=== PATIENT | male | born 1965 | race Caucasian/White ===

== ENCOUNTER 2016-07-24 17:13 | Inpatient (IN) | payer OTHER ==
[2016-07-24] MEDS ORDERED: VANCOMYCIN HCL 1 GM in DEXTROSE 5 % IN WATER 250 ML IV ONE ×2 (19:21)
[2016-07-24] MEDS ORDERED: PIPERACILLIN SODIUM/TAZOBACTAM 3.375 GM in DEXTROSE 5 % IN WATER 100 ML IV ONE ×2 (19:21)
--- NOTE | 2016-07-24 19:36 | ERNOTE ---
Lower Extremity HPI - Narrative Date of Service: 07/24/16 - General Lower Extremities Pain: foot: left - Pain, Swelling, and Increase of Secretions Time Seen by Provider: 07/24/16 19:19 Source: patient, family Exam Limitations: no limitations - Immun/Allergies/Home Medications Immunizations: IMMUNIZATION HX Immunizations Up to Date Yes History of Influenza Vaccine Yes Hx Pneumococcal Vaccination Yes Allergies/Adverse Reactions: Allergies Allergy/AdvReac Type Severity Reaction Status Date / Time propoxyphene napsylate Allergy Mild RASH Verified 05/19/16 14:10 [From [facility] 100] Home Medications: HOME MEDICATIONS Alprazolam [Alprazolam ER] 2 tab PO HS 07/16/16 [Last Taken Unknown] Aripiprazole [Abilify] 0.5 tab PO DAILY 07/16/16 [Last Taken Unknown] Aspirin [Aspirin Enteric Coated] 81 mg PO DAILY 07/16/16 [Last Taken Unknown] Calcium Polycarbophil [Fibercon] 2 tab PO DAILY 07/16/16 [Last Taken Unknown] Citalopram Hydrobromide [Celexa] 40 mg PO DAILY 07/16/16 [Last Taken Unknown] Fenofibrate Nanocrystallized [Tricor] 145 mg PO DAILY 07/16/16 [Last Taken Unknown] Finasteride [Proscar] 5 mg PO DAILY 07/16/16 [Last Taken Unknown] Furosemide [Lasix] 40 mg PO DAILY 07/16/16 [Last Taken Unknown] Gabapentin 400 mg PO TID 07/16/16 [Last Taken Unknown] Gabapentin 800 mg PO TID 07/16/16 [Last Taken Unknown] Insulin Detemir [Levemir] 75 units SQ BID 07/16/16 [Last Taken Unknown] Insulin Lispro [Humalog] See Protocol SQ TID 07/16/16 [Last Taken Unknown] Levothyroxine Sodium [Synthroid] 50 mcg PO DAILY 07/16/16 [Last Taken Unknown] Lisinopril [Zestril] 20 mg PO DAILY 07/16/16 [Last Taken Unknown] Metoprolol Succinate [Toprol Xl] 50 mg PO DAILY 07/16/16 [Last Taken Unknown] Nitroglycerin [Nitrostat] 0.4 mg SL Q5MIN PRN 07/16/16 [Last Taken Unknown] Omeprazole 20 mg PO DAILY 07/16/16 [Last Taken Unknown] Pioglitazone HCl [Actos] 45 mg PO DAILY 07/16/16 [Last Taken Unknown] QUEtiapine FUMARATE [Seroquel] 3 tab PO HS 07/16/16 [Last Taken Unknown] QUEtiapine FUMARATE [Seroquel] 25 mg PO QAM 07/16/16 [Last Taken Unknown] Simvastatin [Zocor] 40 mg PO HS 07/16/16 [Last Taken Unknown] Sitagliptin Phosphate [Januvia] 100 mg PO DAILY 07/16/16 [Last Taken Unknown] Syringe & Needle,Insulin,1 ml [Easy-Touch Insulin Syringe] 0.3 ml MC 07/16/16 [ Last Taken Unknown] Syringe & Needle,Insulin,1 ml [Easy-Touch Insulin Syringe] 0.5 ml 07/16/16 [ Last Taken Unknown] Tamsulosin HCl [Flomax] 0.4 mg PO DAILY 07/16/16 [Last Taken Unknown] - History of Present Illness Narrative: Patient comes due to pain on the L sole area. Patient reported he has a sore that is getting bigger and is having pain on the area. has noticed an increase on secretions. Patient at the moment with no fever reported. Patient has an amputation on the area done at this facility previously. Occurred: other - Since the last 2 weeks is getting worse Location of Incident: home Method of Injury: Reports: other - Patient has been putting pressure on the area Reason for Fall: Reports: other - No Hx of fall reported Loss of Consciousness: Reports: no loss of consciousness Modifying Factors - (Improves): Reports: other - nothing Modifying Factors - (Worsens): Reports: movement, other - Putting pressure on the area Associated Symptoms: Reports: unable to bear weight. Denies: dizzy/light headedness, headache, weakness, sensory loss, chest pain, vomiting/diarrhea, bowel/bladder problems Other Injuries: Reports: none Subsequent Symptoms: Reports: sensory loss Prior Treament: Reports: recently seen - Patient was seen by Wound Care Review of Systems - Review of Systems Constitutional: Present: no symptoms reported EYE: Present: no symptoms reported ENT: Present: no symptoms reported Respiratory: Present: no symptoms reported Cardiology: Present: no symptoms reported Gastrointestinal/Abdominal: Present: no symptoms reported Genitourinary: Present: no symptoms reported Musculoskeletal: Present: other - Patient reported an ulcer on the L sole area of the foot. There is pain, swelling, and redness on the area. An increase on secretions was noticed. Skin: Present: lesions - Patient has open ulcer noticed on the L foot area (sole ) Neurological: Present: no symptoms reported Endocrine: Absent: flushing, intolerance to cold Hematologic/Lymphatic: Present: no symptoms reported Psych: Present: no symptoms reported All Other Systems: All systems neg except as marked - Patient's Past Medical History Patient History - Medical: Diabetes Type 2 Insulin Dependent, Depression, Hypothyroidism, Migraines Patient History - Cardiac/Respiratory: No pertinent hx Patient History - Cancer: No Hx of Cancer Patient History - Surgical Procedures: Amputation, T & A, Other Patient History - Other: None - Family History Father Family History - Medical: , Other Family History - Cardiac/Respiratory: COPD Mother Family History - Medical: , Diabetes Type 2 Uncle Family History - Medical: Alcohol Abuse, Diabetes Type 2 - Social History Living Situations: spouse Abuse History: No History of abuse Psych History: Hx of Depression Does anyone smoke in the home?: No Alcohol Use: rarely Drug Use: none - Immunizations Immunizations Up to Date: Yes Hx Pneumococcal Vaccination: Yes History of Influenza Vaccine: Yes Physical Exam - Physical Exam General Appearance: Present: wd/wn, alert, no apparent distress Eye Exam: Normal inspection: bilateral, PERRL: bilateral, EOMI: bilateral Ears, Nose, Throat: Present: normal ENT inspection, hearing grossly normal, normal pharynx Neck: Present: normal inspection, nontender Respiratory: Present: no respiratory distress, normal breath sounds, no accessory muscle use, chest nontender, lungs clear Cardiovascular/Chest: Present: regular rate, rhythm, no murmur, normal peripheral pulses Gastrointestinal/Abdominal: Present: normal bowel sounds, nontender, nondistended, soft, no organomegaly Back Exam: Present: normal inspection, normal range of motion, no CVA tenderness , no vertebral tenderness Extremity Exam: Present: pelvis stable, other - Patient has a grade 3 ulcer on the L sole of the foot. There is a strong smelling secretion noticed. On palaption drainage was noticed to come out of the foot. Patient has an associated area of erythema and pain on palpation. No crepitus was noticed on evaluation. No FB was felt on palpation. Absent: calf tenderness Neurological Exam: Present: alert, oriented, normal mood/affect, no motor/ sensory deficits Skin Exam: Present: other - Gread 3 ulcere at the sole of the L foot. Associated erythema noticed on the area.. Absent: diaphoresis, cyanosis, jaundice, skin rash Lymphatic Exam: Present: no adenopathy ED Progress - Date and Time Seen: Date and Time: 07/24/16 20:09 Patient with an infected non healing ulcer that failed out-patient Tx. - Results and Orders Patient's Lab Results:: I have reviewed the patient's lab results. Results and Orders: CBC: Noticed CMP: Noticed LA: Ordered BC: Ordered Sed Rate: Ordered - Vital Signs Patient's Vital Signs:: I have reviewed the patient's vital signs. Vital Signs: Vital Signs 07/24/16 17:43 Temperature 36.1 C L Pulse Rate 81 Respiratory 16 Rate Blood Pressure 128/66 O2 Sat by Pulse 96 Oximetry - X-Ray X-Ray #1 X-Ray: foot - L Foot: There are tracks noticed on the ulcer with soft tissue swelling. No FB found - Progress/Reassessment Chief Complaint: Lower Extremity Pain/ Injury Progress:: Unchanged - Transfer of Care Brief History: Patient comes due to pain, swelling, redness, and increase on secretion coming out of an ulcer on the sole of his L foot. Patient has Hx of a previous amputation done at [facility] previously. Patient has been seen at Wound Care and antibiotics has not improve his condition. Pending Results: Labs, X-ray results Expected Disposition: Admit Departure Clinical Impression: Infected pressure ulcer Qualifiers: Pressure ulcer stage: stage 3 Qualified Code(s): L89.93 - Pressure ulcer of unspecified site, stage 3 - Departure Disposition: [facility] Condition: Fair Referrals: Tai Max MD [Primary Care Provider] -
--- OUTSIDE RECORDS SUMMARY | 2016-07-24 19:38 | XMS REPORT | Continuity of Care Document ---
:1965 Author Organization [facility] ([facility]) [place] [address] Phone [phone] Care Team Providers Name Role Phone VitoAdelina Primary Care Provider [phone] Source Comments This disclosure is being made pursuant to the Care Everywhere program, applicable federal and state laws, and may not contain all informaitonavailable regarding this patient.[facility] ([facility]) Active Allergies and Adverse Reactions Allergen Noted Date Severity Reactions Comments Propoxyphene N-Acetaminophen 03/02/2012 Urticaria (Hives) Current Medications Prescription Sig. Disp. Refills Start Date End Date Status aspirin 81 mg tablet Take 81 mg by mouth Active daily. nitroglycerin 0.[address] 0.4 mg under the Active SL tablet tongue every 5 minutes as needed. enalapril 5 mg Take 1 Tab by mouth 30 Tab 5 03/02/2012 Active tablet daily. Indications: DIABETIC NEPHROPATHY, HYPERTENSION metFORMIN 500 mg Take 2 Tabs by mouth 2 120 Tab 5 05/30/2012 Active tablet times daily with meals. Hold until 06/04 when labs will be checked Indications: TYPE 2 DIABETES MELLITUS gabapentin 300 mg Take 2 Caps by mouth 3 180 Cap 5 06/04/2012 Active capsule times daily. Indications: NEUROPATHIC PAIN atorvastatin Take 1 Tab by mouth 30 Tab 1 10/12/2012 Active (LIPITOR) 10 mg every evening. tablet Indications: MIXED HYPERLIPIDEMIA glipiZIDE 5 mg Take 1 Tab by mouth 2 60 Tab 1 10/12/2012 Active tablet times daily with meals. Indications: TYPE 2 DIABETES MELLITUS omeprazole 40 mg Take 1 Cap by mouth 2 60 Cap 1 10/12/2012 Active extended release times daily. capsule Indications: GASTROESOPHAGEAL REFLUX sucralfate 1000 mg Take 1 Tab by mouth 4 120 Tab 1 10/12/2012 Active tablet times daily. 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 03/02/2012 Essential hypertension, benign 03/02/2012 Mixed hyperlipidemia 03/02/2012 Chest pain 03/02/2012 Health education/counseling 03/02/2012 Resolved Problems Problem Noted Date Resolved Date Type II or unspecified type diabetes mellitus without 03/02/2012 05/30/2012 mention of complication, uncontrolled Immunizations Name Dates Previously Given Next Due Influenza, PF 03/02/2012 Tdap 03/02/2012 Social History Tobacco Use Types Packs/Day Years Used Date Never Smoker Smokeless Tobacco: Never Used Comments:has a cigar once every 3 years Alcohol Use Drinks/Week oz/Week Comments No Last Filed Vital Signs Vital Sign Reading Time Taken Blood Pressure 164/90 06/04/2012 8:25 AM [employer] Pulse 94 06/04/2012 8:25 AM [employer] Temperature 35.8 C (96.4 F) 06/04/2012 8:25 AM [employer] Respiratory Rate - - Height 1.702 m (5' 7") 06/04/2012 8:25 AM [employer] Weight 95.709 kg (211 lb) 06/04/2012 8:25 AM [employer] Body Mass Index 33.04 06/04/2012 8:25 AM [employer] Oxygen Saturation 96% 05/30/2012 11:20 AM [employer] Plan of Care Patient Goal Type Goal Weight Weight below 91 kg (200 lb) Result Component % HBA1C below 7.0 Health Maintenance Due Date Last Done Comments HCV Screening 1965 Hepatitis B Vaccine (1 of 3 - Primary 1965 Series) MMR Vaccine 1982 Pneumococcal Vaccine (1 of 1 - PPSV23) 1983 DIABETIC: Retinal Eye Exam 03/02/2012 DIABETIC: Hemoglobin A1C 12/02/2012 06/04/2012, 03/02/2012 DIABETIC: Foot Exam 03/02/2013 03/02/2012, 03/02/2012 DIABETIC: Microalbumin 03/02/2013 03/02/2012 DIABETIC: Cholesterol 06/04/2013 06/04/2012, 03/02/2012 Diabetic: Hdl 06/04/2013 06/04/2012, 03/02/2012 Diabetic: Ldl 06/04/2013 06/04/2012, 03/02/2012 DIABETIC: Triglycerides 06/04/2013 06/04/2012, 03/02/2012 Colonoscopy 2014 Prostate Cancer Screening 2014 Influenza Vaccine: Seasonal (#1) 12/31/2015 03/02/2012 Td Vaccine 03/02/2022 03/02/2012 Tdap Vaccine Completed 03/02/2012 Results from Last 3 Months Not on file
[2016-07-24 19:45] LABS: Hematocrit 35.1 % (42.0-52.0); Hemoglobin 10.6 gm/dL (13.5-18.0); Mean Cell Volume 86.2 fl (78-100); Mean Corpuscular Hgb Conc 30.2 g/dl (32-36); Mean Platelet Volume 9.6 fl (6.0-9.5); Neutrophil # 3.1 K/mm3 (1.3-6.0); Neutrophil % 64.5 % (42-75.0); Platelet Count 145 K/mm3 (150-450); Red Blood Count 4.07 M/mm3 (4.7-6.0); Red Cell Distribution Width 15.6 % (11.5-14.0); White Blood Count 4.9 K/mm3 (4.0-10.5)
[2016-07-24] MEDS: NORMAL SALINE 1,000 ML IV SCH ×2 (19:59→23:55)
[2016-07-24 20:02] LABS: Albumin * 3.6 gm/dl (3.4-5.0); Anion Gap 11.8 mmol/L (6.8-13.8); BUN/Creatinine Ratio 16.5 (9.0-21.6); Bilirubin, Total 0.2 mg/dL (0.0-1.1); Ca. Corrected For Albumin 8.4 mg/dL (8.4-10.2); Calcium * 8.4 mg/dL (7.9-10.9); Carbon Dioxide 29.4 mmol/L (24-32.6); Potassium 4.2 mmol/L (3.4-4.6); Total Protein 7.2 gm/dL (6.2-8.2)
--- OUTSIDE RECORDS SUMMARY | 2016-07-24 20:12 | XMS REPORT | Continuity of Care Document ---
:1965 Author Organization [facility] ([facility]) [place] [address] Phone [phone] Care Team Providers Name Role Phone VitoAdelina Primary Care Provider [phone] Source Comments This disclosure is being made pursuant to the Care Everywhere program, applicable federal and state laws, and may not contain all informaitonavailable regarding this patient.[facility] ([facility]) Active Allergies and Adverse Reactions Allergen [...] Taken Blood Pressure 164/90 06/04/2012 8:25 AM [employer] Pulse 94 06/04/2012 8:25 AM [employer] Temperature 35.8 C (96.4 F) 06/04/2012 8:25 AM [employer] Respiratory Rate - - Height 1.702 m (5' 7") 06/04/2012 8:25 AM [employer] Weight 95.709 kg (211 lb) 06/04/2012 8:25 AM [employer] Body Mass Index 33.04 06/04/2012 8:25 AM [employer] Oxygen Saturation 96% 05/30/2012 11:20 AM [employer] Plan of Care Patient Goal Type Goal [...]
--- NOTE | 2016-07-24 21:33 | HP ---
<Maryjo Balderas - Last Filed: 07/25/16 05:47> Chief Complaint - Chief Complaint Date of Service: 07/24/16 Time of Service: 21:31 Chief Complaint: "Pain on LT foot stump, non healing wound/ulcer". Source of HPI- Pt reliable, ER provider report. Pt's EMR. History of Present Illness: Mr. Reid is a 51-yr-old WM pt of Dr. Max with a PMH of: Arthalgia, Depression, DM II, GERD, HLD, Neuropathy & Osteomyelitis. Pt has a chronic non- healing wound/ulceration on his LT foot stump and is being followed by Podiatry and also the [facility]ound [facility] for the cares. Pt reports that he has had the wound for about 9 months. Today, he says, he had increasing pain on wound site on the stump of LT foot. He called Podiatry and he was advised to come to [facility] ER. He denies fevers or chills. He denies noting any redness of the extremity, hotness or increasing drainage. Off-note, he has been noted to be non compliant with the cares of his wound. Reports show that he has continued to walk around his house without the boot on, hence putting more pressure on the amputation site as well as the ulceration. He was also not changing the dressings on his foot as advised. [facility]. During evaluation at the ED, the CBC was unremarkable. His CR was mildly elevated at 1.88. The X-ray film did not show any signs of osteomyelitis, however an early case could not be excluded with this imaging. He will be admitted under observation status as constant localized pain over area of infection is a common finding in OM and is considered a hallmark symptom. - Patient's Past Medical History Patient History - Medical: Diabetes Type 2 Insulin Dependent, Depression, GERD, Hypothyroidism, Migraines, Other - Neuropathy, Patient History - Cardiac/Respiratory: No pertinent hx, Hypertension, Hyperlipidemia Patient History - Cancer: No Hx of Cancer Patient History - Surgical Procedures: Amputation, T & A, Other Patient History - Other: None - Family History Father Family History - Medical: , Other - Liver Failure. Family History - Cardiac/Respiratory: COPD Mother Family History - Medical: , Diabetes Type 2 Uncle Family History - Medical: Alcohol Abuse, Diabetes Type 2 - Social History Living Situations: spouse Abuse History: No History of abuse Psych History: Hx of Depression Does anyone smoke in the home?: No Alcohol Use: rarely Drug Use: none - Immunizations Immunizations Up to Date: Yes Hx Pneumococcal Vaccination: Yes History of Influenza Vaccine: Yes Review Of Systems (GEN) - Review of Systems Generalized/Overall Review: Absent: Weakness, Chills, Fever EENTM: Absent: Eye Pain, Blurred Vision, Nose Congestion, Throat Pain Respiratory: Absent: Cough, Shortness of Breath, Orthopnea, Wheezing Cardiac: Absent: Chest Pain, Edema, Palpitations Abdominal: Absent: Nausea, Vomiting, Abdominal Pain Genitourinary: Present: Urgency. Absent: Burning, Itching Musculoskeletal: Absent: Joint Pain, Back Pain, Muscle Pain Neurological: Absent: Headache, Anxiety, Weakness Skin: Absent: Dryness, Lesions, Bruising Endocrine: Absent: Intolerance to Cold, Intolerance to Heat, Increased Thirst Immunizations: IMMUNIZATION HX Immunizations Up to Date Yes History of Influenza Vaccine Yes Hx Pneumococcal Vaccination Yes Allergies/Adverse Reactions: Allergies Allergy/AdvReac Type Severity Reaction Status Date / Time propoxyphene napsylate Allergy Mild RASH Verified 07/24/16 22:25 [From Darvocet-N 100] Home Medications: HOME MEDICATIONS Alprazolam [Alprazolam ER] 2 tab PO HS 07/16/16 [Last Taken Unknown] Aripiprazole [Abilify] 0.5 tab PO DAILY 07/16/16 [Last Taken Unknown] Aspirin [Aspirin Enteric Coated] 81 mg PO DAILY 07/16/16 [Last Taken Unknown] Calcium Polycarbophil [Fibercon] 2 tab PO BID 07/16/16 [Last Taken Unknown] Citalopram Hydrobromide [Celexa] 40 mg PO HS 07/16/16 [Last Taken Unknown] Fenofibrate Nanocrystallized [Tricor] 145 mg PO DAILY 07/16/16 [Last Taken Unknown] Finasteride [Proscar] 5 mg PO DAILY 07/16/16 [Last Taken Unknown] Furosemide [Lasix] 40 mg PO DAILY 07/16/16 [Last Taken Unknown] Gabapentin 800 mg PO TID 07/16/16 [Last Taken Unknown] Insulin Detemir [Levemir] 75 units SQ BID 07/16/16 [Last Taken Unknown] Insulin Lispro [Humalog] See Protocol SQ TID 07/16/16 [Last Taken Unknown] Levothyroxine Sodium [Synthroid] 50 mcg PO DAILY 07/16/16 [Last Taken Unknown] Lisinopril [Zestril] 20 mg PO DAILY 07/16/16 [Last Taken Unknown] Metoprolol Succinate [Toprol Xl] 50 mg PO DAILY 07/16/16 [Last Taken Unknown] Nitroglycerin [Nitrostat] 0.4 mg SL Q5MIN PRN 07/16/16 [Last Taken Unknown] Omeprazole 20 mg PO DAILY 07/16/16 [Last Taken Unknown] Pioglitazone HCl [Actos] 45 mg PO DAILY 07/16/16 [Last Taken Unknown] QUEtiapine FUMARATE [Seroquel] 3 tab PO HS 07/16/16 [Last Taken Unknown] QUEtiapine FUMARATE [Seroquel] 25 mg PO QAM 07/16/16 [Last Taken Unknown] Simvastatin [Zocor] 40 mg PO HS 07/16/16 [Last Taken Unknown] Sitagliptin Phosphate [Januvia] 100 mg PO DAILY 07/16/16 [Last Taken Unknown] Tamsulosin HCl [Flomax] 0.4 mg PO DAILY 07/16/16 [Last Taken Unknown] Disulfiram [Antabuse] 500 mg PO TID 07/24/16 [Last Taken Unknown] Exam - Exam Vital Signs: Vital Signs - Last Taken Temp 36.1 C L 07/24/16 17:43 Pulse 81 07/24/16 17:43 Resp 16 07/24/16 17:43 BP 128/66 07/24/16 17:43 Pulse Ox 96 07/24/16 17:43 Constitutional: Present: Alert, Oriented x3, No distress ENT Exam: Present: normal ENT inspection, hearing grossly normal, TMs normal. Absent: nasal congestion, nasal drainage Eye Exam: bilateral eye: normal inspection, PERRL Neck: Present: full range of motion, supple, normal inspection Back Exam: Present: no CVA tenderness Breasts: Present: Exam deferred Respiratory: Present: lungs clear, no accessory muscle use, No wheezing Cardiovascular/Chest: Present: regular rate, rhythm, no chest tenderness, no murmur Abdomen: Present: Normal bowel sounds, nontender, obese, firm /Rectal: Present: Exam deferred Extremity: Present: no pedal edema, other - Amputated LT foot Skin Exam: Present: no cyanosis, cool/dry, other - Non healing quarter size pressure sore on LT foot stump which is redenned, with mild yellowish drainage. No errythema or hotness on sorrounding skin area. Neurologic: Present: no motor/sensory deficits, alert, oriented x 3 Appearance: Present: appropriate appearance, appropriate insight Eye contact: Present: cooperative, good eye contact, normal speech Thoughts: Present: normal thought pattern, no apparent hallucination Diagnostic Studies: Abnormal Lab Results 07/24/16 07/24/16 Range/Units Unknown Unknown ESR 24 H (0-10) mm/hr Procalcitonin Less than 0.05 L (0.05-0.50) ng/mL Laboratory Results WBC 4.9 K/mm3 (4.0-10.5) 07/24/16 19:37 RBC 4.07 M/mm3 (4.7-6.0) L 07/24/16 19:37 Hgb 10.6 gm/dL (13.5-18.0) L 07/24/16 19:37 Hct 35.1 % (42.0-52.0) L 07/24/16 19:37 MCV 86.2 fl (78-100) 07/24/16 19:37 MCH 26.0 pg (27-31) L 07/24/16 19:37 MCHC 30.2 g/dl (32-36) L 07/24/16 19:37 RDW 15.6 % (11.5-14.0) H 07/24/16 19:37 Plt Count 145 K/mm3 (150-450) L 07/24/16 19:37 MPV 9.6 fl (6.0-9.5) H 07/24/16 19:37 Immature Gran % (Auto) 0.80 % (0.001-0.429) H 07/24/16 19:37 Immature Gran # (Auto) 0.04 K/mm3 (0.000-0.0310) H 07/24/16 19:37 Neutrophils % 64.5 % (42-75.0) 07/24/16 19:37 Lymphocytes % 26.1 % (20-51) 07/24/16 19:37 Monocytes % 5.3 % (0.0-9) 07/24/16 19:37 Eosinophils % 2.7 % (0.0-3.0) 07/24/16 19:37 Basophils % 0.6 % (0.0-1.0) 07/24/16 19:37 Nucleated RBC % 0.0 k/mm3 (0-1) 07/24/16 19:37 Neutrophils # 3.1 K/mm3 (1.3-6.0) 07/24/16 19:37 Lymphocytes # 1.3 k/mm3 (1.5-3.5) L 07/24/16 19:37 Monocytes # 0.3 k/mm3 (0.0-1.0) 07/24/16 19:37 Eosinophils # 0.1 k/mm3 (0.0-0.7) 07/24/16 19:37 Absolute Basophils 0.0 k/mm3 (0.0-0.1) 07/24/16 19:37 ESR 24 mm/hr (0-10) H 07/24/16 Unknown Sodium 143 mmol/L (132-142) H 07/24/16 19:37 Plasma Sodium 144 mmol/L (130-142) H 07/24/16 19:37 Potassium 4.2 mmol/L (3.4-4.6) 07/24/16 19:37 Chloride 106 mmol/L (97-106) 07/24/16 19:37 Carbon Dioxide 29.4 mmol/L (24-32.6) 07/24/16 19:37 Anion Gap 11.8 mmol/L (6.8-13.8) 07/24/16 19:37 BUN 31 mg/dL (6-23) H 07/24/16 19:37 Creatinine 1.88 mg/dL (0.4-1.4) H 07/24/16 19:37 Est GFR (Non-Af Amer) 40 mL/min (60-130) L 07/24/16 19:37 BUN/Creatinine Ratio 16.5 (9.0-21.6) 07/24/16 19:37 Random Glucose 168 mg/dL (70-110) H 07/24/16 19:37 Lactic Acid, Venous 0.8 mmol/L (0.4-2.0) 07/24/16 19:37 Calcium 8.4 mg/dL (7.9-10.9) 07/24/16 19:37 Calcium Adj for Albumin 8.4 mg/dL (8.4-10.2) 07/24/16 19:37 Total Bilirubin 0.2 mg/dL (0.0-1.1) 07/24/16 19:37 AST 16 U/L (0-48) 07/24/16 19:37 ALT 16 U/L (19-67) L 07/24/16 19:37 Alkaline Phosphatase 31 U/L (50-170) L 07/24/16 19:37 Total Protein 7.2 gm/dL (6.2-8.2) 07/24/16 19:37 Albumin 3.6 gm/dl (3.4-5.0) 07/24/16 19:37 Procalcitonin Less than 0.05 ng/mL (0.05-0.50) L 07/24/16 Unknown Assessment/Plan - Assessment/Plan (1) Osteomyelitis Assessment: Mr. Reid has a non- healing wound/ulcer on stump of LT foot and he presented to the ED with localized pain over the wound. The wound site does not seem to have signs of infection or cellulitis : no foul drainage, redness, or hotness and WBC was in NR. Therefore, antibiotics may be unnecessary at this time. Consider stopping Vanco and Zosyn as we wait for wound culture results or if OM is confirmed with MRI imaging. The X-ray of the ankle done at the ED tonight did not show any signs of Osteomyeltis, but an early case cannot be excluded with this imaging. So he may require MRI of the extremity. It must be noted that he previously had an MRI of that extremity on 07/07/16 and the results showed minimal marrow edema which could be indicative of reactive marrow edema or early Osteomyelitis. ESR was elevated at 24. Will check CRP. Consider obtaining MRI of the extremity tomorrow. Will consult Podiatry in am about pt's admission and any further recommendation. Problem: Suspected (2) Acute on chronic kidney failure Assessment: Mildly elevated Cr- 1.88. Will hydrate with IVF, BMP in am. Problem: Acute (3) History of non-healing wound Assessment: [facility] on [facility]/c Problem: Chronic (4) Diabetes mellitus Assessment: Stable- Accu checks and SSI & Levemir. Problem: Chronic QualifierTitle: Diabetes mellitus type: type 2 (5) HTN (hypertension) Assessment: Stable- Lisinopril & Metoprolol. Problem: Chronic QualifierTitle: Hypertension type: essential hypertension Qualified Code( s): I10 - Essential (primary) hypertension (6) GERD (gastroesophageal reflux disease) Assessment: Stable- Omeprazole. Problem: Chronic (7) Hyperlipidemia Problem: Chronic (8) Depression Problem: Chronic <Tai Max - Last Filed: 07/25/16 12:51> Immunizations: IMMUNIZATION HX Immunizations Up to Date Yes History of Influenza Vaccine Yes Hx Pneumococcal Vaccination Yes Exam - Exam Vital Signs: Vital Signs - Last Taken Temp 37 C 07/25/16 07:54 Pulse 68 07/25/16 08:18 Resp 20 07/25/16 07:54 BP 110/56 07/25/16 08:18 Pulse Ox 98 07/25/16 07:54 Diagnostic Studies: Abnormal Lab Results 07/24/16 07/24/16 07/25/16 Range/Units Unknown Unknown 05:48 ESR 24 H (0-10) mm/hr Chloride 108 H (97-106) mmol/L BUN 31 H (6-23) mg/dL Creatinine 1.66 H (0.4-1.4) mg/dL Est GFR (Non-Af Amer) 46 L (60-130) mL/min Random Glucose 133 H (70-110) mg/dL Calcium 7.7 L (7.9-10.9) mg/dL Procalcitonin Less than 0.05 L (0.05-0.50) ng/mL Laboratory Results WBC 4.9 K/mm3 (4.0-10.5) 07/24/16 19:37 RBC 4.07 M/mm3 (4.7-6.0) L 07/24/16 19:37 Hgb 10.6 gm/dL (13.5-18.0) L 07/24/16 19:37 Hct 35.1 % (42.0-52.0) L 07/24/16 19:37 MCV 86.2 fl (78-100) 07/24/16 19:37 MCH 26.0 pg (27-31) L 07/24/16 19:37 MCHC 30.2 g/dl (32-36) L 07/24/16 19:37 RDW 15.6 % (11.5-14.0) H 07/24/16 19:37 Plt Count 145 K/mm3 (150-450) L 07/24/16 19:37 MPV 9.6 fl (6.0-9.5) H 07/24/16 19:37 Immature Gran % (Auto) 0.80 % (0.001-0.429) H 07/24/16 19:37 Immature Gran # (Auto) 0.04 K/mm3 (0.000-0.0310) H 07/24/16 19:37 Neutrophils % 64.5 % (42-75.0) 07/24/16 19:37 Lymphocytes % 26.1 % (20-51) 07/24/16 19:37 Monocytes % 5.3 % (0.0-9) 07/24/16 19:37 Eosinophils % 2.7 % (0.0-3.0) 07/24/16 19:37 Basophils % 0.6 % (0.0-1.0) 07/24/16 19:37 Nucleated RBC % 0.0 k/mm3 (0-1) 07/24/16 19:37 Neutrophils # 3.1 K/mm3 (1.3-6.0) 07/24/16 19:37 Lymphocytes # 1.3 k/mm3 (1.5-3.5) L 07/24/16 19:37 Monocytes # 0.3 k/mm3 (0.0-1.0) 07/24/16 19:37 Eosinophils # 0.1 k/mm3 (0.0-0.7) 07/24/16 19:37 Absolute Basophils 0.0 k/mm3 (0.0-0.1) 07/24/16 19:37 ESR 24 mm/hr (0-10) H 07/24/16 Unknown Sodium 141 mmol/L (132-142) 07/25/16 05:48 Plasma Sodium 142 mmol/L (130-142) 07/25/16 05:48 Potassium 4.0 mmol/L (3.4-4.6) 07/25/16 05:48 Chloride 108 mmol/L (97-106) H 07/25/16 05:48 Carbon Dioxide 27.8 mmol/L (24-32.6) 07/25/16 05:48 Anion Gap 9.2 mmol/L (6.8-13.8) 07/25/16 05:48 BUN 31 mg/dL (6-23) H 07/25/16 05:48 Creatinine 1.66 mg/dL (0.4-1.4) H 07/25/16 05:48 Est GFR (Non-Af Amer) 46 mL/min (60-130) L 07/25/16 05:48 BUN/Creatinine Ratio 18.7 (9.0-21.6) 07/25/16 05:48 Random Glucose 133 mg/dL (70-110) H 07/25/16 05:48 Lactic Acid, Venous 0.8 mmol/L (0.4-2.0) 07/24/16 19:37 Calcium 7.7 mg/dL (7.9-10.9) L 07/25/16 05:48 Calcium Adj for Albumin 8.4 mg/dL (8.4-10.2) 07/24/16 19:37 Total Bilirubin 0.2 mg/dL (0.0-1.1) 07/24/16 19:37 AST 16 U/L (0-48) 07/24/16 19:37 ALT 16 U/L (19-67) L 07/24/16 19:37 Alkaline Phosphatase 31 U/L (50-170) L 07/24/16 19:37 Total Protein 7.2 gm/dL (6.2-8.2) 07/24/16 19:37 Albumin 3.6 gm/dl (3.4-5.0) 07/24/16 19:37 Procalcitonin Less than 0.05 ng/mL (0.05-0.50) L 07/24/16 Unknown Assessment/Plan - Narrative Narrative: Record reviewed. Patient examined. Wound looking good today. Podiatry consult pending. Follow labs. Continue IV antibiotics. I personally supervised all of Maryjo Balderas's care for this patient.
[2016-07-24] MEDS ORDERED: NITROGLYCERIN 0.4 MG/TAB BTL SL PRN (22:31)
[2016-07-24] MEDS: INSULIN DETEMIR 100 UNITS/ML VIAL SC SCH (23:58)
[2016-07-25] MEDS: GABAPENTIN 400 MG CAPSULE PO SCH ×4 (00:01→16:51)
[2016-07-25] MEDS: CITALOPRAM HYDROBROMIDE 20 MG TABLET PO SCH ×2 (00:01→20:13)
[2016-07-25] MEDS: QUEtiapine FUMARATE 25 MG TABLET PO SCH ×3 (00:01→20:17)
[2016-07-25 06:15] LABS: Anion Gap 9.2 mmol/L (6.8-13.8); BUN/Creatinine Ratio 18.7 (9.0-21.6); Calcium * 7.7 mg/dL (7.9-10.9); Carbon Dioxide 27.8 mmol/L (24-32.6); Estimated Creat Clear 50.4
[2016-07-25] MEDS: NORMAL SALINE 1,000 ML IV SCH ×3 (06:45→22:18)
[2016-07-25] MEDS: PANTOPRAZOLE SODIUM 20 MG TABLET.DR PO SCH (06:46)
[2016-07-25] MEDS: FUROSEMIDE 40 MG TABLET PO SCH (08:12)
[2016-07-25] MEDS: ARIPiprazole 10 MG TABLET PO SCH (08:12)
[2016-07-25] MEDS: PIOGLITAZONE HCL 15 MG TABLET PO SCH (08:12)
[2016-07-25] MEDS: sitaGLIPtin PHOSPHATE 50 MG TABLET PO SCH (08:13)
[2016-07-25] MEDS: INSULIN LISPRO 100 UNITS/ML VIAL SC SCH ×3 (08:13→16:51)
[2016-07-25] MEDS: INSULIN DETEMIR 100 UNITS/ML VIAL SC SCH ×2 (08:13→21:41)
[2016-07-25] MEDS: ASPIRIN 81 MG TABLET.DR PO SCH (08:13)
[2016-07-25] MEDS: CALCIUM POLYCARBOPHIL 625 MG TABLET PO SCH ×3 (08:13→20:16)
[2016-07-25] MEDS: FENOFIBRATE,MICRONIZED 134 MG CAPSULE PO SCH (08:14)
[2016-07-25] MEDS: LEVOTHYROXINE SODIUM 50 MCG TABLET PO SCH (08:14)
[2016-07-25] MEDS: FINASTERIDE 5 MG TABLET PO SCH (08:14)
[2016-07-25] MEDS: METOPROLOL SUCCINATE 50 MG TABLET.SA PO SCH (08:18)
[2016-07-25] MEDS: LISINOPRIL 20 MG TABLET PO SCH (08:18)
[2016-07-25] MEDS ORDERED: TAMSULOSIN HCL 0.4 MG CAP.SR.24H PO SCH (09:00)
[2016-07-25] MEDS: ENOXAPARIN SODIUM 40 MG/0.4 ML SYRG SC SCH (11:18)
--- NOTE | 2016-07-25 13:16 | PN ---
Subjective - Date and Time Seen Date: 07/25/16 Time: 07:10 Subjective Narrative: No fever, chills or sweats. Good appetite. Pain well enough controlled Objective - Review of Systems Generalized/Overall Review: Reports: No Symptoms Reported EENTM: Reports: No Symptoms Reported Respiratory: Reports: No Symptoms Reported Cardiac: Reports: No Symptoms Reported Abdominal: Reports: No Symptoms Reported Genitourinary Symptoms: Reports: No Symptoms Reported Musculoskeletal Complaints: Reports: No Symptoms Reported Neurological: Reports: No Symptoms Reported Skin: Reports: Other - see HPI Endocrine: Reports: No Symptoms Reported Misc: All systems neg except as marked - Vitals Vitals: Last Vital Signs Selected Entries 07/25/16 06:55 Temperature 36.6 C Temperature Oral Source Pulse Rate 68 Respiratory 20 Rate Blood Pressure 127/48 O2 Sat by Pulse 98 Oximetry Oxygen Delivery Room Air Method - Abnormal Lab Findings Abnormal Lab Findings: Abnormal Lab Results 07/24/16 07/24/16 07/25/16 Range/Units Unknown Unknown 05:48 ESR 24 H (0-10) mm/hr Chloride 108 H (97-106) mmol/L BUN 31 H (6-23) mg/dL Creatinine 1.66 H (0.4-1.4) mg/dL Est GFR (Non-Af Amer) 46 L (60-130) mL/min Random Glucose 133 H (70-110) mg/dL Calcium 7.7 L (7.9-10.9) mg/dL Procalcitonin Less than 0.05 L (0.05-0.50) ng/mL - Exam Constitutional: Present: Alert, Oriented x3, Cooperative, Well developed, No distress, Obese ENT Exam: Present: normal ENT inspection, hearing grossly normal, pharynx normal Neck: Present: normal inspection Respiratory: Present: lungs clear, no respiratory distress Cardiovascular/Chest: Present: regular rate, rhythm, no murmur Abdomen: Present: Normal bowel sounds, soft, nontender, nondistended, no rebound tenderness, no hepatospenomegaly, no masses Extremity: Present: other - open wound leg stump, stage 2. surrounding pink skin, no drainage. Neurologic: Present: alert, oriented x 3 Appearance: Present: appropriate appearance, neat Eye contact: Present: cooperative, good eye contact, normal speech Assessment/Plan Plan Narrative: IV antibiotics. Follow labs. Podiatry consult. - Problems/Diagnosis (1) Infected pressure ulcer Problem: Chronic Qualifiers: Pressure ulcer stage: stage 2 Qualified Code(s): L89.92 - Pressure ulcer of unspecified site, stage 2 (2) Diabetes mellitus Problem: Chronic Qualifiers: Diabetes mellitus type: type 2 (3) HTN (hypertension) Problem: Chronic Qualifiers: Hypertension type: essential hypertension Qualified Code(s): I10 - Essential (primary) hypertension (4) History of non-healing wound Problem: Chronic (5) Charcot foot due to diabetes mellitus Problem: Chronic (6) Diabetic peripheral neuropathy Problem: Chronic (7) Hyperlipidemia Problem: Chronic (8) Hypertension Problem: Chronic
[2016-07-25] MEDS: PIPERACILLIN SODIUM/TAZOBACTAM 3.375 GM in DEXTROSE 5 % IN WATER 100 ML IV SCH ×4 (14:14→20:39)
--- NOTE | 2016-07-25 16:05 | CONS ---
- Reason for consultation (1) Infected pressure ulcer Date of Service: 07/25/16 (2) Foot pain, left Date of Service: 07/25/16 (3) Osteomyelitis Date of Service: 07/25/16 HPI - General Date of Service: 07/25/16 Source: patient Exam Limitations: no limitations - History of Present Illness Initial Comments: Pt called to my office yesterday with c/o 2 day h/o pain to his left foot. 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 He not been compliant with weight bearing status of this foot and continues to walk without his boot around his house despite strict instructions of minimal weight bearing in CAM boot with crutch assist. He has been instructed on daily dressing changes and states that they are being changed as instructed. He states that 2 days ago, while sitting at his computer, his foot began to ache. He elevated the foot and states that the pain improved. The next day the pain returned and he has not been able to control it. He was instructed by my nursing staff to go to the ER as pain in an otherwise insensate foot is not a good sign. He was admitted for further care. Timing/Duration: getting worse Severity: moderate Modifying Factors - (Worsens): Reports: movement Modifying Factors - (Improves): Reports: rest Associated Symptoms: denies symptoms Allergies/Adverse Reactions: Allergies propoxyphene napsylate [From Darvocet-N 100] Allergy (Mild, Verified 07/24/16 22 :25) RASH Home Medications: Home Medications Medication Instructions Recorded Last Taken Alprazolam [Alprazolam ER] 2 tab PO HS 07/16/16 Unknown Aripiprazole [Abilify] 0.5 tab PO DAILY 07/16/16 Unknown Aspirin [Aspirin Enteric Coated] 81 mg PO DAILY 07/16/16 Unknown Calcium Polycarbophil [Fibercon] 2 tab PO BID 07/16/16 Unknown Citalopram Hydrobromide [Celexa] 40 mg PO HS 07/16/16 Unknown Fenofibrate Nanocrystallized 145 mg PO DAILY 07/16/16 Unknown [Tricor] Finasteride [Proscar] 5 mg PO DAILY 07/16/16 Unknown Furosemide [Lasix] 40 mg PO DAILY 07/16/16 Unknown Gabapentin 800 mg PO TID 07/16/16 Unknown Insulin Detemir [Levemir] 75 units SQ BID 07/16/16 Unknown Insulin Lispro [Humalog] See Protocol SQ TID 07/16/16 Unknown Levothyroxine Sodium [Synthroid] 50 mcg PO DAILY 07/16/16 Unknown Lisinopril [Zestril] 20 mg PO DAILY 07/16/16 Unknown Metoprolol Succinate [Toprol Xl] 50 mg PO DAILY 07/16/16 Unknown Nitroglycerin [Nitrostat] 0.4 mg SL Q5MIN PRN 07/16/16 Unknown Omeprazole 20 mg PO DAILY 07/16/16 Unknown Pioglitazone HCl [Actos] 45 mg PO DAILY 07/16/16 Unknown QUEtiapine FUMARATE [Seroquel] 3 tab PO HS 07/16/16 Unknown QUEtiapine FUMARATE [Seroquel] 25 mg PO QAM 07/16/16 Unknown Simvastatin [Zocor] 40 mg PO HS 07/16/16 Unknown Sitagliptin Phosphate [Januvia] 100 mg PO DAILY 07/16/16 Unknown Tamsulosin HCl [Flomax] 0.4 mg PO DAILY 07/16/16 Unknown Disulfiram [Antabuse] 500 mg PO TID 07/24/16 Unknown - Patient's Past Medical History Patient History - Medical: Diabetes Type 2 Insulin Dependent, Depression, GERD, Hypothyroidism, Migraines, Other - Neuropathy, Patient History - Cardiac/Respiratory: No pertinent hx, Hypertension, Hyperlipidemia Patient History - Cancer: No Hx of Cancer Patient History - Surgical Procedures: Amputation, T & A, Other Patient History - Other: None - Family History Father Family History - Medical: , Other - Liver Failure. Family History - Cardiac/Respiratory: COPD Mother Family History - Medical: , Diabetes Type 2 Family History - Cardiac/Respiratory: CHF Uncle Family History - Medical: Alcohol Abuse, Diabetes Type 2 - Social History Living Situations: spouse Abuse History: No History of abuse Psych History: Hx of Depression Does anyone smoke in the home?: No Smoking Status: Former smoker Have you smoked in the past 12 months: No Do you dip or chew tobacco: No Patient requests Smoking Cessation Consult: No Initiate information on Smoking Cessation: No Alcohol Use: rarely Drug Use: none - Immunizations Immunizations Up to Date: Yes Hx Pneumococcal Vaccination: Yes History of Influenza Vaccine: Yes Procedures AMPUTATION THROUGH FOOT (11/07/14) BUNIONECTOMY NEC (04/05/14) MUSC/TEND LNG CHANGE NEC (04/05/14) MYRINGOTOMY W INTUBATION (02/16/14) OTHER CAST APPLICATION (12/15/12) TOE AMPUTATION (07/09/14) Medications - Medications Current Medications: Current Medications Aripiprazole (Abilify) 10 mg PO DAILY [facility] Stop: 08/24/16 09:01 Last Admin: 07/25/16 08:12 Dose: 10 mg Aspirin (Aspirin Enteric Coated) 81 mg PO DAILY [facility] Stop: 08/24/16 09:01 Last Admin: 07/25/16 08:13 Dose: 81 mg Calcium Polycarbophil (Fibercon) 1,250 mg PO BID [facility] Stop: 08/23/16 22:46 Last Admin: 07/25/16 08:13 Dose: 1,250 mg Citalopram Hydrobromide (Celexa) 40 mg PO HS [facility] Stop: 08/23/16 23:01 Last Admin: 07/25/16 00:01 Dose: 40 mg Enoxaparin Sodium (Lovenox) 40 mg SC Q24H [facility] Stop: 08/24/16 10:01 Last Admin: 07/25/16 11:18 Dose: 40 mg Fenofibrate (Lofibra) 134 mg PO DAILY [facility] Stop: 08/24/16 09:01 Last Admin: 07/25/16 08:14 Dose: 134 mg Finasteride (Proscar) 5 mg PO DAILY [facility] Stop: 08/24/16 09:01 Last Admin: 07/25/16 08:14 Dose: 5 mg Furosemide (Lasix) 40 mg PO DAILY [facility] Stop: 08/24/16 09:01 Last Admin: 07/25/16 08:12 Dose: 40 mg Gabapentin (Neurontin) 800 mg PO TID [facility] Stop: 08/23/16 23:01 Last Admin: 07/25/16 12:36 Dose: 800 mg Sodium Chloride (Sodium Chloride 0.9%) 1,000 mls @ 125 mls/hr IV .Q8H [facility] Stop: 08/23/16 19:31 Last Admin: 07/25/16 12:35 Dose: 125 mls/hr Piperacillin Sod/Tazobactam (Sod 3.375 gm/ Dextrose/Water) 100 mls @ 25 mls/hr IV Q8H [facility] Stop: 08/24/16 13:31 Last Admin: 07/25/16 14:14 Dose: 25 mls/hr Insulin Detemir (Levemir) 75 units SC BID [facility] Stop: 08/23/16 22:46 Last Admin: 07/25/16 08:13 Dose: 75 units Insulin Human Lispro (Humalog) 1 units SC TID [facility] PRN Reason: Protocol Stop: 08/24/16 09:01 Last Admin: 07/25/16 12:26 Dose: Not Given Levothyroxine Sodium (Synthroid) 50 mcg PO DAILY [facility] Stop: 08/24/16 09:01 Last Admin: 07/25/16 08:14 Dose: 50 mcg Lisinopril (Zestril) 20 mg PO DAILY [facility] Stop: 08/24/16 09:01 Last Admin: 07/25/16 08:18 Dose: 20 mg Metoprolol Succinate (Toprol Xl) 50 mg PO DAILY [facility] Stop: 08/24/16 09:01 Last Admin: 07/25/16 08:18 Dose: 50 mg Pantoprazole Sodium (Protonix) 20 mg PO DAILY@0700 [facility] Stop: 08/24/16 07:01 Last Admin: 07/25/16 06:46 Dose: 20 mg Pioglitazone HCl (Actos) 45 mg PO DAILY [facility] Stop: 08/24/16 09:01 Last Admin: 07/25/16 08:12 Dose: 45 mg Quetiapine Fumarate (Seroquel) 75 mg PO HS [facility] Stop: 08/23/16 23:01 Last Admin: 07/25/16 00:01 Dose: 75 mg Quetiapine Fumarate (Seroquel) 25 mg PO QAM [facility] Stop: 08/24/16 09:01 Last Admin: 07/25/16 08:14 Dose: 25 mg Sitagliptin Phosphate (Januvia) 100 mg PO DAILY [facility] Stop: 08/24/16 09:01 Last Admin: 07/25/16 08:13 Dose: 100 mg Review of Systems - Review of Systems Generalized/Overall Review: Present: Weight gain Cardiac: Present: Edema Musculoskeletal: Present: Other - left foot pain Neurological: Present: Numbness Skin: Present: Other - ulceration left foot Misc: All systems neg except as marked Physical Examination - Exam Vital Signs: Vital Signs - Last Taken Temp 36.8 C 07/25/16 14:14 Pulse 76 07/25/16 14:14 Resp 18 07/25/16 14:14 BP 109/58 07/25/16 14:14 Pulse Ox 98 07/25/16 14:14 O2 Oxygen Delivery Method Room Air Constitutional: Present: Alert, Oriented x3, Cooperative Peripheral Pulses: dorsalis-pedis (L): 0 - DP and PT pulse non-palpable, triphasic on doppler Abdomen: Present: distended Extremity: Present: lower extremity edema, other - Pain to plantar left foot amputation stump. Skin Exam: Present: other - Ulceration to plantar left foot measuring 1.5 x 1.7 x 3 cm. No tunneling or undermining. Loss of tissue to full thickness with exposure of subcutaneous fat layer. Wound bed covered with red granulation tissue, surrounding tissue pink and intact. Moderate serous drainage, no malodor. No exposed tendon, however bone can be palpated with a probe through the center of the ulcer. Neurologic: Present: sensory deficit - Results and Findings: Lab/Microbiology results last 24 hrs: Abnormal/Pending Laboratory Last 24 HRS 07/25/16 07/24/16 07/24/16 05:48 Unknown Unknown ESR 24 H Chloride 108 H BUN 31 H Creatinine 1.66 H Est GFR (Non-Af Amer) 46 L Random Glucose 133 H Calcium 7.7 L Procalcitonin Less than 0.05 L - Assessments/Findings (1) Infected pressure ulcer Diagnosis(s): IV ABX as ordered. Will get wound culture and adjust accordingly. Daily dressing changes with Aquacel Ag, dry gauze, and YANCY bandage. Problem: Chronic Qualifiers: Pressure ulcer stage: stage 2 Qualified Code(s): L89.92 - Pressure ulcer of unspecified site, stage 2 (2) Foot pain, left Diagnosis(s): IV ABX as ordered. Elevate LE at rest. Problem: Chronic (3) Osteomyelitis Diagnosis(s): Discussed with pt getting a bone culture to asses for infection. Pt will consider and possibly plan to perform on Thursday. Will order bone scan to evaluate and compare to recent MRI. Problem: Suspected Qualifiers: Osteomyelitis type: other chronic Osteomyelitis location: foot Laterality : left Qualified Code(s): M86.672 - Other chronic osteomyelitis, left ankle and foot
[2016-07-25] MEDS: VANCOMYCIN HCL 1 GM in DEXTROSE 5 % IN WATER 250 ML IV SCH ×2 (18:05)
[2016-07-25] MEDS: TAMSULOSIN HCL 0.4 MG CAP.SR.24H PO SCH (20:12)
[2016-07-25] MEDS: SIMVASTATIN 40 MG TABLET PO SCH (20:18)
[2016-07-25] MEDS: ALPRAZolam 1 MG TABLET PO SCH (20:39)
[2016-07-26] MEDS: VANCOMYCIN HCL 1 GM in DEXTROSE 5 % IN WATER 250 ML IV SCH ×4 (04:35→18:01)
[2016-07-26 06:32] LABS: Hematocrit 31.2 % (42.0-52.0); Hemoglobin 9.4 gm/dL (13.5-18.0); Mean Corpuscular Hemoglobin 25.9 pg (27-31); Mean Corpuscular Hgb Conc 30.1 g/dl (32-36); Mean Platelet Volume 9.6 fl (6.0-9.5); Neutrophil # 3.5 K/mm3 (1.3-6.0); Neutrophil % 74.4 % (42-75.0); Platelet Count 125 K/mm3 (150-450); Red Blood Count 3.63 M/mm3 (4.7-6.0); Red Cell Distribution Width 15.7 % (11.5-14.0); White Blood Count 4.7 K/mm3 (4.0-10.5)
[2016-07-26 06:39] LABS: Anion Gap 13.1 mmol/L (6.8-13.8); BUN/Creatinine Ratio 17.6 (9.0-21.6); Carbon Dioxide 26.7 mmol/L (24-32.6); Estimated Creat Clear 44.7; Potassium 3.8 mmol/L (3.4-4.6)
[2016-07-26] MEDS: PIPERACILLIN SODIUM/TAZOBACTAM 3.375 GM in DEXTROSE 5 % IN WATER 100 ML IV SCH ×6 (07:16→21:02)
[2016-07-26] MEDS: PANTOPRAZOLE SODIUM 20 MG TABLET.DR PO SCH (07:17)
[2016-07-26] MEDS: NORMAL SALINE 1,000 ML IV SCH ×2 (08:07→19:37)
[2016-07-26] MEDS: PIOGLITAZONE HCL 15 MG TABLET PO SCH (10:04)
[2016-07-26] MEDS: ARIPiprazole 10 MG TABLET PO SCH (10:04)
[2016-07-26] MEDS: CALCIUM POLYCARBOPHIL 625 MG TABLET PO SCH ×2 (10:04→20:42)
[2016-07-26] MEDS: ASPIRIN 81 MG TABLET.DR PO SCH (10:04)
[2016-07-26] MEDS: sitaGLIPtin PHOSPHATE 50 MG TABLET PO SCH (10:05)
[2016-07-26] MEDS: FUROSEMIDE 40 MG TABLET PO SCH (10:05)
[2016-07-26] MEDS: INSULIN LISPRO 100 UNITS/ML VIAL SC SCH ×3 (10:05→17:25)
[2016-07-26] MEDS: INSULIN DETEMIR 100 UNITS/ML VIAL SC SCH ×2 (10:06→20:59)
[2016-07-26] MEDS: FENOFIBRATE,MICRONIZED 134 MG CAPSULE PO SCH (10:06)
[2016-07-26] MEDS: GABAPENTIN 400 MG CAPSULE PO SCH ×3 (10:06→17:26)
[2016-07-26] MEDS: FINASTERIDE 5 MG TABLET PO SCH (10:07)
[2016-07-26] MEDS: LEVOTHYROXINE SODIUM 50 MCG TABLET PO SCH (10:07)
[2016-07-26] MEDS: QUEtiapine FUMARATE 25 MG TABLET PO SCH ×2 (10:07→20:44)
[2016-07-26] MEDS: METOPROLOL SUCCINATE 50 MG TABLET.SA PO SCH (10:07)
[2016-07-26] MEDS: ENOXAPARIN SODIUM 40 MG/0.4 ML SYRG SC SCH (10:07)
[2016-07-26] MEDS: LISINOPRIL 20 MG TABLET PO SCH (10:07)
[2016-07-26] MEDS: ACETAMINOPHEN 325 MG TABLET PO PRN (13:42)
--- NOTE | 2016-07-26 15:32 | PN ---
Subjective - Date and Time Seen Date: 07/26/16 Time: 15:27 Subjective Narrative: No fever, chills or sweats. Good appetite. Pain well enough controlled, except left shoulder hurts from lieing on the MRI table. MRI shows two abscesses plantar surface of foot. Objective - Review of Systems Generalized/Overall Review: Reports: No Symptoms Reported EENTM: Reports: No Symptoms Reported Respiratory: Reports: No Symptoms Reported Cardiac: Reports: No Symptoms Reported Abdominal: Reports: No Symptoms Reported Genitourinary Symptoms: Reports: No Symptoms Reported Musculoskeletal Complaints: Reports: Other - see HPI Neurological: Reports: No Symptoms Reported Skin: Reports: No Symptoms Reported Endocrine: Reports: No Symptoms Reported Misc: All systems neg except as marked - Vitals Vitals: Last Vital Signs Selected Entries 07/26/16 07/26/16 09:00 10:07 Temperature 36.4 C L Temperature Oral Source Pulse Rate 67 67 Respiratory 20 Rate Blood Pressure 104/50 104/50 O2 Sat by Pulse 96 Oximetry Oxygen Delivery Room Air Method - Abnormal Lab Findings Abnormal Lab Findings: Abnormal Lab Results 07/26/16 07/26/16 Range/Units 06:00 06:00 RBC 3.63 L (4.7-6.0) M/mm3 Hgb 9.4 L (13.5-18.0) gm/dL Hct 31.2 L (42.0-52.0) % MCH 25.9 L (27-31) pg MCHC 30.1 L (32-36) g/dl RDW 15.7 H (11.5-14.0) % Plt Count 125 L (150-450) K/mm3 MPV 9.6 H (6.0-9.5) fl Immature Gran % (Auto) 0.90 H (0.001-0.429) % Immature Gran # (Auto) 0.04 H (0.000-0.0310) K/mm3 Lymphocytes % 17.9 L (20-51) % Lymphocytes # 0.8 L (1.5-3.5) k/mm3 BUN 33 H (6-23) mg/dL Creatinine 1.87 H (0.4-1.4) mg/dL Est GFR (Non-Af Amer) 41 L (60-130) mL/min Random Glucose 58 L D (70-110) mg/dL - Exam Constitutional: Present: Alert, Oriented x3, Cooperative, Well developed, No distress, Obese ENT Exam: Present: normal ENT inspection, hearing grossly normal Neck: Present: supple, normal inspection Respiratory: Present: lungs clear, no respiratory distress Cardiovascular/Chest: Present: regular rate, rhythm, no murmur Abdomen: Present: Normal bowel sounds, soft, nontender, nondistended, no rebound tenderness, no hepatospenomegaly, no masses, obese Extremity: Present: other - wound the same Neurologic: Present: alert, oriented x 3 Appearance: Present: appropriate appearance, appropriate insight, neat, no memory impairment Eye contact: Present: cooperative, good eye contact, normal speech Thoughts: Present: normal thought pattern Assessment/Plan Plan Narrative: Continue IV antibiotics. Treat left shoulder pain. Follow labs. Will need I& D in surgery on Thursday. - Problems/Diagnosis (1) Infected pressure ulcer Problem: Chronic Qualifiers: Pressure ulcer stage: stage 2 Qualified Code(s): L89.92 - Pressure ulcer of unspecified site, stage 2 (2) Diabetes mellitus Problem: Chronic Qualifiers: Diabetes mellitus type: type 2 (3) HTN (hypertension) Problem: Chronic Qualifiers: Hypertension type: essential hypertension Qualified Code(s): I10 - Essential (primary) hypertension (4) History of non-healing wound Problem: Chronic (5) Charcot foot due to diabetes mellitus Problem: Chronic (6) Diabetic peripheral neuropathy Problem: Chronic (7) Hyperlipidemia Problem: Chronic (8) Hypertension Problem: Chronic (9) Abscess of foot Problem: Acute
[2016-07-26] MEDS: TAMSULOSIN HCL 0.4 MG CAP.SR.24H PO SCH (19:31)
[2016-07-26] MEDS: CITALOPRAM HYDROBROMIDE 20 MG TABLET PO SCH (20:42)
[2016-07-26] MEDS: SIMVASTATIN 40 MG TABLET PO SCH (20:45)
[2016-07-26] MEDS: ALPRAZolam 1 MG TABLET PO SCH (20:55)
[2016-07-27] MEDS: NORMAL SALINE 1,000 ML IV SCH ×2 (03:57→07:23)
[2016-07-27 04:39] LABS: Hemoglobin 8.8 gm/dL (13.5-18.0); Mean Cell Volume 85.5 fl (78-100); Mean Corpuscular Hgb Conc 30.3 g/dl (32-36); Mean Platelet Volume 8.7 fl (6.0-9.5); Neutrophil # 2.1 K/mm3 (1.3-6.0); Neutrophil % 55.8 % (42-75.0); Platelet Count 131 K/mm3 (150-450); Red Blood Count 3.39 M/mm3 (4.7-6.0); Red Cell Distribution Width 15.9 % (11.5-14.0); White Blood Count 3.8 K/mm3 (4.0-10.5)
[2016-07-27 04:53] LABS: Anion Gap 9.6 mmol/L (6.8-13.8); BUN/Creatinine Ratio 15.2 (9.0-21.6); Calcium * 7.9 mg/dL (7.9-10.9); Carbon Dioxide 31.3 mmol/L (24-32.6); Potassium 3.9 mmol/L (3.4-4.6); Vancomycin Trough 19.3 mcg/mL (10.0-20.0)
[2016-07-27] MEDS ORDERED: VANCOMYCIN HCL LEVEL XX ONE (05:00)
[2016-07-27] MEDS: VANCOMYCIN HCL 1 GM in DEXTROSE 5 % IN WATER 250 ML IV SCH ×4 (05:14→18:54)
--- NOTE | 2016-07-27 06:21 | PN ---
<Maryjo Balderas - Last Filed: 07/27/16 06:38> Subjective - Date and Time Seen Date: 07/27/16 Time: 05:45 Subjective Narrative: Mr. Reid is awake and has no complaints. His LT stump hurts but not much. Seen by Dr. Torres on 07/25/16- Planning to obtain a bone scan. MRI showed abscess on the plantar of the LT stump and plan is for i/d on Thursday. He denies fevers and chills. Objective - Vitals Vitals: Last Vital Signs Temp 36.5 C 07/27/16 02:30 Pulse 79 07/27/16 02:30 Resp 20 07/27/16 02:30 BP 107/55 07/27/16 02:30 Pulse Ox 95 07/27/16 02:30 - Abnormal Lab Findings Abnormal Lab Findings: Abnormal Lab Results 07/26/16 07/26/16 07/27/16 Range/Units 06:00 06:00 04:35 WBC (4.0-10.5) K/mm3 RBC 3.63 L (4.7-6.0) M/mm3 Hgb 9.4 L (13.5-18.0) gm/dL Hct 31.2 L (42.0-52.0) % MCH 25.9 L (27-31) pg MCHC 30.1 L (32-36) g/dl RDW 15.7 H (11.5-14.0) % Plt Count 125 L (150-450) K/mm3 MPV 9.6 H (6.0-9.5) fl Immature Gran % (Auto) 0.90 H (0.001-0.429) % Immature Gran # (Auto) 0.04 H (0.000-0.0310) K/mm3 Lymphocytes % 17.9 L (20-51) % Lymphocytes # 0.8 L (1.5-3.5) k/mm3 Sodium 146 H (132-142) mmol/L Plasma Sodium 145 H (130-142) mmol/L Chloride 109 H (97-106) mmol/L BUN 33 H 31 H (6-23) mg/dL Creatinine 1.87 H 2.04 H (0.4-1.4) mg/dL Est GFR (Non-Af Amer) 41 L 37 L (60-130) mL/min Random Glucose 58 L D 62 L (70-110) mg/dL 07/27/16 Range/Units 04:35 WBC 3.8 L (4.0-10.5) K/mm3 RBC 3.39 L (4.7-6.0) M/mm3 Hgb 8.8 L (13.5-18.0) gm/dL Hct 29.0 L (42.0-52.0) % MCH 26.0 L (27-31) pg MCHC 30.3 L (32-36) g/dl RDW 15.9 H (11.5-14.0) % Plt Count 131 L (150-450) K/mm3 MPV (6.0-9.5) fl Immature Gran % (Auto) 1.00 H (0.001-0.429) % Immature Gran # (Auto) 0.04 H (0.000-0.0310) K/mm3 Lymphocytes % (20-51) % Lymphocytes # 1.3 L (1.5-3.5) k/mm3 Sodium (132-142) mmol/L Plasma Sodium (130-142) mmol/L Chloride (97-106) mmol/L BUN (6-23) mg/dL Creatinine (0.4-1.4) mg/dL Est GFR (Non-Af Amer) (60-130) mL/min Random Glucose (70-110) mg/dL - Exam Constitutional: Present: Alert, Oriented x3, No distress ENT Exam: Present: normal ENT inspection, hearing grossly normal. Absent: nasal congestion, nasal drainage, dry mucous membranes Neck: Present: full range of motion, supple, normal inspection Breasts: Present: Exam deferred Respiratory: Present: lungs clear, no accessory muscle use, No wheezing Cardiovascular/Chest: Present: regular rate, rhythm, no chest tenderness, no murmur Abdomen: Present: Normal bowel sounds, soft, obese, firm /Rectal: Present: Exam deferred Extremity: Present: lower extremity edema - + 2 pitting edema on RLE. Skin Exam: Present: other - Non healing pressure sore wound on LT stump. Lymphatic: Present: no adenopathy Neurologic: Present: no motor/sensory deficits, alert, oriented x 3. Absent: dizzy/light-headedness Appearance: Present: appropriate appearance, appropriate insight Eye contact: Present: cooperative, good eye contact, normal speech Thoughts: Present: normal thought pattern, no apparent hallucination Assessment/Plan - Problems/Diagnosis (1) Infected pressure ulcer Problem: Chronic QualifierTitle: Pressure ulcer stage: stage 2 Qualified Code(s): L89.92 - Pressure ulcer of unspecified site, stage 2 Narrative: MRI showed abscess on the plantar of the LT stump wound. Continue IV antibiotics- Vanco & Zosyn. Awaiting wound culture and will adjust accordingly. Follow Dr. Torres recommendations. Daily dressing changes with Aquacel Ag, dry gauze, and YANCY bandage. Hold any anticoagulants today. (2) Osteomyelitis Problem: Suspected QualifierTitle: Osteomyelitis type: other chronic Osteomyelitis location : foot Laterality: left Qualified Code(s): M86.672 - Other chronic osteomyelitis, left ankle and foot Narrative: MRI did not show any evidence of Osteomyelitis. Dr. Torres discussed with pt getting a bone culture to asses for infection & bone scan to evaluate and compare to recent MRI. (3) Acute on chronic kidney failure Problem: Acute Narrative: Is up this morning to 2.07- Consider holding the Lasix & Lisinopril & changing Lovenox to Heparin as lovenox can worsen renal function. Give prn Hydralazine for SBP > 160 DBP > 90. Continue with IVF hydration. BMP in am. (4) History of non-healing wound Problem: Chronic (5) Diabetes mellitus Problem: Chronic QualifierTitle: Diabetes mellitus type: type 2 (6) HTN (hypertension) Problem: Chronic QualifierTitle: Hypertension type: essential hypertension Qualified Code( s): I10 - Essential (primary) hypertension (7) GERD (gastroesophageal reflux disease) Problem: Chronic (8) Hyperlipidemia Problem: Chronic (9) Depression Problem: Chronic <Tai Max - Last Filed: 07/27/16 11:54> Objective - Vitals Vitals: Last Vital Signs Temp 36.4 C L 07/27/16 11:04 Pulse 79 07/27/16 11:04 Resp 20 07/27/16 11:04 BP 111/68 07/27/16 11:04 Pulse Ox 97 07/27/16 11:04 - Abnormal Lab Findings Abnormal Lab Findings: Abnormal Lab Results 07/27/16 07/27/16 Range/Units 04:35 04:35 WBC 3.8 L (4.0-10.5) K/mm3 RBC 3.39 L (4.7-6.0) M/mm3 Hgb 8.8 L (13.5-18.0) gm/dL Hct 29.0 L (42.0-52.0) % MCH 26.0 L (27-31) pg MCHC 30.3 L (32-36) g/dl RDW 15.9 H (11.5-14.0) % Plt Count 131 L (150-450) K/mm3 Immature Gran % (Auto) 1.00 H (0.001-0.429) % Immature Gran # (Auto) 0.04 H (0.000-0.0310) K/mm3 Lymphocytes # 1.3 L (1.5-3.5) k/mm3 Sodium 146 H (132-142) mmol/L Plasma Sodium 145 H (130-142) mmol/L Chloride 109 H (97-106) mmol/L BUN 31 H (6-23) mg/dL Creatinine 2.04 H (0.4-1.4) mg/dL Est GFR (Non-Af Amer) 37 L (60-130) mL/min Random Glucose 62 L (70-110) mg/dL Assessment/Plan Plan Narrative: His insurance company needs a phone call for physician to physician review. Available 9-5 EST, M-F. Elevated sodium, will change IV fluids. Continue IV antibiotics. Will need surgical procedure, probably Thursday. Follow labs. Left shoulder hurts a lot. Gabapentin seems to help. Will increase dose. - Problems/Diagnosis (1) Infected pressure ulcer Problem: Chronic Qualifiers: Pressure ulcer stage: stage 2 Qualified Code(s): L89.92 - Pressure ulcer of unspecified site, stage 2 (2) Diabetes mellitus Problem: Chronic Qualifiers: Diabetes mellitus type: type 2 (3) HTN (hypertension) Problem: Chronic Qualifiers: Hypertension type: essential hypertension Qualified Code(s): I10 - Essential (primary) hypertension (4) History of non-healing wound Problem: Chronic (5) Charcot foot due to diabetes mellitus Problem: Chronic (6) Diabetic peripheral neuropathy Problem: Chronic (7) Hyperlipidemia Problem: Chronic (8) Hypertension Problem: Chronic (9) Abscess of foot Problem: Acute
[2016-07-27] MEDS: PANTOPRAZOLE SODIUM 20 MG TABLET.DR PO SCH (07:19)
[2016-07-27] MEDS: 0.5 NORMAL SALINE 1,000 ML IV PRN ×2 (07:24→15:36)
[2016-07-27] MEDS: PIPERACILLIN SODIUM/TAZOBACTAM 3.375 GM in DEXTROSE 5 % IN WATER 100 ML IV SCH ×6 (07:25→21:24)
[2016-07-27] MEDS: ACETAMINOPHEN 325 MG TABLET PO PRN ×2 (10:14→21:37)
[2016-07-27] MEDS: LISINOPRIL 20 MG TABLET PO SCH (10:15)
[2016-07-27] MEDS: FINASTERIDE 5 MG TABLET PO SCH (10:15)
[2016-07-27] MEDS: PIOGLITAZONE HCL 15 MG TABLET PO SCH (10:15)
[2016-07-27] MEDS: ARIPiprazole 10 MG TABLET PO SCH (10:16)
[2016-07-27] MEDS: CALCIUM POLYCARBOPHIL 625 MG TABLET PO SCH ×2 (10:16→21:31)
[2016-07-27] MEDS: GABAPENTIN 400 MG CAPSULE PO SCH ×4 (10:16→21:31)
[2016-07-27] MEDS: ASPIRIN 81 MG TABLET.DR PO SCH (10:16)
[2016-07-27] MEDS: FUROSEMIDE 40 MG TABLET PO SCH (10:16)
[2016-07-27] MEDS: LEVOTHYROXINE SODIUM 50 MCG TABLET PO SCH (10:16)
[2016-07-27] MEDS: FENOFIBRATE,MICRONIZED 134 MG CAPSULE PO SCH (10:17)
[2016-07-27] MEDS: sitaGLIPtin PHOSPHATE 50 MG TABLET PO SCH (10:17)
[2016-07-27] MEDS: METOPROLOL SUCCINATE 50 MG TABLET.SA PO SCH (10:17)
[2016-07-27] MEDS: QUEtiapine FUMARATE 25 MG TABLET PO SCH ×2 (10:18→21:33)
[2016-07-27] MEDS: INSULIN LISPRO 100 UNITS/ML VIAL SC SCH ×3 (10:23→17:56)
[2016-07-27] MEDS: INSULIN DETEMIR 100 UNITS/ML VIAL SC SCH ×3 (10:56→21:39)
[2016-07-27] MEDS: TAMSULOSIN HCL 0.4 MG CAP.SR.24H PO SCH (18:57)
[2016-07-27] MEDS: CITALOPRAM HYDROBROMIDE 20 MG TABLET PO SCH (21:30)
[2016-07-27] MEDS: SIMVASTATIN 40 MG TABLET PO SCH (21:32)
[2016-07-27] MEDS: ALPRAZolam 1 MG TABLET PO SCH (21:37)
[2016-07-28] MEDS ORDERED: ALBUTEROL SULFATE 2.5 MG/0.5 ML VIAL.NEB IH PRN (00:37)
[2016-07-28] MEDS: DEXTROSE 5%-0.5 NORMAL SALINE 1,000 ML IV PRN (02:04)
[2016-07-28] MEDS: PIPERACILLIN SODIUM/TAZOBACTAM 3.375 GM in DEXTROSE 5 % IN WATER 100 ML IV SCH ×6 (04:47→22:11)
[2016-07-28 05:43] LABS: Hematocrit 29.5 % (42.0-52.0); Hemoglobin 8.9 gm/dL (13.5-18.0); Mean Cell Volume 86.5 fl (78-100); Mean Corpuscular Hemoglobin 26.1 pg (27-31); Mean Corpuscular Hgb Conc 30.2 g/dl (32-36); Mean Platelet Volume 9.2 fl (6.0-9.5); Neutrophil # 2.9 K/mm3 (1.3-6.0); Neutrophil % 59.7 % (42-75.0); Platelet Count 124 K/mm3 (150-450); Red Blood Count 3.41 M/mm3 (4.7-6.0); Red Cell Distribution Width 16.2 % (11.5-14.0); White Blood Count 4.9 K/mm3 (4.0-10.5)
[2016-07-28 05:55] LABS: Anion Gap 8.7 mmol/L (6.8-13.8); BUN/Creatinine Ratio 13.3 (9.0-21.6); Calcium * 8.2 mg/dL (7.9-10.9); Carbon Dioxide 33.1 mmol/L (24-32.6); Estimated Creat Clear 37.2; Potassium 3.8 mmol/L (3.4-4.6)
--- NOTE | 2016-07-28 06:23 | PN ---
Subjective - Date and Time Seen Date: 07/28/16 Time: 06:18 Subjective Narrative: Pt examined this morning. Nursing reported difficulty starting urine stream yesterday despite numerous attempts. He was bladder scanned and he had > 950ml and therefore required straight cath. He has no new complaints this morning. Objective - Vitals Vitals: Last Vital Signs Temp 36.6 C 07/28/16 01:03 Pulse 70 07/28/16 02:28 Resp 20 07/28/16 02:28 BP 119/62 07/28/16 01:03 Pulse Ox 94 07/28/16 02:19 - Abnormal Lab Findings Abnormal Lab Findings: Abnormal Lab Results 07/28/16 07/28/16 Range/Units 05:30 05:30 RBC 3.41 L (4.7-6.0) M/mm3 Hgb 8.9 L (13.5-18.0) gm/dL Hct 29.5 L (42.0-52.0) % MCH 26.1 L (27-31) pg MCHC 30.2 L (32-36) g/dl RDW 16.2 H (11.5-14.0) % Plt Count 124 L (150-450) K/mm3 Immature Gran % (Auto) 1.00 H (0.001-0.429) % Immature Gran # (Auto) 0.05 H (0.000-0.0310) K/mm3 Lymphocytes # 1.4 L (1.5-3.5) k/mm3 Sodium 146 H (132-142) mmol/L Plasma Sodium 145 H (130-142) mmol/L Chloride 108 H (97-106) mmol/L Carbon Dioxide 33.1 H (24-32.6) mmol/L BUN 30 H (6-23) mg/dL Creatinine 2.25 H (0.4-1.4) mg/dL Est GFR (Non-Af Amer) 33 L (60-130) mL/min Random Glucose 66 L (70-110) mg/dL - Exam Constitutional: Present: Alert, Oriented x3, No distress ENT Exam: Present: normal ENT inspection, hearing grossly normal. Absent: nasal congestion, nasal drainage Neck: Present: full range of motion, supple, normal inspection Breasts: Present: Exam deferred Respiratory: Present: lungs clear, no accessory muscle use Cardiovascular/Chest: Present: regular rate, rhythm, no chest tenderness, no murmur Abdomen: Present: Normal bowel sounds, obese, firm /Rectal: Present: Exam deferred Extremity: Present: other - LT foot amputation. Skin Exam: Present: other - Pressure ulcer Wound on Stump of LT foot. Lymphatic: Present: no adenopathy Neurologic: Present: no motor/sensory deficits, alert. Absent: dizzy/light- headedness Appearance: Present: appropriate appearance, appropriate insight Eye contact: Present: cooperative, good eye contact, normal speech Thoughts: Present: normal thought pattern, no apparent hallucination Assessment/Plan - Problems/Diagnosis (1) Infected pressure ulcer Problem: Chronic Qualifiers: Pressure ulcer stage: stage 2 Qualified Code(s): L89.92 - Pressure ulcer of unspecified site, stage 2 Narrative: MRI showed abscess on the plantar of the LT stump wound. Continue IV antibiotics - Vanco & Zosyn. Awaiting wound culture and will adjust accordingly. Follow Dr. Torres recommendations. Daily dressing changes with Aquacel Ag, dry gauze, and YANCY bandage. Wound culture obtained on 07/24/16 showed no pathogens isolated. Waiting on Blood cultures. I/D procedure 07/28/16? Unsure if this was Dr. Torres's plan. Anticoagulants held. (2) Osteomyelitis Problem: Suspected Qualifiers: Osteomyelitis type: other chronic Osteomyelitis location: foot Laterality : left Qualified Code(s): M86.672 - Other chronic osteomyelitis, left ankle and foot Narrative: MRI did not show any evidence of Osteomyelitis. Dr. Torres discussed with pt getting a bone culture to asses for infection & bone scan to evaluate and compare to recent MRI. 07/28/16- Bone scan completed had findings that may be concerning for osteomyelitis- (3) Acute on chronic kidney failure Problem: Acute Narrative: CR 1.88 on day of admission. received IVF which lowered it to 1.66, however pt is on Vancomycin for Osteomylelitis which can worsen kideny function. Pharmacy managing the vanco doses. Is up this morning to 2.25- Consider holding the Lasix & Lisinopril & changing Lovenox to Heparin as lovenox can worsen renal function. Give prn Hydralazine for SBP > 160 DBP > 90. Continue with gently IVF hydration. BMP in am. (4) Urinary retention Problem: Acute Narrative: Has hx of BPH and is on Flomax & Proscar. Has had trouble voiding on his own requiring to be straight cath. Will monitor and if needing to be straight cath > 3 times, will leave adams in place and consult urology. (5) History of non-healing wound Problem: Chronic (6) Diabetes mellitus Problem: Chronic Qualifiers: Diabetes mellitus type: type 2 (7) HTN (hypertension) Problem: Chronic Qualifiers: Hypertension type: essential hypertension Qualified Code(s): I10 - Essential (primary) hypertension (8) GERD (gastroesophageal reflux disease) Problem: Chronic (9) Hyperlipidemia Problem: Chronic (10) Depression Problem: Chronic
[2016-07-28] MEDS ORDERED: DEXTROSE 50%-WATER 50 ML SYRG IV ONE (06:53)
[2016-07-28] MEDS: PANTOPRAZOLE SODIUM 20 MG TABLET.DR PO SCH (07:09)
[2016-07-28] MEDS: VANCOMYCIN HCL 1 GM in DEXTROSE 5 % IN WATER 250 ML IV SCH ×4 (08:52→18:46)
[2016-07-28] MEDS: INSULIN LISPRO 100 UNITS/ML VIAL SC SCH ×3 (08:52→17:17)
[2016-07-28] MEDS: GABAPENTIN 400 MG CAPSULE PO SCH ×4 (10:48→21:56)
[2016-07-28] MEDS: CALCIUM POLYCARBOPHIL 625 MG TABLET PO SCH ×2 (10:48→21:55)
[2016-07-28] MEDS: sitaGLIPtin PHOSPHATE 50 MG TABLET PO SCH (10:48)
[2016-07-28] MEDS: FINASTERIDE 5 MG TABLET PO SCH (10:49)
[2016-07-28] MEDS: QUEtiapine FUMARATE 25 MG TABLET PO SCH ×2 (10:49→21:58)
[2016-07-28] MEDS: LISINOPRIL 20 MG TABLET PO SCH (10:49)
[2016-07-28] MEDS: PIOGLITAZONE HCL 15 MG TABLET PO SCH (10:49)
[2016-07-28] MEDS: ARIPiprazole 10 MG TABLET PO SCH (10:49)
[2016-07-28] MEDS: ASPIRIN 81 MG TABLET.DR PO SCH (10:50)
[2016-07-28] MEDS: LEVOTHYROXINE SODIUM 50 MCG TABLET PO SCH (10:50)
[2016-07-28] MEDS: METOPROLOL SUCCINATE 50 MG TABLET.SA PO SCH (10:50)
[2016-07-28] MEDS: FUROSEMIDE 40 MG TABLET PO SCH (10:51)
[2016-07-28] MEDS: FENOFIBRATE,MICRONIZED 134 MG CAPSULE PO SCH (10:51)
[2016-07-28] MEDS: INSULIN DETEMIR 100 UNITS/ML VIAL SC SCH ×2 (10:51→22:08)
--- NOTE | 2016-07-28 17:21 | PN ---
Subjective - Date and Time Seen Date: 07/28/16 Time: 17:19 Subjective Narrative: Pt seen at bedside resting. States that he is still having some pain to the left foot ulceration site. Relates some SOB, otherwise denies any other systemic symptoms. Objective - Review of Systems Respiratory: Reports: Shortness of Breath Cardiac: Reports: Edema Musculoskeletal Complaints: Reports: Other - left foot pain Neurological: Reports: Numbness Skin: Reports: Other - ulceration left foot Misc: All systems neg except as marked - Vitals Vitals: Last Vital Signs Temp 36.7 C 07/28/16 14:00 Pulse 83 07/28/16 14:00 Resp 18 07/28/16 14:00 BP 117/59 07/28/16 14:00 Pulse Ox 97 07/28/16 14:00 - Abnormal Lab Findings Abnormal Lab Findings: Abnormal Lab Results 07/28/16 07/28/16 Range/Units 05:30 05:30 RBC 3.41 L (4.7-6.0) M/mm3 Hgb 8.9 L (13.5-18.0) gm/dL Hct 29.5 L (42.0-52.0) % MCH 26.1 L (27-31) pg MCHC 30.2 L (32-36) g/dl RDW 16.2 H (11.5-14.0) % Plt Count 124 L (150-450) K/mm3 Immature Gran % (Auto) 1.00 H (0.001-0.429) % Immature Gran # (Auto) 0.05 H (0.000-0.0310) K/mm3 Lymphocytes # 1.4 L (1.5-3.5) k/mm3 Sodium 146 H (132-142) mmol/L Plasma Sodium 145 H (130-142) mmol/L Chloride 108 H (97-106) mmol/L Carbon Dioxide 33.1 H (24-32.6) mmol/L BUN 30 H (6-23) mg/dL Creatinine 2.25 H (0.4-1.4) mg/dL Est GFR (Non-Af Amer) 33 L (60-130) mL/min Random Glucose 66 L (70-110) mg/dL - Exam Constitutional: Present: Alert, Oriented x3, Cooperative Abdomen: Present: distended Extremity: Present: lower extremity edema Skin Exam: Present: other - Ulceration to left foot amputation stump unchanged in size from last visit. Loss of tissue to full thickness with exposure of subcutaneous fat layer. Still probes to palpation of bone. Now with scant purulent drainage, otherwise serosanguinous with slight malodor. Surrounding tissue pink, intact. Neurologic: Present: sensory deficit Assessment/Plan - Problems/Diagnosis (1) Infected pressure ulcer Problem: Chronic Qualifiers: Pressure ulcer stage: stage 2 Qualified Code(s): L89.92 - Pressure ulcer of unspecified site, stage 2 Narrative: Continue IV ABX as ordered. New dresisng applied to ulceration. Plan to get bone culture at bedside on 07/29/2016. (2) Foot pain, left Problem: Chronic Narrative: Continue IV ABX. Continue elevation of LLE. (3) Osteomyelitis Problem: Suspected Qualifiers: Osteomyelitis type: other chronic Osteomyelitis location: foot Laterality : left Qualified Code(s): M86.672 - Other chronic osteomyelitis, left ankle and foot Narrative: Plan for bone culture at bedside on 07/29/2016. Discussed with pt purpose of procedure and potential treatment options pending his results and he is in agreement to having the culture done.
[2016-07-28] MEDS: TAMSULOSIN HCL 0.4 MG CAP.SR.24H PO SCH (18:46)
[2016-07-28] MEDS: CITALOPRAM HYDROBROMIDE 20 MG TABLET PO SCH (21:54)
[2016-07-28] MEDS: SIMVASTATIN 40 MG TABLET PO SCH (21:58)
[2016-07-28] MEDS: ALPRAZolam 1 MG TABLET PO SCH (22:01)
[2016-07-28] MEDS: HEPARIN SODIUM,PORCINE 5,000 UNITS/ML VIAL SC SCH (22:20)
[2016-07-29] MEDS: PIPERACILLIN SODIUM/TAZOBACTAM 3.375 GM in DEXTROSE 5 % IN WATER 100 ML IV SCH ×6 (05:08→21:40)
[2016-07-29 05:16] LABS: Hematocrit 30.4 % (42.0-52.0); Hemoglobin 9.3 gm/dL (13.5-18.0); Mean Cell Volume 85.2 fl (78-100); Mean Corpuscular Hemoglobin 26.1 pg (27-31); Mean Corpuscular Hgb Conc 30.6 g/dl (32-36); Mean Platelet Volume 9.6 fl (6.0-9.5); Neutrophil # 4.3 K/mm3 (1.3-6.0); Platelet Count 150 K/mm3 (150-450); Red Blood Count 3.57 M/mm3 (4.7-6.0); Red Cell Distribution Width 16.1 % (11.5-14.0); White Blood Count 6.4 K/mm3 (4.0-10.5)
[2016-07-29 05:30] LABS: Anion Gap 10.5 mmol/L (6.8-13.8); BUN/Creatinine Ratio 12.6 (9.0-21.6); Calcium * 8.6 mg/dL (7.9-10.9); Carbon Dioxide 31.8 mmol/L (24-32.6); Estimated Creat Clear 37.5; Potassium 4.3 mmol/L (3.4-4.6)
[2016-07-29 05:33] LABS: Vancomycin Trough 27.8 mcg/mL (10.0-20.0)
--- NOTE | 2016-07-29 05:51 | PN ---
Subjective - Date and Time Seen Date: 07/29/16 Time: 05:46 Subjective Narrative: was examined this am. Is no distress. Pain on LT foot is minimal. Is voiding normally. No acute events according to nursing. Had a bone scan yesterday- concern for osteomyelitis. Objective - Vitals Vitals: Last Vital Signs Temp 37.1 C 07/29/16 03:00 Pulse 79 07/29/16 03:00 Resp 18 07/29/16 03:00 BP 116/65 07/29/16 03:00 Pulse Ox 95 07/29/16 03:00 - Abnormal Lab Findings Abnormal Lab Findings: Abnormal Lab Results 07/28/16 07/28/16 07/29/16 Range/Units 05:30 05:30 05:12 RBC 3.41 L (4.7-6.0) M/mm3 Hgb 8.9 L (13.5-18.0) gm/dL Hct 29.5 L (42.0-52.0) % MCH 26.1 L (27-31) pg MCHC 30.2 L (32-36) g/dl RDW 16.2 H (11.5-14.0) % Plt Count 124 L (150-450) K/mm3 MPV (6.0-9.5) fl Immature Gran % (Auto) 1.00 H (0.001-0.429) % Immature Gran # (Auto) 0.05 H (0.000-0.0310) K/mm3 Lymphocytes # 1.4 L (1.5-3.5) k/mm3 Sodium 146 H 144 H (132-142) mmol/L Plasma Sodium 145 H 144 H (130-142) mmol/L Chloride 108 H (97-106) mmol/L Carbon Dioxide 33.1 H (24-32.6) mmol/L BUN 30 H 28 H (6-23) mg/dL Creatinine 2.25 H 2.23 H (0.4-1.4) mg/dL Est GFR (Non-Af Amer) 33 L 33 L (60-130) mL/min Random Glucose 66 L (70-110) mg/dL Vancomycin Trough 27.8 H (10.0-20.0) mcg/mL 07/29/16 Range/Units 05:12 RBC 3.57 L (4.7-6.0) M/mm3 Hgb 9.3 L (13.5-18.0) gm/dL Hct 30.4 L (42.0-52.0) % MCH 26.1 L (27-31) pg MCHC 30.6 L (32-36) g/dl RDW 16.1 H (11.5-14.0) % Plt Count (150-450) K/mm3 MPV 9.6 H (6.0-9.5) fl Immature Gran % (Auto) 0.60 H (0.001-0.429) % Immature Gran # (Auto) 0.04 H (0.000-0.0310) K/mm3 Lymphocytes # 1.4 L (1.5-3.5) k/mm3 Sodium (132-142) mmol/L Plasma Sodium (130-142) mmol/L Chloride (97-106) mmol/L Carbon Dioxide (24-32.6) mmol/L BUN (6-23) mg/dL Creatinine (0.4-1.4) mg/dL Est GFR (Non-Af Amer) (60-130) mL/min Random Glucose (70-110) mg/dL Vancomycin Trough (10.0-20.0) mcg/mL - Exam Constitutional: Present: Alert, Oriented x3, No distress ENT Exam: Present: normal ENT inspection, hearing grossly normal, moist mucous membranes. Absent: nasal congestion, nasal drainage Neck: Present: full range of motion, supple, normal inspection Breasts: Present: Exam deferred Respiratory: Present: no accessory muscle use, No wheezing Cardiovascular/Chest: Present: normal peripheral pulses, regular rate, rhythm, no murmur Abdomen: Present: Normal bowel sounds, obese, firm /Rectal: Present: Exam deferred Extremity: Present: lower extremity edema - RLE- + 2 Pitting edema., other - Amputation of LT foot. Skin Exam: Present: no cyanosis, cool/dry - Stege 2 Ulcer on stump of LT leg., other Neurologic: Present: no motor/sensory deficits, alert, oriented x 3. Absent: dizzy/light-headedness Appearance: Present: appropriate insight Eye contact: Present: cooperative, good eye contact, normal speech Thoughts: Present: normal thought pattern, no apparent hallucination Assessment/Plan - Problems/Diagnosis (1) Infected pressure ulcer Problem: Chronic Qualifiers: Pressure ulcer stage: stage 2 Qualified Code(s): L89.92 - Pressure ulcer of unspecified site, stage 2 Narrative: MRI showed abscess on the plantar of the LT stump wound. Continue IV antibiotics - Vanco & Zosyn. Awaiting wound culture and will adjust accordingly. Follow Dr. Torres recommendations. Daily dressing changes with Aquacel Ag, dry gauze, and YANCY bandage. Wound culture obtained on 07/24/16 showed no pathogens isolated. Waiting on Blood cultures. I/D procedure 07/28/16? Unsure if this was Dr. Torres's plan. (2) Osteomyelitis Problem: Suspected Qualifiers: Osteomyelitis type: other chronic Osteomyelitis location: foot Laterality : left Qualified Code(s): M86.672 - Other chronic osteomyelitis, left ankle and foot Narrative: MRI did not show any evidence of Osteomyelitis. Bone scan done on 07/28/16 Finding had concerns for osteomyelitis. Dr. Torres discussed with pt about getting a bone culture/biopsy to evaluate. (3) Acute on chronic kidney failure Problem: Acute Narrative: R 1.88 on day of admission. received IVF which lowered it to 1.66, however pt is on Vancomycin for Osteomylelitis which can worsen kideny function. Pharmacy managing the vanco doses. 2.25 yesterday, this am 2.23. Consider holding the Lasix & Lisinopril & changing Lovenox to Heparin as lovenox can worsen renal function. Give prn Hydralazine for SBP > 160 DBP > 90. Continue with gentle IVF hydration. BMP in am. (4) Urinary retention Problem: Acute Narrative: Has hx of BPH and is on Flomax & Proscar. Has had trouble voiding on his own requiring to be straight cath. Will monitor and if needing to be straight cath > 3 times, will leave adams in place and consult urology. 07/29/16- No issues with voiding. Monitor. (5) History of non-healing wound Problem: Chronic (6) Diabetes mellitus Problem: Chronic Qualifiers: Diabetes mellitus type: type 2 (7) HTN (hypertension) Problem: Chronic Qualifiers: Hypertension type: essential hypertension Qualified Code(s): I10 - Essential (primary) hypertension (8) GERD (gastroesophageal reflux disease) Problem: Chronic (9) Hyperlipidemia Problem: Chronic (10) Depression Problem: Chronic
[2016-07-29] MEDS: PANTOPRAZOLE SODIUM 20 MG TABLET.DR PO SCH (06:55)
[2016-07-29] MEDS: CALCIUM POLYCARBOPHIL 625 MG TABLET PO SCH ×2 (08:43→21:25)
[2016-07-29] MEDS: PIOGLITAZONE HCL 15 MG TABLET PO SCH (08:43)
[2016-07-29] MEDS: LISINOPRIL 20 MG TABLET PO SCH (08:43)
[2016-07-29] MEDS: sitaGLIPtin PHOSPHATE 50 MG TABLET PO SCH (08:43)
[2016-07-29] MEDS: ASPIRIN 81 MG TABLET.DR PO SCH (08:43)
[2016-07-29] MEDS: METOPROLOL SUCCINATE 50 MG TABLET.SA PO SCH (08:44)
[2016-07-29] MEDS: GABAPENTIN 400 MG CAPSULE PO SCH ×4 (08:44→21:26)
[2016-07-29] MEDS: ARIPiprazole 10 MG TABLET PO SCH (08:44)
[2016-07-29] MEDS: FINASTERIDE 5 MG TABLET PO SCH (08:44)
[2016-07-29] MEDS: QUEtiapine FUMARATE 25 MG TABLET PO SCH ×2 (08:44→21:26)
[2016-07-29] MEDS: FUROSEMIDE 40 MG TABLET PO SCH (08:44)
[2016-07-29] MEDS: LEVOTHYROXINE SODIUM 50 MCG TABLET PO SCH (08:44)
[2016-07-29] MEDS: INSULIN LISPRO 100 UNITS/ML VIAL SC SCH ×3 (08:45→17:23)
[2016-07-29] MEDS: FENOFIBRATE,MICRONIZED 134 MG CAPSULE PO SCH (08:45)
[2016-07-29] MEDS: INSULIN DETEMIR 100 UNITS/ML VIAL SC SCH ×2 (08:46→21:36)
[2016-07-29] MEDS: HEPARIN SODIUM,PORCINE 5,000 UNITS/ML VIAL SC SCH (11:10)
[2016-07-29] MEDS: ACETAMINOPHEN 325 MG TABLET PO PRN (19:52)
[2016-07-29] MEDS: CITALOPRAM HYDROBROMIDE 20 MG TABLET PO SCH (21:24)
[2016-07-29] MEDS: TAMSULOSIN HCL 0.4 MG CAP.SR.24H PO SCH (21:24)
[2016-07-29] MEDS: SIMVASTATIN 40 MG TABLET PO SCH (21:27)
[2016-07-29] MEDS: ALPRAZolam 1 MG TABLET PO SCH (21:30)
[2016-07-30] MEDS: PIPERACILLIN SODIUM/TAZOBACTAM 3.375 GM in DEXTROSE 5 % IN WATER 100 ML IV SCH ×6 (05:48→21:35)
[2016-07-30] MEDS: HEPARIN SODIUM,PORCINE 5,000 UNITS/ML VIAL SC SCH ×3 (05:58→21:01)
[2016-07-30] MEDS: PANTOPRAZOLE SODIUM 20 MG TABLET.DR PO SCH (06:55)
[2016-07-30] MEDS ORDERED: VANCOMYCIN HCL 1.5 GM in DEXTROSE 5 % IN WATER 500 ML IV SCH ×2 (07:00)
[2016-07-30] MEDS: DEXTROSE 5%-0.5 NORMAL SALINE 1,000 ML IV PRN (08:21)
--- NOTE | 2016-07-30 08:29 | PN ---
Subjective - Date and Time Seen Date: 07/30/16 Time: 08:27 Subjective Narrative: On recliner. No complaints. Objective - Review of Systems Generalized/Overall Review: Denies: Chills, Fever EENTM: Reports: No Symptoms Reported Respiratory: Denies: Cough, Shortness of Breath Cardiac: Denies: Chest Pain, Edema, Palpitations Abdominal: Denies: Nausea, Vomiting Genitourinary Symptoms: Denies: Urgency, Frequency Musculoskeletal Complaints: Reports: Joint Pain - Vitals Vitals: Last Vital Signs Temp 37.1 C 07/30/16 02:25 Pulse 79 07/30/16 02:25 Resp 18 07/30/16 02:25 BP 112/49 07/30/16 02:25 Pulse Ox 92 07/30/16 02:25 - Exam Constitutional: Present: Alert, Oriented x3, Cooperative ENT Exam: Present: hearing grossly normal Neck: Present: supple Breasts: Present: Exam deferred Respiratory: Present: normal breath sounds, No rales, No wheezing Cardiovascular/Chest: Present: regular rate, rhythm, no JVD, no murmur Abdomen: Present: Normal bowel sounds, soft, nontender, nondistended Extremity: Present: no pedal edema, no calf tenderness, other - left foot in cam boot Assessment/Plan - Problems/Diagnosis (1) Osteomyelitis Problem: Suspected Qualifiers: Osteomyelitis type: other chronic Osteomyelitis location: foot Laterality : left Qualified Code(s): M86.672 - Other chronic osteomyelitis, left ankle and foot Narrative: Nuclear Bone Scan- showed OM, calcaneus, abscess, infection vs arthritis TT ( tibiotalar) joint. Dr. Torres took a bone sample bedside on 07/28/16 and is awaiting results for future plan of action. (2) Abscess of foot Problem: Acute (3) Infected pressure ulcer Problem: Chronic Qualifiers: Pressure ulcer stage: stage 2 Qualified Code(s): L89.92 - Pressure ulcer of unspecified site, stage 2 Narrative: continue with IV antibiotics. (4) Depression Problem: Chronic (5) Diabetes mellitus Problem: Chronic (6) Foot pain, left Problem: Chronic (7) GERD (gastroesophageal reflux disease) Problem: Chronic (8) Hyperlipidemia Problem: Chronic (9) Hypertension Problem: Chronic
[2016-07-30] MEDS: ARIPiprazole 10 MG TABLET PO SCH (09:29)
[2016-07-30] MEDS: PIOGLITAZONE HCL 15 MG TABLET PO SCH (09:30)
[2016-07-30] MEDS: CALCIUM POLYCARBOPHIL 625 MG TABLET PO SCH ×2 (09:32→20:39)
[2016-07-30] MEDS: ASPIRIN 81 MG TABLET.DR PO SCH (09:32)
[2016-07-30] MEDS: INSULIN LISPRO 100 UNITS/ML VIAL SC SCH ×3 (09:33→16:57)
[2016-07-30] MEDS: sitaGLIPtin PHOSPHATE 50 MG TABLET PO SCH (09:34)
[2016-07-30] MEDS: INSULIN DETEMIR 100 UNITS/ML VIAL SC SCH ×2 (09:41→20:30)
[2016-07-30] MEDS: FUROSEMIDE 40 MG TABLET PO SCH (09:42)
[2016-07-30] MEDS: FENOFIBRATE,MICRONIZED 134 MG CAPSULE PO SCH (09:43)
[2016-07-30] MEDS: GABAPENTIN 400 MG CAPSULE PO SCH ×4 (09:44→20:39)
[2016-07-30] MEDS: FINASTERIDE 5 MG TABLET PO SCH (09:45)
[2016-07-30] MEDS: METOPROLOL SUCCINATE 50 MG TABLET.SA PO SCH (09:46)
[2016-07-30] MEDS: QUEtiapine FUMARATE 25 MG TABLET PO SCH ×2 (09:46→20:39)
[2016-07-30] MEDS: LEVOTHYROXINE SODIUM 50 MCG TABLET PO SCH (09:46)
[2016-07-30] MEDS: LISINOPRIL 20 MG TABLET PO SCH (09:47)
[2016-07-30] MEDS: VANCOMYCIN HCL 1.5 GM in DEXTROSE 5 % IN WATER 500 ML IV SCH ×2 (09:49)
[2016-07-30] MEDS: ACETAMINOPHEN 325 MG TABLET PO PRN (11:32)
[2016-07-30] MEDS: TAMSULOSIN HCL 0.4 MG CAP.SR.24H PO SCH (19:13)
[2016-07-30] MEDS: SIMVASTATIN 40 MG TABLET PO SCH (20:39)
[2016-07-30] MEDS: CITALOPRAM HYDROBROMIDE 20 MG TABLET PO SCH (20:39)
[2016-07-30] MEDS: ALPRAZolam 1 MG TABLET PO SCH (20:55)
[2016-07-31] MEDS: PIPERACILLIN SODIUM/TAZOBACTAM 3.375 GM in DEXTROSE 5 % IN WATER 100 ML IV SCH ×6 (04:50→22:30)
[2016-07-31] MEDS: DEXTROSE 5%-0.5 NORMAL SALINE 1,000 ML IV PRN (04:54)
[2016-07-31 06:03] LABS: Hematocrit 30.8 % (42.0-52.0); Hemoglobin 9.7 gm/dL (13.5-18.0); Mean Cell Volume 84.2 fl (78-100); Mean Corpuscular Hemoglobin 26.5 pg (27-31); Mean Corpuscular Hgb Conc 31.5 g/dl (32-36); Mean Platelet Volume 9.1 fl (6.0-9.5); Neutrophil # 2.4 K/mm3 (1.3-6.0); Neutrophil % 50.6 % (42-75.0); Platelet Count 160 K/mm3 (150-450); Red Blood Count 3.66 M/mm3 (4.7-6.0); Red Cell Distribution Width 15.9 % (11.5-14.0); White Blood Count 4.7 K/mm3 (4.0-10.5)
[2016-07-31 06:18] LABS: Albumin * 3.2 gm/dl (3.4-5.0); Anion Gap 12.2 mmol/L (6.8-13.8); BUN/Creatinine Ratio 16.3 (9.0-21.6); Bilirubin, Total 0.3 mg/dL (0.0-1.1); Ca. Corrected For Albumin 9.4 mg/dL (8.4-10.2); Calcium * 9.1 mg/dL (7.9-10.9); Carbon Dioxide 30.8 mmol/L (24-32.6); Total Protein 6.7 gm/dL (6.2-8.2)
[2016-07-31] MEDS: PANTOPRAZOLE SODIUM 20 MG TABLET.DR PO SCH (06:45)
[2016-07-31] MEDS: ARIPiprazole 10 MG TABLET PO SCH (08:18)
[2016-07-31] MEDS: PIOGLITAZONE HCL 15 MG TABLET PO SCH (08:19)
[2016-07-31] MEDS: CALCIUM POLYCARBOPHIL 625 MG TABLET PO SCH ×2 (08:20→22:29)
[2016-07-31] MEDS: ASPIRIN 81 MG TABLET.DR PO SCH (08:20)
[2016-07-31] MEDS: INSULIN LISPRO 100 UNITS/ML VIAL SC SCH ×3 (08:21→17:42)
[2016-07-31] MEDS: sitaGLIPtin PHOSPHATE 50 MG TABLET PO SCH (08:22)
[2016-07-31] MEDS: FENOFIBRATE,MICRONIZED 134 MG CAPSULE PO SCH (08:22)
[2016-07-31] MEDS: INSULIN DETEMIR 100 UNITS/ML VIAL SC SCH ×2 (08:23→22:17)
[2016-07-31] MEDS: FINASTERIDE 5 MG TABLET PO SCH (08:25)
[2016-07-31] MEDS: GABAPENTIN 400 MG CAPSULE PO SCH ×4 (08:25→22:29)
--- NOTE | 2016-07-31 08:25 | PN ---
Subjective - Date and Time Seen Date: 07/29/16 Time: 04:45 Subjective Narrative: Pt seen at bedside resting. States that he is still having some pain to the left foot ulceration site. Relates some SOB, otherwise denies any other systemic symptoms. States that he is ready for bone culture today and gives verbal consent to procedure. Objective - Review of Systems Respiratory: Reports: Shortness of Breath Musculoskeletal Complaints: Reports: Other - left foot pain Skin: Reports: Other - ulcer left foot - Vitals Vitals: Last Vital Signs - Abnormal Lab Findings Abnormal Lab Findings: Abnormal Lab Results 07/31/16 07/31/16 Range/Units 05:32 05:32 RBC 3.66 L (4.7-6.0) M/mm3 Hgb 9.7 L (13.5-18.0) gm/dL Hct 30.8 L (42.0-52.0) % MCH 26.5 L (27-31) pg MCHC 31.5 L (32-36) g/dl RDW 15.9 H (11.5-14.0) % Immature Gran % (Auto) 1.30 H (0.001-0.429) % Immature Gran # (Auto) 0.06 H (0.000-0.0310) K/mm3 Eosinophils % 5.1 H (0.0-3.0) % BUN 38 H (6-23) mg/dL Creatinine 2.33 H (0.4-1.4) mg/dL Est GFR (Non-Af Amer) 31 L (60-130) mL/min Random Glucose 66 L D (70-110) mg/dL ALT 12 L (19-67) U/L Alkaline Phosphatase 25 L (50-170) U/L Albumin 3.2 L (3.4-5.0) gm/dl - Exam Constitutional: Present: Alert, Oriented x3, Cooperative Abdomen: Present: distended Extremity: Present: lower extremity edema, other - left foot pain Skin Exam: Present: other - Ulceration to amputation stump of left foot remains unchanged in size from last visit. Still with tenderness to palpation. No localized SOI. Moderate serosanguinous drainage, slight malodor. Can still palpate bone through ulcer. Neurologic: Present: sensory deficit Appearance: Present: appropriate appearance Assessment/Plan Plan Narrative: Discussed with pt bone culture procedure including risks and benefits. Pt gives verbal consent for procedure at bedside. A local block utilizing 3mL of 1% Lidocaine plain is infiltrated over the anterior aspect of the calcaneus, which is easily palpated. Next, the area is prepped and draped in a sterile fashion. A #15 blade is then utilized to create a stab incision. A Eric needle is obtained and, with a trochar inserted , is placed in the stab incision and advanced to the level of bone. The trochar is removed and the Eric needle is twisted back and forth under pressure to advance in to the bone. Once the needle has adequately advanced, it is rocked from side to side to loosen the bone sample. It is then removed from the incision and bone specimen is placed in a sterile cup. Attention is directed back to the foot where the incision is flushed with saline. A single simple interrupted suture is placed across the incision with 4-0 nylon. The incision is covered with dry gauze and ulceration covered with Aquacel Ag and dry gauze, and the foot is wrapped with ana and an YANCY bandage. Pt tolerated procedure well without complication. - Problems/Diagnosis (1) Infected pressure ulcer Problem: Chronic Qualifiers: Pressure ulcer stage: stage 2 Qualified Code(s): L89.92 - Pressure ulcer of unspecified site, stage 2 Narrative: Bone culture obtained at bedside. Will continue with current ABX and will adjust accordingly. (2) Foot pain, left Problem: Chronic Narrative: Continue with current ABX pending culture results. (3) Osteomyelitis Problem: Suspected Qualifiers: Osteomyelitis type: other chronic Osteomyelitis location: foot Laterality : left Qualified Code(s): M86.672 - Other chronic osteomyelitis, left ankle and foot Narrative: Continue ABX pending culture results. Long discussion is held with pt about future care including, but not limited to, continued local care and out pt oral ABX, vs. termination clerk IV ABX vs higher amputation. Pt is constantly asking if he will need a below knee amputation, to which I explain that he is not out of the owen for this option as he still has an open ulceration the probes to bone. I believe the leg is salvageable, however the decision is ultimately his to make. I will continue to provide care as long as his condition remains stable if this is what he chooses.
[2016-07-31] MEDS: LEVOTHYROXINE SODIUM 50 MCG TABLET PO SCH (08:26)
[2016-07-31] MEDS: QUEtiapine FUMARATE 25 MG TABLET PO SCH ×2 (08:26→22:29)
[2016-07-31] MEDS: METOPROLOL SUCCINATE 50 MG TABLET.SA PO SCH (08:27)
[2016-07-31] MEDS: LISINOPRIL 20 MG TABLET PO SCH (08:28)
[2016-07-31] MEDS: VANCOMYCIN HCL 1.5 GM in DEXTROSE 5 % IN WATER 500 ML IV SCH ×2 (10:22)
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
[2016-07-31] MEDS: HEPARIN SODIUM,PORCINE 5,000 UNITS/ML VIAL SC SCH ×2 (10:50→22:18)
--- NOTE | 2016-07-31 11:50 | PN ---
Subjective - Date and Time Seen Date: 07/31/16 Time: 07:00 Subjective Narrative: No fever, chills or sweats. Good appetite. Pain well enough controlled, except shoulder hurts from lieing on the MRI table. MRI showed two abscesses plantar surface of foot and bone scan showed osteomyelitis. Had repeat foot surgery, cultures pending. Requests visit from his psychiatrist. Objective - Review of Systems Generalized/Overall Review: Reports: Malaise EENTM: Reports: No Symptoms Reported Respiratory: Reports: No Symptoms Reported Cardiac: Reports: No Symptoms Reported Abdominal: Reports: No Symptoms Reported Genitourinary Symptoms: Reports: No Symptoms Reported Musculoskeletal Complaints: Reports: No Symptoms Reported Neurological: Reports: No Symptoms Reported Skin: Reports: No Symptoms Reported Endocrine: Reports: No Symptoms Reported Misc: All systems neg except as marked - Vitals Vitals: Last Vital Signs Selected Entries 07/31/16 02:00 Temperature 36.6 C Temperature Oral Source Pulse Rate 72 Respiratory 18 Rate Blood Pressure 118/71 Blood Pressure Supine Position O2 Sat by Pulse 93 Oximetry Oxygen Delivery Room Air Method - Abnormal Lab Findings Abnormal Lab Findings: Abnormal Lab Results 07/31/16 07/31/16 Range/Units 05:32 05:32 RBC 3.66 L (4.7-6.0) M/mm3 Hgb 9.7 L (13.5-18.0) gm/dL Hct 30.8 L (42.0-52.0) % MCH 26.5 L (27-31) pg MCHC 31.5 L (32-36) g/dl RDW 15.9 H (11.5-14.0) % Immature Gran % (Auto) 1.30 H (0.001-0.429) % Immature Gran # (Auto) 0.06 H (0.000-0.0310) K/mm3 Eosinophils % 5.1 H (0.0-3.0) % BUN 38 H (6-23) mg/dL Creatinine 2.33 H (0.4-1.4) mg/dL Est GFR (Non-Af Amer) 31 L (60-130) mL/min Random Glucose 66 L D (70-110) mg/dL ALT 12 L (19-67) U/L Alkaline Phosphatase 25 L (50-170) U/L Albumin 3.2 L (3.4-5.0) gm/dl - Exam Constitutional: Present: Alert, Oriented x3, Cooperative, Well developed, No distress, Obese ENT Exam: Present: normal ENT inspection Neck: Present: normal inspection Respiratory: Present: lungs clear, no respiratory distress Cardiovascular/Chest: Present: regular rate, rhythm, no murmur Abdomen: Present: Normal bowel sounds, soft, nontender, nondistended, no rebound tenderness, no hepatospenomegaly, no masses, obese Extremity: Present: other - did not remove dressing from foot Skin Exam: Present: normal color, warm/dry, no cyanosis Neurologic: Present: alert, oriented x 3 Appearance: Present: appropriate appearance, neat Eye contact: Present: cooperative, good eye contact, normal speech Assessment/Plan Plan Narrative: Continue antibiotics. Foot care per podiatry. Shoulder xray and ortho consult. Follow labs. Psych consult. - Problems/Diagnosis (1) Infected pressure ulcer Problem: Chronic Qualifiers: Pressure ulcer stage: stage 2 Qualified Code(s): L89.92 - Pressure ulcer of unspecified site, stage 2 (2) Diabetes mellitus Problem: Chronic Qualifiers: Diabetes mellitus type: type 2 (3) HTN (hypertension) Problem: Chronic Qualifiers: Hypertension type: essential hypertension Qualified Code(s): I10 - Essential (primary) hypertension (4) History of non-healing wound Problem: Chronic (5) Charcot foot due to diabetes mellitus Problem: Chronic (6) Diabetic peripheral neuropathy Problem: Chronic (7) Hyperlipidemia Problem: Chronic (8) Hypertension Problem: Chronic (9) Abscess of foot Problem: Acute
[2016-07-31] MEDS ORDERED: TRIAMCINOLONE ACETONIDE 40 MG/ML VIAL IJ ONE (13:51)
[2016-07-31] MEDS ORDERED: LIDOCAINE HCL 10 ML VIAL IJ ONE (14:00)
--- NOTE | 2016-07-31 14:02 | CONS ---
HPI - General Narrative: 51 y/o male Pt with 9 month Hx of known cervical pain. Patient is undergone EMG nerve conduction studies revealing known cervical etiology. Motorized scans of his neck at this point. Increasing right shoulder pain. he has increasing pain with pushing himself up off of the bed. No appreciable new injury. This is a very chronic problem for him. - History of Present Illness Allergies/Adverse Reactions: Allergies propoxyphene napsylate [From DarOne Block Off the Grid (1BOG)t-N 100] Allergy (Mild, Verified 07/24/16 22 :25) RASH Home Medications: Home Medications Medication Instructions Recorded Last Taken Alprazolam [Alprazolam ER] 2 tab PO HS 07/16/16 Unknown Aripiprazole [Abilify] 0.5 tab PO DAILY 07/16/16 Unknown Aspirin [Aspirin Enteric Coated] 81 mg PO DAILY 07/16/16 Unknown Calcium Polycarbophil [Fibercon] 2 tab PO BID 07/16/16 Unknown Citalopram Hydrobromide [Celexa] 40 mg PO HS 07/16/16 Unknown Fenofibrate Nanocrystallized 145 mg PO DAILY 07/16/16 Unknown [Tricor] Finasteride [Proscar] 5 mg PO DAILY 07/16/16 Unknown Furosemide [Lasix] 40 mg PO DAILY 07/16/16 Unknown Gabapentin 800 mg PO TID 07/16/16 Unknown Insulin Detemir [Levemir] 75 units SQ BID 07/16/16 Unknown Insulin Lispro [Humalog] See Protocol SQ TID 07/16/16 Unknown Levothyroxine Sodium [Synthroid] 50 mcg PO DAILY 07/16/16 Unknown Lisinopril [Zestril] 20 mg PO DAILY 07/16/16 Unknown Metoprolol Succinate [Toprol Xl] 50 mg PO DAILY 07/16/16 Unknown Nitroglycerin [Nitrostat] 0.4 mg SL Q5MIN PRN 07/16/16 Unknown Omeprazole 20 mg PO DAILY 07/16/16 Unknown Pioglitazone HCl [Actos] 45 mg PO DAILY 07/16/16 Unknown QUEtiapine FUMARATE [Seroquel] 3 tab PO HS 07/16/16 Unknown QUEtiapine FUMARATE [Seroquel] 25 mg PO QAM 07/16/16 Unknown Simvastatin [Zocor] 40 mg PO HS 07/16/16 Unknown Sitagliptin Phosphate [Januvia] 100 mg PO DAILY 07/16/16 Unknown Tamsulosin HCl [Flomax] 0.4 mg PO DAILY 07/16/16 Unknown Disulfiram [Antabuse] 500 mg PO TID 07/24/16 Unknown - Patient's Past Medical History Patient History - Medical: Diabetes Type 2 Insulin Dependent, Depression, GERD, Hypothyroidism, Migraines, Other - Neuropathy, Patient History - Cardiac/Respiratory: No pertinent hx, Hypertension, Hyperlipidemia Patient History - Cancer: No Hx of Cancer Patient History - Surgical Procedures: Amputation, T & A, Other Patient History - Other: None - Family History Father Family History - Medical: , Other - Liver Failure. Family History - Cardiac/Respiratory: COPD Mother Family History - Medical: , Diabetes Type 2 Family History - Cardiac/Respiratory: CHF Uncle Family History - Medical: Alcohol Abuse, Diabetes Type 2 - Social History Living Situations: spouse Abuse History: No History of abuse Psych History: Hx of Depression Does anyone smoke in the home?: No Smoking Status: Former smoker Have you smoked in the past 12 months: No Do you dip or chew tobacco: No Patient requests Smoking Cessation Consult: No Initiate information on Smoking Cessation: No Alcohol Use: rarely Drug Use: none - Immunizations Immunizations Up to Date: Yes Hx Pneumococcal Vaccination: Yes History of Influenza Vaccine: Yes Procedures AMPUTATION THROUGH FOOT (11/07/14) BUNIONECTOMY NEC (04/05/14) EXCISION OF RIGHT UPPER LEG SKIN, EXTERNAL APPROACH (07/24/16) MUSC/TEND LNG CHANGE NEC (04/05/14) MYRINGOTOMY W INTUBATION (02/16/14) OTHER CAST APPLICATION (12/15/12) REPLACE R LOW LEG SKIN W AUTOL SUB, FULL THICK, CHEF INSTRUCTOR (07/24/16) TOE AMPUTATION (07/09/14) Medications - Medications Current Medications: Current Medications Acetaminophen (Tylenol) 650 mg PO QID PRN PRN Reason: Mild Pain Stop: 08/25/16 13:17 Last Admin: 07/30/16 11:32 Dose: 650 mg Albuterol Sulfate (Albuterol Sulfate 2.5 Mg/0.5ml) 2.5 mg IH Q2H PRN PRN Reason: Dyspnea Stop: 08/27/16 00:38 Last Admin: 07/28/16 02:19 Dose: 2.5 mg Alprazolam (Xanax) 2 mg PO HS [facility] Stop: 08/24/16 21:01 Last Admin: 07/30/16 20:55 Dose: 2 mg Aripiprazole (Abilify) 10 mg PO DAILY [facility] Stop: 08/24/16 09:01 Last Admin: 07/31/16 08:18 Dose: 10 mg Aspirin (Aspirin Enteric Coated) 81 mg PO DAILY [facility] Stop: 08/24/16 09:01 Last Admin: 07/31/16 08:20 Dose: 81 mg Calcium Polycarbophil (Fibercon) 1,250 mg PO BID [facility] Stop: 08/23/16 22:46 Last Admin: 07/31/16 08:20 Dose: 1,250 mg Citalopram Hydrobromide (Celexa) 40 mg PO HS [facility] Stop: 08/23/16 23:01 Last Admin: 07/30/16 20:39 Dose: 40 mg Fenofibrate (Lofibra) 134 mg PO DAILY [facility] Stop: 08/24/16 09:01 Last Admin: 07/31/16 08:22 Dose: 134 mg Finasteride (Proscar) 5 mg PO DAILY [facility] Stop: 08/24/16 09:01 Last Admin: 07/31/16 08:25 Dose: 5 mg Gabapentin (Neurontin) 800 mg PO QID [facility] Stop: 08/26/16 13:01 Last Admin: 07/31/16 13:40 Dose: 800 mg Heparin Sodium (Porcine) (Heparin Sodium) 5,000 units SC Q12H [facility] Stop: 08/27/16 22:01 Last Admin: 07/31/16 10:50 Dose: 5,000 units Piperacillin Sod/Tazobactam (Sod 3.375 gm/ Dextrose/Water) 100 mls @ 25 mls/hr IV Q8H [facility] Stop: 08/24/16 13:31 Last Infusion: 07/31/16 08:50 Dose: Infused Dextrose/Sodium Chloride (Dextrose 5%-0.45%Ns) 1,000 mls @ 30 mls/hr IV .Q24H PRN PRN Reason: HYDRATION Stop: 08/27/16 00:38 Last Admin: 07/31/16 04:54 Dose: 30 mls/hr Vancomycin HCl 1.5 gm/ (Dextrose/Water) 500 mls @ 140 mls/hr IV Q24H [facility] Stop: 08/29/16 10:01 Last Admin: 07/31/16 10:22 Dose: 140 mls/hr Insulin Detemir (Levemir) 40 units SC BID [facility] Stop: 08/26/16 10:46 Last Admin: 07/31/16 08:23 Dose: 40 units Insulin Human Lispro (Humalog) 1 units SC TID [facility] PRN Reason: Protocol Stop: 08/24/16 09:01 Last Admin: 07/31/16 12:47 Dose: Not Given Levothyroxine Sodium (Synthroid) 50 mcg PO DAILY [facility] Stop: 08/24/16 09:01 Last Admin: 07/31/16 08:26 Dose: 50 mcg Lisinopril (Zestril) 20 mg PO DAILY [facility] Stop: 08/24/16 09:01 Last Admin: 07/31/16 08:28 Dose: 20 mg Metoprolol Succinate (Toprol Xl) 50 mg PO DAILY [facility] Stop: 08/24/16 09:01 Last Admin: 07/31/16 08:27 Dose: 50 mg Pantoprazole Sodium (Protonix) 20 mg PO DAILY@0700 [facility] Stop: 08/24/16 07:01 Last Admin: 07/31/16 06:45 Dose: 20 mg Pioglitazone HCl (Actos) 45 mg PO DAILY [facility] Stop: 08/24/16 09:01 Last Admin: 07/31/16 08:19 Dose: 45 mg Quetiapine Fumarate (Seroquel) 75 mg PO HS [facility] Stop: 08/23/16 23:01 Last Admin: 07/30/16 20:39 Dose: 75 mg Simvastatin (Zocor) 40 mg PO HS [facility] Stop: 08/24/16 21:01 Last Admin: 07/30/16 20:39 Dose: 40 mg Sitagliptin Phosphate (Januvia) 100 mg PO DAILY [facility] Stop: 08/24/16 09:01 Last Admin: 07/31/16 08:22 Dose: 100 mg Tamsulosin HCl (Flomax) 0.4 mg PO DAILY@1900 [facility] Stop: 08/24/16 19:01 Last Admin: 07/30/16 19:13 Dose: 0.4 mg Physical Examination - Exam Narrative: Examination of his right shoulder reveals full range of motion. Patient has tenderness to palpation about the subacromial region. No weakness of the rotator cuff strength testing. [place]'s test is negative. Impingement testing is positive. Examination today of his right hand and arm reveal evidence of thenar and intrinsic atrophy. This is possibly due to his known cervical problem for which he is still getting worked up for. He has normal light touch sensation to his right upper extremity. Good pulses. X-rays had been obtained today showing no obvious signs of any bony abnormalities. No evidence of fracture. No glenohumeral DJD noted. Vital Signs: Vital Signs - Last Taken Temp 36.6 C 07/31/16 10:00 Pulse 80 07/31/16 10:00 Resp 20 07/31/16 10:00 BP 110/66 07/31/16 10:00 Pulse Ox 94 07/31/16 10:00 O2 Oxygen Delivery Method Room Air - Results and Findings: Narrative: She appears to have signs of he has positive impingement testing. However this patient also has very chronic nature of this problem. The attempting to try a subacromial cortisone injection to see if we give him any relief. I'll also informed him that this may not help much. If he does not receive any relief after approximately 7 days from the cortisone injection there is a high probability that this is related to his cervicalproblem1.Patientunderstands. Lab/Microbiology results last 24 hrs: Abnormal/Pending Laboratory Last 24 HRS 07/31/16 07/31/16 05:32 05:32 RBC 3.66 L Hgb 9.7 L Hct 30.8 L MCH 26.5 L MCHC 31.5 L RDW 15.9 H Immature Gran % (Auto) 1.30 H Immature Gran # (Auto) 0.06 H Eosinophils % 5.1 H BUN 38 H Creatinine 2.33 H Est GFR (Non-Af Amer) 31 L Random Glucose 66 L D ALT 12 L Alkaline Phosphatase 25 L Albumin 3.2 L Culture 07/29/16 Unknown Miscellaneous Culture - Preliminary Foot - Left No Growth
--- NOTE | 2016-07-31 16:10 | PN ---
Subjective - Date and Time Seen Date: 07/31/16 Time: 16:08 Objective - Vitals Vitals: Last Vital Signs Temp 36.6 C 07/31/16 10:00 Pulse 80 07/31/16 10:00 Resp 20 07/31/16 10:00 BP 110/66 07/31/16 10:00 Pulse Ox 94 07/31/16 10:00 - Abnormal Lab Findings Abnormal Lab Findings: Abnormal Lab Results 07/31/16 07/31/16 Range/Units 05:32 05:32 RBC 3.66 L (4.7-6.0) M/mm3 Hgb 9.7 L (13.5-18.0) gm/dL Hct 30.8 L (42.0-52.0) % MCH 26.5 L (27-31) pg MCHC 31.5 L (32-36) g/dl RDW 15.9 H (11.5-14.0) % Immature Gran % (Auto) 1.30 H (0.001-0.429) % Immature Gran # (Auto) 0.06 H (0.000-0.0310) K/mm3 Eosinophils % 5.1 H (0.0-3.0) % BUN 38 H (6-23) mg/dL Creatinine 2.33 H (0.4-1.4) mg/dL Est GFR (Non-Af Amer) 31 L (60-130) mL/min Random Glucose 66 L D (70-110) mg/dL ALT 12 L (19-67) U/L Alkaline Phosphatase 25 L (50-170) U/L Albumin 3.2 L (3.4-5.0) gm/dl - Exam Exam Narrative: Procedure note: Following consent for right shoulder subacromial cortisone injection. The posterior lateral aspect of his right shoulder was prepped with ChloraPrep. Anesthesia was made with ethyl chloride spray. A mixture of 1 mL 1% Xylocaine without epinephrine and 1 mL of Kenalog equaling 40 mg of Kenalog were then injected into the subacromial space. She tolerated the procedure well. Hemostase this was maintained with a Band-Aid.
--- NOTE | 2016-07-31 16:21 | PN ---
Subjective - Date and Time Seen Date: 07/31/16 Time: 16:30 Subjective Narrative: Pt seen at bedside resting. States that he is still having some pain to the left foot ulceration site, but improving. Relates improvement in SOB, otherwise denies any other systemic symptoms. Objective - Review of Systems Respiratory: Reports: Shortness of Breath Cardiac: Reports: Edema Neurological: Reports: Numbness Skin: Reports: Other - left foot ulceration - Vitals Vitals: Last Vital Signs Temp 36.6 C 07/31/16 10:00 Pulse 80 07/31/16 10:00 Resp 20 07/31/16 10:00 BP 110/66 07/31/16 10:00 Pulse Ox 94 07/31/16 10:00 - Abnormal Lab Findings Abnormal Lab Findings: Abnormal Lab Results 07/31/16 07/31/16 Range/Units 05:32 05:32 RBC 3.66 L (4.7-6.0) M/mm3 Hgb 9.7 L (13.5-18.0) gm/dL Hct 30.8 L (42.0-52.0) % MCH 26.5 L (27-31) pg MCHC 31.5 L (32-36) g/dl RDW 15.9 H (11.5-14.0) % Immature Gran % (Auto) 1.30 H (0.001-0.429) % Immature Gran # (Auto) 0.06 H (0.000-0.0310) K/mm3 Eosinophils % 5.1 H (0.0-3.0) % BUN 38 H (6-23) mg/dL Creatinine 2.33 H (0.4-1.4) mg/dL Est GFR (Non-Af Amer) 31 L (60-130) mL/min Random Glucose 66 L D (70-110) mg/dL ALT 12 L (19-67) U/L Alkaline Phosphatase 25 L (50-170) U/L Albumin 3.2 L (3.4-5.0) gm/dl Comments:: Preliminary bone culture with no growth. - Exam Constitutional: Present: Alert, Oriented x3, No distress Cardiovascular/Chest: Present: edema Extremity: Present: lower extremity edema Skin Exam: Present: other - Ulceration to plantar surface of amputation stump left foot with increasing granulation tissue. Still with moderate serosangionous drainage, no malodor. No purulence expressed on today's visit. Surrounding tissue pink, intact. Still probes to bone. Incision from bone culture well approximated with suture intact. No drainage. Neurologic: Present: sensory deficit Assessment/Plan - Problems/Diagnosis (1) Infected pressure ulcer Problem: Chronic Qualifiers: Pressure ulcer stage: stage 2 Qualified Code(s): L89.92 - Pressure ulcer of unspecified site, stage 2 Narrative: Continue IV ABX. Await final culture results. New dressing of Aquacel Ag, dry gauze, ana, and YANCY bandage applied, will continue daily dressing changes. Continue minimal WB in surgical boot with crutch assist. (2) Foot pain, left Problem: Chronic (3) Osteomyelitis Problem: Suspected Qualifiers: Osteomyelitis type: other chronic Osteomyelitis location: foot Laterality : left Qualified Code(s): M86.672 - Other chronic osteomyelitis, left ankle and foot Narrative: Await final culture results. ABX pending results.
[2016-07-31] MEDS: TAMSULOSIN HCL 0.4 MG CAP.SR.24H PO SCH (19:42)
[2016-07-31] MEDS: ALPRAZolam 1 MG TABLET PO SCH (22:28)
[2016-07-31] MEDS: SIMVASTATIN 40 MG TABLET PO SCH (22:29)
[2016-07-31] MEDS: CITALOPRAM HYDROBROMIDE 20 MG TABLET PO SCH (22:29)
[2016-08-01] MEDS: PIPERACILLIN SODIUM/TAZOBACTAM 3.375 GM in DEXTROSE 5 % IN WATER 100 ML IV SCH ×6 (04:59→21:17)
[2016-08-01 06:19] LABS: BUN/Creatinine Ratio 17.1 (9.0-21.6); CRP 1.3 mg/dL (0.0-0.9); Calcium * 8.9 mg/dL (7.9-10.9); Carbon Dioxide 30.9 mmol/L (24-32.6); Estimated Creat Clear 37.7; Potassium 4.9 mmol/L (3.4-4.6)
[2016-08-01] MEDS: PANTOPRAZOLE SODIUM 20 MG TABLET.DR PO SCH (06:30)
[2016-08-01] MEDS: AMITRIPTYLINE HCL 10 MG TABLET PO SCH ×4 (10:00→21:14)
[2016-08-01] MEDS: sitaGLIPtin PHOSPHATE 50 MG TABLET PO SCH (10:00)
[2016-08-01] MEDS: LISINOPRIL 20 MG TABLET PO SCH (10:00)
[2016-08-01] MEDS: FINASTERIDE 5 MG TABLET PO SCH (10:00)
[2016-08-01] MEDS: ARIPiprazole 10 MG TABLET PO SCH (10:00)
[2016-08-01] MEDS: GABAPENTIN 400 MG CAPSULE PO SCH ×4 (10:00→21:14)
[2016-08-01] MEDS: LEVOTHYROXINE SODIUM 50 MCG TABLET PO SCH (10:00)
[2016-08-01] MEDS: FENOFIBRATE,MICRONIZED 134 MG CAPSULE PO SCH (10:00)
[2016-08-01] MEDS: CALCIUM POLYCARBOPHIL 625 MG TABLET PO SCH ×2 (10:01→21:14)
[2016-08-01] MEDS: PIOGLITAZONE HCL 15 MG TABLET PO SCH (10:01)
[2016-08-01] MEDS: HEPARIN SODIUM,PORCINE 5,000 UNITS/ML VIAL SC SCH ×2 (10:01→21:16)
[2016-08-01] MEDS: METOPROLOL SUCCINATE 50 MG TABLET.SA PO SCH (10:01)
[2016-08-01] MEDS: ASPIRIN 81 MG TABLET.DR PO SCH (10:01)
[2016-08-01] MEDS: INSULIN LISPRO 100 UNITS/ML VIAL SC SCH ×3 (10:02→17:06)
[2016-08-01] MEDS: INSULIN DETEMIR 100 UNITS/ML VIAL SC SCH ×2 (10:02→21:27)
[2016-08-01] MEDS: VANCOMYCIN HCL 1.5 GM in DEXTROSE 5 % IN WATER 500 ML IV SCH ×2 (10:37)
[2016-08-01] MEDS: DEXTROSE 5%-0.5 NORMAL SALINE 1,000 ML IV PRN (14:28)
--- NOTE | 2016-08-01 17:45 | PN ---
Subjective - Date and Time Seen Date: 08/01/16 Time: 06:40 Subjective Narrative: No fever, chills or sweats. Good appetite. Shoulder still hurts, but had injection by rafaela Cardenas, and it has modestly improved.. Please refer to psychiatrist's note. Final cultures are no growth. Objective - Review of Systems Generalized/Overall Review: Reports: No Symptoms Reported EENTM: Reports: No Symptoms Reported Respiratory: Reports: No Symptoms Reported Cardiac: Reports: No Symptoms Reported Abdominal: Reports: No Symptoms Reported Genitourinary Symptoms: Reports: No Symptoms Reported Musculoskeletal Complaints: Reports: Other - see HPI Neurological: Reports: No Symptoms Reported Skin: Reports: No Symptoms Reported Endocrine: Reports: No Symptoms Reported Misc: All systems neg except as marked - Vitals Vitals: Last Vital Signs Selected Entries 08/01/16 01:00 Temperature 37.0 C Temperature Temporal Artery Source Scan Pulse Rate 73 Respiratory 18 Rate Blood Pressure 112/54 Blood Pressure Supine Position O2 Sat by Pulse 95 Oximetry Oxygen Delivery Room Air Method - Abnormal Lab Findings Abnormal Lab Findings: Abnormal Lab Results 08/01/16 08/01/16 Range/Units 05:20 05:20 ESR 41 H (0-10) mm/hr Potassium 4.9 H D (3.4-4.6) mmol/L BUN 38 H (6-23) mg/dL Creatinine 2.22 H (0.4-1.4) mg/dL Est GFR (Non-Af Amer) 33 L (60-130) mL/min Random Glucose 136 H D (70-110) mg/dL C-Reactive Prot, Quant 1.3 H (0.0-0.9) mg/dL - Exam Constitutional: Present: Alert, Oriented x3, Cooperative, Well developed, No distress, Obese ENT Exam: Present: normal ENT inspection, hearing grossly normal, pharynx normal , TMs normal Neck: Present: full range of motion Respiratory: Present: lungs clear, no respiratory distress Cardiovascular/Chest: Present: regular rate, rhythm, no edema - ```````````````` ```````````````````````````````````````````````````````````````````````````````` ```````````````````````````````````````````````````````````````````````````````` ```````````````````````````````````````````````````````````````````````````````` ```````````````````````````````````````````````````````````````````````````````` ```````````````````````````````````````````````````````````````````````````````` ```````````````````````````````````````````````````````````````````````````````` ```````````````````````````````````````````````````````````````````````````````` ```````````````````````````````````````````````````````````````````````````````` ```````````````````````````````````````````````````````````````````````````````` ```````````````````````````````````````````````````````````````````````````````` ```````````````````````````````````````````````````````````````````````````````` ```````````````````````````````````````````````````````````````````````````````` ```````````````````````````````````````````````````````````````````````````````` ```````````````````````````````````````````````````````````````````````````````` ```````````````````````````````````````````````````````````````````````````````` ```````````````````````````````````````````````````````````````````````````````` ```````````````````````````````````````````````````````````````````````````````` ```````````````````````````````````````````````````````````````````````````````` ```````````````````````````````````````````````````````````````````````````````` ```````````````````````````````````````````````````````````````````````````````` ```````````````````````````````````````````````````````````````````````````````` ```````````````````````````````````````````````````````````````````````````````` ```````````````````````````````````````````````````````````````````````````````` ```````````````````````````````````````````````````````````````````````````````` ```````````````` Abdomen: Present: Normal bowel sounds, soft, nontender, nondistended, no rebound tenderness, no hepatospenomegaly, no masses, obese Extremity: Present: other - boot not removed from left foot Skin Exam: Present: normal color, warm/dry, no cyanosis Neurologic: Present: alert, oriented x 3 Appearance: Present: appropriate appearance, neat Eye contact: Present: cooperative, good eye contact, normal speech Assessment/Plan Plan Narrative: Continue IV antibiotics. Local wound care by pharmacy consultant. Follow labs. - Problems/Diagnosis (1) Infected pressure ulcer Problem: Chronic Qualifiers: Qualified Code(s): L89.92 - Pressure ulcer of unspecified site, stage 2 (2) Diabetes mellitus Problem: Chronic (3) HTN (hypertension) Problem: Chronic Qualifiers: Qualified Code(s): I10 - Essential (primary) hypertension (4) History of non-healing wound Problem: Chronic (5) Charcot foot due to diabetes mellitus Problem: Chronic (6) Diabetic peripheral neuropathy Problem: Chronic (7) Hyperlipidemia Problem: Chronic (8) Hypertension Problem: Chronic (9) Abscess of foot Problem: Acute
--- NOTE | 2016-08-01 17:49 | PN ---
Subjective - Date and Time Seen Date: 08/01/16 Time: 20:00 Subjective Narrative: In good spirits. No serious pain felt. Wanted to revisit the issues we discussed yesterday: 1-Anniversary grief reaction on his part and his daughter's part His daughter says she knows that she badly needs to seek help for this especially with the suicide of her fiance when she was 18 years old {she is now 31} and the rage and guilt she feels over the fact that her father gave her boyfriend the Birthday gift of a .357 Magnum which he then used to shoot himself in the head when she decided to leave him. He says that no one had ever asked him those questions that eventually led to that diagnosis and how serious his unresolved grief really was that influenced his fractionalized suicide by sabotaging his own well-being 2-Discussed the importance of understanding : -GFR -BUN -Creatinine -Microalbinuria -Glycemic index and gluose control -The relationship between infections anywhere in the body and the worsening of depression as summarized in studies revealed these past two weeks in [place] [employer]-based research Time spent: 20 minutes Edith Lucas M.D. Objective - Vitals Vitals: Last Vital Signs Temp 36.4 C L 08/01/16 16:01 Pulse 78 08/01/16 16:01 Resp 20 08/01/16 16:01 BP 115/62 08/01/16 16:01 Pulse Ox 96 08/01/16 16:01 - Abnormal Lab Findings Abnormal Lab Findings: Abnormal Lab Results 08/01/16 08/01/16 Range/Units 05:20 05:20 ESR 41 H (0-10) mm/hr Potassium 4.9 H D (3.4-4.6) mmol/L BUN 38 H (6-23) mg/dL Creatinine 2.22 H (0.4-1.4) mg/dL Est GFR (Non-Af Amer) 33 L (60-130) mL/min Random Glucose 136 H D (70-110) mg/dL C-Reactive Prot, Quant 1.3 H (0.0-0.9) mg/dL Assessment/Plan - Problems/Diagnosis (1) Depression Problem: Chronic
[2016-08-01] MEDS: TAMSULOSIN HCL 0.4 MG CAP.SR.24H PO SCH (21:13)
[2016-08-01] MEDS: CITALOPRAM HYDROBROMIDE 20 MG TABLET PO SCH (21:13)
[2016-08-01] MEDS: QUEtiapine FUMARATE 25 MG TABLET PO SCH (21:15)
[2016-08-01] MEDS: SIMVASTATIN 40 MG TABLET PO SCH (21:15)
[2016-08-01] MEDS: ALPRAZolam 1 MG TABLET PO SCH (21:45)
[2016-08-02] MEDS: PIPERACILLIN SODIUM/TAZOBACTAM 3.375 GM in DEXTROSE 5 % IN WATER 100 ML IV SCH ×2 (05:17)
[2016-08-02] MEDS: PANTOPRAZOLE SODIUM 20 MG TABLET.DR PO SCH (06:29)
[2016-08-02 06:51] LABS: BUN/Creatinine Ratio 17.7 (9.0-21.6)
[2016-08-02 06:52] LABS: Anion Gap 12.2 mmol/L (6.8-13.8); Calcium * 8.9 mg/dL (7.9-10.9); Carbon Dioxide 28.9 mmol/L (24-32.6); Potassium 5.1 mmol/L (3.4-4.6)
[2016-08-02] MEDS: ASPIRIN 81 MG TABLET.DR PO SCH (08:45)
[2016-08-02] MEDS: CALCIUM POLYCARBOPHIL 625 MG TABLET PO SCH (08:45)
[2016-08-02] MEDS: FINASTERIDE 5 MG TABLET PO SCH (08:45)
[2016-08-02] MEDS: METOPROLOL SUCCINATE 50 MG TABLET.SA PO SCH (08:45)
[2016-08-02] MEDS: FENOFIBRATE,MICRONIZED 134 MG CAPSULE PO SCH (08:46)
[2016-08-02] MEDS: GABAPENTIN 400 MG CAPSULE PO SCH ×2 (08:46→12:02)
[2016-08-02] MEDS: ARIPiprazole 10 MG TABLET PO SCH (08:46)
[2016-08-02] MEDS: PIOGLITAZONE HCL 15 MG TABLET PO SCH (08:46)
[2016-08-02] MEDS: sitaGLIPtin PHOSPHATE 50 MG TABLET PO SCH (08:46)
[2016-08-02] MEDS: LEVOTHYROXINE SODIUM 50 MCG TABLET PO SCH (08:46)
[2016-08-02] MEDS: AMITRIPTYLINE HCL 10 MG TABLET PO SCH ×2 (08:46→12:03)
[2016-08-02] MEDS: INSULIN DETEMIR 100 UNITS/ML VIAL SC SCH (08:55)
[2016-08-02] MEDS: INSULIN LISPRO 100 UNITS/ML VIAL SC SCH ×2 (08:55→12:04)
[2016-08-02] MEDS: HEPARIN SODIUM,PORCINE 5,000 UNITS/ML VIAL SC SCH (09:00)
[2016-08-02] MEDS ORDERED: LISINOPRIL 10 MG TABLET PO SCH (09:00)
[2016-08-02] MEDS ORDERED: VANCOMYCIN HCL LEVEL XX ONE (09:30)
--- NOTE | 2016-08-02 10:31 | PN ---
Subjective - Date and Time Seen Date: 08/02/16 Time: 10:25 Subjective Narrative: No fever, chills or sweats. Good appetite. Shoulder pain is better with amitriptyline. No foot pain Objective - Review of Systems Generalized/Overall Review: Reports: No Symptoms Reported EENTM: Reports: No Symptoms Reported Respiratory: Reports: No Symptoms Reported Cardiac: Reports: No Symptoms Reported Abdominal: Reports: No Symptoms Reported Genitourinary Symptoms: Reports: No Symptoms Reported Musculoskeletal Complaints: Reports: Joint Pain - shoulder pain improved. Neurological: Reports: No Symptoms Reported Skin: Reports: No Symptoms Reported Endocrine: Reports: No Symptoms Reported Misc: All systems neg except as marked - Vitals Vitals: Last Vital Signs Selected Entries 08/02/16 08/02/16 06:46 08:47 Temperature 36.8 C Temperature Oral Source Pulse Rate 69 69 Respiratory 18 Rate Respiratory Normal Depth Blood Pressure 114/60 114/60 Blood Pressure Supine Position O2 Sat by Pulse 98 Oximetry Oxygen Delivery Room Air Method Oxygen Flow 0 Rate - Abnormal Lab Findings Abnormal Lab Findings: Abnormal Lab Results 08/02/16 Range/Units 06:27 Potassium 5.1 H (3.4-4.6) mmol/L BUN 40 H (6-23) mg/dL Creatinine 2.26 H (0.4-1.4) mg/dL Est GFR (Non-Af Amer) 33 L (60-130) mL/min - Exam Constitutional: Present: Alert, Oriented x3, Cooperative, Well developed, No distress, Obese ENT Exam: Present: normal ENT inspection, hearing grossly normal Neck: Present: normal inspection Respiratory: Present: lungs clear, no respiratory distress Cardiovascular/Chest: Present: regular rate, rhythm, no murmur Abdomen: Present: Normal bowel sounds, soft, nontender, nondistended, no rebound tenderness, no hepatospenomegaly, no masses, obese Extremity: Present: other - ortho boot on left foot Skin Exam: Present: normal color, warm/dry, no cyanosis Neurologic: Present: alert, oriented x 3 Appearance: Present: appropriate appearance, neat Eye contact: Present: cooperative, good eye contact, normal speech Assessment/Plan Plan Narrative: Decrease YANCY inhibitor. Follow electrolytes. Continue IV antibiotics. Follow sed rate and CRP. Local care per podiatry. - Problems/Diagnosis (1) Infected pressure ulcer Problem: Chronic Qualifiers: Pressure ulcer stage: stage 2 Qualified Code(s): L89.92 - Pressure ulcer of unspecified site, stage 2 (2) Diabetes mellitus Problem: Chronic Qualifiers: Diabetes mellitus type: type 2 (3) HTN (hypertension) Problem: Chronic Qualifiers: Hypertension type: essential hypertension Qualified Code(s): I10 - Essential (primary) hypertension (4) History of non-healing wound Problem: Chronic (5) Charcot foot due to diabetes mellitus Problem: Chronic (6) Diabetic peripheral neuropathy Problem: Chronic (7) Hyperlipidemia Problem: Chronic (8) Hypertension Problem: Chronic (9) Abscess of foot Problem: Acute (10) Shoulder pain Problem: Chronic Qualifiers: Laterality: right (11) Hyperkalemia Problem: Acute
[2016-08-02 11:36] VITALS: BP 120/68
[2016-08-02] MEDS: VANCOMYCIN HCL 1.5 GM in DEXTROSE 5 % IN WATER 500 ML IV SCH ×2 (11:55)
--- NOTE | 2016-08-02 13:46 | DS ---
(1) Infected pressure ulcer Problem: Chronic Qualifiers: Pressure ulcer stage: stage 2 Qualified Code(s): L89.92 - Pressure ulcer of unspecified site, stage 2 (2) Diabetes mellitus Problem: Chronic Qualifiers: Diabetes mellitus type: type 2 (3) HTN (hypertension) Problem: Chronic Qualifiers: Hypertension type: essential hypertension Qualified Code(s): I10 - Essential (primary) hypertension (4) History of non-healing wound Problem: Chronic (5) Charcot foot due to diabetes mellitus Problem: Chronic (6) Diabetic peripheral neuropathy Problem: Chronic (7) Hyperlipidemia Problem: Chronic (8) Hypertension Problem: Chronic (9) Abscess of foot Problem: Acute (10) Shoulder pain Problem: Chronic Qualifiers: Laterality: right Chronicity: chronic Qualified Code(s): M25.511 - Pain in right shoulder; G89.29 - Other chronic pain (11) Hyperkalemia Problem: Acute (12) Osteomyelitis of foot, left, acute Problem: Acute (13) Chronic renal failure, stage 3 (moderate) Problem: Acute (14) Chronic depression Problem: Acute Description of Stay: Antibiotics instituted following admission. Consult with podiatry obtained. Bone culture obtained, and ultimately grew no bacteria. MRI disclosed two small abscesses in left foot. Bone scan disclosed osteomyelitis. Local dressings used Aquacell AG. Right shoulder pain was an ongoing problem. Ortho was consulted, and they did a right shoulder joint injection which helped somewhat. I added amitriptyline, which helped additionally. Patient requested a visit from his psychiatrist, which was arranged. Today, his database marketing manager advised the patient could go home with two weeks of oral antibiotics. Procedures Performed: see notes below - Bone culture, Dr. Torres Discharge Disposition: Home self care Disposition: Home self-care Condition: Good Discharge Activity: Partial-Weight bearing Discharge Diet: Consistent carbs Referrals: Tai Max MD [Primary Care Provider] - Consultation Done:: Dr. Torres, podiatry. Dr. Lucas, psychiatry. Ector Eastman, orthopedics. Problem Oriented Discharge Instructions to Patient/Family: Bone and Joint Infections, Adult Additional Patient Instructions (free text): Make outpatient nephrology appointment. New referral. Stage 3 chronic renal failure, establish care and follow. F/U with PCP and Dr Torres in one week. Change dressing daily with Aquacell AG. Partial crutch assisted weight bearing left foot wearing boot. CBC and BMP in 1 week. Finger stick blood sugars before meals and at bedtime. Prescriptions (Any new or edited meds): Amitriptyline HCl [Elavil] 10 mg PO QID #120 tablet Amox Tr/Potassium Clavulanate [Augmentin 500-125 Tablet] 500 mg PO TID #42 tab Disulfiram [Antabuse] 500 mg PO DAILY #30 tablet Lisinopril [Zestril] 10 mg PO DAILY #30 tablet Complete Home Medications List: Complete Home Medication List: Alprazolam [Alprazolam ER] 2 tab PO HS 07/16/16 Aripiprazole [Abilify] 0.5 tab PO DAILY 07/16/16 Aspirin [Aspirin Enteric Coated] 81 mg PO DAILY 07/16/16 Calcium Polycarbophil [Fibercon] 2 tab PO BID 07/16/16 Citalopram Hydrobromide [Celexa] 40 mg PO HS 07/16/16 Fenofibrate Nanocrystallized [Tricor] 145 mg PO DAILY 07/16/16 Finasteride [Proscar] 5 mg PO DAILY 07/16/16 Gabapentin 800 mg PO TID 07/16/16 Insulin Detemir [Levemir] 75 units SQ BID 07/16/16 Insulin Lispro [Humalog] See Protocol SQ TID 07/16/16 Levothyroxine Sodium [Synthroid] 50 mcg PO DAILY 07/16/16 Metoprolol Succinate [Toprol Xl] 50 mg PO DAILY 07/16/16 Nitroglycerin [Nitrostat] 0.4 mg SL Q5MIN PRN 07/16/16 Omeprazole 20 mg PO DAILY 07/16/16 Pioglitazone HCl [Actos] 45 mg PO DAILY 07/16/16 QUEtiapine FUMARATE [Seroquel] 3 tab PO HS 07/16/16 Simvastatin [Zocor] 40 mg PO HS 07/16/16 Sitagliptin Phosphate [Januvia] 100 mg PO DAILY 07/16/16 Tamsulosin HCl [Flomax] 0.4 mg PO DAILY 07/16/16 Acetaminophen [Tylenol] 650 mg PO QID PRN #0 tablet 08/02/16 Albuterol Sulfate [Albuterol Sulfate 2.5 MG/0.5ML] 2.5 mg IH Q2H PRN #0 vial.neb 08/02/16 Amitriptyline HCl [Elavil] 10 mg PO QID #120 tablet 08/02/16 Amox Tr/Potassium Clavulanate [Augmentin 500-125 Tablet] 500 mg PO TID #42 tab 08/02/16 Disulfiram [Antabuse] 500 mg PO DAILY #30 tablet 08/02/16 Lisinopril [Zestril] 10 mg PO DAILY #30 tablet 08/02/16
== END 2016-08-02 15:31 | disposition home or self-care (01) | DRG 478 ==
LOC: ER 17:13 → MS 20:08
PROVIDERS: ADMIT Allergy & Immunology; ATTEND Allergy & Immunology
PROC: 0QBM3ZX Excision of Left Tarsal, Percutaneous Approach, Diagnostic (ICD-10-PCS; principal; 2016-07-29)
DX: M86.672 Other chronic osteomyelitis, left ankle and foot (principal); L03.116 Cellulitis of left lower limb; N17.9 Acute kidney failure, unspecified; L89.892 Pressure ulcer of other site, stage 2; M25.511 Pain in right shoulder; E11.40 Type 2 diabetes mellitus with diabetic neuropathy, unspecified; N18.3 Chronic kidney disease, stage 3 (moderate); I12.9 Hypertensive chronic kidney disease with stage 1 through stage 4 chronic kidney disease, or unspecified chronic kidney disease; E78.5 Hyperlipidemia, unspecified; K21.9 Gastro-esophageal reflux disease without esophagitis; Z79.4 Long term (current) use of insulin; Z79.82 Long term (current) use of aspirin; Z89.432 Acquired absence of left foot
CPT/HCPCS: 36415; 73030; 73630; 73723; 78315; 80048; 80053; 80202; 83605; 84145; 85025; 85652; 86140; 87040; 87070; 87081; 94640; 96365; 99284; A9503

== ENCOUNTER 2016-09-22 09:22 | Day surgery (SDC) | payer OTHER ==
[~2016-09-22 09:22] MED LIST: RINGERS SOLUTION,LACTATED 1,000 ML IV PRN; ceFAZolin SODIUM 2 GM in DEXTROSE 5 % IN WATER 50 ML IV PRN
--- OUTSIDE RECORDS SUMMARY | 2016-09-22 09:27 | XMS REPORT | Continuity of Care Document ---
:1965 Author Organization [facility] ([facility]) [place] [address] Phone [phone] Care Team Providers Name Role Phone DexterAdelina Primary Care Provider [phone] Source Comments This disclosure is being made pursuant to the Care Everywhere program, applicable federal and state laws, and may not contain all informaitonavailable regarding this patient.[facility] ([facility]) Active Allergies and Adverse Reactions Allergen [...] Taken Blood Pressure 164/90 06/04/2012 8:25 AM RESIDENTIAL DOOR [employer]IT INST[employer]ER Pulse 94 06/04/2012 8:25 AM RESIDENTIAL DOOR UNIT INST[employer]ER Temperature 35.8 C (96.4 F) 06/04/2012 8:25 AM RESIDENTIAL DOOR UNIT INSTALLER Respiratory Rate - - Height 1.702 m (5' 7") 06/04/2012 8:25 AM RESIDENTIAL DOOR UNIT INSTALLER Weight 95.709 kg (211 lb) 06/04/2012 8:25 AM RESIDENTIAL DOOR UNIT INSTALLER Body Mass Index 33.04 06/04/2012 8:25 AM RESIDENTIAL DOOR UNIT INSTALLER Oxygen Saturation 96% 05/30/2012 11:20 AM RESIDENTIAL DOOR UNIT INSTALLER Plan of Care Patient Goal Type Goal [...]
[2016-09-22] MEDS ORDERED: RINGERS SOLUTION,LACTATED 1,000 ML IV ONE (10:45)
[2016-09-22] MEDS ORDERED: LIDOCAINE HCL 50 ML VIAL IJ ONE (11:27)
[2016-09-22] MEDS ORDERED: BUPIVACAINE HCL 50 ML VIAL IJ ONE (11:27)
[2016-09-22 13:15] VITALS: BP 126/74
== END 2016-09-22 09:23 | disposition home or self-care (01) ==
LOC: AMB 09:22
PROVIDERS: ATTEND Student in an Organized Health Care Education/Training Program
PROC: 0L8T0ZZ Division of Left Ankle Tendon, Open Approach (ICD-10-PCS; principal; 2016-09-22 12:00)
DX: M24.572 Contracture, left ankle (principal); E11.621 Type 2 diabetes mellitus with foot ulcer; L97.529 Non-pressure chronic ulcer of other part of left foot with unspecified severity; E11.22 Type 2 diabetes mellitus with diabetic chronic kidney disease; I12.9 Hypertensive chronic kidney disease with stage 1 through stage 4 chronic kidney disease, or unspecified chronic kidney disease; N18.3 Chronic kidney disease, stage 3 (moderate); E78.5 Hyperlipidemia, unspecified; E03.9 Hypothyroidism, unspecified; K21.9 Gastro-esophageal reflux disease without esophagitis; F32.9 Major depressive disorder, single episode, unspecified; Z68.37 Body mass index [BMI] 37.0-37.9, adult

== ENCOUNTER 2016-12-03 06:47 | Day surgery (SDC) | payer OTHER ==
[~2016-12-03 06:47] MED LIST changes: -ceFAZolin SODIUM 2 GM in DEXTROSE 5 % IN WATER 50 ML IV PRN
[2016-12-03] MEDS ORDERED: RINGERS SOLUTION,LACTATED 1,000 ML IV PRN (08:10)
[2016-12-03 09:11] VITALS: BP 154/80
--- NOTE | 2016-12-03 13:13 | OR ---
Operative Report - Dictated Report Narrative: OPERATIVE REPORT DATE OF OPERATION: 12/03/2016 PREOPERATIVE DIAGNOSIS: No recent colon studies. Irregular bowel habit. POSTOPERATIVE DIAGNOSIS: Diverticulosis OPERATION: Colonoscopy SURGEON: Mauricio Fink MD ANESTHESIA: HORTENCIA Clifford CRNA INDICATIONS FOR PROCEDURE: The patient is a 51-year-old male referred by Dr. Keshav Neri. The patient's last colonoscopy was in 2004. He has irregular, hard/loose stools. FINDINGS: Diverticulosis otherwise normal colonoscopy to the cecum. NARRATIVE OF PROCEDURE: The patient was identified in the holding area, and prior to the administration of anesthetic, a multidisciplinary timeout was observed. With the patient in the left lateral position and after the administration of intravenous sedation, the perineum was inspected. There was no evidence of pilonidal disease or skin breakdown. The external appearance of the anus was normal. Sphincter tone was good. The flexible fiberoptic colonoscope was inserted into the rectum which was insufflated with air. The rectal mucosa and submucosal vascular pattern appeared normal, the prep was seen to be complete. The scope was advanced through the sigmoid colon, which contained numerous non-impacted noninflamed diverticular openings. The scope was advanced up the descending colon, and around the splenic flexure where the triangular haustral architecture of the transverse colon was seen. The scope was advanced across the transverse colon, around the hepatic flexure to the cecum, where the confluence of tenia and the ileocecal valve were identified. The mucosa at this level appeared normal. The scope was then slowly withdrawn in a circular fashion so that all aspects of colonic mucosa were inspected. The colon was normal in course and caliber. The haustral architecture appeared well preserved throughout with no evidence of external compression. The mucosa and submucosal vascular pattern appeared normal, specifically there was no gross evidence to suggest colitis or inflammatory bowel disease and no AV malformations were seen. The diverticulosis was moderate in degree and confined primarily to the sigmoid colon. No polyps were encountered. The scope was gradually withdrawn to the level of the rectum. As much insufflated air as possible was removed. The scope was withdrawn from the patient and the procedure terminated. The patient tolerated the anesthetic and procedure well without complication and was transferred back to the ambulatory surgery area awake and in stable condition. The patient remained stable throughout a period of postoperative observation. He denied abdominal discomfort, was able to tolerate by mouth intake, and was up without assistance. I shared the operative findings with the patient and he was given copies of the photographs which appear in the medical record. He was discharged home with instructions not to engage in hazardous activity today, but may resume normal activity tomorrow, and advance diet as tolerated. He is to continue those medications as listed in the history and physical exam. RECOMMENDATION: A pamphlet on diverticular disease was reviewed with him and given to him. It was suggested that he stop Imodium and use of Benefiber to titrate as needed. He is to report progress. Colon surveillance in 10 years depending upon symptoms or findings. Reviewed and electronically signed
== END 2016-12-03 06:48 | disposition home or self-care (01) ==
LOC: AMB 06:47
PROVIDERS: ATTEND Surgery
PROC: 0DJD8ZZ Inspection of Lower Intestinal Tract, Via Natural or Artificial Opening Endoscopic (ICD-10-PCS; principal; 2016-12-03 08:00)
DX: Z12.11 Encounter for screening for malignant neoplasm of colon (principal); K57.30 Diverticulosis of large intestine without perforation or abscess without bleeding; R19.4 Change in bowel habit; E11.22 Type 2 diabetes mellitus with diabetic chronic kidney disease; I12.9 Hypertensive chronic kidney disease with stage 1 through stage 4 chronic kidney disease, or unspecified chronic kidney disease; N18.3 Chronic kidney disease, stage 3 (moderate); K21.9 Gastro-esophageal reflux disease without esophagitis; E78.5 Hyperlipidemia, unspecified; E03.9 Hypothyroidism, unspecified; F32.9 Major depressive disorder, single episode, unspecified; Z68.41 Body mass index [BMI] 40.0-44.9, adult

== ENCOUNTER 2017-01-23 07:51 | Day surgery (SDC) | payer OTHER ==
[~2017-01-23 07:51] MED LIST changes: +CIPROFLOXACIN HCL 500 MG TABLET PO PRN; -RINGERS SOLUTION,LACTATED 1,000 ML IV PRN
[2017-01-23] MEDS ORDERED: LIDOCAINE HCL 10 APPL CARTRIDGE TP ONE (08:35)
[2017-01-23 09:35] VITALS: BP 134/73
== END 2017-01-23 07:52 | disposition home or self-care (01) ==
LOC: AMB 07:51
PROVIDERS: ATTEND Urology
PROC: 3E1K88X Irrigation of Genitourinary Tract using Irrigating Substance, Via Natural or Artificial Opening Endoscopic, Diagnostic (ICD-10-PCS; 2017-01-23)
PROC: 0TJB8ZZ Inspection of Bladder, Via Natural or Artificial Opening Endoscopic (ICD-10-PCS; principal; 2017-01-23 08:40)
DX: E11.22 Type 2 diabetes mellitus with diabetic chronic kidney disease (principal); R33.8 Other retention of urine; I12.9 Hypertensive chronic kidney disease with stage 1 through stage 4 chronic kidney disease, or unspecified chronic kidney disease; N18.3 Chronic kidney disease, stage 3 (moderate); E78.5 Hyperlipidemia, unspecified; K21.9 Gastro-esophageal reflux disease without esophagitis; E13.42 Other specified diabetes mellitus with diabetic polyneuropathy; Z68.41 Body mass index [BMI] 40.0-44.9, adult

== ENCOUNTER 2017-02-12 15:51 | Emergency (ER) | payer SELFPAY ==
[2017-02-12 16:25] LABS: Hematocrit 40.2 % (42.0-52.0); Hemoglobin 12.9 gm/dL (13.5-18.0); Mean Corpuscular Hemoglobin 27.3 pg (27-31); Mean Corpuscular Hgb Conc 32.1 g/dl (32-36); Neutrophil # 4.3 K/mm3 (1.3-6.0); Neutrophil % 71.9 % (42-75.0); Platelet Count 165 K/mm3 (150-450); Red Blood Count 4.73 M/mm3 (4.7-6.0)
--- NOTE | 2017-02-12 16:28 | ERNOTE ---
Lower Extremity HPI - Narrative Date of Service: 02/12/17 - General Lower Extremities Pain: thigh: left Time Seen by Provider: 02/12/17 16:01 Source: patient, RN notes reviewed, old records Exam Limitations: no limitations - Immun/Allergies/Home Medications Immunizations: IMMUNIZATION HX Immunizations Up to Date Yes History of Influenza Vaccine Yes Hx Pneumococcal Vaccination Yes Allergies/Adverse Reactions: Allergies Allergy/AdvReac Type Severity Reaction Status Date / Time propoxyphene napsylate AdvReac Mild RASH Verified 02/12/17 16:11 [From [facility] 100] Home Medications: HOME MEDICATIONS Aripiprazole [Abilify] 10 tab PO DAILY 07/16/16 [Last Taken Unknown] Aspirin [Aspirin Enteric Coated] 81 mg PO DAILY 07/16/16 [Last Taken Unknown] Citalopram Hydrobromide [Celexa] 40 mg PO HS 07/16/16 [Last Taken Unknown] Fenofibrate Nanocrystallized [Tricor] 145 mg PO DAILY 07/16/16 [Last Taken Unknown] Gabapentin 800 mg PO TID 07/16/16 [Last Taken Unknown] Insulin Detemir [Levemir] 40 units SQ BID 07/16/16 [Last Taken Unknown] Insulin Lispro [Humalog] 0 units SQ TID PRN 07/16/16 [Last Taken Unknown] Nitroglycerin [Nitrostat] 0.4 mg SL [id number] PRN 07/16/16 [Last Taken Unknown] Omeprazole 20 mg PO DAILY 07/16/16 [Last Taken Unknown] Pioglitazone HCl [Actos] 45 mg PO DAILY 07/16/16 [Last Taken Unknown] Simvastatin [Zocor] 40 mg PO HS 07/16/16 [Last Taken Unknown] Tamsulosin HCl [Flomax] 0.4 mg PO HS 07/16/16 [Last Taken Unknown] sitaGLIPtin PHOSPHATE [Januvia] 100 mg PO DAILY 07/16/16 [Last Taken Unknown] Amitriptyline HCl [Elavil] 10 mg PO QID #120 tablet 08/02/16 [Last Taken Unknown ] Lisinopril [Zestril] 10 mg PO DAILY #30 tablet 08/02/16 [Last Taken Unknown] Alprazolam 4 mg PO HS 09/19/16 [Last Taken Unknown] Blood-Glucose Meter [Blood Glucose Monitoring] 1 each MC QID 09/19/16 [Last Taken Unknown] Gabapentin [Neurontin] 400 mg PO TID 09/19/16 [Last Taken Unknown] Ezetimibe [Zetia] 10 mg PO DAILY 11/19/16 [Last Taken Unknown] Finasteride [Proscar] 5 mg PO DAILY 01/22/17 [Last Taken Unknown] Levothyroxine Sodium [Synthroid] 50 mcg PO DAILY 01/22/17 [Last Taken Unknown] Metoprolol Succinate [Toprol Xl] 25 mg PO DAILY 01/22/17 [Last Taken Unknown] - History of Present Illness Narrative: Paulo is a 51-year-old male who presents to the emergency department for concerns about a possible blood clot in his left leg. He noticed pain in his left medial distal thigh 2 days ago. Today he has also noticed some mild erythema. He saw Dr. Torres in the wound care center 2 days ago. He had developed a new ulcer on the left foot at that time. The foot was healed at his visit one week prior to this. He also had lab work done 2 days ago. This was unremarkable aside from his hemoglobin A1c of 7.9. He does have a prior history of DVT. He is no longer on anticoagulants. He also reports a headache that began 2 days ago. Date (Duration): 02/10/17 Method of Injury: Reports: no apparent injury Prior Treament: Reports: recently seen, similar symptoms before Review of Systems - Review of Systems Constitutional: Absent: fever, chills, malaise EYE: Present: no symptoms reported ENT: Absent: ear pain, nose congestion, sore throat Respiratory: Absent: shortness of breath, cough Cardiology: Absent: chest pain, edema Gastrointestinal/Abdominal: Absent: nausea, abdominal pain Genitourinary: Present: no symptoms reported Musculoskeletal: Present: muscle pain. Absent: neck pain, joint pain, joint swelling Skin: Present: change in color. Absent: rash, lesions, lumps Neurological: Present: headache. Absent: dizziness/light-headedness Endocrine: Present: no symptoms reported Hematologic/Lymphatic: Absent: easy bruising, easy bleeding Psych: Present: no symptoms reported - Patient's Past Medical History Patient History - Medical: Diabetes Type 2 Insulin Dependent, Depression, GERD, Hypothyroidism, Migraines, Other Patient History - Cardiac/Respiratory: Deep Vein Thrombosis, Hypertension, Hyperlipidemia Patient History - Cancer: No Hx of Cancer Patient History - Surgical Procedures: Amputation, T & A, Other Patient History - Other: None - Family History Father Family History - Medical: , Other Family History - Cardiac/Respiratory: COPD, Myocardial Infarction Family History - Cancer: No pertinent family hx Mother Family History - Medical: , Diabetes Type 2, Renal Failure Family History - Cardiac/Respiratory: CHF Family History - Cancer: No pertinent family hx Sister Family History - Medical: Hypothyroidism Family History - Cardiac/Respiratory: No pertinent hx Family History - Cancer: Breast Children Family History - Medical:  Family History - Cardiac/Respiratory: CHF Family History - Cancer:  Uncle Family History - Medical: Alcohol Abuse, Diabetes Type 2 - Social History Living Situations: spouse Abuse History: No History of abuse Psych History: Hx of Depression, Current tx/ever been on anti-depressants or anti-anxiety meds Does anyone smoke in the home?: No Have you smoked in the past 12 months: No Alcohol Use: none Drug Use: none - Immunizations Immunizations Up to Date: Yes Hx Pneumococcal Vaccination: Yes History of Influenza Vaccine: Yes Physical Exam - Physical Exam General Appearance: Present: wd/wn, alert, no apparent distress Head Exam: Present: normal inspection, no evidence of injury. Absent: tenderness Eye Exam: Normal inspection: bilateral, PERRL: bilateral Neck: Present: normal inspection, nontender, supple Respiratory: Present: no respiratory distress, normal breath sounds, no accessory muscle use, lungs clear Cardiovascular/Chest: Present: regular rate, rhythm, no murmur Extremity Exam: Present: other - Left lower leg in short leg cast, left medial distal thigh tender to palpation, appears slightly red, tendern to palpation, no edema noted Neurological Exam: Present: alert, oriented, normal mood/affect, no motor/ sensory deficits Skin Exam: Present: normal color, warm/dry ED Progress - Results and Orders Patient's Lab Results:: I have reviewed the patient's lab results. - Vital Signs Patient's Vital Signs:: I have reviewed the patient's vital signs. Vital Signs: Vital Signs 02/12/17 16:02 Temperature 36.7 C Pulse Rate 117 H Respiratory 16 Rate Blood Pressure 162/88 O2 Sat by Pulse 97 Oximetry - CT/Ultrasound CT/Ultrasound Narrative: US of left leg (limited d/t short leg cast) shows no evidence of DVT but does show a superficial thrombophlebitis of the greater saphenous vein. - Progress/Reassessment Chief Complaint: Lower Extremity Pain/ Injury Progress:: Improved Departure Clinical Impression: Superficial thrombophlebitis of left leg - Departure Disposition: Home Follow Up Needed Condition: Stable Instructions: Phlebitis, [id number] Additional Instructions: Warm, moist compresses to effected area several times a day Continue your routine medications Referrals: Tai Max MD [Primary Care Provider] -
[2017-02-12 16:47] LABS: Albumin * 4.2 gm/dl (3.4-5.0); Anion Gap 14.3 mmol/L (6.8-13.8); Bilirubin, Total 0.5 mg/dL (0.0-1.1); Calcium * 9.5 mg/dL (7.9-10.9); Carbon Dioxide 29.3 mmol/L (24-32.6); Potassium 4.6 mmol/L (3.4-4.6); Total Protein 8.4 gm/dL (6.2-8.2)
[2017-02-12] MEDS ORDERED: KETOROLAC TROMETHAMINE 60 MG/2 ML VIAL IM ONE ×2 (17:12→17:15)
[2017-02-12] MEDS ORDERED: PROMETHAZINE HCL 50 MG/ML AMPUL IM ONE ×2 (17:12→17:15)
[2017-02-13 02:21] VITALS: BP 157/82
== END 2017-02-12 18:47 | disposition home or self-care (01) ==
LOC: ER 15:51
DX: I80.02 Phlebitis and thrombophlebitis of superficial vessels of left lower extremity (principal); Z86.718 Personal history of other venous thrombosis and embolism

== ENCOUNTER 2017-02-17 15:25 | Inpatient (IN) | payer SELFPAY ==
[2017-02-17 16:23] LABS: Hematocrit 34.7 % (42.0-52.0); Hemoglobin 10.9 gm/dL (13.5-18.0); Mean Cell Volume 85.7 fl (78-100); Mean Corpuscular Hemoglobin 26.9 pg (27-31); Mean Corpuscular Hgb Conc 31.4 g/dl (32-36); Mean Platelet Volume 9.2 fl (6.0-9.5); Neutrophil # 5.6 K/mm3 (1.3-6.0); Platelet Count 193 K/mm3 (150-450); Red Blood Count 4.05 M/mm3 (4.7-6.0); Red Cell Distribution Width 13.9 % (11.5-14.0); White Blood Count 7.6 K/mm3 (4.0-10.5)
[2017-02-17 16:40] LABS: Albumin * 3.2 gm/dl (3.4-5.0); Anion Gap 11.6 mmol/L (6.8-13.8); BUN/Creatinine Ratio 16.1 (9.0-21.6); Bilirubin, Total 0.4 mg/dL (0.0-1.1); CRP 10.6 mg/dL (0.0-0.9); Ca. Corrected For Albumin 8.6 mg/dL (8.4-10.2); Calcium * 8.3 mg/dL (7.9-10.9); Carbon Dioxide 30.2 mmol/L (24-32.6); Potassium 4.8 mmol/L (3.4-4.6); Total Protein 7.3 gm/dL (6.2-8.2)
[2017-02-17] MEDS: PIPERACILLIN SODIUM/TAZOBACTAM 3.375 GM in DEXTROSE 5 % IN WATER 100 ML IV SCH ×4 (16:49→21:12)
[2017-02-17] MEDS: ENOXAPARIN SODIUM 40 MG/0.4 ML SYRG SC SCH (16:49)
[2017-02-17] MEDS: VANCOMYCIN HCL 1.5 GM in DEXTROSE 5 % IN WATER 500 ML IV SCH ×2 (16:50)
[2017-02-17] MEDS ORDERED: INSULIN LISPRO 100 UNITS/ML VIAL SC SCH (17:00)
[2017-02-17] MEDS: NORMAL SALINE 1,000 ML IV PRN (17:00)
[2017-02-17 17:15] LABS: Iron 18 mcg/dL (35-120); Transferrin Sat. (% Sat.) 7 % (15-55)
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
[2017-02-17 17:43] LABS: Folate 16.2 ng/mL (>5.4)
[2017-02-17] MEDS ORDERED: INSULIN LISPRO 100 UNITS/ML VIAL SC PRN (18:02)
--- NOTE | 2017-02-17 18:09 | HP ---
Chief Complaint - Chief Complaint Date of Service: 02/17/17 Time of Service: 18:09 Chief Complaint: diabetic foot wound, cellulitis, possible osteomyelitis. History of Present Illness: Paulo is a 51 year old male with a PMH of DM T2 insulin dependent (most recent hgba1c 7.9 on 02/10/17), CKD stage III (baseline creatinine 1.5 - 2.0), HTN, HLD , hx of osteomyelitis in left foot requiring partial foot amputation, depression , hx DVT, GERD, depression (currently under psychiatrist treatment), and chronic diastolic heart failure. Last echo done 06/14/13 showed ef 65-70% with mild LVH, borderline RVH and evidence of diastolic dysfunction. prior heart cath done 05/29/12 showed right dominant system with RCA normal and LAD with mild disease. Patient is currently monitored by Dr. Torres for his left foot wound when it was noticed at today's office visit that the left foot wound had worsened significantly with surrounding cellulitis. Patient was then sent to Dr. Ridley's office for evaluation and eventual direct admission to the hospital. - Patient's Past Medical History Patient History - Medical: Diabetes Type 2 Insulin Dependent, Depression, GERD, Hypothyroidism, Migraines, Other Patient History - Cardiac/Respiratory: Deep Vein Thrombosis, Hypertension, Hyperlipidemia Patient History - Cancer: No Hx of Cancer Patient History - Surgical Procedures: Amputation, Colonoscopy, T & A, Other Patient History - Other: None - Family History Father Family History - Medical: , Other Family History - Cardiac/Respiratory: COPD, Myocardial Infarction Family History - Cancer: No pertinent family hx Mother Family History - Medical: , Diabetes Type 2, Renal Failure Family History - Cardiac/Respiratory: CHF Family History - Cancer: No pertinent family hx Sister Family History - Medical: Hypothyroidism Family History - Cardiac/Respiratory: No pertinent hx Family History - Cancer: Breast Children Family History - Medical:  Family History - Cardiac/Respiratory: CHF Family History - Cancer:  Uncle Family History - Medical: Alcohol Abuse, Diabetes Type 2 - Social History Living Situations: spouse Abuse History: No History of abuse Psych History: Hx of Depression, Current tx/ever been on anti-depressants or anti-anxiety meds Does anyone smoke in the home?: No Smoking Status: Never smoker Have you smoked in the past 12 months: No Do you dip or chew tobacco: No Patient requests Smoking Cessation Consult: No Initiate information on Smoking Cessation: No Alcohol Use: none Drug Use: none - Immunizations Immunizations Up to Date: Yes Hx Pneumococcal Vaccination: Yes History of Influenza Vaccine: Yes Review Of Systems (GEN) - Review of Systems Generalized/Overall Review: Present: Chills, Fever, Malaise EENTM: Present: No Symptoms Reported Respiratory: Present: No Symptoms Reported Cardiac: Present: No Symptoms Reported Abdominal: Present: No Symptoms Reported Genitourinary: Present: No Symptoms Reported Musculoskeletal: Present: Joint Pain, Joint Swelling Neurological: Present: No Symptoms Reported Skin: Present: Change in Color Endocrine: Present: No Symptoms Reported Misc: All systems neg except as marked Immunizations: IMMUNIZATION HX Immunizations Up to Date Yes History of Influenza Vaccine Yes Hx Pneumococcal Vaccination Yes Allergies/Adverse Reactions: Allergies Allergy/AdvReac Type Severity Reaction Status Date / Time propoxyphene napsylate AdvReac Mild RASH Verified 02/17/17 16:16 [From VDP-N 100] Home Medications: HOME MEDICATIONS Aspirin [Aspirin Enteric Coated] 81 mg PO DAILY 07/16/16 [Last Taken Unknown] Fenofibrate Nanocrystallized [Tricor] 145 mg PO DAILY 07/16/16 [Last Taken Unknown] Gabapentin 800 mg PO TID 07/16/16 [Last Taken Unknown] Insulin Detemir [Levemir] 50 units SQ BID 07/16/16 [Last Taken Unknown] Insulin Lispro [Humalog] 0 units SQ TID PRN 07/16/16 [Last Taken Unknown] Nitroglycerin [Nitrostat] 0.4 mg SL [id number] PRN 07/16/16 [Last Taken Unknown] Omeprazole 20 mg PO DAILY 07/16/16 [Last Taken Unknown] Simvastatin [Zocor] 40 mg PO HS 07/16/16 [Last Taken Unknown] Amitriptyline HCl [Elavil] 10 mg PO QID #120 tablet 08/02/16 [Last Taken Unknown ] Lisinopril [Zestril] 10 mg PO DAILY #30 tablet 08/02/16 [Last Taken Unknown] Alprazolam 4 mg PO HS 09/19/16 [Last Taken Unknown] Ezetimibe [Zetia] 10 mg PO DAILY 11/19/16 [Last Taken Unknown] Levothyroxine Sodium [Synthroid] 75 mcg PO DAILY 01/22/17 [Last Taken Unknown] Metoprolol Succinate [Toprol Xl] 50 mg PO DAILY 01/22/17 [Last Taken Unknown] Clotrimazole/Betamethasone Dip [Lotrisone Cream] 1 appl TP BID 02/17/17 [Last Taken Unknown] Duloxetine HCl [Cymbalta] 60 mg PO DAILY 02/17/17 [Last Taken Unknown] Insulin Lispro [Humalog] 15 units SQ AC 02/17/17 [Last Taken Unknown] Lancets [Bd Ultra-Fine] 1 ml SQ 5XD 02/17/17 [Last Taken Unknown] Tamsulosin HCl [Flomax] 0.4 mg PO DAILY@1800 02/17/17 [Last Taken Unknown] sitaGLIPtin PHOSPHATE [Januvia] 100 mg PO DAILY 02/17/17 [Last Taken Unknown] Exam - Exam Vital Signs: Vital Signs - Last Taken Temp 37.6 C H 02/17/17 17:30 Pulse 83 02/17/17 17:30 Resp 18 02/17/17 17:30 BP 127/61 02/17/17 17:30 Pulse Ox 97 02/17/17 17:30 Constitutional: Present: Alert, Oriented x3, Cooperative, No distress, Morbidly obese ENT Exam: Present: hearing grossly normal Eye Exam: bilateral eye: normal inspection Neck: Present: supple Breasts: Present: Exam deferred Respiratory: Present: lungs clear, normal breath sounds Cardiovascular/Chest: Present: regular rate, rhythm, systolic murmur - soft, 2/ 6. Absent: tachycardia Abdomen: Present: soft, nontender, obese /Rectal: Present: Exam deferred Extremity: Present: normal inspection - right leg, inflammation - left foot stump extending to just above ankle, 2 cm x 2 cm red, inflammed opened diabetic wound at end of left foot stump., lower extremity edema - left lower leg mid calf to end of foot stump Skin Exam: Present: warm/dry, no cyanosis, pallor Diagnostic Studies: Abnormal Lab Results 02/17/17 02/17/17 02/17/17 Range/Units 16:14 16:14 16:14 RBC 4.05 L (4.7-6.0) M/mm3 Hgb 10.9 L (13.5-18.0) gm/dL Hct 34.7 L (42.0-52.0) % MCH 26.9 L (27-31) pg MCHC 31.4 L (32-36) g/dl Immature Gran % (Auto) 1.10 H (0.001-0.429) % Immature Gran # (Auto) 0.08 H (0.000-0.0310) K/mm3 Lymphocytes % 14.8 L (20-51) % Lymphocytes # 1.1 L (1.5-3.5) k/mm3 ESR 73 H (0-10) mm/hr Potassium 4.8 H (3.4-4.6) mmol/L BUN 31 H (6-23) mg/dL Creatinine 1.92 H (0.4-1.4) mg/dL Est GFR (Non-Af Amer) 39 L (60-130) mL/min Random Glucose 194 H (70-110) mg/dL Iron (35-120) mcg/dL Transferrin % Sat (15-55) % Alkaline Phosphatase 47 L (50-170) U/L C-Reactive Prot, Quant 10.6 H (0.0-0.9) mg/dL Albumin 3.2 L (3.4-5.0) gm/dl 02/17/17 Range/Units 16:15 RBC (4.7-6.0) M/mm3 Hgb (13.5-18.0) gm/dL Hct (42.0-52.0) % MCH (27-31) pg MCHC (32-36) g/dl Immature Gran % (Auto) (0.001-0.429) % Immature Gran # (Auto) (0.000-0.0310) K/mm3 Lymphocytes % (20-51) % Lymphocytes # (1.5-3.5) k/mm3 ESR (0-10) mm/hr Potassium (3.4-4.6) mmol/L BUN (6-23) mg/dL Creatinine (0.4-1.4) mg/dL Est GFR (Non-Af Amer) (60-130) mL/min Random Glucose (70-110) mg/dL Iron 18 L (35-120) mcg/dL Transferrin % Sat 7 L (15-55) % Alkaline Phosphatase (50-170) U/L C-Reactive Prot, Quant (0.0-0.9) mg/dL Albumin (3.4-5.0) gm/dl Laboratory Results WBC 7.6 K/mm3 (4.0-10.5) 02/17/17 16:14 RBC 4.05 M/mm3 (4.7-6.0) L 02/17/17 16:14 Hgb 10.9 gm/dL (13.5-18.0) L 02/17/17 16:14 Hct 34.7 % (42.0-52.0) L 02/17/17 16:14 MCV 85.7 fl (78-100) 02/17/17 16:14 MCH 26.9 pg (27-31) L 02/17/17 16:14 MCHC 31.4 g/dl (32-36) L 02/17/17 16:14 RDW 13.9 % (11.5-14.0) 02/17/17 16:14 Plt Count 193 K/mm3 (150-450) 02/17/17 16:14 MPV 9.2 fl (6.0-9.5) 02/17/17 16:14 Immature Gran % (Auto) 1.10 % (0.001-0.429) H 02/17/17 16:14 Immature Gran # (Auto) 0.08 K/mm3 (0.000-0.0310) H 02/17/17 16:14 Neutrophils % 74.0 % (42-75.0) 02/17/17 16:14 Lymphocytes % 14.8 % (20-51) L 02/17/17 16:14 Monocytes % 7.0 % (0.0-9) 02/17/17 16:14 Eosinophils % 2.4 % (0.0-3.0) 02/17/17 16:14 Basophils % 0.7 % (0.0-1.0) 02/17/17 16:14 Nucleated RBC % 0.0 k/mm3 (0-1) 02/17/17 16:14 Neutrophils # 5.6 K/mm3 (1.3-6.0) 02/17/17 16:14 Lymphocytes # 1.1 k/mm3 (1.5-3.5) L 02/17/17 16:14 Monocytes # 0.5 k/mm3 (0.0-1.0) 02/17/17 16:14 Eosinophils # 0.2 k/mm3 (0.0-0.7) 02/17/17 16:14 Absolute Basophils 0.1 k/mm3 (0.0-0.1) 02/17/17 16:14 ESR 73 mm/hr (0-10) H 02/17/17 16:14 Sodium 135 mmol/L (132-142) 02/17/17 16:14 Plasma Sodium 137 mmol/L (130-142) 02/17/17 16:14 Potassium 4.8 mmol/L (3.4-4.6) H 02/17/17 16:14 Chloride 98 mmol/L (97-106) 02/17/17 16:14 Carbon Dioxide 30.2 mmol/L (24-32.6) 02/17/17 16:14 Anion Gap 11.6 mmol/L (6.8-13.8) 02/17/17 16:14 BUN 31 mg/dL (6-23) H 02/17/17 16:14 Creatinine 1.92 mg/dL (0.4-1.4) H 02/17/17 16:14 Est GFR (Non-Af Amer) 39 mL/min (60-130) L 02/17/17 16:14 BUN/Creatinine Ratio 16.1 (9.0-21.6) 02/17/17 16:14 Random Glucose 194 mg/dL (70-110) H 02/17/17 16:14 Calcium 8.3 mg/dL (7.9-10.9) 02/17/17 16:14 Calcium Adj for Albumin 8.6 mg/dL (8.4-10.2) 02/17/17 16:14 Iron 18 mcg/dL (35-120) L 02/17/17 16:15 TIBC 275 mcg/dL (260-445) 02/17/17 16:15 Transferrin % Sat 7 % (15-55) L 02/17/17 16:15 Total Bilirubin 0.4 mg/dL (0.0-1.1) 02/17/17 16:14 AST 18 U/L (0-48) 02/17/17 16:14 ALT 19 U/L (19-67) 02/17/17 16:14 Alkaline Phosphatase 47 U/L (50-170) L 02/17/17 16:14 C-Reactive Prot, Quant 10.6 mg/dL (0.0-0.9) H 02/17/17 16:14 Total Protein 7.3 gm/dL (6.2-8.2) 02/17/17 16:14 Albumin 3.2 gm/dl (3.4-5.0) L 02/17/17 16:14 Vitamin B12 695 pg/mL (193-986) 02/17/17 16:15 Folate 16.2 ng/mL (>5.4) 02/17/17 16:15 Procalcitonin 0.07 ng/mL (0.05-0.50) 02/17/17 16:14 Assessment/Plan - Narrative Narrative: Diabetic foot ulcer / cellulitis / suspected osteomyelitis - consult orthopaedics, appreciate their help. - MRI of left foot stump in am to assess for osteomyelitis - antibiotics - zosyn - Day #1 - Vanco - Pharmacy to dose - Day #1 - Probiotics ordered. - daily dressing changes / wound care - wash daily with dove soap and water. - drsg is Aqua cell aq over open wound, then wrap with ana and secure with zoey wrap. - check esr, crp, and procalcitonin - check 2 sets of blood cultures. - check xray of left foot stump. - start NS at 150 ml / hr. Diastolic HF - chronic - daily weights - strict I&Os - CHF teaching. CKD stage III - creatinine stable - recheck labs in am. Depression / anxiety - exacerbated due to current medical situation - consult dr. combs. Diabetes T2 - accu checks ac - humalog sliding scale tid with meals as needed. - diabetic teaching for optimal glucose control for optimal wound healing. Code status: full code vte: lovenox GI proph: protonix. - Assessment/Plan (1) Diabetic foot ulcer Problem: Acute Qualifiers: Diabetic foot ulcer location: unspecified part of foot Diabetes mellitus type: type 2 Laterality: left (2) CKD (chronic kidney disease) stage 3, GFR 30-59 ml/min Problem: Chronic (3) Diastolic heart failure Problem: Chronic Qualifiers: Heart failure chronicity: chronic Qualified Code(s): I50.32 - Chronic diastolic (congestive) heart failure (4) Cellulitis Problem: Acute Qualifiers: Site of cellulitis: extremity Site of cellulitis of extremity: lower extremity Laterality: left Qualified Code(s): L03.116 - Cellulitis of left lower limb (5) Anxiety Problem: Chronic (6) Depression Problem: Chronic (7) Diabetes mellitus Problem: Chronic Qualifiers: Diabetes mellitus type: type 2 Diabetes mellitus complication status: with skin complications Diabetes mellitus complication detail: with foot ulcer Diabetes mellitus group home insulin use: with group home use Qualified Code(s) : E11.621 - Type 2 diabetes mellitus with foot ulcer; L97.509 - Non-pressure chronic ulcer of other part of unspecified foot with unspecified severity; Z79.4 - assisted (current) use of insulin (8) Diabetic peripheral neuropathy Problem: Chronic (9) GERD (gastroesophageal reflux disease) Problem: Chronic Qualifiers: Esophagitis presence: esophagitis presence not specified Qualified Code(s) : K21.9 - Gastro-esophageal reflux disease without esophagitis (10) Hyperlipidemia Problem: Chronic Qualifiers: Hyperlipidemia type: unspecified Qualified Code(s): E78.5 - Hyperlipidemia , unspecified (11) Hypertension Problem: Chronic Qualifiers: Hypertension type: essential hypertension Qualified Code(s): I10 - Essential (primary) hypertension (12) Osteomyelitis Problem: Suspected Qualifiers: Osteomyelitis type: unspecified type Osteomyelitis location: foot Laterality: left Qualified Code(s): M86.9 - Osteomyelitis, unspecified
[2017-02-17] MEDS: INSULIN LISPRO 100 UNITS/ML VIAL SC SCH (18:12)
[2017-02-17] MEDS: TAMSULOSIN HCL 0.4 MG CAP.SR.24H PO SCH (19:15)
[2017-02-17] MEDS: HYDROcodone/ACETAMINOPHEN 1 EACH TABLET PO PRN ×2 (19:15→20:49)
[2017-02-17] MEDS ORDERED: IRON SUCROSE COMPLEX 500 MG in NORMAL SALINE 250 ML IV SCH (19:30)
[2017-02-17] MEDS: SIMVASTATIN 40 MG TABLET PO SCH (20:49)
[2017-02-17] MEDS: SACCHAROMYCES BOULARDII 250 MG CAPSULE PO SCH (20:49)
[2017-02-17] MEDS: AMITRIPTYLINE HCL 10 MG TABLET PO SCH (20:49)
[2017-02-17] MEDS: ALPRAZolam 1 MG TABLET PO SCH (20:49)
[2017-02-17] MEDS: INSULIN DETEMIR 100 UNITS/ML VIAL SC SCH (20:51)
[2017-02-17] MEDS: GABAPENTIN 400 MG CAPSULE PO SCH (21:12)
[2017-02-18] MEDS: NORMAL SALINE 1,000 ML IV PRN (01:27)
[2017-02-18] MEDS: PIPERACILLIN SODIUM/TAZOBACTAM 3.375 GM in DEXTROSE 5 % IN WATER 100 ML IV SCH ×8 (03:48→22:33)
[2017-02-18] MEDS: GABAPENTIN 400 MG CAPSULE PO SCH ×3 (05:15→21:56)
[2017-02-18] MEDS: LEVOTHYROXINE SODIUM 75 MCG TABLET PO SCH (07:12)
[2017-02-18] MEDS: HYDROcodone/ACETAMINOPHEN 1 EACH TABLET PO PRN ×2 (07:12→16:10)
[2017-02-18] MEDS: INSULIN LISPRO 100 UNITS/ML VIAL SC SCH ×3 (08:35→16:45)
[2017-02-18] MEDS ORDERED: OMEPRAZOLE 20 MG CAPSULE.SA PO SCH (09:00)
[2017-02-18] MEDS ORDERED: PANTOPRAZOLE SODIUM 20 MG TABLET.DR PO SCH (09:00)
[2017-02-18] MEDS ORDERED: METOPROLOL SUCCINATE 25 MG TABLET.SA PO SCH (09:00)
[2017-02-18] MEDS: DULoxetine HCL 30 MG CAPSULE.SA PO SCH (09:33)
[2017-02-18] MEDS: AMITRIPTYLINE HCL 10 MG TABLET PO SCH ×4 (09:33→21:55)
[2017-02-18] MEDS: ASPIRIN 81 MG TABLET.DR PO SCH (09:33)
[2017-02-18] MEDS: sitaGLIPtin PHOSPHATE 50 MG TABLET PO SCH (09:34)
[2017-02-18] MEDS: FENOFIBRATE,MICRONIZED 134 MG CAPSULE PO SCH (09:34)
[2017-02-18] MEDS: METOPROLOL SUCCINATE 50 MG TABLET.SA PO SCH (09:34)
[2017-02-18] MEDS: SACCHAROMYCES BOULARDII 250 MG CAPSULE PO SCH ×2 (09:34→21:55)
[2017-02-18] MEDS: LISINOPRIL 10 MG TABLET PO SCH (09:35)
[2017-02-18] MEDS: EZETIMIBE 10 MG TABLET PO SCH (09:35)
[2017-02-18] MEDS: INSULIN DETEMIR 100 UNITS/ML VIAL SC SCH ×2 (09:36→21:57)
[2017-02-18 10:00] LABS: Hematocrit 33.1 % (42.0-52.0); Hemoglobin 10.5 gm/dL (13.5-18.0); Mean Cell Volume 85.1 fl (78-100); Mean Corpuscular Hgb Conc 31.7 g/dl (32-36); Mean Platelet Volume 8.5 fl (6.0-9.5); Neutrophil # 4.3 K/mm3 (1.3-6.0); Neutrophil % 83.8 % (42-75.0); Platelet Count 157 K/mm3 (150-450); Red Blood Count 3.89 M/mm3 (4.7-6.0); White Blood Count 5.1 K/mm3 (4.0-10.5)
[2017-02-18 10:19] LABS: Anion Gap 14.1 mmol/L (6.8-13.8); BUN/Creatinine Ratio 12.1 (9.0-21.6); Calcium * 8.2 mg/dL (7.9-10.9); Carbon Dioxide 25.2 mmol/L (24-32.6); Estimated Creat Clear 39.1; Potassium 5.3 mmol/L (3.4-4.6)
--- NOTE | 2017-02-18 12:03 | CONS ---
[facility] - General Date of Service: 02/18/17 Narrative: Mr. Reid is a 51 yo M w/ diabetes and a history of non-healing foot ulcers requiring previous L midfoot amputation with Dr. Torres. He had recently undergone local wound care and total contact casting for wound of his amputation stump, which had healed at his last visit with Dr. Torres 2 weeks ago. In the interim, he has developed a new wound and soft tissue infection of his amputation stump for which he was admitted and started on IV abx. Orthopedics has been consulted to assess the need for potential higher level amputation. - History of Present Illness Allergies/Adverse Reactions: Allergies propoxyphene napsylate [From DarvoBackchatt-N 100] Adverse Reaction (Mild, Verified 16:16) RASH Home Medications: Home Medications Medication Instructions Recorded Last Taken Aspirin [Aspirin Enteric Coated] 81 mg PO DAILY 07/16/16 Unknown Fenofibrate Nanocrystallized 145 mg PO DAILY 07/16/16 Unknown [Tricor] Gabapentin 800 mg PO TID 07/16/16 Unknown Insulin Detemir [Levemir] 50 units SQ BID 07/16/16 Unknown Insulin Lispro [Humalog] 0 units SQ TID PRN 07/16/16 Unknown Nitroglycerin [Nitrostat] 0.4 mg SL [id number] PRN 07/16/16 Unknown Omeprazole 20 mg PO DAILY 07/16/16 Unknown Simvastatin [Zocor] 40 mg PO HS 07/16/16 Unknown Alprazolam 4 mg PO HS 09/19/16 Unknown Ezetimibe [Zetia] 10 mg PO DAILY 11/19/16 Unknown Levothyroxine Sodium [Synthroid] 75 mcg PO DAILY 01/22/17 Unknown Metoprolol Succinate [Toprol Xl] 50 mg PO DAILY 01/22/17 Unknown Clotrimazole/Betamethasone Dip 1 appl TP BID 02/17/17 Unknown [Lotrisone Cream] Duloxetine HCl [Cymbalta] 60 mg PO DAILY 02/17/17 Unknown Insulin Lispro [Humalog] 15 units SQ AC 02/17/17 Unknown Lancets [Bd Ultra-Fine] 1 ml SQ 5XD 02/17/17 Unknown Tamsulosin HCl [Flomax] 0.4 mg PO DAILY@1800 02/17/17 Unknown sitaGLIPtin PHOSPHATE [Januvia] 100 mg PO DAILY 02/17/17 Unknown - Patient's Past Medical History Patient History - Medical: Diabetes Type 2 Insulin Dependent, Depression, GERD, Hypothyroidism, Migraines, Other Patient History - Cardiac/Respiratory: Deep Vein Thrombosis, Hypertension, Hyperlipidemia Patient History - Cancer: No Hx of Cancer Patient History - Surgical Procedures: Amputation, Colonoscopy, T & A, Other Patient History - Other: None - Family History Father Family History - Medical: , Other Family History - Cardiac/Respiratory: COPD, Myocardial Infarction Family History - Cancer: No pertinent family hx Mother Family History - Medical: , Diabetes Type 2, Renal Failure Family History - Cardiac/Respiratory: CHF Family History - Cancer: No pertinent family hx Sister Family History - Medical: Hypothyroidism Family History - Cardiac/Respiratory: No pertinent hx Family History - Cancer: Breast Children Family History - Medical:  Family History - Cardiac/Respiratory: CHF Family History - Cancer:  Uncle Family History - Medical: Alcohol Abuse, Diabetes Type 2 - Social History Living Situations: spouse Abuse History: No History of abuse Psych History: Hx of Depression, Current tx/ever been on anti-depressants or anti-anxiety meds Does anyone smoke in the home?: No Smoking Status: Never smoker Have you smoked in the past 12 months: No Do you dip or chew tobacco: No Patient requests Smoking Cessation Consult: No Initiate information on Smoking Cessation: No Alcohol Use: none Drug Use: none - Immunizations Immunizations Up to Date: Yes Hx Pneumococcal Vaccination: Yes History of Influenza Vaccine: Yes Procedures AMPUTATION THROUGH FOOT (11/07/14) BUNIONECTOMY NEC (04/05/14) DIVISION OF LEFT ANKLE TENDON, OPEN APPROACH (09/22/16) EXCISION OF LEFT TARSAL, PERCUTANEOUS APPROACH, DIAGNOSTIC (07/24/16) INSPECTION OF BLADDER, ENDO (01/23/17) INSPECTION OF LOWER INTESTINAL TRACT, ENDO (12/03/16) IRRIGATION OF GENITOURINARY TRACT USING IRRIGAT, ENDO, DIAGN (01/23/17) MUSC/TEND LNG CHANGE NEC (04/05/14) MYRINGOTOMY W INTUBATION (02/16/14) OTHER CAST APPLICATION (12/15/12) TOE AMPUTATION (07/09/14) Medications - Medications Current Medications: Current Medications Acetaminophen/Hydrocodone Bitart (Whitmer 5-325) 1 each PO Q4H PRN PRN Reason: Moderate Pain Stop: 10/19/17 18:52 Last Admin: 02/17/17 19:15 Dose: 1 each Acetaminophen/Hydrocodone Bitart (Whitmer 5-325) 2 each PO Q4H PRN PRN Reason: Moderate Pain Stop: 03/19/17 18:54 Last Admin: 02/18/17 07:12 Dose: 2 each Alprazolam (Xanax) 4 mg PO HS GORDON Stop: 03/19/17 21:01 Last Admin: 02/17/17 20:49 Dose: 4 mg Amitriptyline HCl (Elavil) 10 mg PO QID GORDON Stop: 03/19/17 21:01 Last Admin: 02/18/17 09:33 Dose: 10 mg Aspirin (Aspirin Enteric Coated) 81 mg PO DAILY GORDON Stop: 03/20/17 09:01 Last Admin: 02/18/17 09:33 Dose: 81 mg Duloxetine HCl (Cymbalta) 60 mg PO DAILY G[facility] Stop: 03/20/17 09:01 Last Admin: 02/18/17 09:33 Dose: 60 mg Ezetimibe (Zetia) 10 mg PO DAILY GORDON Stop: 03/20/17 09:01 Last Admin: 02/18/17 09:35 Dose: 10 mg Enoxaparin Sodium (Lovenox) 40 mg SC Q24H GORDON Stop: 03/19/17 15:46 Last Admin: 02/17/17 16:49 Dose: 40 mg Fenofibrate (Lofibra) 134 mg PO DAILY G[facility]ON Stop: 03/20/17 09:01 Last Admin: 02/18/17 09:34 Dose: 134 mg Gabapentin (Neurontin) 800 mg PO Q8H G[facility] Stop: 03/19/17 22:01 Last Admin: 02/18/17 05:15 Dose: 800 mg Piperacillin Sod/Tazobactam (Sod 3.375 gm/ Dextrose/Water) 100 mls @ 25 mls/hr IV Q6H GORDON PRN Reason: Protocol Stop: 03/19/17 16:01 Last Admin: 02/18/17 09:36 Dose: 25 mls/hr Vancomycin HCl 1.5 gm/ (Dextrose/Water) 500 mls @ 250 mls/hr IV Q24H GORDON PRN Reason: Protocol Stop: 03/19/17 17:01 Last Infusion: 02/17/17 18:50 Dose: Infused Sodium Chloride (Sodium Chloride 0.9%) 1,000 mls @ 150 mls/hr IV .Q6H40M PRN PRN Reason: HYDRATION Stop: 03/19/17 15:55 Last Admin: 02/18/17 01:27 Dose: 150 mls/hr Insulin Detemir (Levemir) 50 units SC BID G[facility] Stop: 03/19/17 21:01 Last Admin: 02/18/17 09:36 Dose: 50 units Insulin Human Lispro (Humalog) 15 units SC AC G[facility]ON Stop: 03/20/17 07:01 Last Admin: 02/18/17 08:35 Dose: 15 units Insulin Human Lispro (Humalog) 0 units SC TID PRN; Protocol PRN Reason: BLOOD SUGAR Stop: 03/19/17 18:03 Last Admin: 02/17/17 18:12 Dose: 2 units Levothyroxine Sodium (Synthroid) 75 mcg PO DAILY@0700 [facility] Stop: 03/20/17 07:01 Last Admin: 02/18/17 07:12 Dose: 75 mcg Lisinopril (Zestril) 10 mg PO DAILY [facility] Stop: 03/20/17 09:01 Last Admin: 02/18/17 09:35 Dose: 10 mg Metoprolol Succinate (Toprol Xl) 50 mg PO DAILY [facility] Stop: 03/20/17 09:01 Last Admin: 02/18/17 09:34 Dose: 50 mg Pantoprazole Sodium (Protonix) 20 mg PO DAILY [facility] Stop: 03/20/17 09:01 Last Admin: 02/18/17 09:34 Dose: 20 mg Saccharomyces Boulardii (Florastor) 250 mg PO BID [facility] Stop: 03/19/17 21:01 Last Admin: 02/18/17 09:34 Dose: 250 mg Simvastatin (Zocor) 40 mg PO HS [facility] Stop: 03/19/17 21:01 Last Admin: 02/17/17 20:49 Dose: 40 mg Sitagliptin Phosphate (Januvia) 100 mg PO DAILY [facility] Stop: 03/20/17 09:01 Last Admin: 02/18/17 09:34 Dose: 100 mg Tamsulosin HCl (Flomax) 0.4 mg PO DAILY@1800 [facility] Stop: 03/19/17 20:01 Last Admin: 02/17/17 19:15 Dose: 0.4 mg Physical Examination - Exam Narrative: MSK: diffuse erythema and swelling of midfoot amputation stump to level of ankle , ~3x3 cm full thickness ulcer over the anterior/plantar aspect o the amputation stump with serous drainage, no gross purulence present, no foul odor , tender to palpation diffusely over stump, pitting edema to level of proximal calf Radiology: MRI reviewed which demonstrates extensive soft tissue edema and cellulitis with phlegmon deep to open wound, small fluid collection adjacent to phlegmon, no significant bony involvement seen on MRI. Vital Signs: Vital Signs - Last Taken Temp 36.8 C 02/18/17 07:55 Pulse 110 H 02/18/17 09:35 Resp 20 02/18/17 07:55 BP 143/70 02/18/17 09:35 Pulse Ox 94 02/18/17 07:55 O2 Oxygen Delivery Method Room Air - Results and Findings: Narrative: 51 yo M w/ diabetic foot ulcer and soft tissue infection of L foot amputation stump. - I had a discussion with the patient as well as Dr. Torres about treatment options including continued IV antibiotics with local wound care vs higher level amputation. At this point, there appears to be only soft tissue involvement and no significant evidence of osteomyelitis. He has previously demonstrated the ability to heal a wound of his stump with local wound care and total contact casting. I don't think it is unreasonable to try and treat this infection with an extended course of IV antibiotic therapy and local wound care with the understanding that if this fails, his only options is a below knee amputation. There is no urgency to higher level amputation at this point as the patient demonstrates no signs of systemic infection. If the patient would develop signs/symptoms of spreading infection or sepsis despite antibiotic therapy, then below knee amputation would be recommended. - Recommend continued IV abx therapy - Recommend continued local wound care by Dr. Torres - discussed potential bedside debridement with tissue cultures. - Recommend tight glucose control and nutritional optimization. - Will continue to follow peripherally. Prieto Nation MD Lab/Microbiology results last 24 hrs: Abnormal/Pending Laboratory Last 24 HRS 02/18/17 02/18/17 02/17/17 09:55 09:55 16:15 RBC 3.89 L Hgb 10.5 L Hct 33.1 L MCH MCHC 31.7 L Immature Gran % (Auto) 1.20 H Immature Gran # (Auto) 0.06 H Neutrophils % 83.8 H Lymphocytes % 8.4 L Lymphocytes # 0.4 L ESR Potassium 5.3 H Anion Gap 14.1 H BUN 26 H Creatinine 2.14 H Est GFR (Non-Af Amer) 35 L Random Glucose 211 H Iron 18 L Transferrin % Sat 7 L Alkaline Phosphatase C-Reactive Prot, Quant Albumin 02/17/17 02/17/17 02/17/17 16:14 16:14 16:14 RBC 4.05 L Hgb 10.9 L Hct 34.7 L MCH 26.9 L MCHC 31.4 L Immature Gran % (Auto) 1.10 H Immature Gran # (Auto) 0.08 H Neutrophils % Lymphocytes % 14.8 L Lymphocytes # 1.1 L ESR 73 H Potassium 4.8 H Anion Gap BUN 31 H Creatinine 1.92 H Est GFR (Non-Af Amer) 39 L Random Glucose 194 H Iron Transferrin % Sat Alkaline Phosphatase 47 L C-Reactive Prot, Quant 10.6 H Albumin 3.2 L - Assessments/Findings (1) Diabetic foot ulcer Problem: Acute Qualifiers: Diabetic foot ulcer location: unspecified part of foot Diabetes mellitus type: type 2 Laterality: left (2) Abscess of foot Problem: Acute
[2017-02-18] MEDS: ENOXAPARIN SODIUM 40 MG/0.4 ML SYRG SC SCH (16:02)
--- NOTE | 2017-02-18 17:27 | PN ---
Subjective - Date and Time Seen Date: 02/18/17 Time: 17:00 Subjective Narrative: PROGRESS NOTES I met with Ignacio and his in his hospital room . His and Ignacio himself say that he is in good and hopeful spirits especially after Drs. Torres and Amrit made their rounds with him to explain the recent MRI findings and the conservative strategy which his treatment team have agreed upon at this moment with the option left clearly open of more aggressive surgical approaches being kept on the table. Both say they totally comprehend the whole picture and agree wholeheartedly with the the strategies outlined above. They are very touched by the warmth and professionalism of our staff and have turned the corner significantly in direct contradistinction of the gloominess of their outlook yesterday when he was first admitted. Ignacio does seem to be more upbeat and refreshingly candid in his optimism but conscious of the unpredictability of unseen complications which might necessitate a more aggressive approach to his problem. His is quite supportive and states that their very recent move to a more accessible and considerable much better accoutrements of their new apartment have certainly helped in Ignacoi's cognitive and moods while facing this new setback. Objective - Vitals Vitals: Last Vital Signs Temp 37 C 02/18/17 12:13 Pulse 106 H 02/18/17 12:13 Resp 20 02/18/17 12:13 BP 148/76 02/18/17 12:13 Pulse Ox 92 02/18/17 12:13 - Abnormal Lab Findings Abnormal Lab Findings: Abnormal Lab Results 02/17/17 02/18/17 02/18/17 Range/Units 16:15 09:55 09:55 RBC 3.89 L (4.7-6.0) M/mm3 Hgb 10.5 L (13.5-18.0) gm/dL Hct 33.1 L (42.0-52.0) % MCHC 31.7 L (32-36) g/dl Immature Gran % (Auto) 1.20 H (0.001-0.429) % Immature Gran # (Auto) 0.06 H (0.000-0.0310) K/mm3 Neutrophils % 83.8 H (42-75.0) % Lymphocytes % 8.4 L (20-51) % Lymphocytes # 0.4 L (1.5-3.5) k/mm3 Potassium 5.3 H (3.4-4.6) mmol/L Anion Gap 14.1 H (6.8-13.8) mmol/L BUN 26 H (6-23) mg/dL Creatinine 2.14 H (0.4-1.4) mg/dL Est GFR (Non-Af Amer) 35 L (60-130) mL/min Random Glucose 211 H (70-110) mg/dL Iron 18 L (35-120) mcg/dL Transferrin % Sat 7 L (15-55) % Assessment/Plan - Problems/Diagnosis (1) acute worsening of existing depression Problem: Acute
[2017-02-18] MEDS: VANCOMYCIN HCL 1.5 GM in DEXTROSE 5 % IN WATER 500 ML IV SCH ×2 (17:54)
[2017-02-18] MEDS: TAMSULOSIN HCL 0.4 MG CAP.SR.24H PO SCH (17:55)
--- NOTE | 2017-02-18 21:52 | PN ---
Subjective - Date and Time Seen Date: 02/18/17 Time: 21:52 Subjective Narrative: sleeping, arouses easily. denies needs. Objective - Review of Systems Generalized/Overall Review: Reports: Fatigue EENTM: Reports: No Symptoms Reported Respiratory: Reports: No Symptoms Reported Cardiac: Reports: No Symptoms Reported Abdominal: Reports: No Symptoms Reported Genitourinary Symptoms: Reports: No Symptoms Reported Musculoskeletal Complaints: Reports: Joint Pain, Joint Swelling Neurological: Reports: No Symptoms Reported Skin: Reports: Change in Color Endocrine: Reports: No Symptoms Reported Misc: All systems neg except as marked - Vitals Vitals: Last Vital Signs Temp 37.4 C 02/18/17 18:45 Pulse 118 H 02/18/17 18:45 Resp 20 02/18/17 18:45 BP 184/74 02/18/17 18:45 Pulse Ox 92 02/18/17 18:45 - Abnormal Lab Findings Abnormal Lab Findings: Abnormal Lab Results 02/18/17 02/18/17 Range/Units 09:55 09:55 RBC 3.89 L (4.7-6.0) M/mm3 Hgb 10.5 L (13.5-18.0) gm/dL Hct 33.1 L (42.0-52.0) % MCHC 31.7 L (32-36) g/dl Immature Gran % (Auto) 1.20 H (0.001-0.429) % Immature Gran # (Auto) 0.06 H (0.000-0.0310) K/mm3 Neutrophils % 83.8 H (42-75.0) % Lymphocytes % 8.4 L (20-51) % Lymphocytes # 0.4 L (1.5-3.5) k/mm3 Potassium 5.3 H (3.4-4.6) mmol/L Anion Gap 14.1 H (6.8-13.8) mmol/L BUN 26 H (6-23) mg/dL Creatinine 2.14 H (0.4-1.4) mg/dL Est GFR (Non-Af Amer) 35 L (60-130) mL/min Random Glucose 211 H (70-110) mg/dL - Exam Constitutional: Present: No distress, Somnolent ENT Exam: Present: hearing grossly normal Neck: Present: full range of motion, supple Breasts: Present: Exam deferred Respiratory: Present: chest non-tender, decreased breath sounds Cardiovascular/Chest: Present: regular rate, rhythm, no chest tenderness Abdomen: Present: soft, nontender, nondistended /Rectal: Present: Exam deferred Extremity: Present: normal inspection - right leg, leg pain - left lower leg Skin Exam: Present: warm/dry, no cyanosis, other - 2.5 cm x 2.5 cm open ulcer at the end of left foot with surrouding erythema up towards the ankle including edema. 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 - MRI of left foot stump shows possible early osteomyelitis of left calcanus. - antibiotics - zosyn - Day #2 - Vanco - Pharmacy to dose - Day #2 - Probiotics ordered. - daily dressing changes / wound care - wash daily with dove soap and water. - drsg is Aqua cell aq over open wound, then wrap with ana and secure with zoey wrap. - esr elevated into the 70s - blood cultures pending Diastolic HF - chronic - daily weights - strict I&Os - CHF teaching. CKD stage III - creatinine stable - recheck labs in am. Depression / anxiety - exacerbated due to current medical situation - consult dr. combs. Diabetes T2 - accu checks ac - humalog sliding scale tid with meals as needed. - diabetic teaching for optimal glucose control for optimal wound healing. Code status: full code vte: lovenox GI proph: protonix. - Problems/Diagnosis (1) Diabetic foot ulcer Problem: Acute Qualifiers: Diabetic foot ulcer location: unspecified part of foot Diabetes mellitus type: type 2 Laterality: left (2) CKD (chronic kidney disease) stage 3, GFR 30-59 ml/min Problem: Chronic (3) Diastolic heart failure Problem: Chronic Qualifiers: Heart failure chronicity: chronic Qualified Code(s): I50.32 - Chronic diastolic (congestive) heart failure (4) Cellulitis Problem: Acute Qualifiers: Site of cellulitis: extremity Site of cellulitis of extremity: lower extremity Laterality: left Qualified Code(s): L03.116 - Cellulitis of left lower limb (5) Anxiety Problem: Chronic (6) Depression Problem: Chronic (7) Diabetes mellitus Problem: Chronic Qualifiers: Diabetes mellitus type: type 2 Diabetes mellitus complication status: with skin complications Diabetes mellitus complication detail: with foot ulcer Diabetes mellitus fdc insulin use: with local company intermodal truck driver use Qualified Code(s) : E11.621 - Type 2 diabetes mellitus with foot ulcer; L97.509 - Non-pressure chronic ulcer of other part of unspecified foot with unspecified severity; 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 (8) Diabetic peripheral neuropathy Problem: Chronic (9) GERD (gastroesophageal reflux disease) Problem: Chronic Qualifiers: Esophagitis presence: esophagitis presence not specified Qualified Code(s) : K21.9 - Gastro-esophageal reflux disease without esophagitis (10) Hyperlipidemia Problem: Chronic Qualifiers: Hyperlipidemia type: unspecified Qualified Code(s): E78.5 - Hyperlipidemia , unspecified (11) Hypertension Problem: Chronic Qualifiers: Hypertension type: essential hypertension Qualified Code(s): I10 - Essential (primary) hypertension (12) Osteomyelitis Problem: Suspected Qualifiers: Osteomyelitis type: unspecified type Osteomyelitis location: foot Laterality: left Qualified Code(s): M86.9 - Osteomyelitis, unspecified
[2017-02-18] MEDS: SIMVASTATIN 40 MG TABLET PO SCH (21:56)
[2017-02-18] MEDS: ALPRAZolam 1 MG TABLET PO SCH (22:32)
[2017-02-19] MEDS: PIPERACILLIN SODIUM/TAZOBACTAM 3.375 GM in DEXTROSE 5 % IN WATER 100 ML IV SCH ×6 (04:34→14:59)
[2017-02-19] MEDS: GABAPENTIN 400 MG CAPSULE PO SCH ×3 (06:40→21:23)
[2017-02-19 06:59] LABS: Hematocrit 31.5 % (42.0-52.0); Hemoglobin 9.7 gm/dL (13.5-18.0); Mean Cell Volume 84.9 fl (78-100); Mean Corpuscular Hemoglobin 26.1 pg (27-31); Mean Corpuscular Hgb Conc 30.8 g/dl (32-36); Mean Platelet Volume 8.8 fl (6.0-9.5); Platelet Count 138 K/mm3 (150-450); Red Blood Count 3.71 M/mm3 (4.7-6.0); Red Cell Distribution Width 14.3 % (11.5-14.0); White Blood Count 4.5 K/mm3 (4.0-10.5)
[2017-02-19 07:02] LABS: Total Cells Counted 100
[2017-02-19] MEDS: LEVOTHYROXINE SODIUM 75 MCG TABLET PO SCH (07:22)
[2017-02-19] MEDS: INSULIN LISPRO 100 UNITS/ML VIAL SC SCH ×3 (07:22→17:00)
[2017-02-19] MEDS: ACETAMINOPHEN 325 MG TABLET PO PRN ×2 (07:22→20:17)
[2017-02-19 07:23] LABS: Anion Gap 11.2 mmol/L (6.8-13.8); BUN/Creatinine Ratio 12.6 (9.0-21.6); Calcium * 8.3 mg/dL (7.9-10.9); Carbon Dioxide 30.5 mmol/L (24-32.6); Potassium 4.7 mmol/L (3.4-4.6)
[2017-02-19] MEDS ORDERED: FUROSEMIDE 10 MG/ML VIAL IV ONE ×3 (07:26→09:15)
[2017-02-19 07:31] LABS: Band 1 % (0-2.0); Basophil 1 % (0-1); Eosinophil 3 % (0-3); Lymphocyte 15 % (20-51); Monocyte 6 % (0-9); Neutrophil 74 % (42-75); Neutrophil # 3.3 K/mm3 (1.3-6.0); Platelet Estimate Normal (NORMAL); RBC Morphology Normal (NORMAL)
[2017-02-19 07:46] LABS: Urine Bilirubin Negative (NEGATIVE); Urine Blood 25 /ul (NEGATIVE); Urine Ketone Negative (NEGATIVE); Urine Nitrite Negative (NEGATIVE); Urine Protein 15 mg/dL (NEGATIVE); Urine Specific Gravity 1.025 SP.GR. (1.005-1.030); Urine Urobilinogen Normal (NORMAL); Urine pH 5.5 pH (5.0-7.0)
[2017-02-19 07:57] LABS: Urine Appearance Slightly Cloudy; Urine Bacteria 2+; Urine Color Yellow; Urine RBC None Seen /hpf (0-5); Urine WBC None Seen /hpf (0-5)
[2017-02-19] MEDS: METOPROLOL SUCCINATE 50 MG TABLET.SA PO SCH (07:59)
[2017-02-19] MEDS: SACCHAROMYCES BOULARDII 250 MG CAPSULE PO SCH ×2 (07:59→21:22)
[2017-02-19] MEDS: FENOFIBRATE,MICRONIZED 134 MG CAPSULE PO SCH (07:59)
[2017-02-19] MEDS: sitaGLIPtin PHOSPHATE 50 MG TABLET PO SCH (07:59)
[2017-02-19] MEDS: EZETIMIBE 10 MG TABLET PO SCH (07:59)
[2017-02-19] MEDS: DULoxetine HCL 30 MG CAPSULE.SA PO SCH (07:59)
[2017-02-19] MEDS: AMITRIPTYLINE HCL 10 MG TABLET PO SCH ×2 (07:59→11:59)
[2017-02-19 08:00] LABS: Bilirubin Direct 0.2 mg/dL (0.0-0.3); Bilirubin, Total 0.5 mg/dL (0.0-1.1); Bilirubin,Indirect 0.3 mg/dL (0.1-0.7)
[2017-02-19] MEDS: ASPIRIN 81 MG TABLET.DR PO SCH (08:00)
[2017-02-19] MEDS: LISINOPRIL 10 MG TABLET PO SCH (08:00)
[2017-02-19] MEDS: INSULIN DETEMIR 100 UNITS/ML VIAL SC SCH ×2 (08:00→21:22)
--- NOTE | 2017-02-19 08:01 | PN ---
Subjective - Date and Time Seen Date: 02/19/17 Time: 08:00 Subjective Narrative: short of breath, fever of 38.1 this am. moderate respiratory distress. no cp. Objective - Review of Systems Generalized/Overall Review: Reports: Fever, Malaise EENTM: Reports: No Symptoms Reported Respiratory: Reports: Shortness of Breath. Denies: Wheezing Cardiac: Denies: Chest Pain, Palpitations Abdominal: Reports: No Symptoms Reported Genitourinary Symptoms: Reports: No Symptoms Reported Musculoskeletal Complaints: Reports: No Symptoms Reported Neurological: Reports: No Symptoms Reported Skin: Reports: Change in Color Endocrine: Reports: No Symptoms Reported Misc: All systems neg except as marked - Vitals Vitals: Last Vital Signs Temp 37.0 C 02/19/17 00:00 Pulse 108 H 02/19/17 07:53 Resp 20 02/19/17 00:00 BP 179/81 02/19/17 07:53 Pulse Ox 91 02/19/17 00:00 - Abnormal Lab Findings Abnormal Lab Findings: Abnormal Lab Results 02/18/17 02/18/17 02/19/17 Range/Units 09:55 09:55 06:57 RBC 3.89 L 3.71 L (4.7-6.0) M/mm3 Hgb 10.5 L 9.7 L (13.5-18.0) gm/dL Hct 33.1 L 31.5 L (42.0-52.0) % MCH 26.1 L (27-31) pg MCHC 31.7 L 30.8 L (32-36) g/dl RDW 14.3 H (11.5-14.0) % Plt Count 138 L (150-450) K/mm3 Immature Gran % (Auto) 1.20 H (0.001-0.429) % Immature Gran # (Auto) 0.06 H (0.000-0.0310) K/mm3 Neutrophils % 83.8 H (42-75.0) % Lymphocytes % 8.4 L (20-51) % Lymphocytes % (Manual) 15 L (20-51) % Lymphocytes # 0.4 L (1.5-3.5) k/mm3 Lymphocytes # (Manual) 0.7 L (1.5-3.5) k/mm3 Potassium 5.3 H (3.4-4.6) mmol/L Anion Gap 14.1 H (6.8-13.8) mmol/L BUN 26 H (6-23) mg/dL Creatinine 2.14 H (0.4-1.4) mg/dL Est GFR (Non-Af Amer) 35 L (60-130) mL/min Random Glucose 211 H (70-110) mg/dL Urine Protein (NEGATIVE) mg/dL Urine Blood (NEGATIVE) /ul Urine Bacteria (NONE) 02/19/17 02/19/17 Range/Units 06:57 07:39 RBC (4.7-6.0) M/mm3 Hgb (13.5-18.0) gm/dL Hct (42.0-52.0) % MCH (27-31) pg MCHC (32-36) g/dl RDW (11.5-14.0) % Plt Count (150-450) K/mm3 Immature Gran % (Auto) (0.001-0.429) % Immature Gran # (Auto) (0.000-0.0310) K/mm3 Neutrophils % (42-75.0) % Lymphocytes % (20-51) % Lymphocytes % (Manual) (20-51) % Lymphocytes # (1.5-3.5) k/mm3 Lymphocytes # (Manual) (1.5-3.5) k/mm3 Potassium 4.7 H (3.4-4.6) mmol/L Anion Gap (6.8-13.8) mmol/L BUN 30 H (6-23) mg/dL Creatinine 2.39 H (0.4-1.4) mg/dL Est GFR (Non-Af Amer) 31 L (60-130) mL/min Random Glucose 144 H D (70-110) mg/dL Urine Protein 15 H (NEGATIVE) mg/dL Urine Blood 25 H (NEGATIVE) /ul Urine Bacteria 2+ H (NONE) - Exam Constitutional: Present: Alert, Moderate distress, Morbidly obese, Looks Older than stated age ENT Exam: Present: hearing grossly normal Neck: Present: supple Breasts: Present: Exam deferred Respiratory: Present: no accessory muscle use, respiratory distress, crackles - diffuse, No wheezing Cardiovascular/Chest: Present: regular rate, rhythm, JVD, tachycardia Abdomen: Present: soft, nontender, obese /Rectal: Present: Exam deferred Extremity: Present: inflammation - left foot stump with edema, leg pain - left lower leg to left foot stump Skin Exam: Present: no cyanosis, cool/dry, pallor Cauti Physician Documentation - Urinary Catheter Management Urethral (Ivy) Urethral Indwelling: Yes Reason for Continuing Indwelling Catheter: Obstruction/Retention Date of Insertion: 02/19/17 Time of Insertion: 07:30 Assessment/Plan Plan Narrative: Diabetic foot ulcer / cellulitis / suspected osteomyelitis - orthopaedic consulted, recommend intermediate manager abx - Dr. Torres consulted to do I&D and bone bx today - Ortho notified of elevated temp and suspected sepsis - MRI of left foot stump shows possible early osteomyelitis of left calcanus. - antibiotics - zosyn - Day #3 - Vanco - Pharmacy to dose - Day #3 - Probiotics ordered. - daily dressing changes / wound care - wash daily with dove soap and water. - drsg is Aqua cell aq over open wound, then wrap with ana and secure with zoey wrap. - esr elevated into the 70s - blood cultures both prelim growing staph species Diastolic HF - chronic - daily weights - strict I&Os - CHF teaching. - weight up 2 kg, respiratory distress this am. - stop IVF - lasix this am. CKD stage III - creatinine elevated - ? due to evolving infection vs side effect from vanco - recheck labs in am. Depression / anxiety - exacerbated due to current medical situation - dr combs following. Diabetes T2 - accu checks ac - humalog sliding scale tid with meals as needed. - diabetic teaching for optimal glucose control for optimal wound healing. Sepsis, suspected - RR 24, Tachycardia - SIRS criteria - infection - cellulitis - SOFA criteria - coagulation: platelets dropped from 157 to 138 this am (1 point) - Renal: creatinine increases to 2.38 (higher than patient has ever been in the past (2 points) - ? due to infection vs vanco - Baseline SOFA score is 0 - all members of care team notified. - continue antibiotics for now. VSS - await final blood cultures, await bone bx final culture. Iron deficiency anemia - Venofer 500 mg given iv x1. Code status: full code vte: lovenox GI proph: protonix. - Problems/Diagnosis (1) Diabetic foot ulcer Problem: Acute Qualifiers: Diabetic foot ulcer location: unspecified part of foot Diabetes mellitus type: type 2 Laterality: left (2) CKD (chronic kidney disease) stage 3, GFR 30-59 ml/min Problem: Chronic (3) Diastolic heart failure Problem: Chronic Qualifiers: Heart failure chronicity: chronic Qualified Code(s): I50.32 - Chronic diastolic (congestive) heart failure (4) Cellulitis Problem: Acute Qualifiers: Site of cellulitis: extremity Site of cellulitis of extremity: lower extremity Laterality: left Qualified Code(s): L03.116 - Cellulitis of left lower limb (5) Anxiety Problem: Chronic (6) Depression Problem: Chronic (7) Diabetes mellitus Problem: Chronic Qualifiers: Diabetes mellitus type: type 2 Diabetes mellitus complication status: with skin complications Diabetes mellitus complication detail: with foot ulcer Diabetes mellitus skilled nursing insulin use: with intermediate manager use Qualified Code(s) : E11.621 - Type 2 diabetes mellitus with foot ulcer; L97.509 - Non-pressure chronic ulcer of other part of unspecified foot with unspecified severity; 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 (8) Diabetic peripheral neuropathy Problem: Chronic (9) GERD (gastroesophageal reflux disease) Problem: Chronic Qualifiers: Esophagitis presence: esophagitis presence not specified Qualified Code(s) : K21.9 - Gastro-esophageal reflux disease without esophagitis (10) Hyperlipidemia Problem: Chronic Qualifiers: Hyperlipidemia type: unspecified Qualified Code(s): E78.5 - Hyperlipidemia , unspecified (11) Hypertension Problem: Chronic Qualifiers: Hypertension type: essential hypertension Qualified Code(s): I10 - Essential (primary) hypertension (12) Osteomyelitis Problem: Suspected Qualifiers: Osteomyelitis type: unspecified type Osteomyelitis location: foot Laterality: left Qualified Code(s): M86.9 - Osteomyelitis, unspecified (13) Iron deficiency anemia Problem: Acute Qualifiers: Iron deficiency anemia type: unspecified iron deficiency Qualified Code(s) : D50.9 - Iron deficiency anemia, unspecified
[2017-02-19] MEDS: PANTOPRAZOLE SODIUM 40 MG in NORMAL SALINE 100 ML IV SCH (09:29)
--- NOTE | 2017-02-19 13:12 | CONS ---
- Reason for consultation (1) Cellulitis Date of Service: 02/19/17 (2) Diabetic foot ulcer Date of Service: 02/19/17 (3) Abscess of foot Date of Service: 02/19/17 (4) Nontraumatic amputation of left foot Date of Service: 02/19/17 HPI - General Date of Service: 02/19/17 Narrative: Pt evaluated at bedside. Very drowsy on visit. States that his pain to his left foot has improved significantly over the past 24 hours. He was admitted on 02/17/2017 at my recommendation after evaluation in the wound center. Was found to have worsening of left foot amputation stump with recurrent ulceration that probed to bone, cellulitis, and pain. Orthopedics was consulted for consideration of BKA, however after discussing MRI with Dr. Nation, it was decided to try local care with bedside I&D, wound care, and terminal block assembler IV ABX. I was consulted for local care. 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 Source: patient - History of Present Illness Allergies/Adverse Reactions: Allergies propoxyphene napsylate [From Darvocet-N 100] Adverse Reaction (Mild, Verified 16:16) RASH Home Medications: Home Medications Medication Instructions Recorded Last Taken Aspirin [Aspirin Enteric Coated] 81 mg PO DAILY 07/16/16 Unknown Fenofibrate Nanocrystallized 145 mg PO DAILY 07/16/16 Unknown [Tricor] Gabapentin 800 mg PO TID 07/16/16 Unknown Insulin Detemir [Levemir] 50 units SQ BID 07/16/16 Unknown Insulin Lispro [Humalog] 0 units SQ TID PRN 07/16/16 Unknown Nitroglycerin [Nitrostat] 0.4 mg SL [id number] PRN 07/16/16 Unknown Omeprazole 20 mg PO DAILY 07/16/16 Unknown Simvastatin [Zocor] 40 mg PO HS 07/16/16 Unknown Alprazolam 4 mg PO HS 09/19/16 Unknown Ezetimibe [Zetia] 10 mg PO DAILY 11/19/16 Unknown Levothyroxine Sodium [Synthroid] 75 mcg PO DAILY 01/22/17 Unknown Metoprolol Succinate [Toprol Xl] 50 mg PO DAILY 01/22/17 Unknown Clotrimazole/Betamethasone Dip 1 appl TP BID 02/17/17 Unknown [Lotrisone Cream] Duloxetine HCl [Cymbalta] 60 mg PO DAILY 02/17/17 Unknown Insulin Lispro [Humalog] 15 units SQ AC 02/17/17 Unknown Lancets [Bd Ultra-Fine] 1 ml SQ 5XD 02/17/17 Unknown Tamsulosin HCl [Flomax] 0.4 mg PO DAILY@1800 02/17/17 Unknown sitaGLIPtin PHOSPHATE [Januvia] 100 mg PO DAILY 02/17/17 Unknown - Patient's Past Medical History Patient History - Medical: Diabetes Type 2 Insulin Dependent, Depression, GERD, Hypothyroidism, Migraines, Other Patient History - Cardiac/Respiratory: Deep Vein Thrombosis, Hypertension, Hyperlipidemia Patient History - Cancer: No Hx of Cancer Patient History - Surgical Procedures: Amputation, Colonoscopy, T & A, Other Patient History - Other: None - Family History Father Family History - Medical: , Other Family History - Cardiac/Respiratory: COPD, Myocardial Infarction Family History - Cancer: No pertinent family hx Mother Family History - Medical: , Diabetes Type 2, Renal Failure Family History - Cardiac/Respiratory: CHF Family History - Cancer: No pertinent family hx Sister Family History - Medical: Hypothyroidism Family History - Cardiac/Respiratory: No pertinent hx Family History - Cancer: Breast Children Family History - Medical:  Family History - Cardiac/Respiratory: CHF Family History - Cancer:  Uncle Family History - Medical: Alcohol Abuse, Diabetes Type 2 - Social History Living Situations: spouse Abuse History: No History of abuse Psych History: Hx of Depression, Current tx/ever been on anti-depressants or anti-anxiety meds Does anyone smoke in the home?: No Smoking Status: Never smoker Have you smoked in the past 12 months: No Do you dip or chew tobacco: No Patient requests Smoking Cessation Consult: No Initiate information on Smoking Cessation: No Alcohol Use: none Drug Use: none - Immunizations Immunizations Up to Date: Yes Hx Pneumococcal Vaccination: Yes History of Influenza Vaccine: Yes Procedures AMPUTATION THROUGH FOOT (11/07/14) BUNIONECTOMY NEC (04/05/14) DIVISION OF LEFT ANKLE TENDON, OPEN APPROACH (09/22/16) EXCISION OF LEFT TARSAL, PERCUTANEOUS APPROACH, DIAGNOSTIC (07/24/16) INSPECTION OF BLADDER, ENDO (01/23/17) INSPECTION OF LOWER INTESTINAL TRACT, ENDO (12/03/16) IRRIGATION OF GENITOURINARY TRACT USING IRRIGAT, ENDO, DIAGN (01/23/17) MUSC/TEND LNG CHANGE NEC (04/05/14) MYRINGOTOMY W INTUBATION (02/16/14) OTHER CAST APPLICATION (12/15/12) TOE AMPUTATION (07/09/14) Medications - Medications Current Medications: Current Medications Acetaminophen (Tylenol) 650 mg PO QID PRN PRN Reason: Mild pain Stop: 03/21/17 07:15 Last Admin: 02/19/17 07:22 Dose: 650 mg Acetaminophen/Hydrocodone Bitart ([place] 5-325) 1 each PO Q4H PRN PRN Reason: Moderate Pain Stop: 03/19/17 18:52 Last Admin: 02/17/17 19:15 Dose: 1 each Acetaminophen/Hydrocodone Bitart ([place] 5-325) 2 each PO Q4H PRN PRN Reason: Moderate Pain Stop: 03/19/17 18:54 Last Admin: 02/18/17 16:10 Dose: 2 each Alprazolam (Xanax) 4 mg PO HS GORDON Stop: 03/19/17 21:01 Last Admin: 02/18/17 22:32 Dose: 4 mg Aspirin (Aspirin Enteric Coated) 81 mg PO DAILY GORDON Stop: 03/20/17 09:01 Last Admin: 02/19/17 08:00 Dose: 81 mg Duloxetine HCl (Cymbalta) 60 mg PO DAILY GORDON Stop: 03/20/17 09:01 Last Admin: 02/19/17 07:59 Dose: 60 mg Enoxaparin Sodium (Lovenox) 40 mg SC Q24H GORDON Stop: 03/19/17 15:46 Last Admin: 02/18/17 16:02 Dose: 40 mg Gabapentin (Neurontin) 800 mg PO Q8H GORDON Stop: 03/19/17 22:01 Last Admin: 02/19/17 06:40 Dose: 800 mg Piperacillin Sod/Tazobactam (Sod 3.375 gm/ Dextrose/Water) 100 mls @ 25 mls/hr IV Q6H GORDON PRN Reason: Protocol Stop: 03/19/17 16:01 Last Admin: 02/19/17 09:45 Dose: 25 mls/hr Vancomycin HCl 1.5 gm/ (Dextrose/Water) 500 mls @ 250 mls/hr IV Q24H GORDON PRN Reason: Protocol Stop: 03/19/17 17:01 Last Infusion: 02/18/17 19:54 Dose: Infused Pantoprazole Sodium 40 mg/ (Sodium Chloride) 100 mls @ 400 mls/hr IV Q24H GORDON Stop: 03/21/17 09:01 Last Admin: 02/19/17 09:29 Dose: 400 mls/hr Insulin Detemir (Levemir) 50 units SC BID GORDON Stop: 03/19/17 21:01 Last Admin: 02/19/17 08:00 Dose: 50 units Insulin Human Lispro (Humalog) 15 units SC AC GORDON Stop: 03/20/17 07:01 Last Admin: 02/19/17 11:58 Dose: 15 units Insulin Human Lispro (Humalog) 0 units SC TID PRN; Protocol PRN Reason: BLOOD SUGAR Stop: 03/19/17 18:03 Last Admin: 02/17/17 18:12 Dose: 2 units Levothyroxine Sodium (Synthroid) 75 mcg PO DAILY@0700 [facility] Stop: 03/20/17 07:01 Last Admin: 02/19/17 07:22 Dose: 75 mcg Metoprolol Succinate (Toprol Xl) 50 mg PO DAILY [facility] Stop: 03/20/17 09:01 Last Admin: 02/19/17 07:59 Dose: 50 mg Saccharomyces Boulardii (Florastor) 250 mg PO BID [facility] Stop: 03/19/17 21:01 Last Admin: 02/19/17 07:59 Dose: 250 mg Simvastatin (Zocor) 40 mg PO HS [facility] Stop: 03/19/17 21:01 Last Admin: 02/18/17 21:56 Dose: 40 mg Tamsulosin HCl (Flomax) 0.4 mg PO DAILY@1800 [facility] Stop: 03/19/17 20:01 Last Admin: 02/18/17 17:55 Dose: 0.4 mg Review of Systems - Review of Systems Generalized/Overall Review: Present: Fatigue, Weight gain EENTM: Present: Tearing Cardiac: Present: Edema Musculoskeletal: Present: Other - midfoot amputation left foot. Neurological: Present: Numbness Skin: Present: Other - ulceration left foot Physical Examination - Exam Vital Signs: Vital Signs - Last Taken Temp 37.8 C H 02/19/17 12:21 Pulse 96 02/19/17 12:21 Resp 24 H 02/19/17 12:21 BP 126/80 02/19/17 12:21 Pulse Ox 99 02/19/17 12:21 O2 Oxygen Delivery Method Room Air Constitutional: Present: Cooperative, Somnolent Cardiovascular/Chest: Present: edema - Diffuse Peripheral Pulses: dorsalis-pedis (L): 1+ Extremity: Present: lower extremity edema Skin Exam: Present: other - Ulceration to left foot amputation stump measuring 3 x 3.5 x 4.5 cm. Wound probes to bone. Loss of tissue to full thickness with exposure of subcutaneous fat layer. Base dark red, necrotic, minimal granulation tissue present. Surrounding tissue macerated, erythema extending to ankle, however improved from 2 days ago. Minimal swelling. Large amounts of serosanguinous drainage, no malodor. Neurologic: Present: sensory deficit - Results and Findings: Lab/Microbiology results last 24 hrs: Abnormal/Pending Laboratory Last 24 HRS 02/19/17 02/19/17 02/19/17 10:57 07:39 06:57 RBC Hgb Hct MCH MCHC RDW Plt Count Lymphocytes % (Manual) Lymphocytes # (Manual) ESR 76 H Potassium 4.7 H BUN 30 H Creatinine 2.39 H Est GFR (Non-Af Amer) 31 L Random Glucose 144 H D Alkaline Phosphatase C-Reactive Prot, Quant Albumin Procalcitonin Urine Protein 15 H Urine Blood 25 H Urine Bacteria 2+ H 02/19/17 02/19/17 02/19/17 06:57 06:45 06:45 RBC 3.71 L Hgb 9.7 L Hct 31.5 L MCH 26.1 L MCHC 30.8 L RDW 14.3 H Plt Count 138 L Lymphocytes % (Manual) 15 L Lymphocytes # (Manual) 0.7 L ESR Potassium BUN Creatinine Est GFR (Non-Af Amer) Random Glucose Alkaline Phosphatase 42 L C-Reactive Prot, Quant Albumin 3.0 L Procalcitonin 0.58 H Urine Protein Urine Blood Urine Bacteria 02/19/17 06:00 RBC Hgb Hct MCH MCHC RDW Plt Count Lymphocytes % (Manual) Lymphocytes # (Manual) ESR Potassium BUN Creatinine Est GFR (Non-Af Amer) Random Glucose Alkaline Phosphatase C-Reactive Prot, Quant 18.8 H Albumin Procalcitonin Urine Protein Urine Blood Urine Bacteria Culture 02/17/17 16:30 Blood Culture - Preliminary Blood Staphylococcus Species 02/17/17 16:14 Blood Culture - Preliminary Blood Staphylococcus Species 02/17/17 18:12 - Final Nares MRSA Positive - Assessments/Findings (1) Cellulitis Diagnosis(s): Continue IV ABX. Likely require 6-8 weeks IV ABX therapy. Problem: Acute Qualifiers: Site of cellulitis: extremity Site of cellulitis of extremity: lower extremity Laterality: left (2) Diabetic foot ulcer Problem: Acute Qualifiers: Diabetic foot ulcer location: unspecified part of foot Diabetes mellitus type: type 2 Laterality: left (3) Abscess of foot Diagnosis(s): Verbal consent obtained from pt at bedside for I&D of left foot and bone culture. Foot was prepped with betadine. A #15 blade was utilized to create a small stab incision over the medial aspect of the foot to obtain bone culture away from ulcerated site. A Eric needle with trochar was then inserted and advanced to bone. Trochar removed and sample of bone obtained. The needle was then removed and specimen placed in cup for culture. Pressure applied for hemostasis. Attention then directed to plantar surface where a 5 cm incision was made through the ulcerated site. Dissection continued down to level of bone with hemostat. Compression applied and only bloody drainage expressed. Area explored with hemostat for any pockets of fluid/purulence and none were found. The wound was then flushed with copious amounts of sterile normal saline. The wound was then packed with 1/2" Iodoform packing gauze. A sterile dressing of gauze, ABD pad, kerlix, ana, and YANCY bandage was applied. Pt tolerated well. No local anesthetic required due to absence of sensation secondary to neuropathy. Dressing to remain CDI. I will do dressing changes until further notice. Pt is to wear a surgical boot left foot. He is to be crutch assist with ambulation and is to place little to no weight on this foot. He is to elevate when resting. Problem: Acute (4) Nontraumatic amputation of left foot Problem: Acute
[2017-02-19] MEDS: NORMAL SALINE 1,000 ML IV PRN (13:29)
[2017-02-19] MEDS: ENOXAPARIN SODIUM 40 MG/0.4 ML SYRG SC SCH (14:52)
[2017-02-19] MEDS: TAMSULOSIN HCL 0.4 MG CAP.SR.24H PO SCH (17:00)
[2017-02-19] MEDS: VANCOMYCIN HCL 1.5 GM in DEXTROSE 5 % IN WATER 500 ML IV SCH ×2 (17:01)
[2017-02-19] MEDS: ALPRAZolam 1 MG TABLET PO SCH (21:22)
[2017-02-19] MEDS: SIMVASTATIN 40 MG TABLET PO SCH (21:23)
[2017-02-20] MEDS: PIPERACILLIN SODIUM/TAZOBACTAM 3.375 GM in DEXTROSE 5 % IN WATER 100 ML IV SCH ×6 (00:49→09:21)
[2017-02-20] MEDS: GABAPENTIN 400 MG CAPSULE PO SCH (07:30)
[2017-02-20] MEDS: INSULIN LISPRO 100 UNITS/ML VIAL SC SCH ×3 (07:31→17:12)
[2017-02-20] MEDS: LEVOTHYROXINE SODIUM 75 MCG TABLET PO SCH (07:31)
[2017-02-20 08:44] LABS: Hematocrit 29.5 % (42.0-52.0); Hemoglobin 9.5 gm/dL (13.5-18.0); Mean Cell Volume 83.3 fl (78-100); Mean Corpuscular Hemoglobin 26.8 pg (27-31); Mean Corpuscular Hgb Conc 32.2 g/dl (32-36); Mean Platelet Volume 8.8 fl (6.0-9.5); Neutrophil % 69.3 % (42-75.0); Platelet Count 158 K/mm3 (150-450); Red Blood Count 3.54 M/mm3 (4.7-6.0); Red Cell Distribution Width 14.5 % (11.5-14.0); White Blood Count 4.4 K/mm3 (4.0-10.5)
[2017-02-20 09:03] LABS: BUN/Creatinine Ratio 11.4 (9.0-21.6); Calcium * 8.4 mg/dL (7.9-10.9); Carbon Dioxide 29.3 mmol/L (24-32.6); Potassium 4.3 mmol/L (3.4-4.6)
[2017-02-20] MEDS: SACCHAROMYCES BOULARDII 250 MG CAPSULE PO SCH ×2 (09:05→21:08)
[2017-02-20] MEDS: INSULIN DETEMIR 100 UNITS/ML VIAL SC SCH ×2 (09:05→21:08)
[2017-02-20] MEDS: METOPROLOL SUCCINATE 50 MG TABLET.SA PO SCH ×2 (09:05→21:07)
[2017-02-20] MEDS: ASPIRIN 81 MG TABLET.DR PO SCH (09:06)
[2017-02-20] MEDS: DULoxetine HCL 30 MG CAPSULE.SA PO SCH (09:06)
[2017-02-20] MEDS: NORMAL SALINE 1,000 ML IV PRN ×2 (09:09→14:46)
[2017-02-20 09:23] LABS: Albumin * 2.8 gm/dl (3.4-5.0); Bilirubin, Total 0.4 mg/dL (0.0-1.1); Total Protein 6.9 gm/dL (6.2-8.2)
[2017-02-20] MEDS: PANTOPRAZOLE SODIUM 40 MG in NORMAL SALINE 100 ML IV SCH (09:37)
[2017-02-20] MEDS: ACETAMINOPHEN 325 MG TABLET PO PRN (11:38)
--- NOTE | 2017-02-20 14:17 | PN ---
Subjective - Date and Time Seen Date: 02/20/17 Time: 11:55 Subjective Narrative: Pt evaluated at bedside resting. States that he is feeling much better today and is far less drowsy. Has several questions today regarding the healing of this ulceration, possible future ulcerations, and having the BKA done. Objective - Review of Systems Generalized/Overall Review: Reports: Weight gain Cardiac: Reports: Edema Musculoskeletal Complaints: Reports: Other - left midfoot amputation Neurological: Reports: Numbness Skin: Reports: Other - ulceration left foot, redness left foot - Vitals Vitals: Last Vital Signs Temp 37.5 C 02/20/17 09:00 Pulse 102 H 02/20/17 09:05 Resp 18 02/20/17 09:00 BP 130/62 02/20/17 09:05 Pulse Ox 99 02/20/17 09:00 - Abnormal Lab Findings Abnormal Lab Findings: Abnormal Lab Results 02/20/17 02/20/17 Range/Units 08:35 08:35 RBC 3.54 L (4.7-6.0) M/mm3 Hgb 9.5 L (13.5-18.0) gm/dL Hct 29.5 L (42.0-52.0) % MCH 26.8 L (27-31) pg RDW 14.5 H (11.5-14.0) % Immature Gran % (Auto) 1.60 H (0.001-0.429) % Immature Gran # (Auto) 0.07 H (0.000-0.0310) K/mm3 Lymphocytes % 16.9 L (20-51) % Eosinophils % 3.7 H (0.0-3.0) % Lymphocytes # 0.7 L (1.5-3.5) k/mm3 BUN 36 H (6-23) mg/dL Creatinine 3.15 H D (0.4-1.4) mg/dL Est GFR (Non-Af Amer) 22 L D (60-130) mL/min Random Glucose 131 H (70-110) mg/dL Alkaline Phosphatase 41 L (50-170) U/L Albumin 2.8 L (3.4-5.0) gm/dl - Exam Constitutional: Present: Alert, Oriented x3, Cooperative Cardiovascular/Chest: Present: edema - diffuse Extremity: Present: lower extremity edema Skin Exam: Present: other - Ulceration remains to left foot amputation stump, unchanged in size. Does have increase in granulation tissue from visit yesterday. Decrease in drainage, now mostly bloody following bedside I&D. Packing in place at I&D site, upon removal, no purulence present. Deep tissues with increase in granulation tissue. Puncture site from bone biopsy with no drainage. Edges approximated. Erythema appears to be improving with IV ABX and I&D. Swelling decreased, skin lines now visible. Neurologic: Present: sensory deficit Appearance: Present: appropriate appearance Eye contact: Present: cooperative Cauti Physician Documentation - Urinary Catheter Management Urethral (Ivy) Urethral Indwelling: Yes Date of Insertion: 02/19/17 Time of Insertion: 07:30 Date of Removal: 02/20/17 Time of Removal: 09:40 Assessment/Plan Plan Narrative: Long discussion held with patient on future of his left foot. I am optimistic that we will be able to get this ulceration to heal over time as we have been successful in the past, however it will be a team effort to keep it healed and he will have to adhere to all instructions given including wearing his diabetic shoegear at all times when walking, to which he has openly admitted to not doing. Given his history of recurrent ulceration of this extremity, his possibility of developing another ulceration is relatively high, however again we have had success in healing previous ulcerations and could continue with this cycle. Discussed that there may come a time with ulcerations/infections that he will not have the options he is given today of local wound care and IV ABX and he may require higher amputation due to more severe infection. Ultimately it is his limb and his decision. He is at this time leaning more toward the option of a BKA as he is tired of continued wound care and the thought of future wound care and hospitalizations does not appeal to him. He is advised to discuss with family over the weekend and will let Dr. Nation know of his decision. Dr. Nation is out of office today and will discuss when he returns. - Problems/Diagnosis (1) Cellulitis Problem: Acute Qualifiers: Site of cellulitis: extremity Site of cellulitis of extremity: lower extremity Laterality: left Qualified Code(s): L03.116 - Cellulitis of left lower limb Narrative: Continue IV ABX. Await final culture results to adjust. (2) Diabetic foot ulcer Problem: Acute Qualifiers: Diabetic foot ulcer location: unspecified part of foot Diabetes mellitus type: type 2 Laterality: left Narrative: New packing placed and new DSD applied. Keep CDI. (3) Abscess of foot Problem: Acute Narrative: Bedside I&D yesterday. Site repacked with Iodoform packing gauze. New DSD applied. To be kept CDI. Pt to remain light touch weight bearing with crutch assist. May apply enough weight to maintain balance. 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
[2017-02-20] MEDS: OXACILLIN SODIUM IV SCH ×6 (14:38→21:05)
[2017-02-20] MEDS: WATER IV SCH ×6 (14:38→21:05)
[2017-02-20] MEDS: GABAPENTIN 600 MG TABLET PO SCH ×2 (14:38→21:08)
[2017-02-20] MEDS: DEXTROSE 5% IV SCH ×6 (14:38→21:05)
[2017-02-20] MEDS: ENOXAPARIN SODIUM 40 MG/0.4 ML SYRG SC SCH (16:01)
[2017-02-20] MEDS ORDERED: VANCOMYCIN HCL LEVEL XX ONE (16:30)
[2017-02-20] MEDS: TAMSULOSIN HCL 0.4 MG CAP.SR.24H PO SCH (17:30)
[2017-02-20] MEDS: SIMVASTATIN 40 MG TABLET PO SCH (21:07)
[2017-02-20] MEDS: ALPRAZolam 1 MG TABLET PO SCH (21:14)
[2017-02-21] MEDS: OXACILLIN SODIUM IV SCH ×12 (02:58→21:47)
[2017-02-21] MEDS: DEXTROSE 5% IV SCH ×12 (02:58→21:47)
[2017-02-21] MEDS: WATER IV SCH ×12 (02:58→21:47)
[2017-02-21] MEDS: NORMAL SALINE 1,000 ML IV PRN (02:59)
[2017-02-21] MEDS: ACETAMINOPHEN 325 MG TABLET PO PRN (04:25)
[2017-02-21] MEDS: GABAPENTIN 600 MG TABLET PO SCH ×3 (05:31→20:38)
[2017-02-21] MEDS: LEVOTHYROXINE SODIUM 75 MCG TABLET PO SCH (07:16)
[2017-02-21] MEDS: INSULIN LISPRO 100 UNITS/ML VIAL SC SCH ×6 (07:19→18:06)
[2017-02-21 08:12] LABS: Hematocrit 29.6 % (42.0-52.0); Hemoglobin 9.3 gm/dL (13.5-18.0); Mean Cell Volume 84.8 fl (78-100); Mean Corpuscular Hemoglobin 26.6 pg (27-31); Mean Corpuscular Hgb Conc 31.4 g/dl (32-36); Mean Platelet Volume 9.2 fl (6.0-9.5); Neutrophil % 55.8 % (42-75.0); Platelet Count 162 K/mm3 (150-450); Red Blood Count 3.49 M/mm3 (4.7-6.0); Red Cell Distribution Width 14.2 % (11.5-14.0); White Blood Count 3.5 K/mm3 (4.0-10.5)
[2017-02-21] MEDS: SACCHAROMYCES BOULARDII 250 MG CAPSULE PO SCH ×2 (08:27→20:56)
[2017-02-21] MEDS: DULoxetine HCL 30 MG CAPSULE.SA PO SCH (08:27)
[2017-02-21] MEDS: ASPIRIN 81 MG TABLET.DR PO SCH (08:27)
[2017-02-21] MEDS: PANTOPRAZOLE SODIUM 40 MG in NORMAL SALINE 100 ML IV SCH (08:29)
[2017-02-21 08:32] LABS: Anion Gap 12.6 mmol/L (6.8-13.8); BUN/Creatinine Ratio 13.6 (9.0-21.6); Calcium * 8.5 mg/dL (7.9-10.9); Carbon Dioxide 29.1 mmol/L (24-32.6); Estimated Creat Clear 34.4; Potassium 4.7 mmol/L (3.4-4.6)
[2017-02-21] MEDS: INSULIN DETEMIR 100 UNITS/ML VIAL SC SCH ×2 (08:37→21:09)
[2017-02-21] MEDS: PANTOPRAZOLE SODIUM 40 MG TABLET.EC PO SCH (11:40)
--- NOTE | 2017-02-21 11:47 | PN ---
<Mirtha Heck - Last Filed: 02/21/17 14:24> Subjective - Date and Time Seen Date: 02/21/17 Time: 11:37 Subjective Narrative: c/o dyspnea and swelling in legs. no fever, no chills. Objective - Review of Systems Generalized/Overall Review: Reports: No Symptoms Reported EENTM: Reports: No Symptoms Reported Respiratory: Reports: Shortness of Breath. Denies: Wheezing Cardiac: Reports: Edema. Denies: Chest Pain Abdominal: Reports: No Symptoms Reported Genitourinary Symptoms: Reports: No Symptoms Reported Musculoskeletal Complaints: Reports: No Symptoms Reported Neurological: Reports: No Symptoms Reported Skin: Reports: No Symptoms Reported Endocrine: Reports: No Symptoms Reported Misc: All systems neg except as marked - Vitals Vitals: Last Vital Signs Temp 35.8 C L 02/21/17 11:13 Pulse 80 02/21/17 11:13 Resp 20 02/21/17 11:13 BP 139/79 02/21/17 11:13 Pulse Ox 90 02/21/17 11:13 - Abnormal Lab Findings Abnormal Lab Findings: Abnormal Lab Results 02/21/17 02/21/17 Range/Units 07:38 07:38 WBC 3.5 L D (4.0-10.5) K/mm3 RBC 3.49 L (4.7-6.0) M/mm3 Hgb 9.3 L (13.5-18.0) gm/dL Hct 29.6 L (42.0-52.0) % MCH 26.6 L (27-31) pg MCHC 31.4 L (32-36) g/dl RDW 14.2 H (11.5-14.0) % Immature Gran % (Auto) 2.00 H (0.001-0.429) % Immature Gran # (Auto) 0.07 H (0.000-0.0310) K/mm3 Eosinophils % 4.0 H (0.0-3.0) % Lymphocytes # 1.0 L (1.5-3.5) k/mm3 Potassium 4.7 H (3.4-4.6) mmol/L BUN 33 H (6-23) mg/dL Creatinine 2.43 H D (0.4-1.4) mg/dL Est GFR (Non-Af Amer) 30 L D (60-130) mL/min Random Glucose 112 H (70-110) mg/dL - Exam Constitutional: Present: Alert, Oriented x3, Cooperative, No distress ENT Exam: Present: hearing grossly normal Neck: Present: full range of motion, supple Breasts: Present: Exam deferred Respiratory: Present: no respiratory distress, rales - bilat bases Cardiovascular/Chest: Present: regular rate, rhythm, no chest tenderness Abdomen: Present: soft, nontender, obese /Rectal: Present: Exam deferred Extremity: Present: no calf tenderness, lower extremity edema - +1-2 right leg Skin Exam: Present: normal color, warm/dry, no cyanosis Cauti Physician Documentation - Urinary Catheter Management Urethral (Ivy) Urethral Indwelling: Yes Date of Insertion: 02/19/17 Time of Insertion: 07:30 Date of Removal: 02/20/17 Time of Removal: 09:40 Assessment/Plan Plan Narrative: Diabetic foot ulcer / cellulitis / suspected osteomyelitis - orthopaedic consulted, recommend skilled nursing abx - Dr. 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 - antibiotics - oxicillin - Probiotics ordered. - daily dressing changes / wound care - wash daily with dove soap and water. - drsg is Aqua cell aq over open wound, then wrap with ana and secure with zoey wrap. - esr elevated into the 70s - blood cultures both grew staph aureus NOT MRSA Diastolic HF - chronic - daily weights - strict I&Os - CHF teaching. - 80 mg iv lasix on 02/19/17 - 40 mg iv lasix on 02/21/17 CKD stage III - creatinine elevated - improving - recheck labs in am. Depression / anxiety - exacerbated due to current medical situation - dr combs following. Diabetes T2 - accu checks ac - humalog sliding scale tid with meals as needed. - diabetic teaching for optimal glucose control for optimal wound healing. Sepsis, suspected - RR 24, Tachycardia - SIRS criteria - infection - cellulitis - SOFA criteria - coagulation: platelets dropped from 157 to 138 (1 point) - Renal: creatinine increases to 2.38 (higher than patient has ever been in the past (2 points) - Baseline SOFA score is 0 - all members of care team notified. - await bone bx final culture. Iron deficiency anemia - Venofer 500 mg given iv x1. Code status: full code vte: lovenox GI proph: protonix. - Problems/Diagnosis (1) Diabetic foot ulcer Problem: Acute QualifierTitle: Diabetic foot ulcer location: unspecified part of foot Diabetes mellitus type: type 2 Laterality: left (2) CKD (chronic kidney disease) stage 3, GFR 30-59 ml/min Problem: Chronic (3) Diastolic heart failure Problem: Chronic QualifierTitle: Heart failure chronicity: chronic Qualified Code(s): I50.32 - Chronic diastolic (congestive) heart failure (4) Cellulitis Problem: Acute QualifierTitle: Site of cellulitis: extremity Site of cellulitis of extremity: lower extremity Laterality: left Qualified Code(s): L03.116 - Cellulitis of left lower limb (5) Anxiety Problem: Chronic (6) Depression Problem: Chronic (7) Diabetes mellitus Problem: Chronic QualifierTitle: Diabetes mellitus type: type 2 Diabetes mellitus complication status: with skin complications Diabetes mellitus complication detail: with foot ulcer Diabetes mellitus skilled nursing insulin use: with petroleum terminal plant operator use Qualified Code(s): E11.621 - Type 2 diabetes mellitus with foot ulcer ; L97.509 - Non-pressure chronic ulcer of other part of unspecified foot with unspecified severity; Z79.4 - intermediate manager (current) use of insulin (8) Diabetic peripheral neuropathy Problem: Chronic (9) GERD (gastroesophageal reflux disease) Problem: Chronic QualifierTitle: Esophagitis presence: esophagitis presence not specified Qualified Code(s): K21.9 - Gastro-esophageal reflux disease without esophagitis (10) Hyperlipidemia Problem: Chronic QualifierTitle: Hyperlipidemia type: unspecified Qualified Code(s): E78.5 - Hyperlipidemia, unspecified (11) Hypertension Problem: Chronic QualifierTitle: Hypertension type: essential hypertension Qualified Code( s): I10 - Essential (primary) hypertension (12) Osteomyelitis Problem: Suspected QualifierTitle: Osteomyelitis type: unspecified type Osteomyelitis location: foot Laterality: left Qualified Code(s): M86.9 - Osteomyelitis, unspecified (13) Iron deficiency anemia Problem: Acute QualifierTitle: Iron deficiency anemia type: unspecified iron deficiency Qualified Code(s): D50.9 - Iron deficiency anemia, unspecified (14) Bacteremia Problem: Acute <Tai Max - Last Filed: 02/21/17 15:28> Subjective Subjective Narrative: Probably a little fluid overloaded, so will add a little daily lasix. Potassium a little high, so the lasix will help that too. Will monitor labs. I personally am directing all of our nurse practitioner hospitalist care for this person. Objective - Vitals Vitals: Last Vital Signs Temp 36.4 C L 02/21/17 14:51 Pulse 87 02/21/17 14:51 Resp 18 02/21/17 14:51 BP 143/74 02/21/17 14:51 Pulse Ox 95 02/21/17 14:51 - Abnormal Lab Findings Abnormal Lab Findings: Abnormal Lab Results 02/21/17 02/21/17 Range/Units 07:38 07:38 WBC 3.5 L D (4.0-10.5) K/mm3 RBC 3.49 L (4.7-6.0) M/mm3 Hgb 9.3 L (13.5-18.0) gm/dL Hct 29.6 L (42.0-52.0) % MCH 26.6 L (27-31) pg MCHC 31.4 L (32-36) g/dl RDW 14.2 H (11.5-14.0) % Immature Gran % (Auto) 2.00 H (0.001-0.429) % Immature Gran # (Auto) 0.07 H (0.000-0.0310) K/mm3 Eosinophils % 4.0 H (0.0-3.0) % Lymphocytes # 1.0 L (1.5-3.5) k/mm3 Potassium 4.7 H (3.4-4.6) mmol/L BUN 33 H (6-23) mg/dL Creatinine 2.43 H D (0.4-1.4) mg/dL Est GFR (Non-Af Amer) 30 L D (60-130) mL/min Random Glucose 112 H (70-110) mg/dL
[2017-02-21] MEDS ORDERED: FUROSEMIDE 10 MG/ML VIAL IV ONE (12:15)
[2017-02-21] MEDS: ENOXAPARIN SODIUM 40 MG/0.4 ML SYRG SC SCH (18:06)
[2017-02-21] MEDS: TAMSULOSIN HCL 0.4 MG CAP.SR.24H PO SCH (18:07)
[2017-02-21] MEDS: METOPROLOL SUCCINATE 50 MG TABLET.SA PO SCH (20:57)
[2017-02-21] MEDS: SIMVASTATIN 40 MG TABLET PO SCH (21:01)
[2017-02-21] MEDS: ALPRAZolam 1 MG TABLET PO SCH (21:07)
[2017-02-22] MEDS: WATER IV SCH ×12 (02:04→21:02)
[2017-02-22] MEDS: DEXTROSE 5% IV SCH ×12 (02:04→21:02)
[2017-02-22] MEDS: OXACILLIN SODIUM IV SCH ×12 (02:04→21:02)
[2017-02-22] MEDS: GABAPENTIN 600 MG TABLET PO SCH ×3 (05:21→20:56)
[2017-02-22 05:53] LABS: Hematocrit 30.1 % (42.0-52.0); Hemoglobin 9.4 gm/dL (13.5-18.0); Mean Cell Volume 84.6 fl (78-100); Mean Corpuscular Hemoglobin 26.4 pg (27-31); Mean Corpuscular Hgb Conc 31.2 g/dl (32-36); Mean Platelet Volume 8.8 fl (6.0-9.5); Neutrophil # 2.1 K/mm3 (1.3-6.0); Neutrophil % 52.1 % (42-75.0); Platelet Count 171 K/mm3 (150-450); Red Blood Count 3.56 M/mm3 (4.7-6.0); Red Cell Distribution Width 14.3 % (11.5-14.0)
[2017-02-22 06:04] LABS: Anion Gap 13.8 mmol/L (6.8-13.8); BUN/Creatinine Ratio 14.7 (9.0-21.6); Calcium * 8.7 mg/dL (7.9-10.9); Carbon Dioxide 30.7 mmol/L (24-32.6); Estimated Creat Clear 37.2; Potassium 4.5 mmol/L (3.4-4.6)
[2017-02-22] MEDS: PANTOPRAZOLE SODIUM 40 MG TABLET.EC PO SCH (06:48)
[2017-02-22] MEDS: INSULIN LISPRO 100 UNITS/ML VIAL SC SCH ×6 (06:48→17:29)
[2017-02-22] MEDS: LEVOTHYROXINE SODIUM 75 MCG TABLET PO SCH (06:48)
[2017-02-22] MEDS: SACCHAROMYCES BOULARDII 250 MG CAPSULE PO SCH ×2 (09:26→20:57)
[2017-02-22] MEDS: DULoxetine HCL 30 MG CAPSULE.SA PO SCH (09:26)
[2017-02-22] MEDS: ASPIRIN 81 MG TABLET.DR PO SCH (09:26)
[2017-02-22] MEDS: FUROSEMIDE 10 MG/ML VIAL IV SCH (09:29)
[2017-02-22] MEDS: INSULIN DETEMIR 100 UNITS/ML VIAL SC SCH ×2 (09:33→20:57)
--- NOTE | 2017-02-22 09:39 | PN ---
<Mirtha Heck - Last Filed: 02/22/17 10:12> Subjective - Date and Time Seen Date: 02/22/17 Time: 09:17 Subjective Narrative: states swelling in legs is a little better. no fever or chills. no n/v/d. Objective - Review of Systems Generalized/Overall Review: Reports: No Symptoms Reported EENTM: Reports: No Symptoms Reported Respiratory: Reports: No Symptoms Reported Cardiac: Reports: Edema. Denies: Chest Pain, Palpitations, Syncope Abdominal: Reports: No Symptoms Reported Genitourinary Symptoms: Reports: No Symptoms Reported Musculoskeletal Complaints: Reports: No Symptoms Reported Neurological: Reports: No Symptoms Reported Skin: Reports: No Symptoms Reported Endocrine: Reports: No Symptoms Reported Misc: All systems neg except as marked - Vitals Vitals: Last Vital Signs Temp 36.5 C 02/22/17 07:05 Pulse 85 02/22/17 09:29 Resp 20 02/22/17 07:05 BP 118/80 02/22/17 09:29 Pulse Ox 91 02/22/17 07:05 - Abnormal Lab Findings Abnormal Lab Findings: Abnormal Lab Results 02/22/17 02/22/17 Range/Units 05:45 05:45 RBC 3.56 L (4.7-6.0) M/mm3 Hgb 9.4 L (13.5-18.0) gm/dL Hct 30.1 L (42.0-52.0) % MCH 26.4 L (27-31) pg MCHC 31.2 L (32-36) g/dl RDW 14.3 H (11.5-14.0) % Immature Gran % (Auto) 3.70 H (0.001-0.429) % Immature Gran # (Auto) 0.15 H (0.000-0.0310) K/mm3 Eosinophils % 4.2 H (0.0-3.0) % Lymphocytes # 1.2 L (1.5-3.5) k/mm3 BUN 33 H (6-23) mg/dL Creatinine 2.25 H (0.4-1.4) mg/dL Est GFR (Non-Af Amer) 33 L (60-130) mL/min Random Glucose 126 H (70-110) mg/dL - Exam Constitutional: Present: Alert, Oriented x3, Cooperative, No distress ENT Exam: Present: hearing grossly normal Neck: Present: full range of motion, supple Breasts: Present: Exam deferred Respiratory: Present: no respiratory distress, no accessory muscle use, decreased breath sounds Cardiovascular/Chest: Present: regular rate, rhythm, edema - 2+ edema right leg Abdomen: Present: soft, nontender, obese /Rectal: Present: Exam deferred Extremity: Present: no calf tenderness, leg pain - left leg Skin Exam: Present: normal color, warm/dry, no cyanosis Cauti Physician Documentation - Urinary Catheter Management Urethral (Ivy) Urethral Indwelling: No Date of Insertion: 02/19/17 Time of Insertion: 07:30 Date of Removal: 02/20/17 Time of Removal: 09:40 Assessment/Plan Plan Narrative: Diabetic foot ulcer / cellulitis / suspected osteomyelitis - orthopaedic consulted, recommend terminal press operator abx - Dr. 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 - antibiotics - oxicillin - Probiotics ordered. - daily dressing changes / wound care - wash daily with dove soap and water. - drsg is Aqua cell aq over open wound, then wrap with ana and secure with zoey wrap. - esr elevated - blood cultures both grew staph aureus NOT MRSA Diastolic HF - chronic - daily weights - strict I&Os - CHF teaching. - 80 mg iv lasix on 02/19/17 - 40 mg iv lasix on 02/21/17 - continue diuresis daily CKD stage III - creatinine elevated - improving - recheck labs in am. Depression / anxiety - exacerbated due to current medical situation - dr combs following. Diabetes T2 - accu checks ac - humalog sliding scale tid with meals as needed. - diabetic teaching for optimal glucose control for optimal wound healing. Sepsis, suspected - RR 24, Tachycardia - SIRS criteria - infection - cellulitis - SOFA criteria - coagulation: platelets dropped from 157 to 138 (1 point) - Renal: creatinine increases to 2.38 (higher than patient has ever been in the past (2 points) - Baseline SOFA score is 0 - all members of care team notified. - await bone bx final culture. Iron deficiency anemia - Venofer 500 mg given iv x1. Code status: full code vte: lovenox GI proph: protonix. - Problems/Diagnosis (1) Diabetic foot ulcer Problem: Acute QualifierTitle: Diabetic foot ulcer location: unspecified part of foot Diabetes mellitus type: type 2 Laterality: left (2) CKD (chronic kidney disease) stage 3, GFR 30-59 ml/min Problem: Chronic (3) Diastolic heart failure Problem: Chronic QualifierTitle: Heart failure chronicity: chronic Qualified Code(s): I50.32 - Chronic diastolic (congestive) heart failure (4) Cellulitis Problem: Acute QualifierTitle: Site of cellulitis: extremity Site of cellulitis of extremity: lower extremity Laterality: left Qualified Code(s): L03.116 - Cellulitis of left lower limb (5) Anxiety Problem: Chronic (6) Depression Problem: Chronic (7) Diabetes mellitus Problem: Chronic QualifierTitle: Diabetes mellitus type: type 2 Diabetes mellitus complication status: with skin complications Diabetes mellitus complication detail: with foot ulcer Diabetes mellitus terminal press operator insulin use: with terminal press operator use Qualified Code(s): E11.621 - Type 2 diabetes mellitus with foot ulcer ; L97.509 - Non-pressure chronic ulcer of other part of unspecified foot with unspecified severity; Z79.4 - manager long term care (current) use of insulin (8) Diabetic peripheral neuropathy Problem: Chronic (9) GERD (gastroesophageal reflux disease) Problem: Chronic QualifierTitle: Esophagitis presence: esophagitis presence not specified Qualified Code(s): K21.9 - Gastro-esophageal reflux disease without esophagitis (10) Hyperlipidemia Problem: Chronic QualifierTitle: Hyperlipidemia type: unspecified Qualified Code(s): E78.5 - Hyperlipidemia, unspecified (11) Hypertension Problem: Chronic QualifierTitle: Hypertension type: essential hypertension Qualified Code( s): I10 - Essential (primary) hypertension (12) Osteomyelitis Problem: Suspected QualifierTitle: Osteomyelitis type: unspecified type Osteomyelitis location: foot Laterality: left Qualified Code(s): M86.9 - Osteomyelitis, unspecified (13) Iron deficiency anemia Problem: Acute QualifierTitle: Iron deficiency anemia type: unspecified iron deficiency Qualified Code(s): D50.9 - Iron deficiency anemia, unspecified (14) Bacteremia Problem: Acute <Tai Max - Last Filed: 02/22/17 13:02> Subjective Subjective Narrative: I personally directed all of our nurse practitioner hospitalist care for this person and agree with the current direction of care. Objective - Vitals Vitals: Last Vital Signs Temp 36.5 C 02/22/17 10:19 Pulse 83 02/22/17 10:19 Resp 20 02/22/17 10:19 BP 133/76 02/22/17 10:19 Pulse Ox 92 02/22/17 10:19 - Abnormal Lab Findings Abnormal Lab Findings: Abnormal Lab Results 02/22/17 02/22/17 Range/Units 05:45 05:45 RBC 3.56 L (4.7-6.0) M/mm3 Hgb 9.4 L (13.5-18.0) gm/dL Hct 30.1 L (42.0-52.0) % MCH 26.4 L (27-31) pg MCHC 31.2 L (32-36) g/dl RDW 14.3 H (11.5-14.0) % Immature Gran % (Auto) 3.70 H (0.001-0.429) % Immature Gran # (Auto) 0.15 H (0.000-0.0310) K/mm3 Eosinophils % 4.2 H (0.0-3.0) % Lymphocytes # 1.2 L (1.5-3.5) k/mm3 BUN 33 H (6-23) mg/dL Creatinine 2.25 H (0.4-1.4) mg/dL Est GFR (Non-Af Amer) 33 L (60-130) mL/min Random Glucose 126 H (70-110) mg/dL
--- NOTE | 2017-02-22 10:38 | PN ---
Subjective - Date and Time Seen Date: 02/22/17 Time: 10:37 Subjective Narrative: Pt evaluated at bedside resting. Continues to improve daily. Spirits much better today. Again has several questions regarding the healing of this ulceration, possible future ulcerations, and having the BKA done. Believes he still wants to proceed with the BKA but wants to be sure he is making the right decision. Objective - Review of Systems Cardiac: Reports: Edema Musculoskeletal Complaints: Reports: Other - midfoot amputation left foot Neurological: Reports: Numbness Skin: Reports: Other - Ulceration left foot amputation stump - Vitals Vitals: Last Vital Signs Temp 36.5 C 02/22/17 10:19 Pulse 83 02/22/17 10:19 Resp 20 02/22/17 10:19 BP 133/76 02/22/17 10:19 Pulse Ox 92 02/22/17 10:19 - Abnormal Lab Findings Abnormal Lab Findings: Abnormal Lab Results 02/22/17 02/22/17 Range/Units 05:45 05:45 RBC 3.56 L (4.7-6.0) M/mm3 Hgb 9.4 L (13.5-18.0) gm/dL Hct 30.1 L (42.0-52.0) % MCH 26.4 L (27-31) pg MCHC 31.2 L (32-36) g/dl RDW 14.3 H (11.5-14.0) % Immature Gran % (Auto) 3.70 H (0.001-0.429) % Immature Gran # (Auto) 0.15 H (0.000-0.0310) K/mm3 Eosinophils % 4.2 H (0.0-3.0) % Lymphocytes # 1.2 L (1.5-3.5) k/mm3 BUN 33 H (6-23) mg/dL Creatinine 2.25 H (0.4-1.4) mg/dL Est GFR (Non-Af Amer) 33 L (60-130) mL/min Random Glucose 126 H (70-110) mg/dL - Exam Constitutional: Present: Alert, Oriented x3, Cooperative, No distress Extremity: Present: lower extremity edema Skin Exam: Present: other - Ulceration to left foot amputation stump remains unchanged in size. Incision from I&D remains through central aspect. Base of ulceration showing increasing granulation tissue. Surrounding tissue with decreasing redness and swelling now with peeling of surrounding skin. Moderate serosanguinous drainage, no malodor. No exposed tendon, however bone remains palpable. Neurologic: Present: sensory deficit Appearance: Present: appropriate appearance Eye contact: Present: cooperative Cauti Physician Documentation - Urinary Catheter Management Urethral (Ivy) Urethral Indwelling: No Date of Insertion: 02/19/17 Time of Insertion: 07:30 Date of Removal: 02/20/17 Time of Removal: 09:40 Assessment/Plan - Problems/Diagnosis (1) Cellulitis Problem: Acute Qualifiers: Site of cellulitis: extremity Site of cellulitis of extremity: lower extremity Laterality: left Qualified Code(s): L03.116 - Cellulitis of left lower limb Narrative: Continues to show improvement. Continue IV ABX. (2) Diabetic foot ulcer Problem: Acute Qualifiers: Diabetic foot ulcer location: unspecified part of foot Diabetes mellitus type: type 2 Laterality: left Narrative: Increasing granulation tissue and overall improvement. Will continue with daily dressing changes, to be done by me only at this time. New dressing applied today. Continue NWB with crutch assist. (3) Abscess of foot Problem: Acute Narrative: Pt has progressed well following bedside I&D. Bone culture showing no growth. Wound re-packed with 1/2" Iodoform packing gauze and foot re-dressed. Will likely require another few weeks of IV ABX pending timing of d/c. Will discuss when time comes. 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
[2017-02-22] MEDS ORDERED: FUROSEMIDE 10 MG/ML VIAL IV SCH (15:30)
[2017-02-22] MEDS: ENOXAPARIN SODIUM 40 MG/0.4 ML SYRG SC SCH (16:05)
[2017-02-22] MEDS: TAMSULOSIN HCL 0.4 MG CAP.SR.24H PO SCH (17:30)
[2017-02-22] MEDS: ALPRAZolam 1 MG TABLET PO SCH (20:56)
[2017-02-22] MEDS: METOPROLOL SUCCINATE 50 MG TABLET.SA PO SCH (20:57)
[2017-02-22] MEDS: SIMVASTATIN 40 MG TABLET PO SCH (20:57)
[2017-02-23] MEDS: WATER IV SCH ×12 (02:26→21:17)
[2017-02-23] MEDS: DEXTROSE 5% IV SCH ×12 (02:26→21:17)
[2017-02-23] MEDS: OXACILLIN SODIUM IV SCH ×12 (02:26→21:17)
[2017-02-23] MEDS: GABAPENTIN 600 MG TABLET PO SCH ×3 (05:30→21:18)
[2017-02-23] MEDS: INSULIN LISPRO 100 UNITS/ML VIAL SC SCH ×6 (06:45→17:09)
[2017-02-23] MEDS: LEVOTHYROXINE SODIUM 75 MCG TABLET PO SCH (07:01)
[2017-02-23] MEDS: PANTOPRAZOLE SODIUM 40 MG TABLET.EC PO SCH (07:01)
[2017-02-23] MEDS: ASPIRIN 81 MG TABLET.DR PO SCH (08:24)
[2017-02-23] MEDS: SACCHAROMYCES BOULARDII 250 MG CAPSULE PO SCH ×2 (08:24→21:17)
[2017-02-23] MEDS: DULoxetine HCL 30 MG CAPSULE.SA PO SCH (08:24)
[2017-02-23] MEDS: INSULIN DETEMIR 100 UNITS/ML VIAL SC SCH ×2 (08:28→21:18)
[2017-02-23] MEDS: FUROSEMIDE 10 MG/ML VIAL IV SCH (08:31)
[2017-02-23] MEDS: HYDROcodone/ACETAMINOPHEN 1 EACH TABLET PO PRN (14:46)
[2017-02-23] MEDS: ENOXAPARIN SODIUM 40 MG/0.4 ML SYRG SC SCH (15:34)
--- NOTE | 2017-02-23 16:48 | PN ---
Subjective - Date and Time Seen Date: 02/23/17 Time: 16:47 Subjective Narrative: Pt evaluated at bedside resting. Continues to improve daily. Again has several questions regarding the healing of this ulceration, possible future ulcerations, and having the BKA done. Is now leaning toward doing local wound care and not proceeding with BKA. Objective - Review of Systems Cardiac: Reports: Edema Musculoskeletal Complaints: Reports: Other - Left midfoot amputation Neurological: Reports: Numbness Skin: Reports: Other - ulceration left foot amputation stump - Vitals Vitals: Last Vital Signs Temp 36.8 C 02/23/17 14:52 Pulse 94 02/23/17 14:52 Resp 18 02/23/17 14:52 BP 128/79 02/23/17 14:52 Pulse Ox 92 02/23/17 14:52 - Exam Constitutional: Present: Alert, Oriented x3, Cooperative, No distress Cardiovascular/Chest: Present: edema Extremity: Present: lower extremity edema Skin Exam: Present: other - Ulceration to left foot amputation stump remains unchanged in size. Incision from I&D remains through central aspect. Base of ulceration continues showing increasing granulation tissue. Surrounding tissue with decreasing redness and swelling with continued peeling of surrounding skin. Moderate serosanguinous drainage, no malodor. No exposed tendon, however bone remains palpable. Neurologic: Present: sensory deficit Appearance: Present: appropriate appearance Eye contact: Present: cooperative Cauti Physician Documentation - Urinary Catheter Management Urethral (Ivy) Urethral Indwelling: No Date of Insertion: 02/19/17 Time of Insertion: 07:30 Date of Removal: 02/20/17 Time of Removal: 09:40 Assessment/Plan Plan Narrative: Again discussed amputation vs local wound care with Paulo. Again advised that I am happy to provide him wound care and am confident that we can get this ulceration to heal as we have done so in the past. This is a team effort so he has to do his part as well, not only to get this to heal, but to keep it healed. I am a huge advocate of limb salvage and would love to try to help him save his leg and to treat any future ulceration that may develop. If at any time he fails local care, can proceed with BKA at that time. Advised that BKA site can also develop ulceration/infection so doing the procedure does not free him from risk of future ulcerations/infections and would then require higher procedures if needed. Amputations also add stress to the body and increase his 5 year mortality risk. States understanding of this and has at this time elected to forego the amputation and will continue with local care. Will continue to follow. - Problems/Diagnosis (1) Cellulitis Problem: Acute Qualifiers: Site of cellulitis: extremity Site of cellulitis of extremity: lower extremity Laterality: left Qualified Code(s): L03.116 - Cellulitis of left lower limb Narrative: Continue IV ABX. (2) Diabetic foot ulcer Problem: Acute Qualifiers: Diabetic foot ulcer location: unspecified part of foot Diabetes mellitus type: type 2 Laterality: left Narrative: Continue daily dressing changes. New dressing today. Continue NWB with crutch assist. (3) Abscess of foot Problem: Acute Narrative: Site re-packed with 1/2" Iodoform packing gauze and new dressing applied. 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
[2017-02-23] MEDS: TAMSULOSIN HCL 0.4 MG CAP.SR.24H PO SCH (18:32)
[2017-02-23] MEDS: METOPROLOL SUCCINATE 50 MG TABLET.SA PO SCH (21:17)
[2017-02-23] MEDS: ALPRAZolam 1 MG TABLET PO SCH (21:17)
[2017-02-23] MEDS: SIMVASTATIN 40 MG TABLET PO SCH (21:18)
[2017-02-24] MEDS: WATER IV SCH ×12 (02:00→22:09)
[2017-02-24] MEDS: DEXTROSE 5% IV SCH ×12 (02:00→22:09)
[2017-02-24] MEDS: OXACILLIN SODIUM IV SCH ×12 (02:00→22:09)
[2017-02-24] MEDS: GABAPENTIN 600 MG TABLET PO SCH ×3 (05:00→20:49)
[2017-02-24] MEDS: LEVOTHYROXINE SODIUM 75 MCG TABLET PO SCH (06:58)
[2017-02-24] MEDS: PANTOPRAZOLE SODIUM 40 MG TABLET.EC PO SCH (06:58)
[2017-02-24] MEDS: INSULIN LISPRO 100 UNITS/ML VIAL SC SCH ×6 (07:01→17:04)
[2017-02-24] MEDS: FUROSEMIDE 10 MG/ML VIAL IV SCH (09:15)
[2017-02-24] MEDS: INSULIN DETEMIR 100 UNITS/ML VIAL SC SCH ×2 (09:42→20:57)
[2017-02-24] MEDS: ASPIRIN 81 MG TABLET.DR PO SCH (09:45)
[2017-02-24] MEDS: SACCHAROMYCES BOULARDII 250 MG CAPSULE PO SCH ×2 (09:47→20:48)
[2017-02-24] MEDS: DULoxetine HCL 30 MG CAPSULE.SA PO SCH (09:47)
--- NOTE | 2017-02-24 14:32 | PN ---
Subjective - Date and Time Seen Date: 02/24/17 Time: 12:15 Subjective Narrative: Pt evaluated at bedside resting. Spirits continue to improve and pt appears as though he is feeling much better. Has some questions regarding some red areas to the oppisite foot and behind the knee. Objective - Review of Systems Cardiac: Reports: Edema - improving Musculoskeletal Complaints: Reports: Other - left midfoot amputation Neurological: Reports: Numbness Skin: Reports: Other - ulceration left foot amputation stump - Vitals Vitals: Last Vital Signs Temp 36.6 C 02/24/17 11:25 Pulse 86 02/24/17 11:25 Resp 20 02/24/17 11:25 BP 134/72 02/24/17 11:25 Pulse Ox 96 02/24/17 11:25 - Exam Constitutional: Present: Alert, Oriented x3, Cooperative, No distress Cardiovascular/Chest: Present: edema - improving Extremity: Present: lower extremity edema - improving Skin Exam: Present: other - Ulceration to left foot amputation stump slightly decreased in size. Incision from I&D remains through central aspect. Base of ulceration continues showing increasing granulation tissue. Surrounding tissue with continued decreasing redness and swelling. Moderate serosanguinous drainage, no malodor. No exposed tendon, bone no longer palpable as it has covered with soft tissue. Several petechia noted to anterior right ankle and posterior right knee. Not raised, non-painful, no drainage or localized SOI. Neurologic: Present: sensory deficit Eye contact: Present: cooperative Cauti Physician Documentation - Urinary Catheter Management Urethral (Ivy) Urethral Indwelling: No Date of Insertion: 02/19/17 Time of Insertion: 07:30 Date of Removal: 02/20/17 Time of Removal: 09:40 Assessment/Plan - Problems/Diagnosis (1) Cellulitis Problem: Acute Qualifiers: Site of cellulitis: extremity Site of cellulitis of extremity: lower extremity Laterality: left Qualified Code(s): L03.116 - Cellulitis of left lower limb Narrative: Continue IV ABX. Will likely require additional 3 weeks of IV ABX following d/ c home, followed by oral ABX if needed. (2) Diabetic foot ulcer Problem: Acute Qualifiers: Diabetic foot ulcer location: unspecified part of foot Diabetes mellitus type: type 2 Laterality: left Narrative: Continue with dressing changes. New dressing applied today. Keep CDI. Will plan for change tomorrow prior to d/c home if that remains plan per PCP. (3) Abscess of foot Problem: Acute Narrative: Site re-packed with 1/2" Iodoform packing gauze, new dressing applied. Will plan to change tomorrow prior to d/c home. Will f/u in wound center on Thursday morning for nurse visit-dressing change. Will f/u with me on Thursday in wound center. Pending appearance of ulceration, consider re-application of total contact cast. Remain NWB with crutch assist. 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
[2017-02-24] MEDS: ENOXAPARIN SODIUM 40 MG/0.4 ML SYRG SC SCH (15:56)
[2017-02-24] MEDS: TAMSULOSIN HCL 0.4 MG CAP.SR.24H PO SCH (17:44)
[2017-02-24] MEDS: METOPROLOL SUCCINATE 50 MG TABLET.SA PO SCH (20:49)
[2017-02-24] MEDS: SIMVASTATIN 40 MG TABLET PO SCH (20:49)
[2017-02-24] MEDS: ALPRAZolam 1 MG TABLET PO SCH (20:57)
[2017-02-25] MEDS: WATER IV SCH ×8 (02:36→15:38)
[2017-02-25] MEDS: OXACILLIN SODIUM IV SCH ×8 (02:36→15:38)
[2017-02-25] MEDS: DEXTROSE 5% IV SCH ×8 (02:36→15:38)
[2017-02-25] MEDS: INSULIN LISPRO 100 UNITS/ML VIAL SC SCH ×4 (07:49→12:26)
[2017-02-25] MEDS: GABAPENTIN 600 MG TABLET PO SCH ×3 (07:54→13:37)
[2017-02-25] MEDS: PANTOPRAZOLE SODIUM 40 MG TABLET.EC PO SCH (07:57)
[2017-02-25] MEDS: LEVOTHYROXINE SODIUM 75 MCG TABLET PO SCH (07:57)
[2017-02-25] MEDS: SACCHAROMYCES BOULARDII 250 MG CAPSULE PO SCH (08:02)
[2017-02-25] MEDS: DULoxetine HCL 30 MG CAPSULE.SA PO SCH (08:02)
[2017-02-25] MEDS: FUROSEMIDE 10 MG/ML VIAL IV SCH (08:02)
[2017-02-25] MEDS: ASPIRIN 81 MG TABLET.DR PO SCH (08:02)
[2017-02-25] MEDS: INSULIN DETEMIR 100 UNITS/ML VIAL SC SCH (08:02)
--- NOTE | 2017-02-25 09:18 | PN ---
Subjective - Date and Time Seen Date: 02/24/17 Time: 13:00 Subjective Narrative: denies any pain in his foot. states he is still depressed. Objective - Review of Systems Generalized/Overall Review: Denies: Chills, Fever Respiratory: Denies: Cough, Shortness of Breath Musculoskeletal Complaints: Denies: Joint Pain, Back Pain Neurological: Reports: Depressed - Vitals Vitals: Selected Entries 02/24/17 11:25 Temperature 36.6 C Respiratory Rate 20 Blood Pressure 134/72 Pulse rate 84/min O2 Sat Pulse ox. 96% RA Oxygen Delivery Room Air - Exam Constitutional: Present: Middle aged, Morbidly obese Neck: Present: supple, trachea midline, other - obese Respiratory: Present: decreased breath sounds Cardiovascular/Chest: Present: regular rate, rhythm. Absent: tachycardia Abdomen: Present: Normal bowel sounds, soft, nontender - severely obese Extremity: Present: other - LT mid foot amputation with soft tissue ulceration s /p Iand D Eye contact: Present: cooperative, good eye contact Cauti Physician Documentation - Urinary Catheter Management Urethral (Ivy) Urethral Indwelling: No Date of Insertion: 02/19/17 Time of Insertion: 07:30 Date of Removal: 02/20/17 Time of Removal: 09:40 Assessment/Plan Plan Narrative: 1. Bacteremia: Blood cultures 2/2 growing MSSA. Had been on Zosyn and vancomycin since 02/17/17 [since admission] and switched to oxacillin 4g IV Q6H on 02/20/17 when blood cultures became positive. Bone culture negative. MRI of left lower foot negative for Osteo. 2. Soft tissue infection of left lower foot: S/P midfoot amputation. Dr. Torres, Dr. Mclaughlin and I feel the patient should receive IV antibiotics and conservative management for 1-2 months prior to considering amputation. Patient should offload foot by using crutches at all times, keeping blood sugars under control, manage depression and take vitamins etc.[Including vitamin D3, vitamins, vitamin C]. 3. Depression with psychotic features: Continue duloxetine 60 mg and Abilify 20 mg daily. 4. Poorly controlled T2 DM: Sugars have improved on Lantus 50 units SQ BID, Humalog 15 units SQ TID with meals and a sliding scale. 5. Morbid obesity: BMI 40.7. Recent weight gain of 40 pounds secondary to Neurontin/Abilify. Will require sleep studies as an outpatient. 6. CKD stage III: DC IV furosemide, low-salt diet, avoid NSAIDs. - Problems/Diagnosis (1) Bacteremia Problem: Acute (2) Diabetic foot ulcer Problem: Acute Qualifiers: Diabetic foot ulcer location: unspecified part of foot Diabetes mellitus type: type 2 Laterality: left (3) Iron deficiency anemia Problem: Acute Qualifiers: Iron deficiency anemia type: unspecified iron deficiency Qualified Code(s) : D50.9 - Iron deficiency anemia, unspecified (4) Depression, psychotic Problem: Chronic
[2017-02-25 10:47] VITALS: BP 127/74
--- NOTE | 2017-02-25 12:37 | DS ---
(1) Bacteremia Diagnosis(s): 2/ 2 blood cultures positive for MSSA. Problem: Acute (2) Cellulitis and abscess of foot Diagnosis(s): of LT midfoot amputation stump with sinus tract and abscess formation. Problem: Acute (3) Iron deficiency anemia Problem: Acute Qualifiers: Iron deficiency anemia type: unspecified iron deficiency Qualified Code(s) : D50.9 - Iron deficiency anemia, unspecified (4) Depression, psychotic Problem: Chronic (5) T2DM (type 2 diabetes mellitus) Problem: Chronic Qualifiers: Diabetes mellitus complication status: with unspecified complications (6) Hyperlipidemia Problem: Chronic Qualifiers: Hyperlipidemia type: unspecified Qualified Code(s): E78.5 - Hyperlipidemia , unspecified (7) Hypertension Problem: Chronic Qualifiers: Hypertension type: essential hypertension Qualified Code(s): I10 - Essential (primary) hypertension (8) Morbid obesity Diagnosis(s): BMI-40.7 Problem: Chronic (9) s/p LT midfoot amputation Diagnosis(s): due to DM Problem: Chronic Description of Stay: DATE OF ADMISSION: 02/17/2017. DATE OF DISCHARGE: 02/25/2017. DIAGNOSTICS: MRI LT LOWER EXTREMITY 02/18/17. HOSPITAL COURSE: Paulo Reid is a 51-year-old WM with a H/O HTN, T2DM, HLD, GERD, hypothyroidism and morbid obesity who was admitted as he failed conservative management of wound below his LT mid foot amputation for he sees Dr. Torres on a routine basis. He was found to have diffuse cellulitis around the stump and a sinus tract. An MRI of LT lower extremity W/ W/O was obtained: 1. Large inflammatory phlegmon/cellulitis of the distal/anterior aspect of the amputation stump with multiple small soft tissue fluid collections with the largest communicating with the wound through a sinus tract. This measures 2 cm wide on the sagittal images and 1.7 cm in transverse diameter leading to an abscess measuring approximately 2.11.5 cm. Additional small areas of fluid collection are present measuring less than 1 cm in size. 2. Early osteomyelitis versus reactive edema of the anterior/plantar aspect of the calcaneus. 3. Probable degenerative versus inflammatory arthropathy of the tibiotalar joint, stable. Less likely to reflect infection given interval stable but clinical correlation is advised. After blood cultures were taken, patient was started on piperacillin/Tazobactam IV and vancomycin IV. Significant labs: CRP 10.6, ESR 76, pro calcitonin 0.07. Patient was found to be iron deficient with serum iron of 18 mg/dL and T sat of 7%. Patient was given Venofer 500 mg IV x1 on 02/18/17. Blood cultures were positive for MSSA and the patient was switched to oxacillin 4 g IV Q4H on . Dr. Torres saw the patient and wound debridement was done at bedside along with a bone culture on 02/20/2017. Bone culture was negative. Dr. Lucas saw the patient in consultation for increasing depression. Dr. Mclaughlin saw the patient who recommended local wound care, IV antibiotics and total contact casting [ conservative treatment]. BKA could be considered if there was ongoing osteomyelitis, increasing infection or failure of treatment. Patient was in agreement. Nutrition was optimized, vitamin D3, vitamins etc were added. Patient will be discharged on oral antibiotics levofloxacin 750 mg Q48 H should provide additional coverage for 20 days. He will require sleep studies for possible sleep apnea as an outpatient. The patient was advised to use crutches at all times. He was discharged in a stable condition with follow up with Dr. Torres and Dr. Ridley. A total of 60 minutes was spent [ 15 minutes with the patient and his discussing treatment options, prognosis medication changes; 45 minutes was spent in reconciliation of medications, preparing and dictating discharge summary.] Procedures Performed: see notes below - I and D Results and Findings: Laboratory Tests 02/17/17 02/19/17 02/22/17 16:14 06:57 05:45 WBC 7.6 4.5 4.0 Hgb 10.9 L 9.7 L 9.4 L Hct 34.7 L 31.5 L 30.1 L Plt Count 193 138 L 171 02/17/17 02/20/17 02/22/17 16:14 08:35 05:45 Plasma Sodium 137 136 141 Potassium 4.8 H 4.3 4.5 Chloride 98 99 101 Carbon Dioxide 30.2 29.3 30.7 BUN 31 H 36 H 33 H Creatinine 1.92 H 3.15 H D 2.25 H Est GFR (Non-Af Amer) 39 L 22 L D 33 L 02/17/17 02/19/17 16:14 10:57 ESR 76 H C-Reactive Prot, Quant 10.6 H Procalcitonin 0.07 02/17/17 16:15 Iron 18 L TIBC 275 Transferrin % Sat 7 L Vitamin B12 695 Folate 16.2 02/10/17 08:22 Mean Blood Glucose 177 Hemoglobin A1c 7.9 H Discharge Disposition: Home self care Disposition: Home self-care Condition: Undetermined Discharge Activity: Non-Weight bearing - use crutches at all times Discharge Diet: Consistent carbs, Low salt, Low fat/chol, High Fiber Consultation Done:: Dr. Torres [Podiatry];Dr. Lucas[Psychiatry]; Dr. Mclaughlin[ orthopedics]. Problem Oriented Discharge Instructions to Patient/Family: Diabetes and Foot Care, Cellulitis, Adult, [id number] Additional Patient Instructions (free text): Follow up in wound center for dressing changed 02/27 at 10:00. Follow up in wound center with Dr. Torres 03/03 at 2:45. Follow up with Dr. Guan in one week with log of blood sugars. NEW/ CHANGED MEDICATIONS: 1. Gabapentin 800 mg tid changed to 600 mg po tid. 2. Levofloxin 750 mg PO every other day x 10 days. 3. vitamins daily. 4. B complex with vitamin C daily. 5. Vitamin D3 5000 units daily. 6. Nystatin powder topically twice a day. DISCONTINUED MEDICATIONS: 1. Lisinopril 10 mg daily. 2. Zetia 10 mg daily 3. gabapentin 800 mg TID. 4. Januvia 100 mg daily 5. Amitriptyline 10 mg QID. 6. Lotrisone cream. Prescriptions (Any new or edited meds): Aripiprazole [Abilify] 20 mg PO DAILY #30 tablet B-Complex with Vitamin C [Vitamin B-Complex & C] 1 each PO DAILY #100 tablet.er Cholecalciferol (Vitamin D3) [Vitamin D3] 5,000 unit PO DAILY #100 tablet Gabapentin [Neurontin] 600 mg PO TID #180 tablet Insulin Lispro [Humalog] 0 - 6 units SQ AC #1 vial Levofloxacin [Levaquin] 750 mg PO Q48H #10 tab Levothyroxine Sodium [Levo-T] 75 mcg PO DAILY@0600 #60 tablet Nystatin [Nystop] 30 gm TP TID #1 bottle Pnv Cmb#21/Iron/Folic Acid [ Complete Caplet] 1 each PO DAILY #100 tablet Complete Home Medications List: Complete Home Medication List: Aspirin [Aspirin Enteric Coated] 81 mg PO DAILY 07/16/16 Fenofibrate Nanocrystallized [Tricor] 145 mg PO DAILY 07/16/16 Insulin Detemir [Levemir] 50 units SQ BID 07/16/16 Nitroglycerin [Nitrostat] 0.4 mg SL [id number] PRN 07/16/16 Omeprazole 20 mg PO DAILY 07/16/16 Simvastatin [Zocor] 40 mg PO HS 07/16/16 Alprazolam 4 mg PO HS 09/19/16 Metoprolol Succinate [Toprol Xl] 50 mg PO DAILY 01/22/17 Duloxetine HCl [Cymbalta] 60 mg PO DAILY 02/17/17 Insulin Lispro [Humalog] 15 units SQ AC 02/17/17 Lancets [Bd Ultra-Fine] 1 ml SQ 5XD 02/17/17 Tamsulosin HCl [Flomax] 0.4 mg PO DAILY@1800 02/17/17 Aripiprazole [Abilify] 20 mg PO DAILY #30 tablet 02/25/17 B-Complex with Vitamin C [Vitamin B-Complex & C] 1 each PO DAILY #100 tablet.er 02/25/17 Cholecalciferol (Vitamin D3) [Vitamin D3] 5,000 unit PO DAILY #100 tablet Gabapentin [Neurontin] 600 mg PO TID #180 tablet 02/25/17 Insulin Lispro [Humalog] 0 - 6 units SQ AC #1 vial 02/25/17 Levofloxacin [Levaquin] 750 mg PO Q48H #10 tab 02/25/17 Levothyroxine Sodium [Levo-T] 75 mcg PO DAILY@0600 #60 tablet 02/25/17 Nystatin [Nystop] 30 gm TP TID #1 bottle 02/25/17 Pnv Cmb#21/Iron/Folic Acid [ Complete Caplet] 1 each PO DAILY #100 tablet 02/25/17
--- NOTE | 2017-02-25 12:53 | PN ---
Subjective - Date and Time Seen Date: 02/25/17 Time: 12:30 Subjective Narrative: Pt evaluated at bedside resting. Is ready to go home today. Awaiting dressing change. Denies any N/V/F/C. Denies any pain to left foot. Objective - Review of Systems Cardiac: Reports: Edema - improving Musculoskeletal Complaints: Reports: Other - Left midfoot amputation Neurological: Reports: Numbness Skin: Reports: Other - Ulceration left foot amputation stump - Vitals Vitals: Last Vital Signs Temp 36.7 C 02/25/17 10:46 Pulse 86 02/25/17 10:46 Resp 18 02/25/17 10:46 BP 127/74 02/25/17 10:46 Pulse Ox 96 02/25/17 10:46 - Exam Constitutional: Present: Alert, Oriented x3, Cooperative, No distress Cardiovascular/Chest: Present: edema Extremity: Present: lower extremity edema - improving Skin Exam: Present: other - Ulceration to planter left foot amputation stump with decrease in size measuring 3 x 3 x 1.8 cm. No tunneling or undermining. Loss of tissue to full thickness with exposure of subcutaneous fat layer. Base mostly red, granular. Surrounding tissue with slight peeling and maceration, otherwise pink and intact. Moderate serosanguinous drainage, no malodor. No exposed tendon or bone. Incision remains through central aspect from I&D. Bone culture site well healed. Erythema about the LLE has resolved. Swelling resolved. Neurologic: Present: sensory deficit Appearance: Present: appropriate appearance Eye contact: Present: cooperative Cauti Physician Documentation - Urinary Catheter Management Urethral (Ivy) Urethral Indwelling: No Date of Insertion: 02/19/17 Time of Insertion: 07:30 Date of Removal: 02/20/17 Time of Removal: 09:40 Assessment/Plan Plan Narrative: Ok for d/c home. F/u as scheduled in wound center. Call with any changes or concerns. - Problems/Diagnosis (1) Cellulitis Problem: Acute Qualifiers: Site of cellulitis: extremity Site of cellulitis of extremity: lower extremity Laterality: left Qualified Code(s): L03.116 - Cellulitis of left lower limb Narrative: Has resolved. Continue ABX as out pt per PCP. (2) Diabetic foot ulcer Problem: Acute Qualifiers: Diabetic foot ulcer location: unspecified part of foot Diabetes mellitus type: type 2 Laterality: left Narrative: Dressing changed today. Keep CDI. Will f/u nurse visit in wound center on Thursday for dressing change. (3) Abscess of foot Problem: Acute Narrative: I&D site re-packed with 1/2" Iodoform packing gauze. Redressed with DSD. To be kept CDI. F/u in wound center as scheduled. Consider application of cast next week if continues to show improvement. 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
== END 2017-02-25 15:40 | disposition home or self-care (01) | DRG 629 ==
LOC: MS 15:25
PROVIDERS: ADMIT Internal Medicine; ATTEND Internal Medicine
PROC: 0QBP0ZX Excision of Left Metatarsal, Open Approach, Diagnostic (ICD-10-PCS; principal; 2017-02-19)
DX: E11.621 Type 2 diabetes mellitus with foot ulcer (principal); L03.116 Cellulitis of left lower limb; M86.9 Osteomyelitis, unspecified; I50.32 Chronic diastolic (congestive) heart failure; R78.81 Bacteremia; L97.529 Non-pressure chronic ulcer of other part of left foot with unspecified severity; K21.9 Gastro-esophageal reflux disease without esophagitis; I12.9 Hypertensive chronic kidney disease with stage 1 through stage 4 chronic kidney disease, or unspecified chronic kidney disease; E11.22 Type 2 diabetes mellitus with diabetic chronic kidney disease; N18.3 Chronic kidney disease, stage 3 (moderate); E11.40 Type 2 diabetes mellitus with diabetic neuropathy, unspecified; E78.5 Hyperlipidemia, unspecified; D50.9 Iron deficiency anemia, unspecified; Z79.4 Long term (current) use of insulin

== ENCOUNTER 2017-06-13 11:11 | Inpatient (IN) | payer MEDICARE, MEDICAID ==
[2017-06-13] MEDS ORDERED: NORMAL SALINE 1,000 ML IV PRN (11:25)
[2017-06-13] MEDS ORDERED: PIPERACILLIN SODIUM/TAZOBACTAM 3.375 GM in DEXTROSE 5 % IN WATER 100 ML IV ONE ×2 (11:26)
[2017-06-13 11:44] LABS: Hematocrit 38.5 % (42.0-52.0); Hemoglobin 12.3 gm/dL (13.5-18.0); Mean Cell Volume 82.3 fl (78-100); Mean Corpuscular Hemoglobin 26.3 pg (27-31); Mean Corpuscular Hgb Conc 31.9 g/dl (32-36); Mean Platelet Volume 8.8 fl (6.0-9.5); Neutrophil % 71.3 % (42-75.0); Platelet Count 173 K/mm3 (150-450); Red Blood Count 4.68 M/mm3 (4.7-6.0); Red Cell Distribution Width 14.5 % (11.5-14.0); White Blood Count 7.1 K/mm3 (4.0-10.5)
[2017-06-13] MEDS ORDERED: PIPERACILLIN SODIUM/TAZOBACTAM 3.375 GM in NORMAL SALINE 100 ML IV ONE (11:45)
[2017-06-13 11:57] LABS: Albumin * 3.7 gm/dl (3.4-5.0); Anion Gap 10.8 mmol/L (6.8-13.8); BUN/Creatinine Ratio 13.1 (9.0-21.6); Bilirubin, Total 0.4 mg/dL (0.0-1.1); CRP 7.3 mg/dL (0.0-0.9); Ca. Corrected For Albumin 8.5 mg/dL (8.4-10.2); Calcium * 8.6 mg/dL (7.9-10.9); Carbon Dioxide 31.6 mmol/L (24-32.6); Potassium 4.4 mmol/L (3.4-4.6); Total Protein 7.5 gm/dL (6.2-8.2)
--- NOTE | 2017-06-13 13:05 | ERNOTE ---
Integumentary HPI - Narrative Date of Service: 06/13/17 - General Presenting Symptoms: rash Time Seen by Provider: 06/13/17 11:15 Source: patient - Immun/Allergies/Home Medications Immunizations: IMMUNIZATION HX Immunizations Up to Date Yes History of Influenza Vaccine No Hx Pneumococcal Vaccination No Allergies/Adverse Reactions: Allergies Allergy/AdvReac Type Severity Reaction Status Date / Time propoxyphene napsylate AdvReac Mild RASH Verified 06/13/17 11:18 [From [facility]-N 100] Home Medications: HOME MEDICATIONS Aspirin [Aspirin Enteric Coated] 81 mg PO DAILY 07/16/16 [Last Taken Unknown] Fenofibrate Nanocrystallized [Tricor] 145 mg PO DAILY 07/16/16 [Last Taken Unknown] Insulin Detemir [Levemir] 54 units SQ BID 07/16/16 [Last Taken Unknown] Nitroglycerin [Nitrostat] 0.4 mg SL [id number] PRN 07/16/16 [Last Taken Unknown] Omeprazole 20 mg PO DAILY 07/16/16 [Last Taken Unknown] Simvastatin [Zocor] 40 mg PO HS 07/16/16 [Last Taken Unknown] Alprazolam 4 mg PO HS 09/19/16 [Last Taken Unknown] Metoprolol Succinate [Toprol Xl] 50 mg PO DAILY 01/22/17 [Last Taken Unknown] Duloxetine HCl [Cymbalta] 60 mg PO DAILY 02/17/17 [Last Taken Unknown] Insulin Lispro [Humalog] 25 units SQ AC 02/17/17 [Last Taken Unknown] Lancets [Bd Ultra-Fine] 1 ml SQ 5XD 02/17/17 [Last Taken Unknown] Tamsulosin HCl [Flomax] 0.4 mg PO DAILY@1800 02/17/17 [Last Taken Unknown] Aripiprazole [Abilify] 20 mg PO DAILY #30 tablet 02/25/17 [Last Taken Unknown] B-Complex with Vitamin C [Vitamin B-Complex & C] 1 each PO DAILY #100 tablet.er 02/25/17 [Last Taken Unknown] Cholecalciferol (Vitamin D3) [Vitamin D3] 5,000 unit PO DAILY #100 tablet [Last Taken Unknown] Gabapentin [Neurontin] 600 mg PO TID #180 tablet 02/25/17 [Last Taken Unknown] Insulin Lispro [Humalog] 0 - 6 units SQ AC #1 vial 02/25/17 [Last Taken Unknown] Levothyroxine Sodium [Levo-T] 75 mcg PO DAILY@0600 #60 tablet 02/25/17 [Last Taken Unknown] Nystatin [Nystop] 30 gm TP TID #1 bottle 02/25/17 [Last Taken Unknown] Pnv Cmb#21/Iron/Folic Acid [ Complete Caplet] 1 each PO DAILY #100 tablet 02/25/17 [Last Taken Unknown] Clindamycin HCl [Cleocin HCl] 300 mg PO QID #40 capsule 06/12/17 [Last Taken Unknown] - History of Present Illness Narrative: patient seen last evening with possible spider bite to left cheek, treated with im atb and dismissed site has enlarged from nose to preauricular area Location: Reports: facial Quality: Reports: painful, burning Severity: moderate Exposure: Reports: insect bite/spider Modifying Factors - (Improves): Reports: nothing Modifying Factors - (Worsens): Reports: nothing Associated Symptoms: Reports: rash, change in skin texture, swelling/mass/lumps Review of Systems - Review of Systems Constitutional: Present: See HPI, malaise EYE: Present: no symptoms reported ENT: Present: See HPI, other - facial swelling Respiratory: Present: no symptoms reported Cardiology: Present: no symptoms reported Gastrointestinal/Abdominal: Present: no symptoms reported Genitourinary: Present: no symptoms reported Musculoskeletal: Present: no symptoms reported Skin: Present: rash Neurological: Present: no symptoms reported Endocrine: Present: no symptoms reported Hematologic/Lymphatic: Present: no symptoms reported Psych: Present: no symptoms reported All Other Systems: All systems neg except as marked - Narrative Narrative: past hx of dm - Patient's Past Medical History Patient History - Medical: Diabetes Type 2 Insulin Dependent, Depression, GERD, Hypothyroidism, Migraines, Other Patient History - Cardiac/Respiratory: Deep Vein Thrombosis, Hypertension, Hyperlipidemia Patient History - Cancer: No Hx of Cancer Patient History - Surgical Procedures: Amputation, Colonoscopy, T & A, Other Patient History - Other: None - Family History Family History:: no untoward family reactions to anesthesia, no familial bleeding tendencies, no family history of clotting disorders, no family history of premature - Family History Father Family History - Medical: , Other Family History - Cardiac/Respiratory: COPD, Myocardial Infarction Family History - Cancer: No pertinent family hx Mother Family History - Medical: , Diabetes Type 2, Renal Failure Family History - Cardiac/Respiratory: CHF Family History - Cancer: No pertinent family hx Sister Family History - Medical: Hypothyroidism Family History - Cardiac/Respiratory: No pertinent hx Family History - Cancer: Breast Children Family History - Medical:  Family History - Cardiac/Respiratory: CHF Family History - Cancer:  Uncle Family History - Medical: Alcohol Abuse, Diabetes Type 2 - Social History Living Situations: home Abuse History: No History of abuse Psych History: Hx of Depression, Current tx/ever been on anti-depressants or anti-anxiety meds Smoking Status: Never smoker Have you smoked in the past 12 months: No Do you dip or chew tobacco: No Alcohol Use: none Drug Use: none - Immunizations Immunizations Up to Date: Yes Hx Pneumococcal Vaccination: No History of Influenza Vaccine: No Physical Exam - Physical Exam General Appearance: Present: moderate distress Head Exam: Present: other - erythematous rash to left cheek with periorbital edema Eye Exam: Normal inspection: bilateral, PERRL: bilateral, EOMI: bilateral Ears, Nose, Throat: Present: normal ENT inspection Neck: Present: normal inspection, nontender Respiratory: Present: no respiratory distress, normal breath sounds, no accessory muscle use, chest nontender, lungs clear Cardiovascular/Chest: Present: regular rate, rhythm, no murmur, normal peripheral pulses Peripheral Pulses: N=norm/S=strong/W=weak/B=bound/A=absent: Carotid (R): Normal , Carotid (L): Normal, Radial (R): Normal, Radial (L): Normal, Femoral (R): Normal, Femoral (L): Normal, Dorsalis-pedis (R): Normal, Dorsalis-pedis (L): Normal Gastrointestinal/Abdominal: Present: normal bowel sounds, nontender, nondistended, soft, no organomegaly Back Exam: Present: normal inspection, normal range of motion, no CVA tenderness , no vertebral tenderness Extremity Exam: Present: normal inspection, normal range of motion, no edema, other - recent partial foot amputation left foot Skin Exam: Present: normal color, warm/dry Lymphatic Exam: Present: no adenopathy ED Progress - Date and Time Seen: Date and Time: 06/13/17 13:03 condition unchanged, case discussed with dr rodrigues to be admitted failed oupatient treatment - Results and Orders Patient's Lab Results:: I have reviewed the patient's lab results. - Vital Signs Patient's Vital Signs:: I have reviewed the patient's vital signs. Vital Signs: Vital Signs 06/13/17 11:12 Temperature 36.4 C L Pulse Rate 108 H Respiratory 12 Rate Blood Pressure 138/85 O2 Sat by Pulse 98 Oximetry - Progress/Reassessment Chief Complaint: Cellulitis Progress:: Unchanged - Transfer of Care Expected Disposition: Admit Plan - Plan Plan: to be admitted Departure Clinical Impression: Cellulitis diffuse, face - Departure Disposition: [facility] Condition: Serious Referrals: Larry Ridley MD [Primary Care Provider] -
[2017-06-13] MEDS ORDERED: PIPERACILLIN SODIUM/TAZOBACTAM 3.375 GM in DEXTROSE 5 % IN WATER 100 ML IV SCH ×2 (13:15)
[2017-06-13] MEDS ORDERED: FLU VACC QS2017-18(6MOS UP)/PF 60 MCG/0.5 ML SYRINGE IM ONE (13:45)
[2017-06-13] MEDS ORDERED: METHYLPREDNISOLONE SOD SUCC 60 MG in WATER FOR INJ.,BACTERIOSTATIC 0 ML IV ONE (15:00)
[2017-06-13] MEDS ORDERED: VANCOMYCIN HCL 1.75 GM in DEXTROSE 5 % IN WATER 500 ML IV SCH ×2 (15:00)
[2017-06-13] MEDS: oxyCODONE HCL/ACETAMINOPHEN 1 TAB TABLET PO PRN ×2 (15:08→20:31)
[2017-06-13] MEDS: PIPERACILLIN SODIUM/TAZOBACTAM 3.375 GM in NORMAL SALINE 100 ML IV SCH (20:47)
--- NOTE | 2017-06-13 23:50 | HP ---
Chief Complaint - Chief Complaint Date of Service: 06/13/17 Time of Service: 15:34 Chief Complaint: Infection Left Cheek History of Present Illness: Paulo is a 51 yo male with diabetes Type 2, who presented to the [facility] ER on 06/12/17 and given clindamycin for a cellulitis of left cheek. He returned the following day with worsening swelling and expanding redness. He had swelling up towards his eye. No eye pain but reports the swelling was causing his eye to be partially closed. He had a CT done in the ER which showed no evidence of abscess. He was given ad ose of zosyn and medicine was contacted for possible admission. The patient reports history of MRSA. He is also currently treating wound of left leg at wound clinic. 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 - Patient's Past Medical History Patient History - Medical: Diabetes Type 2 Insulin Dependent, Depression, GERD, Hypothyroidism, Migraines Patient History - Cardiac/Respiratory: Deep Vein Thrombosis, Hypertension, Hyperlipidemia Patient History - Cancer: No Hx of Cancer Patient History - Surgical Procedures: Amputation, Colonoscopy, T & A Patient History - Other: None - Family History Family History:: no untoward family reactions to anesthesia, no familial bleeding tendencies, no family history of clotting disorders, no family history of premature - Family History Father Family History - Medical: , Other Family History - Cardiac/Respiratory: COPD, Myocardial Infarction Family History - Cancer: No pertinent family hx Mother Family History - Medical: , Diabetes Type 2, Renal Failure Family History - Cardiac/Respiratory: CHF Family History - Cancer: No pertinent family hx Sister Family History - Medical: Hypothyroidism Family History - Cardiac/Respiratory: No pertinent hx Family History - Cancer: Breast Children Family History - Medical:  Family History - Cardiac/Respiratory: CHF Family History - Cancer:  Uncle Family History - Medical: Alcohol Abuse, Diabetes Type 2 - Social History Living Situations: home Abuse History: No History of abuse Psych History: Hx of Depression, Current tx/ever been on anti-depressants or anti-anxiety meds Smoking Status: Never smoker Have you smoked in the past 12 months: No Do you dip or chew tobacco: No Patient requests Smoking Cessation Consult: No Initiate information on Smoking Cessation: No Alcohol Use: none Drug Use: none - Immunizations Immunizations Up to Date: Yes Hx Pneumococcal Vaccination: No History of Influenza Vaccine: No Review Of Systems (GEN) - Review of Systems Generalized/Overall Review: Present: No Symptoms Reported EENTM: Present: No Symptoms Reported Respiratory: Present: No Symptoms Reported Cardiac: Present: No Symptoms Reported Abdominal: Present: No Symptoms Reported Genitourinary: Present: No Symptoms Reported Musculoskeletal: Present: No Symptoms Reported Neurological: Present: No Symptoms Reported Skin: Present: No Symptoms Reported, Change in Color, Other - swelling of left cheek and periorbital area Endocrine: Present: No Symptoms Reported Misc: All systems neg except as marked Immunizations: IMMUNIZATION HX Immunizations Up to Date Yes History of Influenza Vaccine No Hx Pneumococcal Vaccination No Allergies/Adverse Reactions: Allergies Allergy/AdvReac Type Severity Reaction Status Date / Time propoxyphene napsylate AdvReac Mild RASH Verified 06/13/17 13:36 [From [facility]-N 100] Home Medications: HOME MEDICATIONS Aspirin [Aspirin Enteric Coated] 81 mg PO DAILY 07/16/16 [Last Taken Unknown] Fenofibrate Nanocrystallized [Tricor] 145 mg PO DAILY 07/16/16 [Last Taken Unknown] Insulin Detemir [Levemir] 54 units SQ BID 07/16/16 [Last Taken Unknown] Nitroglycerin [Nitrostat] 0.4 mg SL [id number] PRN 07/16/16 [Last Taken Unknown] Omeprazole 20 mg PO DAILY 07/16/16 [Last Taken Unknown] Simvastatin [Zocor] 40 mg PO HS 07/16/16 [Last Taken Unknown] Alprazolam 4 mg PO HS 09/19/16 [Last Taken Unknown] Metoprolol Succinate [Toprol Xl] 50 mg PO DAILY 01/22/17 [Last Taken Unknown] Duloxetine HCl [Cymbalta] 60 mg PO DAILY 02/17/17 [Last Taken Unknown] Insulin Lispro [Humalog] 25 units SQ AC 02/17/17 [Last Taken Unknown] Lancets [Bd Ultra-Fine] 1 ml SQ 5XD 02/17/17 [Last Taken Unknown] Tamsulosin HCl [Flomax] 0.4 mg PO DAILY@1800 02/17/17 [Last Taken Unknown] Aripiprazole [Abilify] 20 mg PO DAILY #30 tablet 02/25/17 [Last Taken Unknown] B-Complex with Vitamin C [Vitamin B-Complex & C] 1 each PO DAILY #100 tablet.er 02/25/17 [Last Taken Unknown] Cholecalciferol (Vitamin D3) [Vitamin D3] 5,000 unit PO DAILY #100 tablet [Last Taken Unknown] Gabapentin [Neurontin] 600 mg PO TID #180 tablet 02/25/17 [Last Taken Unknown] Insulin Lispro [Humalog] 0 - 6 units SQ AC #1 vial 02/25/17 [Last Taken Unknown] Levothyroxine Sodium [Levo-T] 75 mcg PO DAILY@0600 #60 tablet 02/25/17 [Last Taken Unknown] Nystatin [Nystop] 30 gm TP TID #1 bottle 02/25/17 [Last Taken Unknown] Pnv Cmb#21/Iron/Folic Acid [ Complete Caplet] 1 each PO DAILY #100 tablet 02/25/17 [Last Taken Unknown] Clindamycin HCl [Cleocin HCl] 300 mg PO QID #40 capsule 06/12/17 [Last Taken Unknown] Amitriptyline HCl [Elavil] 10 mg PO QID 06/14/17 [Last Taken Unknown] Ezetimibe 10 mg PO DAILY 06/14/17 [Last Taken Unknown] Finasteride [Proscar] 5 mg PO DAILY 06/14/17 [Last Taken Unknown] Lisinopril [Zestril] 10 mg PO DAILY 06/14/17 [Last Taken Unknown] metFORMIN HCL [Metformin HCl ER] 500 mg PO BID 06/14/17 [Last Taken Unknown] Exam - Exam Vital Signs: Vital Signs - Last Taken Temp 35.5 C L 06/13/17 23:03 Pulse 82 06/13/17 23:03 Resp 18 06/13/17 23:03 BP 160/81 06/13/17 23:03 Pulse Ox 95 06/13/17 23:03 Constitutional: Present: Cooperative Eye Exam: bilateral eye: normal inspection Neck: Present: normal inspection Respiratory: Present: lungs clear, normal breath sounds, no respiratory distress Abdomen: Present: Normal bowel sounds, soft, nontender, no hepatospenomegaly Extremity: Present: other - Left leg in cast, apparent prior left foot amputation Skin Exam: Present: other - Left cheek and lower periorbital area swollen and erythematous Diagnostic Studies: Laboratory Results WBC 7.1 K/mm3 (4.0-10.5) 06/13/17 11:35 RBC 4.68 M/mm3 (4.7-6.0) L 06/13/17 11:35 Hgb 12.3 gm/dL (13.5-18.0) L 06/13/17 11:35 Hct 38.5 % (42.0-52.0) L 06/13/17 11:35 MCV 82.3 fl (78-100) 06/13/17 11:35 MCH 26.3 pg (27-31) L 06/13/17 11:35 MCHC 31.9 g/dl (32-36) L 06/13/17 11:35 RDW 14.5 % (11.5-14.0) H 06/13/17 11:35 Plt Count 173 K/mm3 (150-450) 06/13/17 11:35 MPV 8.8 fl (6.0-9.5) 06/13/17 11:35 Immature Gran % (Auto) 1.00 % (0.001-0.429) H 06/13/17 11:35 Immature Gran # (Auto) 0.07 K/mm3 (0.000-0.0310) H 06/13/17 11:35 Neutrophils % 71.3 % (42-75.0) 06/13/17 11:35 Lymphocytes % 21.1 % (20-51) 06/13/17 11:35 Monocytes % 5.2 % (0.0-9) 06/13/17 11:35 Eosinophils % 0.8 % (0.0-3.0) 06/13/17 11:35 Basophils % 0.6 % (0.0-1.0) 06/13/17 11:35 Nucleated RBC % 0.0 k/mm3 (0-1) 06/13/17 11:35 Neutrophils # 5.0 K/mm3 (1.3-6.0) 06/13/17 11:35 Lymphocytes # 1.5 k/mm3 (1.5-3.5) 06/13/17 11:35 Monocytes # 0.4 k/mm3 (0.0-1.0) 06/13/17 11:35 Eosinophils # 0.1 k/mm3 (0.0-0.7) 06/13/17 11:35 Absolute Basophils 0.0 k/mm3 (0.0-0.1) 06/13/17 11:35 Sodium 137 mmol/L (132-142) 06/13/17 11:35 Plasma Sodium 139 mmol/L (130-142) 06/13/17 11:35 Potassium 4.4 mmol/L (3.4-4.6) 06/13/17 11:35 Chloride 99 mmol/L (97-106) 06/13/17 11:35 Carbon Dioxide 31.6 mmol/L (24-32.6) 06/13/17 11:35 Anion Gap 10.8 mmol/L (6.8-13.8) 06/13/17 11:35 BUN 23 mg/dL (6-23) 06/13/17 11:35 Creatinine 1.75 mg/dL (0.4-1.4) H 06/13/17 11:35 Est GFR (Non-Af Amer) 44 mL/min (60-130) L 06/13/17 11:35 BUN/Creatinine Ratio 13.1 (9.0-21.6) 06/13/17 11:35 Random Glucose 251 mg/dL (70-110) H 06/13/17 11:35 Lactic Acid, Venous 1.7 mmol/L (0.4-1.9) 06/13/17 11:35 Calcium 8.6 mg/dL (7.9-10.9) 06/13/17 11:35 Calcium Adj for Albumin 8.5 mg/dL (8.4-10.2) 06/13/17 11:35 Total Bilirubin 0.4 mg/dL (0.0-1.1) 06/13/17 11:35 AST 25 U/L (0-48) 06/13/17 11:35 ALT 28 U/L (19-67) 06/13/17 11:35 Alkaline Phosphatase 59 U/L (50-170) 06/13/17 11:35 C-Reactive Prot, Quant 7.3 mg/dL (0.0-0.9) H 06/13/17 11:35 Total Protein 7.5 gm/dL (6.2-8.2) 06/13/17 11:35 Albumin 3.7 gm/dl (3.4-5.0) 01/13/18 11:35 Procalcitonin 0.10 ng/mL (0.05-0.50) 06/13/17 11:35 Assessment/Plan - Narrative Narrative: Paulo Reid is a 51 yo male with: 1) Cellulitis, face - He has failed outpatient treatment with clindamycin. Plus the location is of greater concern. He has a history of MRSA will treat with zosyn and vancomycin. Culture was obtained on 06/12/17, will await sensitivity. Expect to discharge to home in 2-3 days when improving and cultures show a oral antibiotic that will cover treatment. Will admit to acute inpatient treatment. No concern at this time for abscess with a negative CT. Will need to monitor closely. - Assessment/Plan (1) Cellulitis, face Problem: Acute (2) Diabetes mellitus type 2 in obese Problem: Acute (3) Chronic renal failure, stage 3 (moderate) Problem: Acute
[2017-06-14] MEDS: PIPERACILLIN SODIUM/TAZOBACTAM 3.375 GM in NORMAL SALINE 100 ML IV SCH ×3 (03:16→19:40)
[2017-06-14] MEDS ORDERED: OMEPRAZOLE 20 MG CAPSULE.SA PO SCH (07:00)
[2017-06-14] MEDS: INSULIN LISPRO 100 UNITS/ML VIAL SC SCH ×6 (07:35→17:28)
[2017-06-14] MEDS: oxyCODONE HCL/ACETAMINOPHEN 1 TAB TABLET PO PRN ×2 (07:35→21:17)
[2017-06-14] MEDS: LEVOTHYROXINE SODIUM 75 MCG TABLET PO SCH (07:36)
[2017-06-14] MEDS ORDERED: METOPROLOL SUCCINATE 50 MG TABLET.SA PO SCH (09:00)
[2017-06-14] MEDS ORDERED: METOPROLOL SUCCINATE 25 MG TABLET.SA PO SCH (09:00)
[2017-06-14] MEDS: PANTOPRAZOLE SODIUM 20 MG TABLET.DR PO SCH (09:08)
[2017-06-14] MEDS: GABAPENTIN 600 MG TABLET PO SCH ×3 (09:08→17:22)
[2017-06-14] MEDS: DULoxetine HCL 30 MG CAPSULE.SA PO SCH (09:08)
[2017-06-14] MEDS: FENOFIBRATE,MICRONIZED 134 MG CAPSULE PO SCH (09:08)
[2017-06-14] MEDS: ARIPiprazole 10 MG TABLET PO SCH (09:08)
[2017-06-14] MEDS: ASPIRIN 81 MG TABLET.DR PO SCH (09:08)
[2017-06-14] MEDS: VITAMIN B COMP W-C 1 TAB TABLET PO SCH (09:09)
[2017-06-14] MEDS: CHOLECALCIFEROL 5,000 UNIT TABLET PO SCH (09:09)
[2017-06-14] MEDS: INSULIN DETEMIR 100 UNITS/ML VIAL SC SCH ×2 (09:12→21:08)
[2017-06-14 09:30] LABS: Hematocrit 38.5 % (42.0-52.0); Hemoglobin 12.7 gm/dL (13.5-18.0); Mean Cell Volume 79.7 fl (78-100); Mean Corpuscular Hemoglobin 26.3 pg (27-31); Mean Platelet Volume 8.7 fl (6.0-9.5); Platelet Count 191 K/mm3 (150-450); Red Blood Count 4.83 M/mm3 (4.7-6.0); Red Cell Distribution Width 13.8 % (11.5-14.0)
[2017-06-14 09:32] LABS: Total Cells Counted 100
[2017-06-14 09:44] LABS: Atypical (Reactive) Lymph 5 % (0-2); Band 12 % (0-2.0); Lymphocyte 9 % (20-51); Monocyte 2 % (0-9); Neutrophil 72 % (42-75); Neutrophil # 7.9 K/mm3 (1.3-6.0); Platelet Estimate Normal (NORMAL); RBC Morphology Normal (NORMAL)
[2017-06-14 09:53] LABS: Albumin * 3.4 gm/dl (3.4-5.0); Anion Gap 9.7 mmol/L (6.8-13.8); BUN/Creatinine Ratio 15.8 (9.0-21.6); Bilirubin, Total 0.3 mg/dL (0.0-1.1); CRP 4.9 mg/dL (0.0-0.9); Calcium * 8.8 mg/dL (7.9-10.9); Carbon Dioxide 30.2 mmol/L (24-32.6); Potassium 4.9 mmol/L (3.4-4.6); Total Protein 7.2 gm/dL (6.2-8.2)
[2017-06-14] MEDS ORDERED: VANCOMYCIN HCL 1.5 GM in DEXTROSE 5 % IN WATER 500 ML IV SCH ×2 (15:00)
[2017-06-14] MEDS: TAMSULOSIN HCL 0.4 MG CAP.SR.24H PO SCH (17:22)
[2017-06-14] MEDS: ALPRAZolam 1 MG TABLET PO SCH (21:05)
[2017-06-14] MEDS: SIMVASTATIN 40 MG TABLET PO SCH (21:06)
[2017-06-14] MEDS: AMITRIPTYLINE HCL 10 MG TABLET PO SCH (21:11)
--- NOTE | 2017-06-14 23:28 | PN ---
Subjective - Date and Time Seen Date: 06/14/17 Time: 11:45 Subjective Narrative: Pain controlled. Swelling improved. He can see easier. No fever or chills. Objective - Vitals Vitals: Last Vital Signs Temp 36.4 C L 06/14/17 19:00 Pulse 89 06/14/17 19:00 Resp 18 06/14/17 19:00 BP 132/71 06/14/17 19:00 Pulse Ox 95 06/14/17 19:00 - Abnormal Lab Findings Abnormal Lab Findings: Abnormal Lab Results 06/14/17 06/14/17 06/14/17 Range/Units 09:25 09:25 09:25 WBC 11.0 H D (4.0-10.5) K/mm3 Hgb 12.7 L (13.5-18.0) gm/dL Hct 38.5 L (42.0-52.0) % MCH 26.3 L (27-31) pg Band Neuts % (Manual) 12 H (0-2.0) % Lymphocytes % (Manual) 9 L (20-51) % Neutrophils # (Manual) 7.9 H (1.3-6.0) K/mm3 Lymphocytes # (Manual) 1.0 L (1.5-3.5) k/mm3 Atypic/Reactive Lymphs 5 H (0-2) % ESR 35 H (0-10) mm/hr Potassium 4.9 H (3.4-4.6) mmol/L BUN 27 H (6-23) mg/dL Creatinine 1.71 H (0.4-1.4) mg/dL Est GFR (Non-Af Amer) 45 L (60-130) mL/min Random Glucose 315 H (70-110) mg/dL C-Reactive Prot, Quant 4.9 H (0.0-0.9) mg/dL - Exam Constitutional: Present: Alert, Oriented x3, Cooperative Cardiovascular/Chest: Present: regular rate, rhythm, no murmur Skin Exam: Present: other - Erythema is less marked, swelling decreased. Left eye can fully open. Assessment/Plan - Problems/Diagnosis (1) Cellulitis, face Problem: Acute Narrative: Improving, less erythema and less swelling. Await cultures drawn from ER . If continues to improve may be able to discharge to home on orals in the next 1-2 days. (2) Diabetes mellitus type 2 in obese Problem: Acute (3) Chronic renal failure, stage 3 (moderate) Problem: Acute
[2017-06-15] MEDS: PIPERACILLIN SODIUM/TAZOBACTAM 3.375 GM in NORMAL SALINE 100 ML IV SCH ×3 (03:33→20:09)
[2017-06-15 05:50] LABS: Hematocrit 38.6 % (42.0-52.0); Hemoglobin 12.3 gm/dL (13.5-18.0); Mean Cell Volume 81.1 fl (78-100); Mean Corpuscular Hemoglobin 25.8 pg (27-31); Mean Corpuscular Hgb Conc 31.9 g/dl (32-36); Mean Platelet Volume 8.8 fl (6.0-9.5); Neutrophil % 64.4 % (42-75.0); Platelet Count 213 K/mm3 (150-450); Red Blood Count 4.76 M/mm3 (4.7-6.0); Red Cell Distribution Width 14.3 % (11.5-14.0); White Blood Count 7.8 K/mm3 (4.0-10.5)
[2017-06-15 06:02] LABS: Albumin * 3.4 gm/dl (3.4-5.0); Anion Gap 8.8 mmol/L (6.8-13.8); BUN/Creatinine Ratio 15.2 (9.0-21.6); Bilirubin, Total 0.3 mg/dL (0.0-1.1); CRP 2.5 mg/dL (0.0-0.9); Ca. Corrected For Albumin 9.2 mg/dL (8.4-10.2); Carbon Dioxide 34.4 mmol/L (24-32.6); Potassium 4.2 mmol/L (3.4-4.6); Total Protein 7.1 gm/dL (6.2-8.2)
[2017-06-15] MEDS: LEVOTHYROXINE SODIUM 75 MCG TABLET PO SCH (07:25)
[2017-06-15] MEDS: PANTOPRAZOLE SODIUM 20 MG TABLET.DR PO SCH (07:25)
[2017-06-15] MEDS: INSULIN LISPRO 100 UNITS/ML VIAL SC SCH ×6 (07:28→17:54)
[2017-06-15] MEDS ORDERED: EZETIMIBE 10 MG TABLET PO SCH (09:00)
--- NOTE | 2017-06-15 09:28 | PN ---
Subjective - Date and Time Seen Date: 06/15/17 Time: 09:09 Subjective Narrative: patient feels better overall, denies pain, fever chills. had not seen a dentist over a year. Sugars have been averaging close to 200 mg/dl. before the infection. Objective - Review of Systems Generalized/Overall Review: Denies: Weakness, Chills, Fever EENTM: Reports: Other - facial pain. Respiratory: Denies: Cough, Shortness of Breath Cardiac: Denies: Chest Pain, Edema - Vitals Vitals: Last Vital Signs Temp 36.8 C 06/15/17 06:31 Pulse 93 06/15/17 06:31 Resp 18 06/15/17 06:31 BP 128/72 06/15/17 06:31 Pulse Ox 93 06/15/17 06:31 - Abnormal Lab Findings Abnormal Lab Findings: Laboratory Tests 06/15/17 05:40 WBC 7.8 D Hgb 12.3 L Hct 38.6 L Plt Count 213 06/15/17 05:40 Plasma Sodium 142 Potassium 4.2 Chloride 101 Carbon Dioxide 34.4 H BUN 28 H Creatinine 1.84 H Est GFR (Non-Af Amer) 41 L Random Glucose 206 H D Calcium Adj for Albumin 9.2 Total Bilirubin 0.3 AST 24 ALT 32 Alkaline Phosphatase 53 Total Protein 7.1 Albumin 3.4 06/13/17 06/14/17 06/15/17 11:35 09:25 05:40 C-Reactive Prot, Quant 7.3 H 4.9 H 2.5 H 06/13/17 11:35 Procalcitonin 0.10 - Exam Constitutional: Present: Middle aged, Morbidly obese, Looks Older than stated age - Aand Ox3, cooperative. ENT Exam: Present: pharynx normal, moist mucous membranes - LT side of face reddened, warm and erythematous. Neck: Present: normal inspection, trachea midline - obese. Respiratory: Present: lungs clear, normal breath sounds Cardiovascular/Chest: Present: regular rate, rhythm. Absent: tachycardia Abdomen: Present: Normal bowel sounds, soft, nontender, obese Extremity: Present: other - LT foot- boot. Skin Exam: Present: normal color, warm/dry Assessment/Plan Plan Narrative: 1. Cellulitis - LT side face: Continue piperacillin/tazobactam IV adjusted to BUN/CR per pharmacy. Discharge in 1-2 days on oral antibiotics. 2. T2 DM: Poorly controlled with blood sugars in 200. Add metformin 500 mg 3 times a day with meals. Peripheral neuropathy present with ulceration in left lower leg. S/ P LT TMA. 3. CKD stage III: GFR approximately 40 ml/min. 4. Morbid obesity: BMI 40.6. 5. Anxiety/depression and mood disorder: On Abilify 20 mg daily, duloxetine 60 mg daily. 6. DVT prophylaxis: Lovenox 40 mg subcutaneous daily. Code: Full code
[2017-06-15] MEDS: FINASTERIDE 5 MG TABLET PO SCH (09:47)
[2017-06-15] MEDS: AMITRIPTYLINE HCL 10 MG TABLET PO SCH ×4 (09:47→20:58)
[2017-06-15] MEDS: LISINOPRIL 10 MG TABLET PO SCH (09:47)
[2017-06-15] MEDS: VITAMIN B COMP W-C 1 TAB TABLET PO SCH (09:48)
[2017-06-15] MEDS: CHOLECALCIFEROL 5,000 UNIT TABLET PO SCH (09:48)
[2017-06-15] MEDS: GABAPENTIN 600 MG TABLET PO SCH ×3 (09:48→17:54)
[2017-06-15] MEDS: DULoxetine HCL 30 MG CAPSULE.SA PO SCH (09:48)
[2017-06-15] MEDS: ARIPiprazole 10 MG TABLET PO SCH (09:48)
[2017-06-15] MEDS: FENOFIBRATE,MICRONIZED 134 MG CAPSULE PO SCH (09:48)
[2017-06-15] MEDS: INSULIN DETEMIR 100 UNITS/ML VIAL SC SCH ×2 (09:49→21:05)
[2017-06-15] MEDS: ENOXAPARIN SODIUM 40 MG/0.4 ML SYRG SC SCH (09:49)
[2017-06-15] MEDS: ASPIRIN 81 MG TABLET.DR PO SCH (09:49)
[2017-06-15] MEDS: oxyCODONE HCL/ACETAMINOPHEN 1 TAB TABLET PO PRN (14:21)
--- NOTE | 2017-06-15 16:01 | CONS ---
- Reason for consultation (1) Diabetic foot ulcer Date of Service: 06/15/17 HPI - General Date of Service: 06/15/17 Narrative: Pt evaluated at bedside for left foot ulceration. He is a known patient to my practice and I have been following him for ulceration to his left foot amputation stump for several months. He is currently being treated in the wound center with total contact casting, which remains intact today. He was admitted from the ED over the weekend with left facial cellulitis and has been on IV ABX with improvement. I was consulted for possible care of the left foot ulceration. He is scheduled for follow up in the wound center tomorrow and states that he was told he may be getting discharged tomorrow in time to make his appointment. Source: patient Exam Limitations: no limitations - History of Present Illness Allergies/Adverse Reactions: Allergies propoxyphene napsylate [From Darvocet-N 100] Adverse Reaction (Mild, Verified 13:36) RASH Home Medications: Home Medications Medication Instructions Recorded Last Taken Aspirin [Aspirin Enteric Coated] 81 mg PO DAILY 07/16/16 Unknown Fenofibrate Nanocrystallized 145 mg PO DAILY 07/16/16 Unknown [Tricor] Insulin Detemir [Levemir] 54 units SQ BID 07/16/16 Unknown Nitroglycerin [Nitrostat] 0.4 mg SL [id number] PRN 07/16/16 Unknown Omeprazole 20 mg PO DAILY 07/16/16 Unknown Simvastatin [Zocor] 40 mg PO HS 07/16/16 Unknown Alprazolam 4 mg PO HS 09/19/16 Unknown Metoprolol Succinate [Toprol Xl] 50 mg PO DAILY 01/22/17 Unknown Duloxetine HCl [Cymbalta] 60 mg PO DAILY 02/17/17 Unknown Insulin Lispro [Humalog] 25 units SQ AC 02/17/17 Unknown Lancets [Bd Ultra-Fine] 1 ml SQ 5XD 02/17/17 Unknown Tamsulosin HCl [Flomax] 0.4 mg PO DAILY@1800 02/17/17 Unknown Amitriptyline HCl [Elavil] 10 mg PO QID 06/14/17 Unknown Ezetimibe 10 mg PO DAILY 06/14/17 Unknown Finasteride [Proscar] 5 mg PO DAILY 06/14/17 Unknown Lisinopril [Zestril] 10 mg PO DAILY 06/14/17 Unknown metFORMIN HCL [Metformin HCl ER] 500 mg PO BID 06/14/17 Unknown - Patient's Past Medical History Patient History - Medical: Diabetes Type 2 Insulin Dependent, Depression, GERD, Hypothyroidism, Migraines Patient History - Cardiac/Respiratory: Deep Vein Thrombosis, Hypertension, Hyperlipidemia Patient History - Cancer: No Hx of Cancer Patient History - Surgical Procedures: Amputation, Colonoscopy, T & A Patient History - Other: None - Family History Family History:: no untoward family reactions to anesthesia, no familial bleeding tendencies, no family history of clotting disorders, no family history of premature - Family History Father Family History - Medical: , Other Family History - Cardiac/Respiratory: COPD, Myocardial Infarction Family History - Cancer: No pertinent family hx Mother Family History - Medical: , Diabetes Type 2, Renal Failure Family History - Cardiac/Respiratory: CHF Family History - Cancer: No pertinent family hx Sister Family History - Medical: Hypothyroidism Family History - Cardiac/Respiratory: No pertinent hx Family History - Cancer: Breast Children Family History - Medical:  Family History - Cardiac/Respiratory: CHF Family History - Cancer:  Uncle Family History - Medical: Alcohol Abuse, Diabetes Type 2 - Social History Living Situations: home Abuse History: No History of abuse Psych History: Hx of Depression, Current tx/ever been on anti-depressants or anti-anxiety meds Smoking Status: Never smoker Have you smoked in the past 12 months: No Do you dip or chew tobacco: No Patient requests Smoking Cessation Consult: No Initiate information on Smoking Cessation: No Alcohol Use: none Drug Use: none - Immunizations Immunizations Up to Date: Yes Hx Pneumococcal Vaccination: No History of Influenza Vaccine: No Procedures AMPUTATION THROUGH FOOT (11/07/14) BUNIONECTOMY NEC (04/05/14) DIVISION OF LEFT ANKLE TENDON, OPEN APPROACH (09/22/16) EXCISION OF LEFT METATARSAL, OPEN APPROACH, DIAGNOSTIC (02/17/17) EXCISION OF LEFT TARSAL, PERCUTANEOUS APPROACH, DIAGNOSTIC (07/24/16) INSPECTION OF BLADDER, ENDO (01/23/17) INSPECTION OF LOWER INTESTINAL TRACT, ENDO (12/03/16) IRRIGATION OF GENITOURINARY TRACT USING IRRIGAT, ENDO, DIAGN (01/23/17) MUSC/TEND LNG CHANGE NEC (04/05/14) MYRINGOTOMY W INTUBATION (02/16/14) OTHER CAST APPLICATION (12/15/12) TOE AMPUTATION (07/09/14) Medications - Medications Current Medications: Current Medications Alprazolam (Xanax) 4 mg PO HS [facility] Stop: 07/14/17 21:01 Last Admin: 06/14/17 21:05 Dose: 4 mg Amitriptyline HCl (Elavil) 10 mg PO QID [facility] Stop: 07/14/17 21:01 Last Admin: 06/15/17 14:17 Dose: 10 mg Aripiprazole (Abilify) 20 mg PO DAILY [facility] Stop: 07/14/17 09:01 Last Admin: 06/15/17 09:48 Dose: 20 mg Aspirin (Aspirin Enteric Coated) 81 mg PO DAILY [facility] Stop: 07/14/17 09:01 Last Admin: 06/15/17 09:49 Dose: 81 mg Cholecalciferol (Vitamin D) 5,000 unit PO DAILY [facility] Stop: 07/14/17 09:01 Last Admin: 06/15/17 09:48 Dose: 5,000 unit Duloxetine HCl (Cymbalta) 60 mg PO DAILY [facility] Stop: 07/14/17 09:01 Last Admin: 06/15/17 09:48 Dose: 60 mg Enoxaparin Sodium (Lovenox) 40 mg SC Q24H [facility] Stop: 07/15/17 09:31 Last Admin: 06/15/17 09:49 Dose: 40 mg Fenofibrate (Lofibra) 134 mg PO DAILY [facility] Stop: 07/14/17 09:01 Last Admin: 06/15/17 09:48 Dose: 134 mg Finasteride (Proscar) 5 mg PO DAILY [facility] Stop: 07/15/17 09:01 Last Admin: 06/15/17 09:47 Dose: 5 mg Gabapentin (Neurontin) 600 mg PO TID [facility] Stop: 07/14/17 09:01 Last Admin: 06/15/17 14:17 Dose: 600 mg Sodium Chloride (Sodium Chloride 0.9%) 1,000 mls @ 999 mls/hr IV .Q1H1M PRN PRN Reason: HYDRATION Stop: 07/13/17 11:26 Last Infusion: 06/13/17 13:09 Dose: Infused Piperacillin Sod/Tazobactam (Sod 3.375 gm/ Sodium Chloride) 100 mls @ 25 mls/ hr IV Q8H [facility] PRN Reason: Protocol Stop: 07/13/17 20:01 Last Admin: 06/15/17 12:12 Dose: 25 mls/hr Insulin Detemir (Levemir) 54 units SC BID [facility] Stop: 07/14/17 09:01 Last Admin: 06/15/17 09:49 Dose: 54 units Insulin Human Lispro (Humalog) 25 units SC AC [facility] Stop: 07/14/17 07:01 Last Admin: 06/15/17 12:11 Dose: 25 units Insulin Human Lispro (Humalog) 0 - 6 units SC AC [facility] Stop: 07/14/17 07:01 Last Admin: 06/15/17 12:12 Dose: 3 units Levothyroxine Sodium (Synthroid) 75 mcg PO DAILY@0600 [facility] Stop: 07/14/17 06:01 Last Admin: 06/15/17 07:25 Dose: 75 mcg Lisinopril (Zestril) 10 mg PO DAILY [facility] Stop: 07/15/17 09:01 Last Admin: 06/15/17 09:47 Dose: 10 mg Oxycodone/Acetaminophen (Percocet 5 Mg/325 Mg) 1 tab PO Q4H PRN PRN Reason: Moderate Pain (pain scale 4-6) Stop: 07/13/17 14:26 Last Admin: 06/15/17 14:21 Dose: 1 tab Pantoprazole Sodium (Protonix) 20 mg PO QDAC [facility] Stop: 07/14/17 08:01 Last Admin: 06/15/17 07:25 Dose: 20 mg Simvastatin (Zocor) 40 mg PO HS [facility] Stop: 07/14/17 21:01 Last Admin: 06/14/17 21:06 Dose: 40 mg Tamsulosin HCl (Flomax) 0.4 mg PO DAILY@1800 [facility] Stop: 07/14/17 18:01 Last Admin: 06/14/17 17:22 Dose: 0.4 mg Vitamin B Complex/Vitamin C (Vitabee W/C) 1 tab PO DAILY [facility] Stop: 07/14/17 09:01 Last Admin: 06/15/17 09:48 Dose: 1 tab Review of Systems - Review of Systems Cardiac: Present: Edema Neurological: Present: Numbness Skin: Present: Other - redness to left face Physical Examination - Exam Narrative: Pt's left lower extremity in total contact cast. This is not removed today as he does not have any current complaints regarding his lower extremities and was not admitted for lower extremity symptoms. He is being followed in the wound center for ulceration to the amputation stump of this foot. Vital Signs: Vital Signs - Last Taken Temp 36.8 C 06/15/17 14:00 Pulse 108 H 06/15/17 14:00 Resp 18 06/15/17 14:00 BP 122/75 06/15/17 14:00 Pulse Ox 96 06/15/17 14:00 O2 Oxygen Delivery Method Room Air Constitutional: Present: Alert, Oriented x3, Cooperative - Results and Findings: Lab/Microbiology results last 24 hrs: Abnormal/Pending Laboratory Last 24 HRS 06/15/17 06/15/17 05:40 05:40 Hgb 12.3 L Hct 38.6 L MCH 25.8 L MCHC 31.9 L RDW 14.3 H Immature Gran % (Auto) 1.20 H Immature Gran # (Auto) 0.09 H Carbon Dioxide 34.4 H BUN 28 H Creatinine 1.84 H Est GFR (Non-Af Amer) 41 L Random Glucose 206 H D C-Reactive Prot, Quant 2.5 H - Assessments/Findings (1) Diabetic foot ulcer Diagnosis(s): Cast left intact today. If he is discharged tomorrow as he says, will plan routine follow up in the wound center and will evaluate and treat at that time. If he remains in the hospital for another few days, will plan follow up on date of discharge for cast change. He is not currently having any symptoms relating to the left foot. Continue on IV ABX as ordered, followed by oral ABX at recommendations of PCP. Will gladly re-evaluate should he begin to exhibit any SOI to this extremity, otherwise will plan to follow up out-patient. Problem: Chronic Qualifiers: Diabetic foot ulcer location: unspecified part of foot Diabetes mellitus type: type 2 Laterality: left Non-pressure ulcer stage: with fat layer exposed Qualified Code(s): E11.621 - Type 2 diabetes mellitus with foot ulcer ; L97.522 - Non-pressure chronic ulcer of other part of left foot with fat layer exposed; L97.522 - Non-pressure chronic ulcer of other part of left foot with fat layer exposed; L97.522 - Non-pressure chronic ulcer of other part of left foot with fat layer exposed; L97.522 - Non-pressure chronic ulcer of other part of left foot with fat layer exposed
[2017-06-15] MEDS ORDERED: VANCOMYCIN HCL 1.5 GM in DEXTROSE 5 % IN WATER 500 ML IV SCH ×2 (17:30)
[2017-06-15] MEDS: TAMSULOSIN HCL 0.4 MG CAP.SR.24H PO SCH (17:54)
[2017-06-15] MEDS: ALPRAZolam 1 MG TABLET PO SCH (20:58)
[2017-06-15] MEDS: SIMVASTATIN 40 MG TABLET PO SCH (20:58)
[2017-06-15] MEDS ORDERED: METOPROLOL SUCCINATE 50 MG TABLET.SA PO SCH (21:00)
[2017-06-16] MEDS: PIPERACILLIN SODIUM/TAZOBACTAM 3.375 GM in NORMAL SALINE 100 ML IV SCH (04:08)
--- NOTE | 2017-06-16 05:23 | DS ---
<AndreyMaryjo - Last Filed: 06/16/17 06:56> (1) Chronic renal failure, stage 3 (moderate) Problem: Acute (2) Diabetes mellitus type 2 in obese Problem: Chronic (3) Cellulitis, face Problem: Chronic (4) Depression Problem: Chronic (5) Diabetic foot ulcer Problem: Chronic QualifierTitle: Diabetic foot ulcer location: unspecified part of foot Diabetes mellitus type: type 2 Laterality: left Non-pressure ulcer stage: with fat layer exposed Qualified Code(s): E11.621 - Type 2 diabetes mellitus with foot ulcer; L97.522 - Non-pressure chronic ulcer of other part of left foot with fat layer exposed; L97.522 - Non-pressure chronic ulcer of other part of left foot with fat layer exposed; L97.522 - Non-pressure chronic ulcer of other part of left foot with fat layer exposed; L97.522 - Non-pressure chronic ulcer of other part of left foot with fat layer exposed (6) Diabetic peripheral neuropathy Problem: Chronic (7) GERD (gastroesophageal reflux disease) Problem: Chronic QualifierTitle: Esophagitis presence: esophagitis presence not specified Qualified Code(s): K21.9 - Gastro-esophageal reflux disease without esophagitis (8) HTN (hypertension) Problem: Chronic QualifierTitle: Hypertension type: essential hypertension Qualified Code( s): I10 - Essential (primary) hypertension (9) Hyperlipidemia Problem: Chronic QualifierTitle: Hyperlipidemia type: unspecified Qualified Code(s): E78.5 - Hyperlipidemia, unspecified Description of Stay: ADMISSION DATE: 06/13/17 DISCHARGE DATE: 06/15/17 Description of Hospital stay. Mr. Reid had initially presented to the ED on 06/12/17 for redness on his LT cheek and eye region and 'thought it was from a spider bite.' He was discharged on Clindamycin 300mg po q.i.d. He came back to the ED on 06/13/17 with worsening erythema on his LT side of face extending to his nose and LT ear. Work -up at the ED involved a head CT which showed soft tissue swelling on the left periorbital region. There was no orbital or periorbital abscess seen. The intraorbital contents were within normal limits. Laboratory studies involving CBC & BMP were unremarkable. Due to failure to outpatient treatment and hx of MRSA, he was admitted inpatient and continued receiving treatment with IV vancomycin and Zosyn. The preliminary blood culture results showed no growth of any organisms. He had an elevated CRP on DOA which trended down; 7.3--> 4.9--> 2.5. His V.S remained stable and he afebrile during the stay. He denied diplopia , pain with eye movement on the LT eye. There was no proptosis noted on the LT eye and the skin exam appeared to have improved erythema. He was discharged on Augmentin 875mg b.i.d X 5 days- (which is as effective as 10 days when clinical improvement occurred by 5 days). He was determined to be in a stable condition and will follow-up with his PCP next week. He has chronic diabetic foot ulcer on LT foot and was seen by Podiatry- he did not have any complaints regarding his lower extremities and is followed at the wound center for the ulceration. He was encouraged to keep his appointments for the cares. Procedures Performed: none Discharge Disposition: Home self care Disposition: Home self-care Condition: Good Discharge Activity: Activity as tolerated Discharge Diet: Consistent carbs Referrals: Larry Ridley MD [Primary Care Provider] - Problem Oriented Discharge Instructions to Patient/Family: Orbital Cellulitis, Cellulitis, Adult, Ncky-co-Akoz Additional Patient Instructions (free text): Follow-up with Dr. Ridley next week. Please keep your appointment with Dr. Torres today. Follow up with Dr. Ridley 06/23 at 2:00. Prescriptions (Any new or edited meds): Amoxicillin/Potassium Clav [Augmentin 875-125 Tablet] 875 mg PO BID #10 tablet Complete Home Medications List: Complete Home Medication List: Aspirin [Aspirin Enteric Coated] 81 mg PO DAILY 07/16/16 Fenofibrate Nanocrystallized [Tricor] 145 mg PO DAILY 07/16/16 Insulin Detemir [Levemir] 54 units SQ BID 07/16/16 Nitroglycerin [Nitrostat] 0.4 mg SL [id number] PRN 07/16/16 Omeprazole 20 mg PO DAILY 07/16/16 Simvastatin [Zocor] 40 mg PO HS 07/16/16 Alprazolam 4 mg PO HS 09/19/16 Metoprolol Succinate [Toprol Xl] 50 mg PO DAILY 01/22/17 Duloxetine HCl [Cymbalta] 60 mg PO DAILY 02/17/17 Insulin Lispro [Humalog] 25 units SQ AC 02/17/17 Lancets [Bd Ultra-Fine] 1 ml SQ 5XD 02/17/17 Tamsulosin HCl [Flomax] 0.4 mg PO DAILY@1800 02/17/17 Aripiprazole [Abilify] 20 mg PO DAILY #30 tablet 02/25/17 B-Complex with Vitamin C [Vitamin B-Complex & C] 1 each PO DAILY #100 tablet.er 02/25/17 Cholecalciferol (Vitamin D3) [Vitamin D3] 5,000 unit PO DAILY #100 tablet Gabapentin [Neurontin] 600 mg PO TID #180 tablet 02/25/17 Insulin Lispro [Humalog] 0 - 6 units SQ AC #1 vial 02/25/17 Levothyroxine Sodium [Levo-T] 75 mcg PO DAILY@0600 #60 tablet 02/25/17 Nystatin [Nystop] 30 gm TP TID #1 bottle 02/25/17 Pnv Cmb#21/Iron/Folic Acid [ Complete Caplet] 1 each PO DAILY #100 tablet 02/25/17 Amitriptyline HCl [Elavil] 10 mg PO QID 06/14/17 Ezetimibe 10 mg PO DAILY 06/14/17 Finasteride [Proscar] 5 mg PO DAILY 06/14/17 Lisinopril [Zestril] 10 mg PO DAILY 06/14/17 metFORMIN HCL [Metformin HCl ER] 500 mg PO BID 06/14/17 Amoxicillin/Potassium Clav [Augmentin 875-125 Tablet] 875 mg PO BID #10 tablet 06/16/17 <Larry Ridley - Last Filed: 06/16/17 11:24> Procedures Performed: none Discharge Disposition: Home self care Discharge Diet: Low salt, Low fat/chol
[2017-06-16] MEDS: LEVOTHYROXINE SODIUM 75 MCG TABLET PO SCH (05:27)
[2017-06-16 07:48] VITALS: BP 149/65
[2017-06-16] MEDS: INSULIN LISPRO 100 UNITS/ML VIAL SC SCH ×4 (08:35→12:06)
[2017-06-16] MEDS: FINASTERIDE 5 MG TABLET PO SCH (08:37)
[2017-06-16] MEDS: PANTOPRAZOLE SODIUM 20 MG TABLET.DR PO SCH (08:37)
[2017-06-16] MEDS: FENOFIBRATE,MICRONIZED 134 MG CAPSULE PO SCH (08:38)
[2017-06-16] MEDS: CHOLECALCIFEROL 5,000 UNIT TABLET PO SCH (08:38)
[2017-06-16] MEDS: VITAMIN B COMP W-C 1 TAB TABLET PO SCH (08:38)
[2017-06-16] MEDS: ARIPiprazole 10 MG TABLET PO SCH (08:38)
[2017-06-16] MEDS: GABAPENTIN 600 MG TABLET PO SCH (08:38)
[2017-06-16] MEDS: LISINOPRIL 10 MG TABLET PO SCH (08:38)
[2017-06-16] MEDS: DULoxetine HCL 30 MG CAPSULE.SA PO SCH (08:39)
[2017-06-16] MEDS: ASPIRIN 81 MG TABLET.DR PO SCH (08:39)
[2017-06-16] MEDS: AMITRIPTYLINE HCL 10 MG TABLET PO SCH (08:39)
[2017-06-16] MEDS: ENOXAPARIN SODIUM 40 MG/0.4 ML SYRG SC SCH (08:39)
[2017-06-16] MEDS: INSULIN DETEMIR 100 UNITS/ML VIAL SC SCH (10:35)
[2017-06-17] MEDS ORDERED: VANCOMYCIN HCL LEVEL XX ONE (17:00)
== END 2017-06-16 12:44 | disposition home or self-care (01) | DRG 603 ==
LOC: ER 11:11 → MS 12:52 → OBSVTOIN 13:05
PROVIDERS: ADMIT Family Medicine; ATTEND Internal Medicine
DX: L03.211 Cellulitis of face; N18.3 Chronic kidney disease, stage 3 (moderate); K21.9 Gastro-esophageal reflux disease without esophagitis; Z79.84 Long term (current) use of oral hypoglycemic drugs; E78.2 Mixed hyperlipidemia; E03.9 Hypothyroidism, unspecified; L97.522 Non-pressure chronic ulcer of other part of left foot with fat layer exposed; Z23 Encounter for immunization; E11.22 Type 2 diabetes mellitus with diabetic chronic kidney disease; Z86.14 Personal history of Methicillin resistant Staphylococcus aureus infection; E11.621 Type 2 diabetes mellitus with foot ulcer; I12.9 Hypertensive chronic kidney disease with stage 1 through stage 4 chronic kidney disease, or unspecified chronic kidney disease; E11.42 Type 2 diabetes mellitus with diabetic polyneuropathy
CPT/HCPCS: 36415; 70486; 80053; 83605; 84145; 85007; 85025; 85652; 86140; 87040; 87081; 90686; 96365; 99285; G0008

== ENCOUNTER 2020-07-08 16:08 | Inpatient (IN) ==
[2020-07-08] MEDS ORDERED: NORMAL SALINE 1,000 ML IV ONE ×3 (16:21→18:54)
[2020-07-08] MEDS ORDERED: ASPIRIN 81 MG TAB.CHEW PO ONE (16:22)
[2020-07-08] MEDS ORDERED: NITROGLYCERIN 0.4 MG/TAB BTL SL ONE (16:22)
[2020-07-08] MEDS ORDERED: LIDOCAINE HCL 15 ML UDC MM ONE (16:23)
[2020-07-08] MEDS ORDERED: SUCRALFATE 1 G/10 ML UDC PO ONE (16:23)
[2020-07-08] MEDS ORDERED: MAG HYDROX/ALUMINUM HYD/SIMETH 30 ML UDC PO ONE (16:23)
[2020-07-08 16:41] LABS: Hematocrit 40.6 % (42.0-52.0); Hemoglobin 13.1 gm/dL (13.5-18.0); Mean Cell Volume 81.9 fl (78-100); Mean Corpuscular Hemoglobin 26.4 pg (27-31); Mean Corpuscular Hgb Conc 32.3 g/dl (32-36); Mean Platelet Volume 9.2 fl (8-11.3); Neutrophil # 7.1 K/mm3 (1.3-6.0); Neutrophil % 62.3 % (42-75.0); Platelet Count 204 K/mm3 (150-450); Red Blood Count 4.96 M/mm3 (4.7-6.0); Red Cell Distribution Width 13.7 % (11.5-14.0); White Blood Count 11.4 K/mm3 (4.0-10.5)
[2020-07-08 16:59] LABS: ALT 25 U/L (19-67); AST 14 U/L (0-48); Albumin * 3.7 gm/dl (3.4-5.0); Alkaline Phosphatase * 70 U/L (50-170); Anion Gap 18.4 mmol/L (6.8-13.8); BUN/Creatinine Ratio 11.1 (9.0-21.6); Bilirubin, Total 0.4 mg/dL (0.0-1.1); Blood Urea Nitrogen 48 mg/dL (6-23); Ca. Corrected For Albumin 7.9 mg/dL (8.4-10.2); Carbon Dioxide 21.8 mmol/L (24-32.6); Chloride 93 mmol/L (97-106); Glucose * 175 mg/dL (70-110); Lipase 348 U/L (73-393); Potassium 4.2 mmol/L (3.4-4.6); Sodium 129 mmol/L (132-142); Total Protein 6.6 gm/dL (6.2-8.2)
[2020-07-08 17:01] LABS: Troponin I Less than 0.017 ng/mL (0.00-0.10)
[2020-07-08] MEDS ORDERED: ACETAMINOPHEN 1,000 MG/100 ML BTL IV ONE (17:21)
[2020-07-08 17:56] LABS: Magnesium 1.6 mg/dL (1.2-2.8); Phosphorus 4.7 mg/dL (2.2-4.2)
--- NOTE | 2020-07-08 18:41 | ERNOTE ---
Syncope ER HPI Date of Service: 07/08/20 Stated Complaint: syncope Time Seen by Provider: 07/08/20 16:20 Source: patient Exam Limitations: no limitations Immunizations: IMMUNIZATION HX Immunizations Up to Date Yes History of Influenza Vaccine Yes Hx Pneumococcal Vaccination No Allergies/Adverse Reactions: Allergies propoxyphene napsylate [From Darvocet-N 100] Allergy (Mild, Verified 07/08/20 16:18) RASH Home Medications: HOME MEDICATIONS miconazole nitrate 2 % topical ointment 1 applic TP BID #56.7 g 09/29/19 [Last Taken Unknown] blood sugar diagnostic See Rx Instructions .ROUTE .MEDSUPPLY #300 ea 10/25/19 [Last Taken Unknown] emollient combination no.97 1 ea TP DAILY #454 g 01/05/20 [Last Taken Unknown] aripiprazole 10 mg tablet 10 mg PO DAILY #30 tab 01/06/20 [Last Taken Unknown] duloxetine 60 mg capsule,delayed release 60 mg PO DAILY #30 cap 01/06/20 [Last Taken Unknown] lamotrigine 200 mg tablet 200 mg PO QPM #30 tab 01/06/20 [Last Taken Unknown] naltrexone 50 mg tablet 50 mg PO DAILY #30 tab 01/06/20 [Last Taken Unknown] metformin 1,000 mg tablet See Rx Instructions .ROUTE BID #180 tab 01/09/20 [Last Taken Unknown] levothyroxine 100 mcg tablet See Rx Instructions .ROUTE .COMPLEX #90 tab 01/10/20 [Last Taken Unknown] metoprolol succinate 50 mg tablet,extended release 24 hr 50 mg PO DAILY #90 tab 01/10/20 [Last Taken Unknown] atorvastatin 20 mg tablet See Rx Instructions .ROUTE .COMPLEX #90 tab 02/07/20 [Last Taken Unknown] trazodone 50 mg tablet 50 mg PO HS #30 tab 02/08/20 [Last Taken Unknown] Knee high compression stockings- medium grade 0 .ROUTE .MEDSUPPLY #1 ea 02/13/20 [Last Taken Unknown] fluticasone propionate 50 mcg/actuation nasal spray,suspension 1 spray SHIMA Q12H PRN #18.2 ml 02/13/20 [Last Taken Unknown] furosemide 20 mg tablet 20 mg PO DAILY #30 tab 02/13/20 [Last Taken Unknown] pen needle, diabetic 33 gauge x 5/32" See Rx Instructions .ROUTE .MEDSUPPLY #100 ea 02/13/20 [Last Taken Unknown] tamsulosin 0.4 mg capsule 0.8 mg PO DAILY cap 02/13/20 [Last Taken Unknown] liraglutide 0.6 mg/0.1 mL (18 mg/3 mL) subcutaneous pen injector See Rx Instructions .ROUTE .COMPLEX #27 ml 03/01/20 [Last Taken Unknown] gabapentin 600 mg tablet 600 mg PO Q12H #180 tab 03/19/20 [Last Taken Unknown] omeprazole 20 mg capsule,delayed release See Rx Instructions .ROUTE .COMPLEX #90 cap 03/30/20 [Last Taken Unknown] loperamide 2 mg capsule See Rx Instructions .ROUTE .COMPLEX #60 unknown measurement unit code: capsule 04/10/20 [Last Taken Unknown] aspirin 81 mg tablet,delayed release 81 mg PO BID #60 tab 05/30/20 [Last Taken Unknown] ferrous sulfate 325 mg (65 mg iron) tablet See Rx Instructions .ROUTE .COMPLEX #30 tab 05/30/20 [Last Taken Unknown] lisinopril 20 mg tablet 20 mg PO DAILY #90 tab 06/12/20 [Last Taken Unknown] finasteride 5 mg tablet See Rx Instructions .ROUTE .COMPLEX #90 tab 06/26/20 [Last Taken Unknown] nateglinide 120 mg tablet 120 mg PO TID #270 tab 06/26/20 [Last Taken Unknown] alprazolam 0.5 mg tablet 0.5 mg PO QHS #30 tab 07/06/20 [Last Taken Unknown] Insulin Degludec [Tresiba FlexTouch U-100] 70 unit SUBCUT DAILY 07/08/20 [Last Taken Unknown] - History of Present Illness Narrative: Patient presents to the ED for recurrent syncope and chest pain. He relates severe diarrhea over the last day. 4 episodes of syncope today, two while sitting on the toilet and two when trying to get up/stand up. He has had constant central chest pain since 9-10 am, after his 1st syncopal episode. No abdominal pain. No vomiting. CP radiates toward his nock. No acute SOB, no pleuritic pain. Has not seen anyone else for this. Prior Episodes: Present: multiple episodes today Symptoms prior to episode: Present: light headedness Activity at time of episode: Present: sitting, standing Character of event: Present: brief (seconds) Location of Injury: Present: none Current Symptoms: Present: chest pain. Absent: shortness of breath, headache Prior Treament: Denies: recently seen Review of Systems - Review of Systems Constitutional: Absent: fever EYE: Present: no symptoms reported ENT: Absent: sore throat Respiratory: Present: See HPI Cardiology: Present: See HPI Gastrointestinal/Abdominal: Present: See HPI Genitourinary: Absent: dysuria Musculoskeletal: Absent: back pain Neurological: Absent: weakness All Other Systems: All systems neg except as marked Medical History (Last Reviewed 07/08/20 @ 18:38 by Paulie Villavicencio MD) Anxiety disorder (Chronic) Bipolar II disorder (Chronic) Alcohol use some days Caffeine use every day Cigar smoker Lives with spouse No illicit drug use Ulcer of left foot Onset Date: 05/06/17 grade 3 diabetic ulceration of left foot Dr. 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 Erectile dysfunction Onset Date: 05/24/15 GERD (gastroesophageal reflux disease) Onset Date: 05/24/15 Hyperlipidemia Onset Date: Unknown Hypertension Onset Date: Unknown Hypothyroidism Onset Date: Unknown Iron deficiency anemia Morbid (severe) obesity due to excess calories Osteomyelitis Onset Date: 05/24/15 DVT (deep venous thrombosis) Onset Date: Unknown Incomplete bladder emptying Onset Date: 09/25/17 see [facility] Incontinence of bowel Onset Date: Unknown Incontinence of urine Onset Date: Unknown MRSA (methicillin resistant Staphylococcus aureus) Onset Date: Unknown Pseudomonas infection Onset Date: Unknown Surgical History: Surgical History (Last Reviewed 07/08/20 @ 18:38 by Paulie Villavicencio MD) History of cataract surgery Status post below knee amputation of left lower extremity Onset Date: ~12/04/17 Amputation at midfoot Onset Date: 05/22/14 due to osteomyelitis and abscess of left foot. Dr. Torres History of amputation of great toe Onset Date: 04/25/14 05/22/14 Brian, left great toe Dr. Torres-monzon arthroplasty w/extensor tendon lengthening of left great toe. History of cardiac catheterization Onset Date: 2011 x2 History of colonoscopy Onset Date: 12/03/16 ' [facility]-normal, [facility]-Diverticulosis, Recheck 10 years History of tonsillectomy Onset Date: 1974 1974 Hx of foot surgery Onset Date: 04/25/14 Dr. Torres-Daron Arthroplasty with extensor tendon lengthening of left great toe saliva gland removal Onset Date: 1999 Family History: Family History (Last Reviewed 07/08/20 @ 16:18 by Jillian Dobbs RN) Sister Breast CA Family history of thyroid problem Mother Diabetes Smoker Kidney failure Father Liver failure COPD (chronic obstructive pulmonary disease) Smoker Brother Gout Social History: (Last Reviewed 07/08/20 @ 18:39 by Paulie Villavicencio MD) Social History: adopted: No foster care: No assisted: Yes Marital status: lives independently: No household members: spouse caregiver/support person: No current occupational status: disabled Highest level of school completed/degree received: some college, no degree Service: Yes branch: [employer] status: retired Tobacco: Smoking Status: Former smoker tobacco type: cigars Alcohol: alcohol intake: current alcohol intake frequency: holiday/special occasion Substance Use: substance use type: does not use Dietary Habits: caffeine: Yes caffeine comment: occasional Type: tea Physical Exam - Physical Exam General Appearance: Present: alert, no apparent distress Head Exam: Present: normal inspection, no evidence of injury Eye Exam: Normal inspection: bilateral, PERRL: bilateral Ears, Nose, Throat: Present: normal ENT inspection, dry mucous membranes Neck: Present: normal inspection Respiratory: Present: no respiratory distress, normal breath sounds, no accessory muscle use, lungs clear Cardiovascular/Chest: Present: regular rate, rhythm, normal peripheral pulses Gastrointestinal/Abdominal: Present: normal bowel sounds, nontender, soft Back Exam: Absent: CVA tenderness (R), CVA tenderness (L) Extremity Exam: Present: other - post surgical changes. No deformity of signs of injury Neurological Exam: Present: alert, other - no acute unilateral focal motor or sensory deficits Skin Exam: Present: normal color, warm/dry Progress - Results and Orders Patient's Lab Results:: I have reviewed the patient's lab results. - Vital Signs Patient's Vital Signs:: I have reviewed the patient's vital signs. Vital Signs: Vital Signs 07/08/20 16:12 07/08/20 16:20 07/08/20 16:32 Temperature 36.0 C Pulse Rate 92 94 94 Respiratory Rate 20 Blood Pressure 129/76 O2 Sat by Pulse Oximetry 99 07/08/20 16:49 07/08/20 17:02 07/08/20 17:19 Temperature Pulse Rate 91 88 85 Respiratory Rate 17 25 H 15 Blood Pressure 102/54 100/51 103/51 O2 Sat by Pulse Oximetry 97 96 94 07/08/20 18:00 07/08/20 18:12 07/08/20 18:13 Temperature 36.3 C Pulse Rate 85 87 87 Respiratory Rate 16 14 Blood Pressure 117/62 113/53 O2 Sat by Pulse Oximetry 95 99 - EKG EKG #1 EKG: NSR EKG read: Interp. by me EKG Comments: NSR rate 86. Non-specific ST/T wave changes, I do not feel this meets criteria for STEMI - X-Ray X-Ray #1 X-Ray: chest Interpretation: Interp. by me X-ray Comments: I personally reviewed CXR images as well as official radiology report - Progress/Reassessment Chief Complaint: Syncopal Episode Progress Note-Subjective: 07/08/20 19:00 Patient clinically dehydrated and his syncope is likely due to this. IV fluids given. His ARF is likely pre-renal and will hopefully improve with IV fluids. His CP is atypical, prolonged and he has negative trop well over 6 hours after onset of constant pain. d-dimer in normal range so nothing to suggest PE or aortic dissection. He did have non-specific ST/T wave changes, I did discuss this with Dr Nguyen and Halo'd her the EKG to review. However, if there was ACS present I would think his troponin would have bumped by now. Dr Nguyen will admit the patient. Patient is agreeable. Still pending UA, he does have increased urine in his bladder by bladder scan so does not appear to be anuric. Departure Clinical Impression: ARF (acute renal failure), Dehydration, Diarrhea, Recurrent syncope, Atypical chest pain - Departure Disposition: Still a patient Condition: Fair Referrals: Glory Barakat MD [Primary Care Provider] -
--- NOTE | 2020-07-08 21:04 | HP ---
Chief Complaint - Chief Complaint Date of Service: 07/08/20 Time of Service: 21:04 Chief Complaint: diarrhea, syncopal episodes History of Present Illness: Patient with past medical history of diabetes, hypertension, stage IIIb CKD, left foot BKA presented to the ER after having several episodes of syncope this morning. He had at least 6 episodes of watery diarrhea yesterday, but none today. He states he gets diarrhea easily, and has an appt with GI in [facility] later this month. He also reports feeling like there is a band of pressure around his chest since this morning. Has not had recent medication changes and not exposed to anybody with illness. In the ED, work-up showed an acute kidney injury in addition to his baseline stage III renal disease, with GFR of 15 and creatinine of 4.34. He is established with a director of provider relations. Potassium is normal at 4.2. Phosphorus is high at 4.7. Normal magnesium at 1.6. Negative troponin. EKG did not show signs of ischemia or infarct, but does show some probable early repolarization. He is admitted for IV fluids for acute renal injury. Medical History (Last Reviewed 07/08/20 @ 20:32 by Tamara Watts RN) Anxiety disorder (Chronic) Bipolar II disorder (Chronic) Alcohol use some days Caffeine use every day Cigar smoker Lives with spouse No illicit drug use Ulcer of left foot Onset Date: 05/06/17 grade 3 diabetic ulceration of left foot Dr. 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 Erectile dysfunction Onset Date: 05/24/15 GERD (gastroesophageal reflux disease) Onset Date: 05/24/15 Hyperlipidemia Onset Date: Unknown Hypertension Onset Date: Unknown Hypothyroidism Onset Date: Unknown Iron deficiency anemia Morbid (severe) obesity due to excess calories Osteomyelitis Onset Date: 05/24/15 DVT (deep venous thrombosis) Onset Date: Unknown Incomplete bladder emptying Onset Date: 09/25/17 see [facility] Incontinence of bowel Onset Date: Unknown Incontinence of urine Onset Date: Unknown MRSA (methicillin resistant Staphylococcus aureus) Onset Date: Unknown Pseudomonas infection Onset Date: Unknown Surgical History: Surgical History (Last Reviewed 07/08/20 @ 20:33 by Tamara Watts RN) History of cataract surgery Status post below knee amputation of left lower extremity Onset Date: ~12/04/17 Amputation at midfoot Onset Date: 05/22/14 due to osteomyelitis and abscess of left foot. Dr. Torres History of amputation of great toe Onset Date: 04/25/14 05/22/14 Brian, left great toe Dr. Torres-na arthroplasty w/extensor tendon lengthening of left great toe. History of cardiac catheterization Onset Date: 2011 x2 History of colonoscopy Onset Date: 12/03/16 ' [facility]-normal, Bagan-Diverticulosis, Recheck 10 years History of tonsillectomy Onset Date: 1974 1974 Hx of foot surgery Onset Date: 04/25/14 Dr. Negro Arthroplasty with extensor tendon lengthening of left great toe saliva gland removal Onset Date: 1999 Family History: Family History (Last Reviewed 07/08/20 @ 20:33 by Tamara Watts RN) Sister Breast CA Family history of thyroid problem Mother Diabetes Smoker Kidney failure Father Liver failure COPD (chronic obstructive pulmonary disease) Smoker Brother Gout Social History: (Last Reviewed 07/08/20 @ 18:39 by Paulie Villavicencio MD) Social History: adopted: No foster care: No care home: Yes Marital status: lives independently: No household members: spouse caregiver/support person: No current occupational status: disabled Highest level of school completed/degree received: some college, no degree Service: Yes 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 Tobacco: Smoking Status: Former smoker tobacco type: cigars Alcohol: alcohol intake: current alcohol intake frequency: holiday/special occasion Substance Use: substance use type: does not use Dietary Habits: caffeine: Yes caffeine comment: occasional Type: tea Review Of Systems (GEN) - Review of Systems Generalized/Overall Review: Absent: Fever Respiratory: Absent: Cough, Shortness of Breath Immunizations: IMMUNIZATION HX Immunizations Up to Date Yes History of Influenza Vaccine Yes Hx Pneumococcal Vaccination No Allergies/Adverse Reactions: Allergies Allergy/AdvReac Type Severity Reaction Status Date / Time propoxyphene napsylate Allergy Mild RASH Verified 07/08/20 16:18 [From Sandro-N 100] Home Medications: HOME MEDICATIONS miconazole nitrate 2 % topical ointment 1 applic TP BID #56.7 g 09/29/19 [Last Taken Unknown] blood sugar diagnostic See Rx Instructions .ROUTE .MEDSUPPLY #300 ea 10/25/19 [Last Taken Unknown] emollient combination no.97 1 ea TP DAILY #454 g 01/05/20 [Last Taken Unknown] aripiprazole 10 mg tablet 10 mg PO DAILY #30 tab 01/06/20 [Last Taken Unknown] duloxetine 60 mg capsule,delayed release 60 mg PO DAILY #30 cap 01/06/20 [Last Taken Unknown] lamotrigine 200 mg tablet 200 mg PO QPM #30 tab 01/06/20 [Last Taken Unknown] naltrexone 50 mg tablet 50 mg PO DAILY #30 tab 01/06/20 [Last Taken Unknown] metformin 1,000 mg tablet See Rx Instructions .ROUTE BID #180 tab 01/09/20 [Last Taken Unknown] levothyroxine 100 mcg tablet See Rx Instructions .ROUTE .COMPLEX #90 tab 01/10/20 [Last Taken Unknown] metoprolol succinate 50 mg tablet,extended release 24 hr 50 mg PO DAILY #90 tab 01/10/20 [Last Taken Unknown] atorvastatin 20 mg tablet See Rx Instructions .ROUTE .COMPLEX #90 tab 02/07/20 [Last Taken Unknown] trazodone 50 mg tablet 50 mg PO HS #30 tab 02/08/20 [Last Taken Unknown] Knee high compression stockings- medium grade 0 .ROUTE .MEDSUPPLY #1 ea 02/13/20 [Last Taken Unknown] fluticasone propionate 50 mcg/actuation nasal spray,suspension 1 spray SHIMA Q12H PRN #18.2 ml 02/13/20 [Last Taken Unknown] furosemide 20 mg tablet 20 mg PO DAILY #30 tab 02/13/20 [Last Taken Unknown] pen needle, diabetic 33 gauge x 5/32" See Rx Instructions .ROUTE .MEDSUPPLY #100 ea 02/13/20 [Last Taken Unknown] tamsulosin 0.4 mg capsule 0.8 mg PO DAILY cap 02/13/20 [Last Taken Unknown] liraglutide 0.6 mg/0.1 mL (18 mg/3 mL) subcutaneous pen injector See Rx Instructions .ROUTE .COMPLEX #27 ml 03/01/20 [Last Taken Unknown] gabapentin 600 mg tablet 600 mg PO Q12H #180 tab 03/19/20 [Last Taken Unknown] omeprazole 20 mg capsule,delayed release See Rx Instructions .ROUTE .COMPLEX #90 cap 03/30/20 [Last Taken Unknown] loperamide 2 mg capsule See Rx Instructions .ROUTE .COMPLEX #60 unknown measurement unit code: capsule 04/10/20 [Last Taken Unknown] aspirin 81 mg tablet,delayed release 81 mg PO BID #60 tab 05/30/20 [Last Taken Unknown] ferrous sulfate 325 mg (65 mg iron) tablet See Rx Instructions .ROUTE .COMPLEX #30 tab 05/30/20 [Last Taken Unknown] lisinopril 20 mg tablet 20 mg PO DAILY #90 tab 06/12/20 [Last Taken Unknown] finasteride 5 mg tablet See Rx Instructions .ROUTE .COMPLEX #90 tab 06/26/20 [Last Taken Unknown] nateglinide 120 mg tablet 120 mg PO TID #270 tab 06/26/20 [Last Taken Unknown] alprazolam 0.5 mg tablet 0.5 mg PO QHS #30 tab 07/06/20 [Last Taken Unknown] Insulin Degludec [Tresiba FlexTouch U-100] 70 unit SUBCUT DAILY 07/08/20 [Last Taken Unknown] Exam - Exam Vital Signs: Vital Signs - Last Taken Temp 36.4 C 07/08/20 20:28 Pulse 85 07/08/20 20:28 Resp 20 07/08/20 20:28 BP 125/60 07/08/20 20:28 Pulse Ox 98 07/08/20 20:28 Constitutional: Present: Alert, Cooperative, Morbidly obese Respiratory: Present: normal breath sounds, no respiratory distress Cardiovascular/Chest: Present: regular rate, rhythm Abdomen: Present: nontender, obese, firm Extremity: Present: other - left BKA. Absent: lower extremity edema Neurologic: Present: normal mood/affect Eye contact: Present: cooperative, good eye contact Diagnostic Studies: Abnormal Lab Results 07/08/20 07/08/20 07/08/20 Range/Units 16:32 16:32 16:37 WBC 11.4 H (4.0-10.5) K/mm3 Hgb 13.1 L (13.5-18.0) gm/dL Hct 40.6 L (42.0-52.0) % MCH 26.4 L (27-31) pg Immature Gran % (Auto) 0.60 H (0.001-0.429) % Immature Gran # (Auto) 0.07 H (0.000-0.0310) K/mm3 Neutrophils # 7.1 H (1.3-6.0) K/mm3 Sodium 129 L (132-142) mmol/L Chloride 93 L (97-106) mmol/L Carbon Dioxide 21.8 L (24-32.6) mmol/L Anion Gap 18.4 H (6.8-13.8) mmol/L BUN 48 H (6-23) mg/dL Creatinine 4.34 H D (0.4-1.4) mg/dL Est GFR (Non-Af Amer) 15 L D (60-130) mL/min Random Glucose 175 H (70-110) mg/dL Calcium Adj for Albumin 7.9 L (8.4-10.2) mg/dL Phosphorus 4.7 H (2.2-4.2) mg/dL Laboratory Results WBC 11.4 K/mm3 (4.0-10.5) H 07/08/20 16:32 RBC 4.96 M/mm3 (4.7-6.0) 07/08/20 16:32 Hgb 13.1 gm/dL (13.5-18.0) L 07/08/20 16:32 Hct 40.6 % (42.0-52.0) L 07/08/20 16:32 MCV 81.9 fl (78-100) 07/08/20 16:32 MCH 26.4 pg (27-31) L 07/08/20 16:32 MCHC 32.3 g/dl (32-36) 07/08/20 16:32 RDW 13.7 % (11.5-14.0) 07/08/20 16:32 Plt Count 204 K/mm3 (150-450) 07/08/20 16:32 MPV 9.2 fl (8-11.3) 07/08/20 16:32 Immature Gran % (Auto) 0.60 % (0.001-0.429) H 07/08/20 16:32 Immature Gran # (Auto) 0.07 K/mm3 (0.000-0.0310) H 07/08/20 16:32 Neutrophils % 62.3 % (42-75.0) 07/08/20 16:32 Lymphocytes % 28.9 % (20-51) 07/08/20 16:32 Monocytes % 5.6 % (0.0-9) 07/08/20 16:32 Eosinophils % 2.0 % (0.0-3.0) 07/08/20 16:32 Basophils % 0.6 % (0.0-1.0) 07/08/20 16:32 Nucleated RBC % 0.0 k/mm3 (0-1) 07/08/20 16:32 Neutrophils # 7.1 K/mm3 (1.3-6.0) H 07/08/20 16:32 Lymphocytes # 3.30 k/mm3 (1.5-3.5) 07/08/20 16:32 Monocytes # 0.6 k/mm3 (0.0-1.0) 07/08/20 16:32 Eosinophils # 0.2 k/mm3 (0.0-0.7) 07/08/20 16:32 Absolute Basophils 0.1 k/mm3 (0.0-0.1) 07/08/20 16:32 D-Dimer 0.34 ug/mL (0.19-0.49) D 07/08/20 16:32 Sodium 129 mmol/L (132-142) L 07/08/20 16:32 Plasma Sodium 130 mmol/L (130-142) 07/08/20 16:32 Potassium 4.2 mmol/L (3.4-4.6) D 07/08/20 16:32 Chloride 93 mmol/L (97-106) L 07/08/20 16:32 Carbon Dioxide 21.8 mmol/L (24-32.6) L 07/08/20 16:32 Anion Gap 18.4 mmol/L (6.8-13.8) H 07/08/20 16:32 BUN 48 mg/dL (6-23) H 07/08/20 16:32 Creatinine 4.34 mg/dL (0.4-1.4) H D 07/08/20 16:32 Est GFR (Non-Af Amer) 15 mL/min (60-130) L D 07/08/20 16:32 BUN/Creatinine Ratio 11.1 (9.0-21.6) 07/08/20 16:32 Random Glucose 175 mg/dL (70-110) H 07/08/20 16:32 Calcium 8.0 mg/dL (7.9-10.9) 07/08/20 16:32 Calcium Adj for Albumin 7.9 mg/dL (8.4-10.2) L 07/08/20 16:32 Phosphorus 4.7 mg/dL (2.2-4.2) H 07/08/20 16:37 Magnesium 1.6 mg/dL (1.2-2.8) 07/08/20 16:37 Total Bilirubin 0.4 mg/dL (0.0-1.1) 07/08/20 16:32 AST 14 U/L (0-48) 07/08/20 16:32 ALT 25 U/L (19-67) 07/08/20 16:32 Alkaline Phosphatase 70 U/L (50-170) 07/08/20 16:32 Troponin I Less than 0.017 ng/mL (0.00-0.10) 07/08/20 16:32 Total Protein 6.6 gm/dL (6.2-8.2) 07/08/20 16:32 Albumin 3.7 gm/dl (3.4-5.0) 07/08/20 16:32 Lipase 348 U/L (73-393) 07/08/20 16:32 SARS-CoV-2 (PCR) Not detected (NotDetected) 07/08/20 18:38 Assessment/Plan - Narrative Narrative: We will administer IV fluids and recheck CMP in the morning. His diarrhea does not persist. I feel like he probably had a viral source for his diarrhea, which precipitated his syncopal episodes. His diarrhea may also have been from [place] diabetes - he states his glucose has been higher lately. Will add SSI to his tresiba for more glucose control while hospitalized. Could potentially DC home as soon as tomorrow. - Assessment/Plan (1) Acute on chronic renal failure Assessment: Will hold his gabapentin, lisinopril, and metformin due to his BALDEMAR. Problem: Acute (2) Chest pain, non-cardiac Assessment: Initial troponin negative, and repeat pending. No signs of ischemia or infarct on EKG. His pain is bilateral lower chest. Can administer a couple of doses of morphine overnight if needed. Likely MSK. He was given IV Tylenol, GI cocktail, sucralfate, nitro in the ED without improvement. Problem: Acute (3) Dehydration Problem: Acute (4) Diarrhea Assessment: Nateglinide can cause diarrhea, so will hold this. Problem: Acute (5) Recurrent syncope Problem: Acute (6) Diabetes mellitus Problem: Chronic Qualifiers: Diabetes mellitus type: type 2 Diabetes mellitus half-way insulin use: with predatory animal exterminator use Diabetes mellitus complication status: with circulatory complication Diabetes mellitus complication detail: with other circulatory complications Qualified Code(s): E11.59 - Type 2 diabetes mellitus with other circulatory complications (7) GERD (gastroesophageal reflux disease) Problem: Chronic (8) Diabetic peripheral neuropathy Problem: Chronic (9) Hypertension Problem: Chronic Qualifiers: Hypertension type: essential hypertension Qualified Code(s): I10 - Essential (primary) hypertension (10) Urinary retention Problem: Resolved (11) Diastolic heart failure Problem: Chronic Qualifiers: Heart failure chronicity: chronic Qualified Code(s): I50.32 - Chronic diastolic (congestive) heart failure (12) Morbid obesity Problem: Chronic (13) Complete below knee amputation of left lower extremity Problem: Chronic (14) Anxiety disorder Problem: Chronic Qualifiers: Anxiety disorder type: unspecified anxiety disorder Qualified Code(s): F41.9 - Anxiety disorder, unspecified (15) Bipolar II disorder Problem: Chronic
[2020-07-08] MEDS ORDERED: LOPERAMIDE HCL 2 MG CAPSULE PO PRN (21:30)
[2020-07-08] MEDS ORDERED: MORPHINE SULFATE 2 MG/ML DISP.SYRIN IV PRN (21:33)
[2020-07-08] MEDS: ALPRAZolam 0.5 MG TABLET PO SCH (22:10)
[2020-07-09 06:47] LABS: Albumin * 3.1 gm/dl (3.4-5.0); Anion Gap 13.1 mmol/L (6.8-13.8); Bilirubin, Total 0.3 mg/dL (0.0-1.1); Ca. Corrected For Albumin 7.8 mg/dL (8.4-10.2); Calcium * 7.4 mg/dL (7.9-10.9); Carbon Dioxide 23.9 mmol/L (24-32.6); Total Protein 5.7 gm/dL (6.2-8.2)
[2020-07-09] MEDS ORDERED: NORMAL SALINE 1,000 ML IV ONE (07:03)
[2020-07-09 07:22] LABS: BUN/Creatinine Ratio 12.9 (9.0-21.6)
[2020-07-09] MEDS: INSULIN LISPRO 100 UNITS/ML VIAL SC SCH ×4 (07:27→20:41)
[2020-07-09] MEDS: LEVOTHYROXINE SODIUM 100 MCG TABLET PO SCH (07:27)
[2020-07-09] MEDS: VICTOZA SC SCH (08:27)
[2020-07-09] MEDS: FINASTERIDE 5 MG TABLET PO SCH (08:27)
[2020-07-09] MEDS: ROSUVASTATIN CALCIUM 10 MG TABLET PO SCH (08:27)
[2020-07-09] MEDS: ASPIRIN 81 MG TABLET.DR PO SCH (08:27)
[2020-07-09] MEDS: TAMSULOSIN HCL 0.4 MG CAP.SR.24H PO SCH (08:27)
[2020-07-09] MEDS: INSULIN GLARGINE,HUM.REC.ANLOG 100 UNITS/ML VIAL SC SCH (08:28)
[2020-07-09] MEDS: DULoxetine HCL 30 MG CAPSULE.SA PO SCH (08:28)
[2020-07-09] MEDS: ARIPiprazole 10 MG TABLET PO SCH (08:28)
--- NOTE | 2020-07-09 09:16 | PN ---
Subjective - Date and Time Seen Date: 07/09/20 Time: 09:14 Subjective Narrative: I still have chest discomfort but feel somewhat better. Objective Objective Narrative: 55-year-old male admitted for BALDEMAR on superimposed CKD 3, severe dehydration, and diarrhea was evaluated at bedside this morning was found to be afebrile and in no acute distress. Patient denies any recurrence of diarrhea since arriving to the hospital, he also denies any abdominal pain or bloating. He has been treated with IV fluids to replenish his body fluids and has tolerated the treatment well. He denies any recurrence of chest pain but says he still has a thoracic wall discomfort which she thinks might be due to the position he slept in last night. Serial troponins have been negative and EKG was negative for any STEMI or any other major concerns. He maintains stable vitals and there hasn't been any major concerns during the hospitalization so far. Lab this morning revealed persistence of his acute kidney injury with only a slight improvement, electrolyte imbalance have been resolved. Given his significantly elevated creatinine and decrease in renal function, we will keep the patient for an additional day of hospitalization to continue hydrating him and monitor him. - Review of Systems Generalized/Overall Review: Reports: Weakness EENTM: Reports: No Symptoms Reported Respiratory: Reports: No Symptoms Reported Cardiac: Reports: No Symptoms Reported Abdominal: Reports: No Symptoms Reported Genitourinary Symptoms: Reports: No Symptoms Reported Musculoskeletal Complaints: Reports: No Symptoms Reported Neurological: Reports: No Symptoms Reported Skin: Reports: No Symptoms Reported Endocrine: Reports: No Symptoms Reported - Vitals Vitals: Last Vital Signs Temp 36.2 C 07/09/20 06:20 Pulse 81 07/09/20 06:20 Resp 16 07/09/20 06:20 BP 122/56 07/09/20 06:20 Pulse Ox 95 07/09/20 06:20 - Abnormal Lab Findings Abnormal Lab Findings: Abnormal Lab Results 07/08/20 07/08/20 07/08/20 Range/Units 16:32 16:32 16:37 WBC 11.4 H (4.0-10.5) K/mm3 Hgb 13.1 L (13.5-18.0) gm/dL Hct 40.6 L (42.0-52.0) % MCH 26.4 L (27-31) pg Immature Gran % (Auto) 0.60 H (0.001-0.429) % Immature Gran # (Auto) 0.07 H (0.000-0.0310) K/mm3 Neutrophils # 7.1 H (1.3-6.0) K/mm3 Sodium 129 L (132-142) mmol/L Chloride 93 L (97-106) mmol/L Carbon Dioxide 21.8 L (24-32.6) mmol/L Anion Gap 18.4 H (6.8-13.8) mmol/L BUN 48 H (6-23) mg/dL Creatinine 4.34 H D (0.4-1.4) mg/dL Est GFR (Non-Af Amer) 15 L D (60-130) mL/min Random Glucose 175 H (70-110) mg/dL Calcium (7.9-10.9) mg/dL Calcium Adj for Albumin 7.9 L (8.4-10.2) mg/dL Phosphorus 4.7 H (2.2-4.2) mg/dL Total Protein (6.2-8.2) gm/dL Albumin (3.4-5.0) gm/dl 07/09/20 Range/Units 06:28 WBC (4.0-10.5) K/mm3 Hgb (13.5-18.0) gm/dL Hct (42.0-52.0) % MCH (27-31) pg Immature Gran % (Auto) (0.001-0.429) % Immature Gran # (Auto) (0.000-0.0310) K/mm3 Neutrophils # (1.3-6.0) K/mm3 Sodium (132-142) mmol/L Chloride (97-106) mmol/L Carbon Dioxide 23.9 L (24-32.6) mmol/L Anion Gap (6.8-13.8) mmol/L BUN 47 H (6-23) mg/dL Creatinine 3.65 H D (0.4-1.4) mg/dL Est GFR (Non-Af Amer) 18 L (60-130) mL/min Random Glucose 158 H (70-110) mg/dL Calcium 7.4 L (7.9-10.9) mg/dL Calcium Adj for Albumin 7.8 L (8.4-10.2) mg/dL Phosphorus 5.0 H (2.2-4.2) mg/dL Total Protein 5.7 L (6.2-8.2) gm/dL Albumin 3.1 L (3.4-5.0) gm/dl - Exam Constitutional: Present: Alert, Oriented x3, Cooperative, Well developed, No distress, Morbidly obese ENT Exam: Present: normal ENT inspection, hearing grossly normal, pharynx normal Neck: Present: non-tender, full range of motion, supple, normal inspection, trachea midline Breasts: Present: Exam deferred, Nontender Respiratory: Present: chest non-tender, lungs clear, normal breath sounds, no respiratory distress, no accessory muscle use Cardiovascular/Chest: Present: normal peripheral pulses, regular rate, rhythm, no chest tenderness, no edema, no gallop, no JVD, no murmur, no rub Abdomen: Present: Normal bowel sounds, soft, nontender, nondistended, no rebound tenderness, no hepatospenomegaly, no masses, obese /Rectal: Present: Exam deferred Extremity: Present: normal range of motion, non-tender, normal inspection, no pedal edema, no calf tenderness, other - Left BKA Skin Exam: Present: normal color, warm/dry, no cyanosis Lymphatic: Present: no adenopathy Neurologic: Present: reservations and ticketing agent II-XII nml as tested, normal cerebellar test, no motor/sensory deficits, alert, normal mood/affect, oriented x 3 Appearance: Present: appropriate appearance, appropriate insight, neat, no memory impairment Eye contact: Present: cooperative, good eye contact, normal speech Thoughts: Present: normal thought pattern, no apparent hallucination Assessment/Plan Plan Narrative: We will treat the patient with additional IV fluids to continue hydrating him and repeat labs in the morning for evaluation of renal function and electrolytes. In the meantime we will discontinue his Metformin due to the decline in his renal function and its association with diarrhea. We will continue to monitor patient closely. - Problems/Diagnosis (1) Chest pain, non-cardiac Problem: Acute (2) ARF (acute renal failure) Problem: Acute (3) Dehydration Problem: Acute (4) Diarrhea Problem: Acute (5) Recurrent syncope Problem: Acute (6) Atypical chest pain Problem: Resolved (7) Acute on chronic renal failure Problem: Acute Qualifiers: Chronic kidney disease stage: stage 3 (moderate) (8) Diabetes mellitus Problem: Chronic Qualifiers: Diabetes mellitus type: type 2 Diabetes mellitus emt intermediate insulin use: with mcfp use Diabetes mellitus complication status: with circulatory complication Diabetes mellitus complication detail: with other circulatory complications Qualified Code(s): E11.59 - Type 2 diabetes mellitus with other circulatory complications (9) GERD (gastroesophageal reflux disease) Problem: Chronic (10) Diabetic peripheral neuropathy Problem: Chronic (11) Hypertension Problem: Chronic Qualifiers: Hypertension type: essential hypertension Qualified Code(s): I10 - Essential (primary) hypertension (12) CKD (chronic kidney disease) stage 3, GFR 30-59 ml/min Problem: Chronic (13) Complete below knee amputation of left lower extremity Problem: Chronic
[2020-07-09] MEDS: lamoTRIgine 100 MG TABLET PO SCH ×2 (16:54→20:40)
[2020-07-09] MEDS: ALPRAZolam 0.5 MG TABLET PO SCH (20:46)
[2020-07-09] MEDS ORDERED: METOPROLOL SUCCINATE 50 MG TABLET.SA PO SCH (21:00)
[2020-07-09] MEDS ORDERED: traZODone HCL 50 MG TABLET PO SCH (21:00)
[2020-07-10 06:36] LABS: Albumin * 3.4 gm/dl (3.4-5.0); Anion Gap 12.1 mmol/L (6.8-13.8); BUN/Creatinine Ratio 15.9 (9.0-21.6); Bilirubin, Total 0.2 mg/dL (0.0-1.1); Ca. Corrected For Albumin 8.7 mg/dL (8.4-10.2); Calcium * 8.5 mg/dL (7.9-10.9); Carbon Dioxide 26.9 mmol/L (24-32.6); Total Protein 6.1 gm/dL (6.2-8.2)
[2020-07-10] MEDS: LEVOTHYROXINE SODIUM 100 MCG TABLET PO SCH (06:59)
[2020-07-10] MEDS: INSULIN LISPRO 100 UNITS/ML VIAL SC SCH (07:00)
[2020-07-10] MEDS: TAMSULOSIN HCL 0.4 MG CAP.SR.24H PO SCH (08:31)
[2020-07-10] MEDS: ASPIRIN 81 MG TABLET.DR PO SCH (08:32)
[2020-07-10] MEDS: ARIPiprazole 10 MG TABLET PO SCH (08:32)
[2020-07-10] MEDS: ROSUVASTATIN CALCIUM 10 MG TABLET PO SCH (08:32)
[2020-07-10] MEDS: DULoxetine HCL 30 MG CAPSULE.SA PO SCH (08:36)
[2020-07-10] MEDS: INSULIN GLARGINE,HUM.REC.ANLOG 100 UNITS/ML VIAL SC SCH (08:37)
[2020-07-10] MEDS: VICTOZA SC SCH (08:38)
[2020-07-10] MEDS: FINASTERIDE 5 MG TABLET PO SCH (08:47)
[2020-07-10] MEDS ORDERED: GABAPENTIN 600 MG TABLET PO SCH (09:15)
--- NOTE | 2020-07-10 09:17 | DS ---
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 Diabetes mellitus complication status: with circulatory complication Diabetes mellitus complication detail: with other circulatory complications Qualified Code(s): E11.59 - Type 2 diabetes mellitus with other circulatory complications (9) GERD (gastroesophageal reflux disease) Problem: Chronic (10) Diabetic peripheral neuropathy Problem: Chronic (11) Hypertension Problem: Chronic Qualifiers: Hypertension type: essential hypertension Qualified Code(s): I10 - Essential (primary) hypertension (12) CKD (chronic kidney disease) stage 3, GFR 30-59 ml/min Problem: Chronic (13) Complete below knee amputation of left lower extremity Problem: Chronic Date of Discharge:: 07/10/20 Hospital Course: 55-year-old male admitted for acute kidney injury superimposed on CKD, severe dehydration, refractory diarrhea, and recurrent syncopal episodes was evaluated at bedside this morning was found to be afebrile and in no acute distress. Patient has shown significant improvement since arriving at our hospital. He was treated with IV hydration which was very effective in treating his acute kidney injury and dehydration. In fact, the patient is now at his baseline renal function. His diarrhea has also resolved and he denied any other symptoms during today's rounds. Therefore, we will discharge him on his routine medications except for Metformin given his declining renal function and refractory diarrhea. Instead the patient will be started on Ozempic to be taken with his Tresiba. The patient was instructed to come see me his PCP in the clinic for follow-up in 1 week, he will also be scheduled to get a follow-up CMP to recheck electrolytes and renal function. Procedures Performed: none Results and Findings: Lab Pending Results 07/08/20 16:32: WBC 11.4 H, RBC 4.96, Hgb 13.1 L, Hct 40.6 L, MCV 81.9, MCH 26.4 L, MCHC 32.3, RDW 13.7, Plt Count 204, MPV 9.2, Immature Gran % (Auto) 0.60 H, Immature Gran # (Auto) 0.07 H, Neutrophils % 62.3, Lymphocytes % 28.9, Monocytes % 5.6, Eosinophils % 2.0, Basophils % 0.6, Nucleated RBC % 0.0, Neutrophils # 7.1 H, Lymphocytes # 3.30, Monocytes # 0.6, Eosinophils # 0.2, Absolute Basophils 0.1 07/08/20 16:32: Sodium 129 L, Plasma Sodium 130, Potassium 4.2 D, Chloride 93 L, Carbon Dioxide 21.8 L, Anion Gap 18.4 H, BUN 48 H, Creatinine 4.34 H D, Est GFR (Non-Af Amer) 15 L D, BUN/Creatinine Ratio 11.1, Random Glucose 175 H, Calcium 8.0, Calcium Adj for Albumin 7.9 L, Total Bilirubin 0.4, AST 14, ALT 25, Alkaline Phosphatase 70, Troponin I Less than 0.017, Total Protein 6.6, Albumin 3.7, Lipase 348 07/08/20 16:32: D-Dimer 0.34 D 07/08/20 16:37: Phosphorus 4.7 H, Magnesium 1.6 07/08/20 18:38: SARS-CoV-2 (PCR) Not detected 07/08/20 21:35: Troponin I Less than 0.017 07/09/20 01:00: Ur Random Creatinine 69.5, Ur Random Sodium 45 07/09/20 06:28: Sodium 135, Plasma Sodium 136, Potassium 4.0, Chloride 102, Carbon Dioxide 23.9 L, Anion Gap 13.1, BUN 47 H, Creatinine 3.65 H D, Est GFR (Non-Af Amer) 18 L, BUN/Creatinine Ratio 12.9, Random Glucose 158 H, Calcium 7.4 L, Calcium Adj for Albumin 7.8 L, Phosphorus 5.0 H, Total Bilirubin 0.3, AST 15, ALT 20, Alkaline Phosphatase 59, Total Protein 5.7 L, Albumin 3.1 L 07/10/20 05:45: Sodium 137, Plasma Sodium 140, Potassium 5.0 H D, Chloride 103, Carbon Dioxide 26.9, Anion Gap 12.1, BUN 32 H, Creatinine 2.01 H D, Est GFR (Non-Af Amer) 37 L D, BUN/Creatinine Ratio 15.9, Random Glucose 289 H D, Calcium 8.5, Calcium Adj for Albumin 8.7, Total Bilirubin 0.2, AST 16, ALT 23, Alkaline Phosphatase 67, Total Protein 6.1 L, Albumin 3.4 Discharge Location: Home Disposition: Home Health Service Condition: Fair Face to Face Encounter completed per [facility] Guidelines: No Discharge Activity: Activity as tolerated Discharge Diet: Consistent carbs Referrals: Glory Barakat MD [Primary Care Provider] - Additional Patient Instructions (free text): Has [facility] ongoing, please call and fax discharge information to them. Follow up with Dr Barakat on ThursdayJuly 16 at 9:45am. Please fax chart information to his [facility] clinic at the [facility], fax # [phone]. Prescriptions (Any new or edited meds): Semaglutide [Ozempic] 0.5 mg SQ AC #8 pen.injctr Transmission Status: Pending to [facility] Complete Home Medications List: Complete Home Medication List: miconazole nitrate 2 % topical ointment 1 applic TP BID #56.7 g 09/29/19 blood sugar diagnostic See Rx Instructions .ROUTE .MEDSUPPLY #300 ea 10/25/19 emollient combination no.97 1 ea TP DAILY #454 g 01/05/20 aripiprazole 10 mg tablet 10 mg PO DAILY #30 tab 01/06/20 duloxetine 60 mg capsule,delayed release 60 mg PO DAILY #30 cap 01/06/20 lamotrigine 200 mg tablet 200 mg PO QPM #30 tab 01/06/20 naltrexone 50 mg tablet 50 mg PO DAILY #30 tab 01/06/20 levothyroxine 100 mcg tablet See Rx Instructions .ROUTE .COMPLEX #90 tab 01/10/20 metoprolol succinate 50 mg tablet,extended release 24 hr 50 mg PO DAILY #90 tab 01/10/20 atorvastatin 20 mg tablet See Rx Instructions .ROUTE .COMPLEX #90 tab 02/07/20 trazodone 50 mg tablet 50 mg PO HS #30 tab 02/08/20 Knee high compression stockings- medium grade 0 .ROUTE .MEDSUPPLY #1 ea 02/13/20 fluticasone propionate 50 mcg/actuation nasal spray,suspension 1 spray SHIMA Q12H PRN #18.2 ml 02/13/20 furosemide 20 mg tablet 20 mg PO DAILY #30 tab 02/13/20 tamsulosin 0.4 mg capsule 0.8 mg PO DAILY cap 02/13/20 gabapentin 600 mg tablet 600 mg PO Q12H #180 tab 03/19/20 omeprazole 20 mg capsule,delayed release See Rx Instructions .ROUTE .COMPLEX #90 cap 03/30/20 loperamide 2 mg capsule See Rx Instructions .ROUTE .COMPLEX #60 unknown measurement unit code: capsule 04/10/20 aspirin 81 mg tablet,delayed release 81 mg PO BID #60 tab 05/30/20 ferrous sulfate 325 mg (65 mg iron) tablet See Rx Instructions .ROUTE .COMPLEX #30 tab 05/30/20 lisinopril 20 mg tablet 20 mg PO DAILY #90 tab 06/12/20 finasteride 5 mg tablet See Rx Instructions .ROUTE .COMPLEX #90 tab 06/26/20 nateglinide 120 mg tablet 120 mg PO TID #270 tab 06/26/20 alprazolam 0.5 mg tablet 0.5 mg PO QHS #30 tab 07/06/20 Insulin Degludec [Tresiba Flextouch U-100] 70 unit SUBCUT DAILY 07/08/20 pen needle, diabetic 33 gauge x 5/32" See Rx Instructions .ROUTE .MEDSUPPLY #100 ea 07/09/20 Semaglutide [Ozempic] 0.5 mg SQ AC #8 pen.injctr 07/10/20
[2020-07-10 10:45] VITALS: BP 149/69
== END 2020-07-10 11:25 | disposition home health service (06) | DRG 683 ==
LOC: ER 16:08 → MS 16:08
PROVIDERS: ADMIT Family Medicine; ATTEND Family Medicine
DX: Z89.512 Acquired absence of left leg below knee; Z68.37 Body mass index [BMI] 37.0-37.9, adult; E11.42 Type 2 diabetes mellitus with diabetic polyneuropathy; R55 Syncope and collapse; N17.9 Acute kidney failure, unspecified; K21.9 Gastro-esophageal reflux disease without esophagitis; N18.30 Chronic kidney disease, stage 3 unspecified; E66.01 Morbid (severe) obesity due to excess calories; R07.89 Other chest pain; I50.32 Chronic diastolic (congestive) heart failure; F41.9 Anxiety disorder, unspecified; I13.0 Hypertensive heart and chronic kidney disease with heart failure and stage 1 through stage 4 chronic kidney disease, or unspecified chronic kidney disease; E86.0 Dehydration; F31.9 Bipolar disorder, unspecified; E11.22 Type 2 diabetes mellitus with diabetic chronic kidney disease

== ENCOUNTER 2020-08-17 10:18 | Observation (INO) ==
[2020-08-17] MEDS ORDERED: NORMAL SALINE 1,000 ML IV ONE ×3 (10:20→12:43)
[2020-08-17 11:07] LABS: Hematocrit 40.3 % (42.0-52.0); Hemoglobin 12.7 gm/dL (13.5-18.0); Mean Cell Volume 84.5 fl (78-100); Mean Corpuscular Hemoglobin 26.6 pg (27-31); Mean Corpuscular Hgb Conc 31.5 g/dl (32-36); Mean Platelet Volume 9.6 fl (8-11.3); Neutrophil # 6.5 K/mm3 (1.3-6.0); Neutrophil % 69.2 % (42-75.0); Platelet Count 209 K/mm3 (150-450); Red Blood Count 4.77 M/mm3 (4.7-6.0); Red Cell Distribution Width 14.5 % (11.5-14.0); White Blood Count 9.4 K/mm3 (4.0-10.5)
[2020-08-17 11:22] LABS: ALT 27 U/L (19-67); AST 26 U/L (0-48); Albumin * 3.5 gm/dl (3.4-5.0); Alkaline Phosphatase * 63 U/L (50-170); Anion Gap 17.6 mmol/L (6.8-13.8); BUN/Creatinine Ratio 14.2 (9.0-21.6); Bilirubin, Total 0.4 mg/dL (0.0-1.1); Blood Urea Nitrogen 33 mg/dL (6-23); Ca. Corrected For Albumin 8.4 mg/dL (8.4-10.2); Calcium * 8.3 mg/dL (7.9-10.9); Carbon Dioxide 21.7 mmol/L (24-32.6); Chloride 99 mmol/L (97-106); Glucose * 293 mg/dL (70-110); Potassium 5.3 mmol/L (3.4-4.6); Sodium 133 mmol/L (132-142); Total Protein 6.7 gm/dL (6.2-8.2); Troponin I Less than 0.017 ng/mL (0.00-0.10)
[2020-08-17 12:18] LABS: Urine Bilirubin Negative (NEGATIVE); Urine Blood Negative /ul (NEGATIVE); Urine Ketone Negative (NEGATIVE); Urine Nitrite Negative (NEGATIVE); Urine Protein Negative (NEGATIVE); Urine Specific Gravity 1.025 SP.GR. (1.005-1.030); Urine Urobilinogen Normal (NORMAL); Urine pH 5.5 pH (5.0-7.0)
[2020-08-17 12:27] LABS: Urine Appearance Clear (CLEAR); Urine Bacteria None Seen; Urine Color Yellow; Urine RBC None Seen /hpf (0-5); Urine WBC None Seen /hpf (0-5)
--- NOTE | 2020-08-17 13:07 | ERNOTE ---
Medical Problem HPI - Narrative Date of Service: 08/17/20 - General Chief Complaint: General Assessment Time Seen by Provider: 08/17/20 10:31 Source: patient Exam Limitations: no limitations - Immun/Allergies/Home Medications Immunizations: IMMUNIZATION HX Immunizations Up to Date Yes History of Influenza Vaccine More Information Required Hx Pneumococcal Vaccination More Information Required Allergies/Adverse Reactions: Allergies propoxyphene napsylate [From Darvocet-N 100] Allergy (Mild, Verified 07/19/20 11:17) RASH Home Medications: HOME MEDICATIONS miconazole nitrate 2 % topical ointment 1 applic TP BID #56.7 g 09/29/19 [Last Taken Unknown] emollient combination no.97 1 ea TP DAILY #454 g 01/05/20 [Last Taken Unknown] levothyroxine 100 mcg tablet See Rx Instructions .ROUTE .COMPLEX #90 tab 01/10/20 [Last Taken Unknown] metoprolol succinate 50 mg tablet,extended release 24 hr 50 mg PO DAILY #90 tab 01/10/20 [Last Taken Unknown] atorvastatin 20 mg tablet See Rx Instructions .ROUTE .COMPLEX #90 tab 02/07/20 [Last Taken Unknown] Knee high compression stockings- medium grade 0 .ROUTE .MEDSUPPLY #1 ea 02/13/20 [Last Taken Unknown] fluticasone propionate 50 mcg/actuation nasal spray,suspension 1 spray SHIMA Q12H PRN #18.2 ml 02/13/20 [Last Taken Unknown] furosemide 20 mg tablet 20 mg PO DAILY #30 tab 02/13/20 [Last Taken Unknown] tamsulosin 0.4 mg capsule 0.8 mg PO DAILY cap 02/13/20 [Last Taken Unknown] gabapentin 600 mg tablet 600 mg PO Q12H #180 tab 03/19/20 [Last Taken Unknown] omeprazole 20 mg capsule,delayed release See Rx Instructions .ROUTE .COMPLEX #90 cap 03/30/20 [Last Taken Unknown] aspirin 81 mg tablet,delayed release 81 mg PO BID #60 tab 05/30/20 [Last Taken Unknown] ferrous sulfate 325 mg (65 mg iron) tablet See Rx Instructions .ROUTE .COMPLEX #30 tab 05/30/20 [Last Taken Unknown] lisinopril 20 mg tablet 20 mg PO DAILY #90 tab 06/12/20 [Last Taken Unknown] finasteride 5 mg tablet See Rx Instructions .ROUTE .COMPLEX #90 tab 06/26/20 [Last Taken Unknown] nateglinide 120 mg tablet 120 mg PO TID #270 tab 06/26/20 [Last Taken Unknown] Insulin Degludec [Tresiba Flextouch U-100] 74 unit SUBCUT DAILY 07/08/20 [Last Taken Unknown] pen needle, diabetic 33 gauge x 5/32" See Rx Instructions .ROUTE .MEDSUPPLY #100 ea 07/09/20 [Last Taken Unknown] Semaglutide [Ozempic] 0.5 mg SQ AC #8 pen.injctr 07/10/20 [Last Taken Unknown] blood sugar diagnostic See Rx Instructions .ROUTE .MEDSUPPLY #300 ea 07/16/20 [Last Taken Unknown] metformin 500 mg 24 hr tablet,extended release 1,000 mg PO BID #360 tab 07/18/20 [Last Taken Unknown] lamotrigine 200 mg tablet 200 mg PO QPM #30 tab 07/25/20 [Last Taken Unknown] loperamide 2 mg capsule See Rx Instructions .ROUTE .COMPLEX #60 unknown measurement unit code: capsule 07/25/20 [Last Taken Unknown] aripiprazole 10 mg tablet 10 mg PO DAILY #30 tab 08/03/20 [Last Taken Unknown] duloxetine 60 mg capsule,delayed release 60 mg PO DAILY #30 cap 08/03/20 [Last Taken Unknown] naltrexone 50 mg tablet 50 mg PO DAILY #30 tab 08/03/20 [Last Taken Unknown] trazodone 50 mg tablet 50 mg PO HS #30 tab 08/03/20 [Last Taken Unknown] - History of Present History Narrative: Patient presents to the ED via EMS. He became ill approx 2 hours ago. Lightheaded and dizzy, weak all over. Has had similar episodes with dehydration. No CP or SOB. No fever. He is set to see [facility] for chromic diarrhea. No vomiting. Denies abdominal pain. Timing: constant Severity: severe Modifying Factors - (Improves): Present: other - nothing Modifying Factors - (Worsens): Present: other - nothing Review of Systems - Review of Systems Constitutional: Absent: fever EYE: Present: no symptoms reported ENT: Absent: sore throat Respiratory: Absent: shortness of breath Cardiology: Absent: chest pain Gastrointestinal/Abdominal: Present: See HPI Genitourinary: Absent: dysuria Neurological: Absent: weakness All Other Systems: All systems neg except as marked Medical History (Last Reviewed 08/17/20 @ 13:28 by Paulie Villavicencio MD) Anxiety disorder (Chronic) Bipolar II disorder (Chronic) Alcohol use some days Caffeine use every day Cigar smoker Lives with spouse No illicit drug use Ulcer of left foot Onset Date: 05/06/17 grade 3 diabetic ulceration of left foot Dr. 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 Erectile dysfunction Onset Date: 05/24/15 GERD (gastroesophageal reflux disease) Onset Date: 05/24/15 Hyperlipidemia Onset Date: Unknown Hypertension Onset Date: Unknown Hypothyroidism Onset Date: Unknown Iron deficiency anemia Morbid (severe) obesity due to excess calories Osteomyelitis Onset Date: 05/24/15 DVT (deep venous thrombosis) Onset Date: Unknown Incomplete bladder emptying Onset Date: 09/25/17 see [facility] Incontinence of bowel Onset Date: Unknown Incontinence of urine Onset Date: Unknown MRSA (methicillin resistant Staphylococcus aureus) Onset Date: Unknown Pseudomonas infection Onset Date: Unknown Surgical History: Surgical History (Last Reviewed 08/17/20 @ 13:31 by Paulie Villavicencio MD) History of cataract surgery Status post below knee amputation of left lower extremity Onset Date: ~12/04/17 Amputation at midfoot Onset Date: 05/22/14 due to osteomyelitis and abscess of left foot. Dr. Torres History of amputation of great toe Onset Date: 04/25/14 05/22/14 Brian, left great toe Dr. Ayala arthroplasty w/extensor tendon lengthening of left great toe. History of cardiac catheterization Onset Date: 2011 x2 History of colonoscopy Onset Date: 12/03/16 '05 [facility]-normal, ' [facility]-Diverticulosis, Recheck 10 years History of tonsillectomy Onset Date: 1974 1974 Hx of foot surgery Onset Date: 04/25/14 Dr. Ayala Arthroplasty with extensor tendon lengthening of left great toe saliva gland removal Onset Date: 1999 Family History: Family History (Last Reviewed 08/17/20 @ 13:32 by Paulie Villavicencio MD) Sister Breast CA Family history of thyroid problem Mother Diabetes Smoker Kidney failure Father Liver failure COPD (chronic obstructive pulmonary disease) Smoker Brother Gout Social History: (Last Reviewed 08/17/20 @ 13:32 by Paulie Villavicencio MD) Social History: adopted: No foster care: No intermediate: Yes Marital status: lives independently: No household members: spouse caregiver/support person: No current occupational status: disabled Highest level of school completed/degree received: some college, no degree Service: Yes branch: [employer] status: retired Tobacco: Smoking Status: Former smoker tobacco type: cigars Alcohol: alcohol intake: current alcohol intake frequency: holiday/special occasion Substance Use: substance use type: does not use Dietary Habits: caffeine: Yes caffeine comment: occasional Type: tea Physical Exam - Physical Exam General Appearance: Present: alert, no apparent distress, other - does not appear to feel well but in no acute distress Head Exam: Present: normal inspection, no evidence of injury Eye Exam: Normal inspection: bilateral, PERRL: bilateral Ears, Nose, Throat: Present: normal ENT inspection Neck: Present: normal inspection Respiratory: Present: no respiratory distress, normal breath sounds, no accessory muscle use, lungs clear Cardiovascular/Chest: Present: regular rate, rhythm, normal peripheral pulses Gastrointestinal/Abdominal: Present: normal bowel sounds, nontender, soft Back Exam: Absent: CVA tenderness (R), CVA tenderness (L) Extremity Exam: Present: other - left prosthesis. Mild pretibial edema right. Neurological Exam: Present: alert, no motor/sensory deficits Skin Exam: Present: normal color, warm/dry Progress - Results and Orders Patient's Lab Results:: I have reviewed the patient's lab results. - Vital Signs Patient's Vital Signs:: I have reviewed the patient's vital signs. Vital Signs: Vital Signs 08/17/20 10:18 08/17/20 10:36 08/17/20 11:05 Temperature 35.3 C L Pulse Rate 93 107 H 91 Respiratory Rate 28 H 19 Blood Pressure 89/47 L 92/49 O2 Sat by Pulse Oximetry 100 96 08/17/20 11:35 08/17/20 12:05 Temperature Pulse Rate 94 88 Respiratory Rate 11 L 18 Blood Pressure 108/60 119/60 O2 Sat by Pulse Oximetry 97 95 - EKG EKG #1 EKG: NSR EKG read: Interp. by me EKG Comments: NSR rate 90. Non-specific ST/T wave changes, no STEMI - Progress/Reassessment Chief Complaint: General Assessment Progress Note-Subjective: 08/17/20 13:33 Patient given 2L NS IV. BP improved but he still did not feel well enough to go home. No findings of sepsis. D/W Case management, obs at this time. I discussed warning signs and reasons to return as well as the need for close f/u. Dehydration with hypotension, improved with IV fluids. 08/17/20 13:34 Departure Clinical Impression: Dehydration, Hypotension, CKD (chronic kidney disease), Elevated lactic acid level, Diarrhea - Departure Disposition: Still a patient Condition: Fair
[2020-08-17] MEDS ORDERED: FLUTICASONE PROPIONATE 120 SPRAY INHALER NS PRN (22:48)
--- NOTE | 2020-08-17 22:48 | HP ---
Chief Complaint - Chief Complaint Date of Service: 08/17/20 Time of Service: 22:39 Chief Complaint: Diarrhea, weakness History of Present Illness: Paulo is a 55 yo male who presents to the [facility] ER with 3 days of frequent explosive, watery diarrhea. He reports a history of this at times and he felt he was getting dehydrated as he has in the past. He has an appointment with GI 09/10 to evaluate his symptoms as he is not sure what causes the symptoms. He denies change in diet and no sick contacts. No medication changes. He has not noticed any triggers to this episode. He reports a colonoscopy about 4 years ago that showed diverticulosis. He reports his diarrhea is not usually associated with abdominal pain, as he only occasionally has twinges of pain. No fevers. In the ER his creatinine was elevated above his baseline by about a point and his potassium was elevated above 5. He was given IV fluids. Medical History (Last Reviewed 08/17/20 @ 13:28 by Paulie Villavicencio MD) Anxiety disorder (Chronic) Bipolar II disorder (Chronic) Alcohol use some days Caffeine use every day Cigar smoker Lives with spouse No illicit drug use Ulcer of left foot Onset Date: 05/06/17 grade 3 diabetic ulceration of left foot Dr. 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 Erectile dysfunction Onset Date: 05/24/15 GERD (gastroesophageal reflux disease) Onset Date: 05/24/15 Hyperlipidemia Onset Date: Unknown Hypertension Onset Date: Unknown Hypothyroidism Onset Date: Unknown Iron deficiency anemia Morbid (severe) obesity due to excess calories Osteomyelitis Onset Date: 05/24/15 DVT (deep venous thrombosis) Onset Date: Unknown Incomplete bladder emptying Onset Date: 09/25/17 see [facility] Incontinence of bowel Onset Date: Unknown Incontinence of urine Onset Date: Unknown MRSA (methicillin resistant Staphylococcus aureus) Onset Date: Unknown Pseudomonas infection Onset Date: Unknown Surgical History: Surgical History (Last Reviewed 08/17/20 @ 13:31 by Paulie Villavicencio MD) History of cataract surgery Status post below knee amputation of left lower extremity Onset Date: ~12/04/17 Amputation at midfoot Onset Date: 05/22/14 due to osteomyelitis and abscess of left foot. Dr. Torres History of amputation of great toe Onset Date: 04/25/14 05/22/14 Brian, left great toe Dr. Ayala arthroplasty w/extensor tendon lengthening of left great toe. History of cardiac catheterization Onset Date: 2011 x2 History of colonoscopy Onset Date: 12/03/16 '05 [facility]-normal, ' [facility]-Diverticulosis, Recheck 10 years History of tonsillectomy Onset Date: 1974 1974 Hx of foot surgery Onset Date: 04/25/14 Dr. Ayala Arthroplasty with extensor tendon lengthening of left great toe saliva gland removal Onset Date: 1999 Family History: Family History (Last Reviewed 08/17/20 @ 13:32 by Paulie Villavicencio MD) Sister Breast CA Family history of thyroid problem Mother Diabetes Smoker Kidney failure Father Liver failure COPD (chronic obstructive pulmonary disease) Smoker Brother Gout Social History: (Last Reviewed 08/17/20 @ 13:32 by Paulie Villavicencio MD) Social History: adopted: No foster care: No intermediate: Yes Marital status: lives independently: No household members: spouse caregiver/support person: No current occupational status: disabled Highest level of school completed/degree received: some college, no degree Service: Yes branch: [employer] status: retired Tobacco: Smoking Status: Former smoker tobacco type: cigars Alcohol: alcohol intake: current alcohol intake frequency: holiday/special occasion Substance Use: substance use type: does not use Dietary Habits: caffeine: Yes caffeine comment: occasional Type: tea Review Of Systems (GEN) - Review of Systems Generalized/Overall Review: Present: Weakness. Absent: Chills, Fever Respiratory: Absent: Cough, Shortness of Breath Cardiac: Absent: Chest Pain, Edema Abdominal: Present: Diarrhea. Absent: Nausea, Vomiting, Hematemesis, Abdominal Pain, Constipation, Melena, Bright blood from rectum Genitourinary: Absent: Burning, Itching, Frequency Musculoskeletal: Present: No Symptoms Reported Neurological: Present: Weakness Skin: Present: No Symptoms Reported Endocrine: Present: No Symptoms Reported Immunizations: IMMUNIZATION HX Immunizations Up to Date Yes History of Influenza Vaccine More Information Required Hx Pneumococcal Vaccination More Information Required Allergies/Adverse Reactions: Allergies Allergy/AdvReac Type Severity Reaction Status Date / Time propoxyphene napsylate Allergy Mild RASH Verified 07/19/20 11:17 [From Darvocet-N 100] Home Medications: HOME MEDICATIONS emollient combination no.97 1 ea TP DAILY #454 g 01/05/20 [Last Taken Unknown] levothyroxine 100 mcg tablet See Rx Instructions .ROUTE .COMPLEX #90 tab 01/10/20 [Last Taken Unknown] metoprolol succinate 50 mg tablet,extended release 24 hr 50 mg PO DAILY #90 tab 01/10/20 [Last Taken Unknown] atorvastatin 20 mg tablet See Rx Instructions .ROUTE .COMPLEX #90 tab 02/07/20 [Last Taken Unknown] Knee high compression stockings- medium grade 0 .ROUTE .MEDSUPPLY #1 ea 02/13/20 [Last Taken Unknown] fluticasone propionate 50 mcg/actuation nasal spray,suspension 1 spray SHIMA Q12H PRN #18.2 ml 02/13/20 [Last Taken Unknown] furosemide 20 mg tablet 20 mg PO DAILY #30 tab 02/13/20 [Last Taken Unknown] tamsulosin 0.4 mg capsule 0.8 mg PO DAILY cap 02/13/20 [Last Taken Unknown] gabapentin 600 mg tablet 600 mg PO Q12H #180 tab 03/19/20 [Last Taken Unknown] omeprazole 20 mg capsule,delayed release See Rx Instructions .ROUTE .COMPLEX #90 cap 03/30/20 [Last Taken Unknown] aspirin 81 mg tablet,delayed release 81 mg PO BID #60 tab 05/30/20 [Last Taken Unknown] ferrous sulfate 325 mg (65 mg iron) tablet See Rx Instructions .ROUTE .COMPLEX #30 tab 05/30/20 [Last Taken Unknown] lisinopril 20 mg tablet 20 mg PO DAILY #90 tab 06/12/20 [Last Taken Unknown] finasteride 5 mg tablet See Rx Instructions .ROUTE .COMPLEX #90 tab 06/26/20 [Last Taken Unknown] nateglinide 120 mg tablet 120 mg PO TID #270 tab 06/26/20 [Last Taken Unknown] Insulin Degludec [Tresiba Flextouch U-100] 76 unit SUBCUT DAILY 07/08/20 [Last Taken Unknown] pen needle, diabetic 33 gauge x " See Rx Instructions .ROUTE .MEDSUPPLY #100 ea 07/09/20 [Last Taken Unknown] Semaglutide [Ozempic] 0.5 mg SQ AC #8 pen.injctr 07/10/20 [Last Taken 08/13/20] blood sugar diagnostic See Rx Instructions .ROUTE .MEDSUPPLY #300 ea 07/16/20 [Last Taken Unknown] metformin 500 mg 24 hr tablet,extended release 1,000 mg PO BID #360 tab 07/18/20 [Last Taken Unknown] lamotrigine 200 mg tablet 200 mg PO QPM #30 tab 07/25/20 [Last Taken Unknown] loperamide 2 mg capsule See Rx Instructions .ROUTE .COMPLEX #60 unknown measurement unit code: capsule 07/25/20 [Last Taken Unknown] aripiprazole 10 mg tablet 10 mg PO DAILY #30 tab 08/03/20 [Last Taken Unknown] duloxetine 60 mg capsule,delayed release 60 mg PO DAILY #30 cap 08/03/20 [Last Taken Unknown] naltrexone 50 mg tablet 50 mg PO DAILY #30 tab 08/03/20 [Last Taken Unknown] trazodone 50 mg tablet 50 mg PO HS #30 tab 08/03/20 [Last Taken Unknown] Exam - Exam Vital Signs: Vital Signs - Last Taken Temp 37.0 C 08/17/20 20:06 Pulse 102 H 08/17/20 22:07 Resp 20 08/17/20 20:06 BP 139/79 08/17/20 20:06 Pulse Ox 96 08/17/20 20:06 Constitutional: Present: Alert, Oriented x3, Cooperative ENT Exam: Present: hearing grossly normal Eye Exam: bilateral eye: normal inspection Respiratory: Present: lungs clear, normal breath sounds Cardiovascular/Chest: Present: regular rate, rhythm, no murmur Peripheral Pulses: radial (R): 2+, radial (L): 2+ Abdomen: Present: Normal bowel sounds, soft, nontender, nondistended, no rebound tenderness, no hepatospenomegaly, no masses, obese Extremity: Present: other - Left below the knee amputation Skin Exam: Present: normal color, warm/dry, no cyanosis Neurologic: Present: alert, normal mood/affect, oriented x 3 Appearance: Present: appropriate appearance, appropriate insight Eye contact: Present: cooperative, good eye contact, normal speech Thoughts: Present: normal thought pattern, no apparent hallucination Diagnostic Studies: Abnormal Lab Results 08/17/20 08/17/20 08/17/20 Range/Units 10:56 10:56 10:56 Hgb 12.7 L (13.5-18.0) gm/dL Hct 40.3 L (42.0-52.0) % MCH 26.6 L (27-31) pg MCHC 31.5 L (32-36) g/dl RDW 14.5 H (11.5-14.0) % Immature Gran % (Auto) 1.20 H (0.001-0.429) % Immature Gran # (Auto) 0.11 H (0.000-0.0310) K/mm3 Neutrophils # 6.5 H (1.3-6.0) K/mm3 Potassium 5.3 H (3.4-4.6) mmol/L Carbon Dioxide 21.7 L (24-32.6) mmol/L Anion Gap 17.6 H (6.8-13.8) mmol/L BUN 33 H (6-23) mg/dL Creatinine 2.32 H (0.4-1.4) mg/dL Est GFR (Non-Af Amer) 31 L (60-130) mL/min Random Glucose 293 H (70-110) mg/dL Lactic Acid, Venous 4.5 H* (0.4-2.0) mmol/L Urine Glucose (UA) (NEGATIVE) mg/dL 08/17/20 08/17/20 Range/Units 12:05 13:40 Hgb (13.5-18.0) gm/dL Hct (42.0-52.0) % MCH (27-31) pg MCHC (32-36) g/dl RDW (11.5-14.0) % Immature Gran % (Auto) (0.001-0.429) % Immature Gran # (Auto) (0.000-0.0310) K/mm3 Neutrophils # (1.3-6.0) K/mm3 Potassium (3.4-4.6) mmol/L Carbon Dioxide (24-32.6) mmol/L Anion Gap (6.8-13.8) mmol/L BUN (6-23) mg/dL Creatinine (0.4-1.4) mg/dL Est GFR (Non-Af Amer) (60-130) mL/min Random Glucose (70-110) mg/dL Lactic Acid, Venous 2.9 H* (0.4-2.0) mmol/L Urine Glucose (UA) 500 H (NEGATIVE) mg/dL Laboratory Results WBC 9.4 K/mm3 (4.0-10.5) 08/17/20 10:56 RBC 4.77 M/mm3 (4.7-6.0) 08/17/20 10:56 Hgb 12.7 gm/dL (13.5-18.0) L 08/17/20 10:56 Hct 40.3 % (42.0-52.0) L 08/17/20 10:56 MCV 84.5 fl (78-100) 08/17/20 10:56 MCH 26.6 pg (27-31) L 08/17/20 10:56 MCHC 31.5 g/dl (32-36) L 08/17/20 10:56 RDW 14.5 % (11.5-14.0) H 08/17/20 10:56 Plt Count 209 K/mm3 (150-450) 08/17/20 10:56 MPV 9.6 fl (8-11.3) 08/17/20 10:56 Immature Gran % (Auto) 1.20 % (0.001-0.429) H 08/17/20 10:56 Immature Gran # (Auto) 0.11 K/mm3 (0.000-0.0310) H 08/17/20 10:56 Neutrophils % 69.2 % (42-75.0) 08/17/20 10:56 Lymphocytes % 20.5 % (20-51) 08/17/20 10:56 Monocytes % 6.6 % (0.0-9) 08/17/20 10:56 Eosinophils % 1.8 % (0.0-3.0) 08/17/20 10:56 Basophils % 0.7 % (0.0-1.0) 08/17/20 10:56 Nucleated RBC % 0.0 k/mm3 (0-1) 08/17/20 10:56 Neutrophils # 6.5 K/mm3 (1.3-6.0) H 08/17/20 10:56 Lymphocytes # 1.92 k/mm3 (1.5-3.5) 08/17/20 10:56 Monocytes # 0.6 k/mm3 (0.0-1.0) 08/17/20 10:56 Eosinophils # 0.2 k/mm3 (0.0-0.7) 08/17/20 10:56 Absolute Basophils 0.1 k/mm3 (0.0-0.1) 08/17/20 10:56 Sodium 133 mmol/L (132-142) 08/17/20 10:56 Plasma Sodium 136 mmol/L (130-142) 08/17/20 10:56 Potassium 5.3 mmol/L (3.4-4.6) H 08/17/20 10:56 Chloride 99 mmol/L (97-106) 08/17/20 10:56 Carbon Dioxide 21.7 mmol/L (24-32.6) L 08/17/20 10:56 Anion Gap 17.6 mmol/L (6.8-13.8) H 08/17/20 10:56 BUN 33 mg/dL (6-23) H 08/17/20 10:56 Creatinine 2.32 mg/dL (0.4-1.4) H 08/17/20 10:56 Est GFR (Non-Af Amer) 31 mL/min (60-130) L 08/17/20 10:56 BUN/Creatinine Ratio 14.2 (9.0-21.6) 08/17/20 10:56 Random Glucose 293 mg/dL (70-110) H 08/17/20 10:56 Lactic Acid, Venous 2.9 mmol/L (0.4-2.0) H* 08/17/20 13:40 Calcium 8.3 mg/dL (7.9-10.9) 08/17/20 10:56 Calcium Adj for Albumin 8.4 mg/dL (8.4-10.2) 08/17/20 10:56 Total Bilirubin 0.4 mg/dL (0.0-1.1) 08/17/20 10:56 AST 26 U/L (0-48) 08/17/20 10:56 ALT 27 U/L (19-67) 08/17/20 10:56 Alkaline Phosphatase 63 U/L (50-170) 08/17/20 10:56 Troponin I Less than 0.017 ng/mL (0.00-0.10) 08/17/20 10:56 Total Protein 6.7 gm/dL (6.2-8.2) 08/17/20 10:56 Albumin 3.5 gm/dl (3.4-5.0) 08/17/20 10:56 Urine Color Yellow 08/17/20 12:05 Urine Appearance Clear (CLEAR) 08/17/20 12:05 Urine pH 5.5 pH (5.0-7.0) 08/17/20 12:05 Ur Specific [place] 1.025 SP.GR. (1.005-1.030) 08/17/20 12:05 Urine Protein Negative mg/dL (NEGATIVE) 08/17/20 12:05 Urine Glucose (UA) 500 mg/dL (NEGATIVE) H 08/17/20 12:05 Urine Ketones Negative mg/dL (NEGATIVE) 08/17/20 12:05 Urine Blood Negative /ul (NEGATIVE) 08/17/20 12:05 Urine Nitrate Negative (NEGATIVE) 08/17/20 12:05 Urine Bilirubin Negative mg/dl (NEGATIVE) 08/17/20 12:05 Urine Urobilinogen Normal EU/dl (NORMAL) 08/17/20 12:05 Ur Leukocyte Esterase Negative /ul (NEGATIVE) 08/17/20 12:05 Urine RBC None seen /hpf (0-5) 08/17/20 12:05 Urine WBC None seen /hpf (0-5) 08/17/20 12:05 Ur Epithelial Cells 0-5 /hpf (0-5) 08/17/20 12:05 Urine Bacteria None seen (NONE) 08/17/20 12:05 Urine Culture Comments No culture indicated 08/17/20 12:05 SARS-CoV-2 (PCR) Not detected (NotDetected) 08/17/20 13:30 Assessment/Plan - Narrative Narrative: Paulo is a 55 yo male with moderate dehydration based on acute kidney injury and hyperkalemia. This is secondary to diarrhea of unknown cause. At this time his stools have decreased in frequency. Will continue IV fluids. Will check CDIFF and stool culture if he has another loose stool. Will monitor potassium and renal function with fluid replacement. Will admit to observation, anticipate discharge to home tomorrow after fluids. - Assessment/Plan (1) ARF (acute renal failure) Problem: Resolved (2) Dehydration Problem: Resolved (3) Diarrhea Problem: Resolved (4) Hyperkalemia Problem: Acute
[2020-08-17] MEDS: GABAPENTIN 600 MG TABLET PO SCH (23:14)
[2020-08-17 23:36] LABS: Albumin * 3.4 gm/dl (3.4-5.0); Anion Gap 13.6 mmol/L (6.8-13.8); Bilirubin, Total 0.3 mg/dL (0.0-1.1); Ca. Corrected For Albumin 8.4 mg/dL (8.4-10.2); Calcium * 8.2 mg/dL (7.9-10.9); Carbon Dioxide 26.1 mmol/L (24-32.6); Potassium 4.7 mmol/L (3.4-4.6); Total Protein 6.4 gm/dL (6.2-8.2)
[2020-08-18] MEDS: NORMAL SALINE 1,000 ML IV PRN ×2 (00:47→07:28)
[2020-08-18 06:12] LABS: Albumin * 3.2 gm/dl (3.4-5.0); Anion Gap 11.3 mmol/L (6.8-13.8); BUN/Creatinine Ratio 13.8 (9.0-21.6); Bilirubin, Total 0.3 mg/dL (0.0-1.1); Ca. Corrected For Albumin 8.7 mg/dL (8.4-10.2); Calcium * 8.4 mg/dL (7.9-10.9); Carbon Dioxide 28.5 mmol/L (24-32.6); Potassium 4.8 mmol/L (3.4-4.6); Total Protein 6.2 gm/dL (6.2-8.2)
[2020-08-18] MEDS ORDERED: LEVOTHYROXINE SODIUM 100 MCG TABLET PO SCH (07:00)
[2020-08-18] MEDS: GABAPENTIN 600 MG TABLET PO SCH (08:42)
[2020-08-18] MEDS ORDERED: DULoxetine HCL 30 MG CAPSULE.SA PO SCH (09:00)
[2020-08-18] MEDS ORDERED: TRESIBA 100 UNIT/ML SC SCH (09:00)
[2020-08-18] MEDS ORDERED: ARIPiprazole 10 MG TABLET PO SCH (09:00)
[2020-08-18] MEDS ORDERED: METOPROLOL SUCCINATE 50 MG TABLET.SA PO SCH (09:00)
[2020-08-18] MEDS ORDERED: ASPIRIN 81 MG TABLET.DR PO SCH (09:00)
[2020-08-18] MEDS ORDERED: LISINOPRIL 20 MG TABLET PO SCH (09:00)
[2020-08-18] MEDS ORDERED: FINASTERIDE 5 MG TABLET PO SCH (09:00)
[2020-08-18] MEDS ORDERED: ROSUVASTATIN CALCIUM 10 MG TABLET PO SCH ×2 (09:00→21:00)
[2020-08-18] MEDS ORDERED: NALTREXONE HCL 50 MG TABLET PO SCH (09:00)
[2020-08-18] MEDS ORDERED: TAMSULOSIN HCL 0.4 MG CAP.SR.24H PO SCH (09:00)
[2020-08-18] MEDS ORDERED: NATEGLINIDE 120 MG PO SCH (09:00)
--- NOTE | 2020-08-18 09:09 | DS ---
(1) ARF (acute renal failure) Problem: Resolved (2) Dehydration Problem: Resolved (3) Diarrhea Problem: Resolved (4) Hyperkalemia Problem: Acute Date of Discharge:: 08/18/20 Hospital Course: Paulo is a 55 yo male that was admitted for acute kidney injury from moderate dehydration, secondary to diarrhea. He had diarrhea for 3 days but upon admission it appears to stop spontaneously. This is something he has dealt with for years and has a GI appointment at [facility] on 09/10/20. He was given IV fluids to treat dehydration and acute kidney injury and these resolved. He is feeling much better and is no longer having diarrhea. He will be discharged to home. He will continue his services with [facility] nursing without any changes. Procedures Performed: none Results and Findings: Lab Pending Results 08/17/20 10:56: WBC 9.4, RBC 4.77, Hgb 12.7 L, Hct 40.3 L, MCV 84.5, MCH 26.6 L, MCHC 31.5 L, RDW 14.5 H, Plt Count 209, MPV 9.6, Immature Gran % (Auto) 1.20 H, Immature Gran # (Auto) 0.11 H, Neutrophils % 69.2, Lymphocytes % 20.5, Monocytes % 6.6, Eosinophils % 1.8, Basophils % 0.7, Nucleated RBC % 0.0, Neutrophils # 6.5 H, Lymphocytes # 1.92, Monocytes # 0.6, Eosinophils # 0.2, Absolute Basophils 0.1 08/17/20 10:56: Sodium 133, Plasma Sodium 136, Potassium 5.3 H, Chloride 99, Carbon Dioxide 21.7 L, Anion Gap 17.6 H, BUN 33 H, Creatinine 2.32 H, Est GFR (Non-Af Amer) 31 L, BUN/Creatinine Ratio 14.2, Random Glucose 293 H, Calcium 8.3, Calcium Adj for Albumin 8.4, Total Bilirubin 0.4, AST 26, ALT 27, Alkaline Phosphatase 63, Troponin I Less than 0.017, Total Protein 6.7, Albumin 3.5 08/17/20 10:56: Lactic Acid, Venous 4.5 H* 08/17/20 12:05: Urine Color Yellow, Urine Appearance Clear, Urine pH 5.5, Ur Specific [place] 1.025, Urine Protein Negative, Urine Glucose (UA) 500 H, Urine Ketones Negative, Urine Blood Negative, Urine Nitrate Negative, Urine Bilirubin Negative, Urine Urobilinogen Normal, Ur Leukocyte Esterase Negative, Urine RBC None seen, Urine WBC None seen, Ur Epithelial Cells 0-5, Urine Bacteria None seen, Urine Culture Comments No culture indicated 08/17/20 13:30: SARS-CoV-2 (PCR) Not detected 08/17/20 13:40: Lactic Acid, Venous 2.9 H* 08/17/20 23:08: Sodium 139, Plasma Sodium 141, Potassium 4.7 H, Chloride 104, Carbon Dioxide 26.1, Anion Gap 13.6, BUN 30 H, Creatinine 2.15 H, Est GFR (Non- Af Amer) 34 L, BUN/Creatinine Ratio 14.0, Random Glucose 196 H D, Calcium 8.2, Calcium Adj for Albumin 8.4, Total Bilirubin 0.3, AST 21, ALT 24, Alkaline Phosphatase 64, Total Protein 6.4, Albumin 3.4 08/18/20 05:45: Sodium 142, Plasma Sodium 142, Potassium 4.8 H, Chloride 107 H, Carbon Dioxide 28.5, Anion Gap 11.3, BUN 26 H, Creatinine 1.88 H, Est GFR (Non- Af Amer) 40 L, BUN/Creatinine Ratio 13.8, Random Glucose 117 H D, Calcium 8.4, Calcium Adj for Albumin 8.7, Total Bilirubin 0.3, AST 19, ALT 21, Alkaline Phosphatase 57, Total Protein 6.2, Albumin 3.2 L Discharge Location: Home Disposition: Home Health Service Home Health Agency: [facility] Condition: Fair Discharge Activity: Activity as tolerated Discharge Diet: Consistent carbs Referrals: Glory Barakat MD [Primary Care Provider] - One Week Problem Oriented Discharge Instructions to Patient/Family: Acute Kidney Injury, Adult Additional Patient Instructions (free text): Resume Home Health through [facility]. Call Maira with report at [phone] and fax signed orders and medications to [phone]. Complete Home Medications List: Complete Home Medication List: emollient combination no.97 1 ea TP DAILY #454 g 01/05/20 levothyroxine 100 mcg tablet See Rx Instructions .ROUTE .COMPLEX #90 tab 01/10/20 metoprolol succinate 50 mg tablet,extended release 24 hr 50 mg PO DAILY #90 tab 01/10/20 atorvastatin 20 mg tablet See Rx Instructions .ROUTE .COMPLEX #90 tab 02/07/20 Knee high compression stockings- medium grade 0 .ROUTE .MEDSUPPLY #1 ea 02/13/20 fluticasone propionate 50 mcg/actuation nasal spray,suspension 1 spray SHIMA Q12H PRN #18.2 ml 02/13/20 furosemide 20 mg tablet 20 mg PO DAILY #30 tab 02/13/20 tamsulosin 0.4 mg capsule 0.8 mg PO DAILY cap 02/13/20 gabapentin 600 mg tablet 600 mg PO Q12H #180 tab 03/19/20 omeprazole 20 mg capsule,delayed release See Rx Instructions .ROUTE .COMPLEX #90 cap 03/30/20 aspirin 81 mg tablet,delayed release 81 mg PO BID #60 tab 05/30/20 ferrous sulfate 325 mg (65 mg iron) tablet See Rx Instructions .ROUTE .COMPLEX #30 tab 05/30/20 lisinopril 20 mg tablet 20 mg PO DAILY #90 tab 06/12/20 finasteride 5 mg tablet See Rx Instructions .ROUTE .COMPLEX #90 tab 06/26/20 nateglinide 120 mg tablet 120 mg PO TID #270 tab 06/26/20 Insulin Degludec [Tresiba Flextouch U-100] 76 unit SUBCUT DAILY 07/08/20 pen needle, diabetic 33 gauge x 5/32" See Rx Instructions .ROUTE .MEDSUPPLY #100 ea 07/09/20 Semaglutide [Ozempic] 0.5 mg SQ AC #8 pen.injctr 07/10/20 blood sugar diagnostic See Rx Instructions .ROUTE .MEDSUPPLY #300 ea 07/16/20 metformin 500 mg 24 hr tablet,extended release 1,000 mg PO BID #360 tab 07/18/20 lamotrigine 200 mg tablet 200 mg PO QPM #30 tab 07/25/20 loperamide 2 mg capsule See Rx Instructions .ROUTE .COMPLEX #60 unknown measurement unit code: capsule 07/25/20 aripiprazole 10 mg tablet 10 mg PO DAILY #30 tab 08/03/20 duloxetine 60 mg capsule,delayed release 60 mg PO DAILY #30 cap 08/03/20 naltrexone 50 mg tablet 50 mg PO DAILY #30 tab 08/03/20 trazodone 50 mg tablet 50 mg PO HS #30 tab 08/03/20
[2020-08-18 10:02] VITALS: BP 147/76
[2020-08-18] MEDS ORDERED: lamoTRIgine 100 MG TABLET PO SCH (17:00)
[2020-08-18] MEDS ORDERED: traZODone HCL 50 MG TABLET PO SCH (21:00)
== END 2020-08-18 10:05 | disposition home health service (06) ==
LOC: ER 10:18 → MS 10:18
PROVIDERS: ADMIT Family Medicine; ATTEND Family Medicine